=== PATIENT | female | born 1940 | race Caucasian/White ===

== ENCOUNTER 2018-08-30 15:48 | Inpatient (IN) ==
[2018-08-30] MEDS ORDERED: Naloxone 0.4 MG/ML INJ IVP PRN (18:13)
[2018-08-30] MEDS ORDERED: *HR* Dextrose 50 % in Water (Syg) 50 ML SYRINGE IVP PRN (18:15)
[2018-08-30] MEDS ORDERED: D5% in Water 1,000 ML IVC PRN (18:15)
[2018-08-30] MEDS ORDERED: Dextrose Gel 15 GM/37.5 ML TUBE PO PRN ×2 (18:15)
[2018-08-30] MEDS: D5% in 0.9% NACL 1,000 ML IVC SCH (18:56)
[2018-08-30 19:12] LABS: Hematocrit 34.5 % (35.3-44.9); Hemoglobin 11.5 g/dL (11.5-15.4); Mean Corpuscular HGB Conc 33.3 g/dL (31.6-35.5); Mean Corpuscular Hemoglobin 31.6 pg (28.0-33.3); Mean Corpuscular Volume 94.8 fL (83.0-100.0); Mean Platelet Volume 9.2 fL (9.4-12.4); Platelet Count 457 K/mcL (140-400); Red Blood Count 3.64 M/mcL (3.82-4.97); Red Cell Distribution Width 13.2 % (11.5-14.5)
[2018-08-30 19:22] LABS: Prothrombin Time 11.5 Seconds (9.4-12.1)
[2018-08-30 19:25] LABS: Activated Partial Thrombo Time 28.1 Seconds (26.0-36.0)
[2018-08-30 19:33] LABS: BUN/Creatinine Ratio 20 (6-26); Blood Urea Nitrogen 13 mg/dL (8-23); Calcium 8.8 mg/dL (8.6-10.3); Carbon Dioxide 30 mEq/L (23-29); Chloride 86 mEq/L (98-107); Glucose 83 mg/dL (70-105); Osmolality,Calculated 255 (280-300); Potassium 4.1 mEq/L (3.5-5.1); Sodium 123 mEq/L (136-145); eGFR For Non-African Americans > 60 (> 60)
[2018-08-30 19:34] LABS: Magnesium 1.8 mg/dL (1.6-2.6); Phosphorous 2.1 mg/dL (2.7-4.5)
[2018-08-30 19:35] LABS: Troponin I < 0.03 ng/mL (< 0.04)
[2018-08-30] MEDS ORDERED: Albuterol 2.5 MG/3 ML NEBULIZER IH PRN (19:51)
--- NOTE | 2018-08-30 20:00 | Internal Med History&Physical ---
Date of Encounter: 08/30/18 Time of Encounter: 19:35 Internal Medicine - H&P: HPI Chief complaint: cough; fatigue; poor PO intake Admitted From: Hospital to Hospital Transfer Plans for Post Hospital Care: Home History of present illness: Ms. Alegria is a 78 year old female who presents in transfer from [facility] for concerns of residual pneumonia, decreased oral fluid intake, fatigue, and altered mental status. She was recently hospitalized at [place] for pneumonia. Since since her discharge a few days ago, her status has declined at home including lack of fluid intake, increased confusion, weakness, and fatigue. She was therefore brought to the ER [place] and then transferred to [facility] for ongoing care. Of note, patient was noted to be dehydrated and hyponatremic there. Upon arrival to [facility], I saw her shortly after arrival. There are no family members present. Patient is alert, oriented 2, and somewhat confused. She admits to feeling fatigued, weak, having poor by mouth intake, cough, and mild dyspnea. She does not recall when she was hospitalized for pneumonia, and she thought she was in [facility] rather than [facility]. I reviewed her old records from [facility] stay just last week and note that she had sputum culture positive for MRSA. No further history can be obtained from patient at this time. Past Med Surg Social Fam HX - Past Medical History Attestation: Yes The following information was validated with the patient. Source: patient (limited hist as she was poor historian), old records reviewed Medical history: arthritis, COPD, GERD, hypertension, osteoporosis Psychiatric history: no psych history - Past Surgical History Surgical History: hysterectomy - Social History Smoking Status: Never smoker Smokeless Tobacco Status: No Alcohol use: none Drug use: none Current living situation: Home, With Family - Family History Mother Adopted: No Family Member Ethnicity: Non- Living Status: Hx Family Cardiac Disorders: (unknown) Hx Family Respiratory Disorders: (unknown) Hx Family Cancer: (unknown) Hx Family GI Disorders: (unknown) Hx Family Endocrine Disorder: (unknown) Hx Family Neuromuscular Disorders: (unknown) Hx Family Neurologic Disorders: (unknown) Hx Family HEENT Disorders: (unknown) Hx Family Autoimmune Disorders: (unknown) Internal Medicine - H&P: Meds Calcium Carbonate/Vitamin D3 [Calcium 600-Vit D3 800 Tablet] 1 each PO BID 06/19/15 [History] Cevimeline HCl [Evoxac] 30 mg PO TID 06/19/15 [History] Losartan [Cozaar] 50 mg PO DAILY 06/19/15 [History] TraMADol [Ultram] 100 mg PO Q6HR PRN 06/19/15 [History] Iron Ps Complex/B12/Folic Acid [Iferex 150 Forte Capsule] 1 each PO BID 12/26/16 [History] Metoprolol [Lopressor] 100 mg PO DAILY 04/08/18 [History] Buspirone HCl [Buspar] 7.5 mg PO BID 04/09/18 [History] Ranitidine HCl [Zantac] 300 mg PO DAILY 04/09/18 [History] amLODIPine [Norvasc] 10 mg PO DAILY 04/09/18 [History] Albuterol Neb [Proventil Neb] 2.5 mg IH [id number] PRN inhsol 04/14/18 [Rx] Docusate [Colace] 100 mg PO BID capsule 04/14/18 [Rx] Ipratropium/Albuterol Neb [Duoneb] 3 ml IH [id number] inhsol 04/14/18 [Rx] Ascorbic Acid [Vitamin C] 250 mg PO BID tablet 08/26/18 [Rx] Cholecalciferol (D-3) [Vitamin D] 1,000 unit PO DAILY tablet 08/26/18 [Rx] Polyethylene Glycol 3350 [MiraLAX] 17 gm PO DAILY powd.pack 08/26/18 [Rx] Sertraline [Zoloft] 50 mg PO DAILY tablet 08/26/18 [Rx] Allergy/AdvReac Type Severity Reaction Status Date / Time ciprofloxacin [From Cipro] Allergy Hallucinati Verified 08/30/18 13:13 ng - Constitutional Constitutional: anorexia, fatigue, weakness, no fever(s) - EENT Eyes: no blurry vision, no change in vision Ears: no ear pain, no tinnitus Nose, mouth and throat: no nasal congestion, no sore throat - Cardiovascular Cardiovascular ROS IM: no chest pain, no orthopnea, no syncope - Respiratory Respiratory: cough, dyspnea, chest congestion, no hemoptysis, no change in phlegm color - Gastrointestinal Gastrointestinal: nausea, no abdominal pain, no diarrhea, no hematemesis, no hematochezia, no melena, no vomiting - Genitourinary Genitourinary: no dysuria, no flank pain, no hematuria - Musculoskeletal Musculoskeletal ROS IM: arthralgias, no back pain - Integumentary Integumentary IM: no rash, no jaundice - Neurological Neurological ROS: confusion, no frequent falls, no headache(s) - Psychiatric Psychiatric: no anxiety, no depression - Endocrine Endocrine IM: no polydipsia, no polyuria - Allergic/Immunologic Allergic/Immunologic: no GI upset with certain foods - Constitutional Vitals: Temp Pulse Resp BP Pulse Ox 98.8 F 82 18 159/73 99 08/30/18 19:02 08/30/18 19:02 08/30/18 19:02 08/30/18 19:02 08/30/18 19:02 General appearance: Present: cooperative, A&O X 2, pleasant, answers questions appropriately Exam: somewhat pleasantly confused; appears moderately dehydrated on exam - Head Head exam: Present: atraumatic, normal inspection - Eye Eye exam: Present: EOMI, PERRL. Absent: scleral icterus - ENT ENT exam: Present: mucous membranes dry, normal exam, normal oropharynx - Neck Neck exam general surgery: Present: full ROM, supple. Absent: tenderness, nuchal rigidity, thyromegaly - Respiratory Respiratory exam: Present: rales (righ base), rhonchi. Absent: chest wall tenderness, prolonged expiratory phase, respiratory distress, wheezes, tachypnea - Cardiovascular Cardiovascular exam: Present: +S1, +S2, systolic murmur (grade 3). Absent: diastolic murmur, JVD, tachycardia - GI/Abdominal GI/Abdominal exam: Present: normal bowel sounds. Absent: guarding, hepatomegaly, mass, rebound, splenomegaly, tenderness - Extremities Exam Extremities exam: Present: full ROM, normal capillary refill, warm, radial pulses palpable and symmetrical. Absent: calf tenderness, pedal edema, tenderness - Back Exam Back exam: Absent: CVA tenderness (L), CVA tenderness (R) - Neurological Exam Neurological exam: Present: alert, CN II-XII intact, no focal deficits. Absent: oriented X3 (x 2) - Psychiatric Psychiatric exam: Present: flat affect - Skin Skin exam: Present: dry, intact, warm Additional comments: + skin tenting c/w dehydration Internal Med - H&P Results - Labs CBC & Chem 7: 08/30/18 18:54 08/30/18 18:54 Labs: Short CBC 08/30/18 Range/Units 18:54 WBC 18.0 H (4.3-11.1) K/mcL Hgb 11.5 (11.5-15.4) g/dL Hct 34.5 L (35.3-44.9) % Plt Count 457 H (140-400) K/mcL BMP 08/30/18 18:54 Sodium 123 L Potassium 4.1 Chloride 86 L Carbon Dioxide 30 H BUN 13 Creatinine 0.65 Glucose 83 Calcium 8.8 Cardiac Enzymes 08/30/18 Range/Units 18:54 Troponin I < 0.03 (< 0.04) ng/mL - EKG Data -: EKG Interpreted by Myself - EKG Data Prior EKG available for review: no EKG comments: 08/30/18 20:04 NSR; old inferior SC; no acute ST-T changes - Diagnostic Studies Chest x-ray Status: image reviewed by me Additional comments: improved RML infiltrate; still suspect residual pneumonia compared to last week's CXR. - Assessment and plan (1) MRSA pneumonia Current Visit: Yes Status: Acute Assessment and plan: 1. Will place patient in MRSA precautions. 2. Will continue IV Vancomycin and Zosyn. 3. Will re-culture sputum if able to collect. 4. Once improving clinically, may switch to oral antibiotics pending culture results. 5. Follow blood cultures. 6. Oxygen and aerosols as needed for support. Qualifiers: Laterality: right Lung location: middle lobe of lung Qualified Code(s): J15.212 - Pneumonia due to Methicillin resistant Staphylococcus aureus (2) Hyponatremia Current Visit: Yes Status: Acute Assessment and plan: 1. Based upon history and exam, suspect hypovolemic hyponatremic dehydration as etiology, in addition to pneumonia. 2. Will gingerly hydrate with IVF and monitor glucose closely. 3. Will order urine sodium and urine osmoles. 4. Med list does not include any diuretics. There are no reports of excessive vomiting or diarrhea. (3) Dehydration Current Visit: Yes Status: Acute Assessment and plan: 1. Carla IVF hydration as above. 2. Monitor serum chemistries closely. 3. Oral intake as able. (4) Encephalopathy acute Current Visit: Yes Status: Acute Assessment and plan: 1. Suspect due to MRSA pneumonia and dehydration. 2. Monitor clinically and await family presence to confirm baseline. 3. Avoid mind-altering medications. (5) DVT prophylaxis Current Visit: Yes Status: Acute Assessment and plan: 1. Heparin SQ.
[2018-08-30 23:21] LABS: BUN/Creatinine Ratio 19 (6-26); Blood Urea Nitrogen 11 mg/dL (8-23); Calcium 8.2 mg/dL (8.6-10.3); Carbon Dioxide 24 mEq/L (23-29); Chloride 87 mEq/L (98-107); Glucose 88 mg/dL (70-105); Magnesium 1.6 mg/dL (1.6-2.6); Osmolality,Calculated 253 (280-300); Potassium 3.7 mEq/L (3.5-5.1); Sodium 122 mEq/L (136-145); eGFR For Non-African Americans > 60 (> 60)
[2018-08-31] MEDS: Insulin LISPRO 300 UNITS/3 ML VIAL SQ SCH ×3 (00:25→13:19)
[2018-08-31] MEDS: Piperacillin/Tazobactam 3.375 GM in 0.9 % Sodium Chloride Mini Bag 100 ML IVPB SCH ×4 (00:40→23:51)
[2018-08-31] MEDS: *HR* Heparin 5,000 UNIT/ML VIAL SQ SCH ×4 (00:40→23:51)
[2018-08-31 04:43] LABS: BUN/Creatinine Ratio 11 (6-26); Blood Urea Nitrogen 8 mg/dL (8-23); Calcium 8.3 mg/dL (8.6-10.3); Carbon Dioxide 30 mEq/L (23-29); Chloride 85 mEq/L (98-107); Glucose 110 mg/dL (70-105); Magnesium 1.7 mg/dL (1.6-2.6); Osmolality,Calculated 253 (280-300); Potassium 3.7 mEq/L (3.5-5.1); Sodium 122 mEq/L (136-145); eGFR For Non-African Americans > 60 (> 60)
[2018-08-31 11:39] LABS: BUN/Creatinine Ratio 11 (6-26); Blood Urea Nitrogen 7 mg/dL (8-23); Calcium 8.3 mg/dL (8.6-10.3); Carbon Dioxide 29 mEq/L (23-29); Chloride 86 mEq/L (98-107); Glucose 120 mg/dL (70-105); Magnesium 1.6 mg/dL (1.6-2.6); Osmolality,Calculated 255 (280-300); Potassium 3.3 mEq/L (3.5-5.1); Sodium 123 mEq/L (136-145); eGFR For Non-African Americans > 60 (> 60)
[2018-08-31] MEDS: D5% in 0.9% NACL 1,000 ML IVC SCH (13:18)
[2018-08-31] MEDS: traMADol 50 MG TABLET PO PRN ×2 (14:56→20:33)
[2018-08-31 15:40] LABS: BUN/Creatinine Ratio 12 (6-26); Blood Urea Nitrogen 7 mg/dL (8-23); Calcium 8.1 mg/dL (8.6-10.3); Carbon Dioxide 26 mEq/L (23-29); Chloride 89 mEq/L (98-107); Glucose 152 mg/dL (70-105); Magnesium 1.6 mg/dL (1.6-2.6); Osmolality,Calculated 257 (280-300); Potassium 3.4 mEq/L (3.5-5.1); Sodium 123 mEq/L (136-145); eGFR For Non-African Americans > 60 (> 60)
--- NOTE | 2018-08-31 17:32 | Internal Med Progress Note ---
Hospitalist Progress Note - Encounter Date of Encounter: 08/31/18 Time of Encounter: 15:00 - Subjective Interval History: SUBJECTIVE: The patient feels weak. She does have a low bit of cough but not wheezing. No respiratory distress is seen. She has pulse ox of 98% on 2 L/min nasal cannula oxygen. OBJECTIVE: Skin: Free of rash and discoloration. ENMT: Oral/pharyngeal mucosa is normal in appearance. Eyes: Sclera is white. There is no discharge from eyes. Respiratory: Normal breath sounds; no crackles or wheezes. CV: Heart is regular; no gallop or murmur. GI: Abdomen is soft and not tender. There is no palpable mass or visceromegaly. Neuro: There is no focal deficits. ADDITIONAL DATA: Chest x-ray from yesterday showed bibasilar atelectasis and scarring. Without focal consolidation. CBC from yesterday revealed hemoglobin of 11.5 with WBC of 18.0 thousand. Platelet count was 457,000. Todays BMP shows sodium of 122 (the same yesterday) with potassium of 3.7, chloride of 85 and bicarb of 30. Magnesium is 1.7. ASSESSMENT AND PLAN: The patient is admitted with acute encephalopathy, likely infectious in origin. We suspect her to have MRSA pneumonia (sputum was positive for MRSA recently). Her altered mental status could be also caused by severe hyponatremia. She had sodium of 133 on 08/22/18. She does have leukocytosis of 18,000. A chest x-ray is nonconclusive. xxx. I am going to repeat her CBC and chest x-ray tomorrow morning. Together with BMP. I will continue IV vancomycin/IV Zosyn. I will keep her Zoloft on holdcould be because of her hyponatremia. - Exam Vitals: Temp Pulse Resp BP Pulse Ox 98.2 F 119 18 158/76 98 08/31/18 14:00 08/31/18 14:00 08/31/18 14:00 08/31/18 14:00 08/31/18 14:00 Exam: xx - Assessment and Plan (1) MRSA pneumonia Current Visit: Yes Status: Suspected (2) Leukocytosis Current Visit: Yes Status: Acute (3) Hyponatremia Current Visit: Yes Status: Acute (4) Encephalopathy acute Current Visit: Yes Status: Acute - Time Spent with Patient Total time spent is greater than 50% in coordination of care (as documented) at patient's floor/unit and/or counseling patient: 25 - 35 minutes Plan of Care Discussed with: patient Internal Medicine: Result - Labs CBC & Chem 7: 08/30/18 18:54 08/31/18 15:13 Labs: Short CBC 08/30/18 Range/Units 18:54 WBC 18.0 H (4.3-11.1) K/mcL Hgb 11.5 (11.5-15.4) g/dL Hct 34.5 L (35.3-44.9) % Plt Count 457 H (140-400) K/mcL BMP 08/30/18 08/30/18 08/31/18 18:54 22:51 03:40 Sodium 123 L 122 L 122 L Potassium 4.1 3.7 3.7 Chloride 86 L 87 L 85 L Carbon Dioxide 30 H 24 30 H BUN 13 11 8 Creatinine 0.65 0.57 L 0.72 Glucose 83 88 110 H Calcium 8.8 8.2 L 8.3 L 08/31/18 08/31/18 10:59 15:13 Sodium 123 L 123 L Potassium 3.3 L 3.4 L Chloride 86 L 89 L Carbon Dioxide 29 26 BUN 7 L 7 L Creatinine 0.63 0.59 L Glucose 120 H 152 H Calcium 8.3 L 8.1 L Cardiac Enzymes 08/30/18 Range/Units 18:54 Troponin I < 0.03 (< 0.04) ng/mL - ABG Interpretation ABG results: PT/INR, D-dimer PT 11.5 Seconds (9.4-12.1) 08/30/18 18:54 Consult Discharge Plan - Plan Referrals: NONE,PCP [Primary Care Provider] - (1) MRSA pneumonia Qualifiers: Lung location: unspecified part of lung (2) Leukocytosis Qualifiers: Leukocytosis type: unspecified Qualified Code(s): D72.829 - Elevated white blood cell count, unspecified
[2018-08-31 20:19] LABS: BUN/Creatinine Ratio 12 (6-26); Blood Urea Nitrogen 7 mg/dL (8-23); Calcium 8.2 mg/dL (8.6-10.3); Carbon Dioxide 27 mEq/L (23-29); Chloride 87 mEq/L (98-107); Glucose 123 mg/dL (70-105); Magnesium 1.6 mg/dL (1.6-2.6); Osmolality,Calculated 253 (280-300); Sodium 122 mEq/L (136-145); eGFR For Non-African Americans > 60 (> 60)
[2018-08-31 23:31] LABS: BUN/Creatinine Ratio 12 (6-26); Blood Urea Nitrogen 6 mg/dL (8-23); Calcium 7.6 mg/dL (8.6-10.3); Carbon Dioxide 26 mEq/L (23-29); Chloride 90 mEq/L (98-107); Glucose 126 mg/dL (70-105); Magnesium 1.6 mg/dL (1.6-2.6); Osmolality,Calculated 253 (280-300); Sodium 122 mEq/L (136-145); eGFR For Non-African Americans > 60 (> 60)
[2018-09-01] MEDS: traMADol 50 MG TABLET PO PRN ×3 (02:31→21:10)
[2018-09-01 03:16] LABS: Basophils % 0.2 %; Eosinophils % 0.2 %; Hematocrit 33.8 % (35.3-44.9); Hemoglobin 11.3 g/dL (11.5-15.4); Immature Granulocytes % 1.9 % (0-4); Immature Platelets 1.8 % (1.1-6.1); Lymphocytes # 0.5 K/mcL (0.6-4.6); Lymphocytes % 4.2 %; Mean Corpuscular HGB Conc 33.4 g/dL (31.6-35.5); Mean Corpuscular Hemoglobin 31.2 pg (28.0-33.3); Mean Corpuscular Volume 93.4 fL (83.0-100.0); Mean Platelet Volume 8.9 fL (9.4-12.4); Monocytes # 1.4 K/mcL (0.0-1.3); Monocytes % 11.2 %; Neutrophils # 10.1 K/mcL (1.6-8.9); Platelet Count 384 K/mcL (140-400); Red Blood Count 3.62 M/mcL (3.82-4.97); Red Cell Distribution Width 13.2 % (11.5-14.5); Segmented Neutrophils % 82.3 %
[2018-09-01 03:45] LABS: BUN/Creatinine Ratio 11 (6-26); Blood Urea Nitrogen 6 mg/dL (8-23); Calcium 7.7 mg/dL (8.6-10.3); Carbon Dioxide 28 mEq/L (23-29); Chloride 90 mEq/L (98-107); Glucose 120 mg/dL (70-105); Magnesium 1.8 mg/dL (1.6-2.6); Osmolality,Calculated 255 (280-300); Potassium 3.6 mEq/L (3.5-5.1); Sodium 123 mEq/L (136-145); eGFR For Non-African Americans > 60 (> 60)
[2018-09-01] MEDS: D5% in 0.9% NACL 1,000 ML IVC SCH (06:39)
[2018-09-01] MEDS: *HR* Heparin 5,000 UNIT/ML VIAL SQ SCH ×3 (09:02→22:59)
[2018-09-01] MEDS: Famotidine 20 MG TABLET PO SCH (09:03)
[2018-09-01] MEDS: amLODIPine 5 MG TABLET PO SCH (09:04)
[2018-09-01] MEDS: Piperacillin/Tazobactam 3.375 GM in 0.9 % Sodium Chloride Mini Bag 100 ML IVPB SCH ×3 (10:30→22:59)
--- NOTE | 2018-09-01 21:39 | Internal Med Progress Note ---
Hospitalist Progress Note - Encounter Date of Encounter: 09/01/18 Time of Encounter: 15:00 - Subjective Interval History: SUBJECTIVE: She feels weak. She complains of low back pain. Denies chest pain and difficulty breathing. She does have mild cough but not wheezing. She is using supplemental oxygen at 2.5 L/min nasal cannula oxygen. OBJECTIVE: Skin: Free of rash and discoloration. ENMT: Oral/pharyngeal mucosa is normal in appearance. Eyes: Sclera is white. There is no discharge from eyes. Respiratory: Normal breath sounds; no crackles or wheezes. CV: Heart is regular; no gallop or murmur. GI: Abdomen is soft and not tender. There is no palpable mass or visceromegaly. Neuro: There is no focal deficits. ADDITIONAL DATA: Chest x-ray from today shows improved aeration of right middle lobe with some residual atelectasis or fibrosis in the right middle lobe and lung bases. WBCs 12.3 thousand; 18.0 thousand 2 days ago. Her sodium is 123; 122 yesterday. With normal potassium/chloride/bicarb. Creatinine is 0.56. Magnesium is 1.8. ASSESSMENT AND PLAN: Her encephalopathic he is pretty much gone. It was likely infectious in origin. We suspect her to have MRSA pneumonia (sputum was positive for MRSA recently). Her altered mental status could be also caused by severe hyponatremia. She had sodium of 133 on 08/22/18. I will continue IV vancomycin/IV Zosyn. I will keep her Zoloft on hold; could be cause of her hyponatremia. I will check her electrolytes in the morning. - Exam Vitals: Temp Pulse Resp BP Pulse Ox 98.3 F 88 16 135/66 96 09/01/18 21:09 09/01/18 21:09 09/01/18 21:09 09/01/18 21:09 09/01/18 21:09 Exam: xx - Assessment and Plan (1) MRSA pneumonia Current Visit: Yes Status: Suspected (2) Leukocytosis Current Visit: Yes Status: Acute (3) Hyponatremia Current Visit: Yes Status: Acute (4) Encephalopathy acute Current Visit: Yes Status: Acute - Time Spent with Patient Total time spent is greater than 50% in coordination of care (as documented) at patient's floor/unit and/or counseling patient: 25 - 35 minutes Plan of Care Discussed with: patient Internal Medicine: Result - Labs CBC & Chem 7: 09/01/18 03:06 09/01/18 03:06 Labs: Short CBC 09/01/18 Range/Units 03:06 WBC 12.3 H (4.3-11.1) K/mcL Hgb 11.3 L (11.5-15.4) g/dL Hct 33.8 L (35.3-44.9) % Plt Count 384 (140-400) K/mcL Neutrophils # 10.1 H (1.6-8.9) K/mcL BMP 08/31/18 09/01/18 22:58 03:06 Sodium 122 L 123 L Potassium 3.0 L 3.6 Chloride 90 L 90 L Carbon Dioxide 26 28 BUN 6 L 6 L Creatinine 0.50 L 0.56 L Glucose 126 H 120 H Calcium 7.6 L 7.7 L - ABG Interpretation ABG results: PT/INR, D-dimer PT 11.5 Seconds (9.4-12.1) 08/30/18 18:54 - Impressions Impressions Chest X-Ray 09/01/18 07:00 IMPRESSION: Improved aeration right middle lobe with some residual atelectasis or fibrosis in the right middle lobe and lung bases. Chronic kyphoscoliosis lower thoracic spine. D/ / 09/01/2018 16:52:47 Dagoberto Tyson MD / jammie Interpreting Provider: Dagoberto Tyson MD Consult Discharge Plan - Plan Referrals: NONE,PCP [Primary Care Provider] - Rom العراقي, TIMBER INSPECTOR [Non-Partnered Physician] - 09/11/18 10:20 am (Please follow up as schedule....) (1) MRSA pneumonia Qualifiers: Lung location: unspecified part of lung (2) Leukocytosis Qualifiers: Leukocytosis type: unspecified Qualified Code(s): D72.829 - Elevated white blood cell count, unspecified
[2018-09-02] MEDS: D5% in 0.9% NACL 1,000 ML IVC SCH (05:02)
[2018-09-02] MEDS: traMADol 50 MG TABLET PO PRN ×3 (05:02→18:32)
[2018-09-02 06:03] LABS: Potassium 2.7 mEq/L (3.5-5.1)
[2018-09-02] MEDS ORDERED: Albuterol 2.5 MG/3 ML NEBULIZER IH PRN (08:35)
--- NOTE | 2018-09-02 09:04 | Internal Med Progress Note ---
<Lui Gomez - Last Filed: 09/02/18 14:45> Hospitalist Progress Note - Encounter Date of Encounter: 09/02/18 Time of Encounter: 10:25 - Exam Vitals: Temp Pulse Resp BP Pulse Ox 97.8 F 78 18 116/73 97 09/02/18 12:34 09/02/18 12:34 09/02/18 12:34 09/02/18 12:34 09/02/18 12:34 - Assessment and Plan (1) Leukocytosis Current Visit: Yes Status: Acute (2) MRSA pneumonia Current Visit: Yes Status: Suspected (3) Hyponatremia Current Visit: Yes Status: Acute (4) Encephalopathy acute Current Visit: Yes Status: Resolved DVT Prophylaxis: With subcutaneous heparin - Time Spent with Patient Total time spent is greater than 50% in coordination of care (as documented) at patient's floor/unit and/or counseling patient: Internal Medicine: Result - Labs CBC & Chem 7: 09/01/18 03:06 09/02/18 05:23 Labs: BMP 09/02/18 05:23 Sodium 132 L Potassium 2.7 L Chloride 102 Carbon Dioxide 25 - ABG Interpretation ABG results: PT/INR, D-dimer PT 11.5 Seconds (9.4-12.1) 08/30/18 18:54 - Impressions Impressions Chest X-Ray 09/01/18 07:00 IMPRESSION: Improved aeration right middle lobe with some residual atelectasis or fibrosis in the right middle lobe and lung bases. Chronic kyphoscoliosis lower thoracic spine. D/ / 09/01/2018 16:52:47 Dagoberto Tyson MD / jammie Interpreting Provider: Dagoberto Tyson MD Consult Discharge Plan - Plan Referrals: NONE,PCP [Primary Care Provider] - Rom العراقي, MILITARY ADMINISTRATIVE TECHNICIAN [Non-Partnered Physician] - 09/11/18 10:20 am (Please follow up as schedule....) - Attending Attestation I saw evaluated and examined this patient and my medical decision-making was reviewed with the Resident Physician, Fredi Haynes. I agree with the documented findings, disposition and treatment plan as described except to any changes set forth below. We independently had [id number] contact with the patient. Patient evaluated earlier today. Was awake and alert. Eating breakfast. She knew that she was at Hospital in [place]. She denies any chest pain or palpitations. Does feel weak overall. General: Patient is alert, no acute distress, oriented x 2 ENT: Mucous membranes moist Respiratory: Course breath sounds bilaterally Cardiovascular: Regular rate and rhythm. s1 and s2 normal No clicks, rubs, gallops, or murmurs. No pedal edema Abdomen: Abdomen is soft, nontender. Bowel sounds are present Musculoskeletal: Spontaneously moving all extremities Skin: warm, dry, intact. Neuro: Alert oriented x 2 normal cranial nerves, no focal deficits Acute encephalopathy: Most likely septic encephalopathy due to underlying MRSA pneumonia. Continue treating underlying condition. Encephalopathy resolving. Hyponatremia: Improved. Sodium 132 today. Most likely due to dehydration. Will stop IV fluids. MRSA pneumonia: Based on his sputum culture findings from her last hospitalization at [place]. Continue IV vancomycin. If patient continues to improve, plan to discharge her on oral Zyvox Hypokalemia: Potassium 2.7 today. We will replete. COPD: Not in acute exacerbation. Continue bronchodilators as needed. Dehydration: Improved. Moderate risk for complications. <Fredi Haynes - Last Filed: 09/02/18 16:03> Hospitalist Progress Note - Encounter Date of Encounter: 09/02/18 Time of Encounter: 09:01 - Subjective Interval History: Patient was seen and examined up and since morning. Overall she states that she is feeling much better when compared to presentation. She states that she has been struggling with a pneumonia 3 times in the past month. She states she has been having a purulent cough and this time but this improved. She does admit to some dull pleuritic chest pain in association with this cough. Denies any symptoms of fevers, chills, nausea, vomiting. She is tolerating breakfast well. She states her breathing is near her baseline and she is oxygen dependent at home. - Exam Vitals: Temp Pulse Resp BP Pulse Ox 98.8 F 86 16 130/79 96 09/02/18 08:41 09/02/18 08:41 09/02/18 08:41 09/02/18 08:41 09/02/18 08:41 Exam: Gen.: Vitals noted. No acute distress. AAOx3, resting comfortably in bed. HEENT: PERRL/EOMI, oropharynx clear, Normocephalic, atraumatic, MMM Cardiac: RRR, no murmur, +S1/S2, No BLE edema Pulmonary: Coarse breath sounds, rhonchi bilaterally. equal chest expansion, unlabored breathing Abdomen: soft, nontender, BS noted, no guarding, no palpable HSM Skin: warm and dry, no visible lesions. MSK: ROM intact, no joint swelling noted, gait no assessed while in bed. Non tender calf or clubbing Neuro: A&Ox3, moves all extremities, no focal deficits Psych: Appropriate mood and behavior, AOx3 - Assessment and Plan (1) MRSA pneumonia Current Visit: Yes Status: Suspected Assessment and Plan: - Suspected MRSA pneumonia given previous culture results at [facility]. Sputum positive for MRSA - Was previously treated with vancomycin and Zosyn discharged home on 7 day course of Bactrim - Patient does not remember the events or history however does state that she was having a purulent cough - Nonseptic at time of presentation however did have a leukocytosis of 19,000 - Chest x-ray on 08/30 shows bibasilar atelectasis with scarring without evidence of consolidation - Repeat chest x-ray on 09/01 shows improved aeration from previous - Clinically patient reports improvement in leukocytosis has improved to 12.3 - Is currently on vancomycin day #4, Zosyn day #3 Plan - We will de-escalate today to only vancomycin day #4, possible discharge with oral linezolid once ready for discharge. - Continue contact precautions - Continue supplemental oxygen - We will add incentive spirometry as well as home bronchodilators (2) Hyponatremia Current Visit: Yes Status: Acute Assessment and Plan: - Improving - Most recent value of 132 this morning - Sodium on presentation as low as 122, baseline appears to be in the mid 130s - Likely etiology at this time as dehydration/poor oral intake, no home diuretic use - Has improved with administration of normal saline, patient appears to be euvolemic this morning -Urine studies obtained which do not show sodium wasting however they were collected on day 2 of admission Plan - We will continue to encourage oral intake, discontinue fluids at this time - Suspect that with improved diet this will soon normalized to her baseline levels - We will continue monitor daily labs (3) Hypokalemia Current Visit: Yes Status: Acute Assessment and Plan: - Low today at 2.7 - Etiology may be related to poor oral intake - We will give 80 mEq as well as 2 milligrams of magnesium - Magnesium levels pending, we will recheck potassium levels afternoon - Continue daily labs (4) Essential hypertension Current Visit: Yes Status: Chronic Assessment and Plan: - Well Controlled today - We will continue home medications (5) COPD (chronic obstructive pulmonary disease) Current Visit: Yes Status: Chronic Assessment and Plan: - Does not appear to be in acute exacerbation - Mildly rhonchorous on exam today, we will resume home bronchodilators (6) Dehydration Current Visit: Yes Status: Resolved Assessment and Plan: Likely secondary to infection Euvolemic on exam today, resolved We will continue to encourage diet (7) Encephalopathy acute Current Visit: Yes Status: Resolved Assessment and Plan: - Suspect infectious etiology versus dehydration versus hypernatremia - Suspect this is more likely related to dehydration more than alternative etiologies - This appears to be a resolved as patient is alert and oriented on exam today - Continue supportive care as above (8) DVT prophylaxis Current Visit: Yes Status: Acute Assessment and Plan: Subcutaneous heparin - Time Spent with Patient Total time spent is greater than 50% in coordination of care (as documented) at patient's floor/unit and/or counseling patient: Internal Medicine: Result - Labs CBC & Chem 7: 09/01/18 03:06 09/02/18 14:17 Labs: BMP 09/02/18 05:23 Sodium 132 L Potassium 2.7 L Chloride 102 Carbon Dioxide 25 - ABG Interpretation ABG results: PT/INR, D-dimer PT 11.5 Seconds (9.4-12.1) 08/30/18 18:54 - Impressions Impressions Chest X-Ray 09/01/18 07:00 IMPRESSION: Improved aeration right middle lobe with some residual atelectasis or fibrosis in the right middle lobe and lung bases. Chronic kyphoscoliosis lower thoracic spine. D/ / 09/01/2018 16:52:47 Dagoberto Tyson MD / jammie Interpreting Provider: Dagoberto Tyson MD <Lui Gomez - Last Filed: 09/02/18 14:45> (1) Leukocytosis Qualifiers: Leukocytosis type: unspecified Qualified Code(s): D72.829 - Elevated white blood cell count, unspecified (2) MRSA pneumonia Qualifiers: Laterality: bilateral Lung location: unspecified part of lung Qualified Code(s): J15.212 - Pneumonia due to Methicillin resistant Staphylococcus aureus <Fredi Haynes - Last Filed: 09/02/18 16:03> (1) MRSA pneumonia Qualifiers: Laterality: bilateral Lung location: unspecified part of lung Qualified Code(s): J15.212 - Pneumonia due to Methicillin resistant Staphylococcus aureus (5) COPD (chronic obstructive pulmonary disease) Qualifiers: COPD type: unspecified COPD Qualified Code(s): J44.9 - Chronic obstructive pulmonary disease, unspecified
[2018-09-02] MEDS: Ipratropium/Albuterol Neb 3 ML IH SCH ×3 (09:37→22:26)
[2018-09-02] MEDS: Famotidine 20 MG TABLET PO SCH (10:36)
[2018-09-02] MEDS: amLODIPine 5 MG TABLET PO SCH (10:36)
[2018-09-02] MEDS: *HR* Heparin 5,000 UNIT/ML VIAL SQ SCH ×2 (10:37→15:30)
[2018-09-02] MEDS: Piperacillin/Tazobactam 3.375 GM in 0.9 % Sodium Chloride Mini Bag 100 ML IVPB SCH ×2 (10:38→15:31)
[2018-09-02 14:17] LABS: Magnesium 1.6 mg/dL (1.6-2.6)
[2018-09-02] MEDS ORDERED: Potassium Chloride 40 MEQ, Lidocaine 1% 2 ML in D5% in Water 500 ML IVPB ONE (17:09)
[2018-09-03] MEDS: Piperacillin/Tazobactam 3.375 GM in 0.9 % Sodium Chloride Mini Bag 100 ML IVPB SCH ×2 (00:18→08:24)
[2018-09-03] MEDS: *HR* Heparin 5,000 UNIT/ML VIAL SQ SCH ×4 (00:19→22:39)
[2018-09-03] MEDS: traMADol 50 MG TABLET PO PRN ×3 (03:43→22:39)
[2018-09-03] MEDS: Ipratropium/Albuterol Neb 3 ML IH SCH ×4 (04:43→21:35)
[2018-09-03 04:52] LABS: Basophils % 0.4 %; Eosinophils # 0.1 K/mcL (0.0-0.6); Eosinophils % 0.7 %; Immature Granulocytes % 1.3 % (0-4); Lymphocytes # 0.6 K/mcL (0.6-4.6); Lymphocytes % 5.9 %; Mean Corpuscular HGB Conc 32.7 g/dL (31.6-35.5); Mean Corpuscular Hemoglobin 31.1 pg (28.0-33.3); Mean Corpuscular Volume 95.2 fL (83.0-100.0); Monocytes # 1.1 K/mcL (0.0-1.3); Platelet Count 302 K/mcL (140-400); Red Blood Count 3.15 M/mcL (3.82-4.97); Red Cell Distribution Width 14.1 % (11.5-14.5); Segmented Neutrophils % 80.7 %
[2018-09-03 05:05] LABS: BUN/Creatinine Ratio 8 (6-26); Blood Urea Nitrogen 6 mg/dL (8-23); Calcium 7.7 mg/dL (8.6-10.3); Carbon Dioxide 24 mEq/L (23-29); Chloride 105 mEq/L (98-107); Glucose 104 mg/dL (70-105); Osmolality,Calculated 278 (280-300); Potassium 3.5 mEq/L (3.5-5.1); Sodium 135 mEq/L (136-145); eGFR For Non-African Americans > 60 (> 60)
[2018-09-03 05:16] LABS: Hemoglobin 9.8 g/dL (11.5-15.4); Neutrophils # 8.2 K/mcL (1.6-8.9)
[2018-09-03 05:17] LABS: Platelet Estimate Normal (Normal)
[2018-09-03] MEDS: Famotidine 20 MG TABLET PO SCH (08:23)
[2018-09-03] MEDS: amLODIPine 5 MG TABLET PO SCH (08:23)
--- NOTE | 2018-09-03 09:59 | Internal Med Progress Note ---
<Tariq Anand - Last Filed: 09/03/18 12:38> Hospitalist Progress Note - Encounter Date of Encounter: 09/03/18 - Exam Vitals: Temp Pulse Resp BP Pulse Ox 97.6 F 77 20 136/73 98 09/03/18 11:28 09/03/18 11:28 09/03/18 11:28 09/03/18 11:28 09/03/18 11:28 - Assessment and Plan (1) Leukocytosis Current Visit: Yes Status: Acute (2) MRSA pneumonia Current Visit: Yes Status: Suspected (3) Hyponatremia Current Visit: Yes Status: Acute (4) Encephalopathy acute Current Visit: Yes Status: Resolved (5) Hypokalemia Current Visit: Yes Status: Resolved (6) Essential hypertension Current Visit: Yes Status: Chronic (7) COPD (chronic obstructive pulmonary disease) Current Visit: Yes Status: Chronic (8) Dehydration Current Visit: Yes Status: Resolved - Time Spent with Patient Total time spent is greater than 50% in coordination of care (as documented) at patient's floor/unit and/or counseling patient: Internal Medicine: Result - Labs CBC & Chem 7: 09/03/18 04:20 09/03/18 04:20 Labs: Short CBC 09/03/18 Range/Units 04:20 WBC 10.1 (4.3-11.1) K/mcL Hgb 9.8 L D (11.5-15.4) g/dL Hct 30.0 L (35.3-44.9) % Plt Count 302 (140-400) K/mcL Neutrophils # 8.2 (1.6-8.9) K/mcL BMP 09/02/18 09/02/18 09/03/18 05:23 14:17 04:20 Sodium 132 L 135 L Potassium 2.7 L 3.1 L 3.5 Chloride 102 105 Carbon Dioxide 25 24 BUN 6 L Creatinine 0.71 Glucose 104 Calcium 7.7 L - ABG Interpretation ABG results: PT/INR, D-dimer PT 11.5 Seconds (9.4-12.1) 08/30/18 18:54 Consult Discharge Plan - Plan Referrals: NONE,PCP [Primary Care Provider] - Rom العراقي, SUPERVISOR COMMUNICATIONS AND SIGNALS [Non-Partnered Physician] - 09/11/18 10:20 am (Please follow up as schedule....) - Attending Attestation I examined this patient and my medical decision-making was reviewed with the Resident Physician on 09/03/18. I agree with the documented findings, disposition and treatment plan as described except to the extent set forth below. Ms Alegria is currently admitted for pneumonia presumed due to MRSA and hyponatremia. She remains moderate to high risk due to potential for worsening clinical and respiratory status. Ms Alegria was just seen by PT/OT. She is now up in the chair and using incentive spirometry. She feels her breathing and coughing are somewhat better. Still feels a "little off." No fever or chills. No CP at this time. No GI issues. Exam alert Comfortable up in chair. Mucus membranes dry Heart distant and not tachy Coarse rhonchi bilaterally Abd soft and nontender No edema I/P 1. Probable MRSA pneumonia - on IV Vancomycin. Will complete at least 7 days. Follow clinically for further improvement. 2. Hyponatremia - most likely related to volume depletion. Slowly improving. 3. Hypokalemia - improved today 4. HTN 5. COPD Will begin work on discharge planning. Further diagnoses and plan as above. <KobysarathFredi - Last Filed: 09/03/18 17:20> Hospitalist Progress Note - Encounter Date of Encounter: 09/03/18 Time of Encounter: 09:58 - Subjective Interval History: Patient was seen and examined at bedside this morning. She states that overall she continues to feel better but is not quite herself yet. She reports no SOB, fevers, chills and her cough is improved. She feels like her energy levels are still lacking. She is agreeable to trying to move around more with PT and sitting in chair. - Exam Vitals: Temp Pulse Resp BP Pulse Ox 97.6 F 87 20 159/88 96 09/03/18 07:37 09/03/18 07:37 09/03/18 07:37 09/03/18 07:37 09/03/18 08:35 Exam: Gen.: Vitals noted. No acute distress. AAOx3, resting comfortably in bed. HEENT: PERRL/EOMI, oropharynx clear, Normocephalic, atraumatic, MMM Cardiac: RRR, no murmur, +S1/S2, No BLE edema Pulmonary: Coarse breath sounds, rhonchi bilaterally which may be mildly worsened. equal chest expansion, unlabored breathing Abdomen: soft, nontender, BS noted, no guarding, no palpable HSM Skin: warm and dry, no visible lesions. MSK: ROM intact, no joint swelling noted, gait no assessed while in bed. Non tender calf or clubbing Neuro: A&Ox3, moves all extremities, no focal deficits Psych: Appropriate mood and behavior, AOx3 - Assessment and Plan (1) MRSA pneumonia Current Visit: Yes Status: Suspected Assessment and Plan: - Suspected MRSA pneumonia given previous culture results at [facility]. Sputum positive for MRSA - Was previously treated with vancomycin and Zosyn discharged home on 7 day course of Bactrim - Patient does not remember the events or history however does state that she was having a purulent cough - Nonseptic at time of presentation however did have a leukocytosis of 19,000 - Chest x-ray on 08/30 shows bibasilar atelectasis with scarring without evidence of consolidation - Repeat chest x-ray on 09/01 shows improved aeration from previous - Clinically patient reports improvement in leukocytosis has improved to 12.3 - Is currently on vancomycin day #5, Zosyn day #4 Plan - We will de-escalate today to only vancomycin day #5, possible discharge with oral linezolid once ready for discharge. - Continue contact precautions - Continue supplemental oxygen - We will add incentive spirometry as well as home bronchodilators - Will obtain PT/OT consult for possible need for placement on discharge. (2) Hyponatremia Current Visit: Yes Status: Resolved Assessment and Plan: - Resolved - Most recent value of 135 this morning - Sodium on presentation as low as 122, baseline appears to be in the mid 130s - Likely etiology at this time as dehydration/poor oral intake, no home diuretic use - Has improved with administration of normal saline, patient appears to be euvolemic this morning -Urine studies obtained which do not show sodium wasting however they were collected on day 2 of admission Plan - We will continue to encourage oral intake, discontinue fluids at this time - Suspect that with improved diet this will soon normalized to her baseline levels - We will continue monitor daily labs (3) Hypokalemia Current Visit: Yes Status: Resolved Assessment and Plan: -Improved today to 3.5 after repletion - Etiology may be related to poor oral intake - Magnesium of 1.6 and replaced - Continue daily labs (4) Essential hypertension Current Visit: Yes Status: Chronic Assessment and Plan: - Mildly elevated this morning at 159/88 - We will continue to monitor and add hydralazine when necessary for systolic rate 160 - Continue home meds (5) COPD (chronic obstructive pulmonary disease) Current Visit: Yes Status: Chronic Assessment and Plan: - Does not appear to be in acute exacerbation - Mildly rhonchorous on exam again today, we will resume home bronchodilators (6) Dehydration Current Visit: Yes Status: Resolved Assessment and Plan: Likely secondary to infection Euvolemic on exam today, resolved We will continue to encourage diet (7) Encephalopathy acute Current Visit: Yes Status: Resolved Assessment and Plan: - Suspect septic etiology versus dehydration versus hypernatremia - This appears to be a resolved as patient is alert and oriented on exam today - Continue supportive care as above (8) DVT prophylaxis Current Visit: Yes Status: Acute Assessment and Plan: Subcutaneous heparin - Time Spent with Patient Total time spent is greater than 50% in coordination of care (as documented) at patient's floor/unit and/or counseling patient: Plan of Care Discussed with: patient Internal Medicine: Result - Labs CBC & Chem 7: 09/03/18 04:20 09/03/18 04:20 Labs: Short CBC 09/03/18 Range/Units 04:20 WBC 10.1 (4.3-11.1) K/mcL Hgb 9.8 L D (11.5-15.4) g/dL Hct 30.0 L (35.3-44.9) % Plt Count 302 (140-400) K/mcL Neutrophils # 8.2 (1.6-8.9) K/mcL BMP 09/02/18 09/02/18 09/03/18 05:23 14:17 04:20 Sodium 132 L 135 L Potassium 2.7 L 3.1 L 3.5 Chloride 102 105 Carbon Dioxide 25 24 BUN 6 L Creatinine 0.71 Glucose 104 Calcium 7.7 L - ABG Interpretation ABG results: PT/INR, D-dimer PT 11.5 Seconds (9.4-12.1) 08/30/18 18:54 __ <Tariq Anand - Last Filed: 09/03/18 12:38> (1) Leukocytosis Qualifiers: Leukocytosis type: unspecified Qualified Code(s): D72.829 - Elevated white blood cell count, unspecified (2) MRSA pneumonia Qualifiers: Laterality: bilateral Lung location: unspecified part of lung Qualified Code(s): J15.212 - Pneumonia due to Methicillin resistant Staphylococcus aureus (7) COPD (chronic obstructive pulmonary disease) Qualifiers: COPD type: unspecified COPD Qualified Code(s): J44.9 - Chronic obstructive pulmonary disease, unspecified <Fredi Haynes - Last Filed: 09/03/18 17:20> (1) MRSA pneumonia Qualifiers: Laterality: bilateral Lung location: unspecified part of lung Qualified Cod e(s): J15.212 - Pneumonia due to Methicillin resistant Staphylococcus aureus (5) COPD (chronic obstructive pulmonary disease) Qualifiers: COPD type: unspecified COPD Qualified Code(s): J44.9 - Chronic obstructive pulmonary disease, unspecified
[2018-09-04 04:09] LABS: Hematocrit 28.3 % (35.3-44.9); Hemoglobin 9.1 g/dL (11.5-15.4); Mean Corpuscular HGB Conc 32.2 g/dL (31.6-35.5); Mean Corpuscular Hemoglobin 31.1 pg (28.0-33.3); Mean Corpuscular Volume 96.6 fL (83.0-100.0); Mean Platelet Volume 9.4 fL (9.4-12.4); Platelet Count 290 K/mcL (140-400); Red Blood Count 2.93 M/mcL (3.82-4.97); Red Cell Distribution Width 14.4 % (11.5-14.5)
[2018-09-04] MEDS: Ipratropium/Albuterol Neb 3 ML IH SCH ×4 (04:10→22:08)
[2018-09-04 04:22] LABS: Calcium 7.9 mg/dL (8.6-10.3); Magnesium 1.7 mg/dL (1.6-2.6); Potassium 3.5 mEq/L (3.5-5.1)
[2018-09-04] MEDS ORDERED: Aminoglycoside Consult 1 EACH MC ONE (08:23)
[2018-09-04] MEDS: *HR* Heparin 5,000 UNIT/ML VIAL SQ SCH ×2 (09:04→15:59)
[2018-09-04] MEDS: amLODIPine 5 MG TABLET PO SCH (09:04)
[2018-09-04] MEDS: Famotidine 20 MG TABLET PO SCH (09:05)
[2018-09-04] MEDS: traMADol 50 MG TABLET PO PRN ×2 (09:05→21:25)
--- NOTE | 2018-09-04 13:57 | Discharge Summary ---
Orders not resulted at time of discharge: Pending orders 08/30/18 18:54 Culture,Blood [BC] Stat Date of Encounter: 09/04/18 Time of Encounter: 09:15 - Discharge Diagnosis (1) MRSA pneumonia Status: Suspected Qualifiers: Laterality: bilateral Lung location: unspecified part of lung Qualified Code(s): J15.212 - Pneumonia due to Methicillin resistant Staphylococcus aureus (2) Hyponatremia Status: Resolved (3) Hypokalemia Status: Resolved (4) Essential hypertension Status: Chronic (5) COPD (chronic obstructive pulmonary disease) Status: Chronic Qualifiers: COPD type: unspecified COPD Qualified Code(s): J44.9 - Chronic obstructive pulmonary disease, unspecified (6) Dehydration Status: Resolved (7) Encephalopathy acute Status: Resolved (8) DVT prophylaxis Status: Acute Hospital course: Ms. Alegria is a 78 year old female - Time Spent with Patient Total time spent providing and/or coordinating discharge services: - Discharge Medications Home Medications: Calcium Carbonate/Vitamin D3 [Calcium 600-Vit D3 800 Tablet] 1 each PO BID 06/19/15 [History] Cevimeline HCl [Evoxac] 30 mg PO TID 06/19/15 [History] Losartan [Cozaar] 50 mg PO DAILY 06/19/15 [History] TraMADol [Ultram] 100 mg PO Q6HR PRN 06/19/15 [History] Iron Ps Complex/B12/Folic Acid [Iferex 150 Forte Capsule] 1 each PO BID 12/26/16 [History] Metoprolol [Lopressor] 100 mg PO DAILY 04/08/18 [History] Buspirone HCl [Buspar] 7.5 mg PO BID 04/09/18 [History] Ranitidine HCl [Zantac] 300 mg PO DAILY 04/09/18 [History] amLODIPine [Norvasc] 10 mg PO DAILY 04/09/18 [History] Albuterol Neb [Proventil Neb] 2.5 mg IH [id number] PRN inhsol 04/14/18 [Rx] Docusate [Colace] 100 mg PO BID capsule 04/14/18 [Rx] Ipratropium/Albuterol Neb [Duoneb] 3 ml IH [id number] inhsol 04/14/18 [Rx] Ascorbic Acid [Vitamin C] 250 mg PO BID tablet 08/26/18 [Rx] Cholecalciferol (D-3) [Vitamin D] 1,000 unit PO DAILY tablet 08/26/18 [Rx] Polyethylene Glycol 3350 [MiraLAX] 17 gm PO DAILY powd.pack 08/26/18 [Rx] Sertraline [Zoloft] 50 mg PO DAILY tablet 08/26/18 [Rx] Allergies/Adverse Reactions: Allergy/AdvReac Type Severity Reaction Status Date / Time ciprofloxacin [From Cipro] Allergy Hallucinati Verified 08/30/18 13:13 ng Date of admission: 08/30/18 18:13 Primary care physician: PCP NONE Consults: 09/01/18 09:00 Consult to Nurse Navigator [CONS] Routine Comment: pn 09/02/18 16:02 Consult to Occupational Therapy [CONS] Routine Comment: Evaluate, develop and implement POC Reason for Consult: discharge needs Does patient have active BEDREST order?: No Is patient medically & hemodynamically stable?: Yes Patient assessed for mobility or mobilized this visit?: No Consult to Physical Therapy [CONS] Routine Comment: Evaluate, develop and implement POC Reason for Consult: discharge planning Does patient have active BEDREST order?: No Is patient medically & hemodynamically stable?: Yes Patient assessed for mobility or mobilized this visit?: No 09/03/18 10:41 Consult to Regional Marketing Director [CONS] Routine Reason for SW Consult: discharge planning - Constitutional Vitals: Temp Pulse Resp BP Pulse Ox 97.5 F L 90 17 135/77 99 09/04/18 11:21 09/04/18 11:21 09/04/18 11:21 09/04/18 11:21 09/04/18 11:21 General appearance: Present: cooperative, A&O X 2, pleasant, answers questions appropriately - Patient Status Disposition: Transfer Hospital Swing Bed Condition: Fair Overall status at discharge: patient is progressing back to baseline - Discharge Instructions Follow Up With: NONE,PCP [Primary Care Provider] - Rom العراقي MOLDED PARTS INSPECTOR [Non-Partnered Physician] - 09/11/18 10:20 am (Please follow up as schedule....) - Diet and Activity Activity: as per physical therapy, increase activity as tolerated, resume usual activities as tolerated Diet: advance to your usual diet
--- NOTE | 2018-09-04 14:15 | Internal Med Progress Note ---
<Fredi Haynes - Last Filed: 09/04/18 14:52> Hospitalist Progress Note - Encounter Date of Encounter: 09/04/18 Time of Encounter: 09:10 - Subjective Interval History: Patient was seen and examined at bedside this morning. She states that overall she is feeling very well and is near her baseline. She worked with physical therapy yesterday and tolerated this well. She is denying any symptoms of fevers, chills, cough, shortness of breath. She tolerated her breakfast well. No complaints and no overnight events - Exam Vitals: Temp Pulse Resp BP Pulse Ox 97.5 F L 90 17 135/77 99 09/04/18 11:21 09/04/18 11:21 09/04/18 11:21 09/04/18 11:21 09/04/18 11:21 Exam: Gen.: Vitals noted. No acute distress. AAOx3, resting comfortably in bed. HEENT: PERRL/EOMI, oropharynx clear, Normocephalic, atraumatic, MMM Cardiac: RRR, no murmur, +S1/S2, No BLE edema Pulmonary markedly improved breath sounds bilaterally. equal chest expansion, unlabored breathing Abdomen: soft, nontender, BS noted, no guarding, no palpable HSM Skin: warm and dry, no visible lesions. MSK: ROM intact, no joint swelling noted, gait no assessed while in bed. Non t anastacia calf or clubbing Neuro: A&Ox3, moves all extremities, no focal deficits Psych: Appropriate mood and behavior, AOx3 - Assessment and Plan (1) MRSA pneumonia Current Visit: Yes Status: Suspected Assessment and Plan: - Suspected MRSA pneumonia given previous culture results at [facility]. Sputum positive for MRSA - Was previously treated with vancomycin and Zosyn discharged home on 7 day course of Bactrim - Patient does not remember the events or history however does state that she was having a purulent cough - Nonseptic at time of presentation however did have a leukocytosis of 19,000 - Chest x-ray on 08/30 shows bibasilar atelectasis with scarring without evidence of consolidation - Repeat chest x-ray on 09/01 shows improved aeration from previous - Clinically patient reports improvement in leukocytosis is stable at 12.9 - Is currently on vancomycin day #5, prescription for a course of Zosyn Plan - Continue vancomycin day #6, possible discharge with oral linezolid once ready for discharge. Total of 7 days of antibiotics - Continue contact precautions - Continue supplemental oxygen - We will add incentive spirometry as well as home bronchodilators - Will obtain PT/OT consult, recommending rehabilitation Patient is approved for rehabilitation, however given patient's mild rise in creatinine as well as leukocytosis and tachycardia, will continue monitor for an additional day (2) Hyponatremia Current Visit: Yes Status: Resolved Assessment and Plan: - Resolved - Most recent value of 135 this morning - Sodium on presentation as low as 122, baseline appears to be in the mid 130s - Likely etiology at this time as dehydration/poor oral intake, no home diuretic use - Has improved with administration of normal saline, patient appears to be euvolemic this morning -Urine studies obtained which do not show sodium wasting however they were collected on day 2 of admission Plan - We will continue to encourage oral intake, discontinue fluids at this time - Suspect that with improved diet normalized to her baseline levels - We will continue monitor daily labs - We will continue to hold sertraline for now given hyponatremia as well as possible discharge on linezolid (3) Hypokalemia Current Visit: Yes Status: Resolved Assessment and Plan: -Improved today to 3.5 after repletion - Etiology may be related to poor oral intake - Magnesium of 1.7 and replaced - Continue daily labs (4) Essential hypertension Current Visit: Yes Status: Chronic Assessment and Plan: - Has been well-controlled this morning - Continue to monitor and continue current medications (5) COPD (chronic obstructive pulmonary disease) Current Visit: Yes Status: Chronic Assessment and Plan: - Does not appear to be in acute exacerbation - Mildly rhonchorous on exam again today, we will resume home bronchodilators (6) Dehydration Current Visit: Yes Status: Resolved Assessment and Plan: Likely secondary to infection Euvolemic on exam today, resolved We will continue to encourage diet (7) Encephalopathy acute Current Visit: Yes Status: Resolved Assessment and Plan: - Suspect septic etiology versus dehydration versus hypernatremia - This appears to be a resolved as patient is alert and oriented on exam today - Continue supportive care as above (8) DVT prophylaxis Current Visit: Yes Status: Acute Assessment and Plan: Subcutaneous heparin - Time Spent with Patient Total time spent is greater than 50% in coordination of care (as documented) at patient's floor/unit and/or counseling patient: Internal Medicine: Result - Labs CBC & Chem 7: 09/04/18 03:55 09/04/18 03:55 Labs: Short CBC 09/04/18 Range/Units 03:55 WBC 12.9 H (4.3-11.1) K/mcL Hgb 9.1 L (11.5-15.4) g/dL Hct 28.3 L (35.3-44.9) % Plt Count 290 (140-400) K/mcL BMP 09/04/18 03:55 Sodium 135 L Potassium 3.5 Chloride 105 Carbon Dioxide 24 BUN 11 Creatinine 1.18 Glucose 93 Calcium 7.9 L - ABG Interpretation ABG results: PT/INR, D-dimer PT 11.5 Seconds (9.4-12.1) 08/30/18 18:54 Consult Discharge Plan - Plan Referrals: NONE,PCP [Primary Care Provider] - Rom العراقي, [employer]FRICAN STUDIES PROFESSOR [Non-Partnered Physician] - 09/11/18 10:20 am (Please follow up as schedule....) <Tariq Anand - Last Filed: 09/04/18 17:09> Hospitalist Progress Note - Encounter Date of Encounter: 09/04/18 - Exam Vitals: Temp Pulse Resp BP Pulse Ox 97.8 F 95 16 142/73 98 09/04/18 16:17 09/04/18 16:17 09/04/18 16:26 09/04/18 16:17 09/04/18 16:26 - Assessment and Plan (1) Leukocytosis Current Visit: Yes Status: Acute (2) MRSA pneumonia Current Visit: Yes Status: Suspected (3) Hyponatremia Current Visit: Yes Status: Resolved (4) Encephalopathy acute Current Visit: Yes Status: Resolved (5) Hypokalemia Current Visit: Yes Status: Resolved (6) Essential hypertension Current Visit: Yes Status: Chronic (7) COPD (chronic obstructive pulmonary disease) Current Visit: Yes Status: Chronic (8) Dehydration Current Visit: Yes Status: Resolved (9) Acute renal failure Current Visit: Yes Status: Suspected Assessment and Plan: Monitor and recheck tomorrow. - Time Spent with Patient Total time spent is greater than 50% in coordination of care (as documented) at patient's floor/unit and/or counseling patient: Internal Medicine: Result - Labs CBC & Chem 7: 09/04/18 03:55 09/04/18 03:55 Labs: Short CBC 09/04/18 Range/Units 03:55 WBC 12.9 H (4.3-11.1) K/mcL Hgb 9.1 L (11.5-15.4) g/dL Hct 28.3 L (35.3-44.9) % Plt Count 290 (140-400) K/mcL BMP 09/04/18 03:55 Sodium 135 L Potassium 3.5 Chloride 105 Carbon Dioxide 24 BUN 11 Creatinine 1.18 Glucose 93 Calcium 7.9 L - ABG Interpretation ABG results: PT/INR, D-dimer PT 11.5 Seconds (9.4-12.1) 08/30/18 18:54 - Attending Attestation I examined this patient and my medical decision-making was reviewed with the Resident Physician on 09/04/18. I agree with the documented findings, disposition and treatment plan as described except to the extent set forth bel ow. Ms Alegria is currently admitted for presumed MRSA pneumonia and hyponatremia. She remains moderate to high risk due to potential for worsening clinical status. Ms Alegria is eating breakfast. She is feeling OK and has less cough. No fever or chills. No CP. Creatinine is elevated more today. U.O. seems OK. Tolerating abx. Exam Alert Comfortable Mucus membranes dry Heart distant and reg. Not tachy Some rhonchi bilaterally by seems clearer today. Abd soft and nontender No wheeze IP 1. MRSA pneumonia - complete 7 days abx treatment 2. BASSEM - pt has increase in creatinine today. Recheck tomorrow. 3. Hyponatremia - resolved Further diagnoses and plan as above. <Fredi Haynes - Last Filed: 09/04/18 14:52> (1) MRSA pneumonia Qualifiers: Laterality: bilateral Lung location: unspecified part of lung Qualified Code(s): J15.212 - Pneumonia due to Methicillin resistant Staphylococcus aureus (5) COPD (chronic obstructive pulmonary disease) Qualifiers: COPD type: unspecified COPD Qualified Code(s): J44.9 - Chronic obstructive pulmonary disease, unspecified <Tariq Anand - Last Filed: 09/04/18 17:09> (1) Leukocytosis Qualifiers: Leukocytosis type: unspecified Qualified Code(s): D72.829 - Elevated white blood cell count, unspecified (2) MRSA pneumonia Qualifiers: Laterality: bilateral Lung location: unspecified part of lung Qualified Code(s): J15.212 - Pneumonia due to Methicillin resistant Staphylococcus aureus (7) COPD (chronic obstructive pulmonary disease) Qualifiers: COPD type: unspecified COPD Qualified Code(s): J44.9 - Chronic obstructive pulmonary disease, unspecified (9) Acute renal failure Qualifiers: Acute renal failure type: with acute tubular necrosis Qualified Code(s): N17.0 - Acute kidney failure with tubular necrosis
[2018-09-05] MEDS: *HR* Heparin 5,000 UNIT/ML VIAL SQ SCH ×4 (00:37→23:04)
[2018-09-05] MEDS: Ipratropium/Albuterol Neb 3 ML IH SCH ×4 (04:22→22:51)
[2018-09-05 07:43] LABS: Basophils % 0.3 %; Eosinophils # 0.2 K/mcL (0.0-0.6); Eosinophils % 1.2 %; Hematocrit 29.1 % (35.3-44.9); Hemoglobin 9.4 g/dL (11.5-15.4); Immature Granulocytes % 0.6 % (0-4); Lymphocytes # 0.6 K/mcL (0.6-4.6); Lymphocytes % 4.4 %; Mean Corpuscular HGB Conc 32.3 g/dL (31.6-35.5); Mean Corpuscular Hemoglobin 31.6 pg (28.0-33.3); Mean Platelet Volume 9.4 fL (9.4-12.4); Monocytes # 0.9 K/mcL (0.0-1.3); Monocytes % 6.2 %; Neutrophils # 12.1 K/mcL (1.6-8.9); Platelet Count 283 K/mcL (140-400); Red Blood Count 2.97 M/mcL (3.82-4.97); Red Cell Distribution Width 14.9 % (11.5-14.5); Segmented Neutrophils % 87.3 %
[2018-09-05 08:46] LABS: Calcium 8.5 mg/dL (8.6-10.3); Potassium 3.4 mEq/L (3.5-5.1)
--- NOTE | 2018-09-05 08:53 | Internal Med Progress Note ---
<Fredi Haynes - Last Filed: 09/05/18 14:02> Hospitalist Progress Note - Encounter Date of Encounter: 09/05/18 Time of Encounter: 08:53 - Subjective Interval History: Patient was seen and examined at bedside this morning. She states that overall she is feeling very well and at her baseline. She worked with physical therapy yesterday and tolerated this well. She is denying any symptoms of fevers, chills, cough, shortness of breath. She tolerated her breakfast well. No complaints and no overnight events - Exam Vitals: Temp Pulse Resp BP Pulse Ox 98.5 F 106 16 131/74 97 09/05/18 07:13 09/05/18 07:13 09/05/18 07:13 09/05/18 07:13 09/05/18 07:13 Exam: Gen.: Vitals noted. No acute distress. AAOx3, resting comfortably in bed. HEENT: PERRL/EOMI, oropharynx clear, Normocephalic, atraumatic, MMM Cardiac: RRR, no murmur, +S1/S2, No BLE edema Pulmonary: . Rhonchorous breath sounds diffusely, worsened from previous. equal chest expansion, unlabored breathing Abdomen: soft, nontender, BS noted, no guarding, no palpable HSM Skin: warm and dry, no visible lesions. MSK: ROM intact, no joint swelling noted, gait no assessed while in bed. Non tender calf or clubbing Neuro: A&Ox3, moves all extremities, no focal deficits Psych: Appropriate mood and behavior, AOx3 - Assessment and Plan (1) MRSA pneumonia Current Visit: Yes Status: Suspected Assessment and Plan: - Suspected MRSA pneumonia given previous culture results at [facility]. Sputum positive for MRSA - Was previously treated with vancomycin and Zosyn discharged home on 7 day course of Bactrim - Patient does not remember the events or history however does state that she was having a purulent cough - Nonseptic at time of presentation however did have a leukocytosis of 19,000 - Chest x-ray on 08/30 shows bibasilar atelectasis with scarring without evidence of consolidation - Repeat chest x-ray on 09/01 shows improved aeration from previous - Clinically patient reports improvement in leukocytosis is mildly worsened to 13.9 from 12.9 - Is currently on vancomycin day #6, previously on a course of Zosyn, 3 days Plan - We will discontinue vancomycin in the setting of acute kidney injury, we will start linezolid for total of day #7 of antibiotics. - Continue contact precautions - Continue supplemental oxygen - We will add incentive spirometry as well as home bronchodilators - Will obtain PT/OT consult, recommending rehabilitation - We will repeat chest x-ray this morning Patient is approved for rehabilitation, however given patient's mild rise in creatinine as well as leukocytosis and tachycardia, will continue monitor for an additional day (2) Acute renal failure Current Visit: Yes Status: Acute Assessment and Plan: - Acute kidney injury with a BUNs/creatinine of 14/1.92 - Baseline creatinine appears to be around 0.5-0.7 - Likely causative etiology is intrinsic may be related to ATN secondary to vancomycin - May also be a component of mild dehydration as her serum osmolality has been slowly rising during admission Plan - Vancomycin has been discontinued - We will start gentle fluid at 75 mL per hour 1 bag - Continue to encourage diet - Avoiding nephrotoxins, renally dose medications - Monitor with daily labs (3) Hyponatremia Current Visit: Yes Status: Resolved Assessment and Plan: - Resolved - Most recent value of 137 this morning - Sodium on presentation as low as 122, baseline appears to be in the mid 130s - Likely etiology at this time as dehydration/poor oral intake, no home diuretic use - Has improved with administration of normal saline, patient appears to be euvolemic this morning -Urine studies obtained which do not show sodium wasting however they were collected on day 2 of admission Plan - We will continue to encourage oral intake, discontinue fluids at this time - Suspect that with improved diet normalized to her baseline levels - We will continue monitor daily labs - We will continue to hold sertraline for now given hyponatremia as well as on linezolid (4) Hypokalemia Current Visit: Yes Status: Resolved Assessment and Plan: -Mildly low this morning at 3.4 - We will replenish today - Etiology may be related to poor oral intake - Magnesium of 1.7 and replaced - Continue daily labs (5) Essential hypertension Current Visit: Yes Status: Chronic Assessment and Plan: - Has been well-controlled this morning - Continue to monitor and continue current medications (6) COPD (chronic obstructive pulmonary disease) Current Visit: Yes Status: Chronic Assessment and Plan: - Does not appear to be in acute exacerbation - Continues to be rhonchorous on exam again today, we will resume home bronchodilators - We will obtain chest x-ray (7) Dehydration Current Visit: Yes Status: Resolved Assessment and Plan: Likely secondary to infection Euvolemic on exam today, resolved We will continue to encourage diet (8) Encephalopathy acute Current Visit: Yes Status: Resolved Assessment and Plan: - Suspect septic etiology versus dehydration versus hypernatremia - This appears to be a resolved as patient is alert and oriented on exam today - Continue supportive care as above (9) Sepsis Current Visit: Yes Status: Suspected Assessment and Plan: - Currently meets 2/4 sirs criteria with tachycardia 106 and leukocytosis of 13.9 - Questionable whether this is a true infectious etiology versus dehydration - Patient currently being treated for MRSA pneumonia as above - Clinically she does not appear septic and as such we will not give 30 mL/kg bolus per protocol - Blood cultures obtained on admission negative for growth 2 Plan - We will continue to monitor for this time and continue antibiotics as above (10) DVT prophylaxis Current Visit: Yes Status: Acute Assessment and Plan: Subcutaneous heparin - Time Spent with Patient Total time spent is greater than 50% in coordination of care (as documented) at patient's floor/unit and/or counseling patient: Internal Medicine: Result - Labs CBC & Chem 7: 09/05/18 04:00 09/05/18 07:25 Labs: Short CBC 09/05/18 Range/Units 04:00 WBC 13.9 H (4.3-11.1) K/mcL Hgb 9.4 L (11.5-15.4) g/dL Hct 29.1 L (35.3-44.9) % Plt Count 283 (140-400) K/mcL Neutrophils # 12.1 H (1.6-8.9) K/mcL BMP 09/05/18 07:25 Sodium 137 Potassium 3.4 L Chloride 105 Carbon Dioxide 23 BUN 14 Creatinine 1.92 H Glucose 104 Calcium 8.5 L - ABG Interpretation ABG results: PT/INR, D-dimer PT 11.5 Seconds (9.4-12.1) 08/30/18 18:54 Consult Discharge Plan - Plan Referrals: NONE,PCP [Primary Care Provider] - Rom العراقي, MEMBER SERVICES COORDINATOR [Non-Partnered Physician] - 09/11/18 10:20 am (Please follow up as schedule....Appt. is canceled. 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 Patient is going to [facility]) <Tariq Anand - Last Filed: 09/05/18 18:33> Hospitalist Progress Note - Encounter Date of Encounter: 09/05/18 - Exam Vitals: Temp Pulse Resp BP Pulse Ox 98.2 F 105 18 145/80 95 09/05/18 17:45 09/05/18 17:45 09/05/18 17:45 09/05/18 17:45 09/05/18 17:45 - Assessment and Plan (1) Leukocytosis Current Visit: Yes Status: Acute (2) MRSA pneumonia Current Visit: Yes Status: Suspected (3) Hyponatremia Current Visit: Yes Status: Resolved (4) Encephalopathy acute Current Visit: Yes Status: Resolved (5) Hypokalemia Current Visit: Yes Status: Resolved (6) Essential hypertension Current Visit: Yes Status: Chronic (7) COPD (chronic obstructive pulmonary disease) Current Visit: Yes Status: Chronic (8) Dehydration Current Visit: Yes Status: Resolved (9) Acute renal failure Current Visit: Yes Status: Acute - Time Spent with Patient Total time spent is greater than 50% in coordination of care (as documented) at patient's floor/unit and/or counseling patient: Internal Medicine: Result - Labs CBC & Chem 7: 09/05/18 04:00 09/05/18 15:25 Labs: Short CBC 09/05/18 Range/Units 04:00 WBC 13.9 H (4.3-11.1) K/mcL Hgb 9.4 L (11.5-15.4) g/dL Hct 29.1 L (35.3-44.9) % Plt Count 283 (140-400) K/mcL Neutrophils # 12.1 H (1.6-8.9) K/mcL BMP 09/05/18 09/05/18 07:25 15:25 Sodium 137 137 Potassium 3.4 L 3.5 Chloride 105 106 Carbon Dioxide 23 25 BUN 14 19 Creatinine 1.92 H 1.92 H Glucose 104 143 H Calcium 8.5 L 8.5 L - ABG Interpretation ABG results: PT/INR, D-dimer PT 11.5 Seconds (9.4-12.1) 08/30/18 18:54 - Impressions Impressions Chest X-Ray 09/05/18 09:36 IMPRESSION: Cardiomegaly without evidence of overt heart failure. Prominent bibasilar atelectasis with marked under aeration of the lungs. Wedge compression deformities noted in the lower thoracic spine with focal thoracic kyphosis. If there are neurologic symptoms, MRI could be performed for further evaluation. D/ / Solomon Levi MD / Solomon Levi MD Interpreting Provider: Solomon Levi MD - Attending Attestation I examined this patient and my medical decision-making was reviewed with the Resident Physician on 09/05/18. I agree with the documented findings, disposition and treatment plan as described except to the extent set forth below. Ms Alegria is currently admitted for hyponatremia and presumed MRSA pneumonia. She has now developed BASSEM. She remains moderate to high risk due to potential for worsening clinical status. Ms Alegria is up in chair. No fever or chills. Seems more congested today. Renal function worse today. No GI issues. No CP. Exam alert COmfortable at this time Mucus membranes dry Heart not tachy Rhonchi bilaterally Abd soft No edema I/P 1. MRSA pneumonia 2. BASSEM - ? related to Vanc verus other 3. Hyponatremia - resolved Further diagnoses and plan as above. <Fredi Haynes - Last Filed: 09/05/18 14:02> (1) MRSA pneumonia Qualifiers: Laterality: bilateral Lung location: unspecified part of lung Qualified Code(s): J15.212 - Pneumonia due to Methicillin resistant Staphylococcus aureus (2) Acute renal failure Qualifiers: Acute renal failure type: with acute tubular necrosis Qualified Code(s): N17.0 - Acute kidney failure with tubular necrosis (6) COPD (chronic obstructive pulmonary disease) Qualifiers: COPD type: unspecified COPD Qualified Code(s): J44.9 - Chronic obstructive pulmonary disease, unspecified (9) Sepsis Qualifiers: Sepsis type: methicillin resistant Staphylococcus aureus Qualified Code(s): A41.02 - Sepsis due to Methicillin resistant Staphylococcus aureus <Tariq Anand - Last Filed: 09/05/18 18:33> (1) Leukocytosis Qualifiers: Leukocytosis type: unspecified Qualified Code(s): D72.829 - Elevated white blood cell count, unspecified (2) MRSA pneumonia Qualifiers: Laterality: bilateral Lung location: unspecified part of lung Qualified Code(s): J15.212 - Pneumonia due to Methicillin resistant Staphylococcus aureus (7) COPD (chronic obstructive pulmonary disease) Qualifiers: COPD type: unspecified COPD Qualified Code(s): J44.9 - Chronic obstructive pulmonary disease, unspecified (9) Acute renal failure Qualifiers: Acute renal failure type: with acute tubular necrosis Qualified Code(s): N17.0 - Acute kidney failure with tubular necrosis
[2018-09-05] MEDS ORDERED: 0.9 % Sodium Chloride 1,000 ML IVC SCH (09:00)
[2018-09-05] MEDS: Famotidine 20 MG TABLET PO SCH (09:34)
[2018-09-05] MEDS: amLODIPine 5 MG TABLET PO SCH (09:34)
[2018-09-05] MEDS: Linezolid 600 MG TABLET PO SCH ×2 (09:55→21:28)
[2018-09-05 15:55] LABS: Calcium 8.5 mg/dL (8.6-10.3); Potassium 3.5 mEq/L (3.5-5.1)
[2018-09-05] MEDS: traMADol 50 MG TABLET PO PRN (17:36)
[2018-09-06] MEDS: Ipratropium/Albuterol Neb 3 ML IH SCH ×4 (03:57→22:19)
[2018-09-06 04:29] LABS: Basophils % 0.3 %; Eosinophils # 0.1 K/mcL (0.0-0.6); Eosinophils % 0.5 %; Hematocrit 25.8 % (35.3-44.9); Hemoglobin 8.2 g/dL (11.5-15.4); Immature Granulocytes % 0.5 % (0-4); Lymphocytes # 0.5 K/mcL (0.6-4.6); Lymphocytes % 4.2 %; Mean Corpuscular HGB Conc 31.8 g/dL (31.6-35.5); Mean Corpuscular Hemoglobin 31.2 pg (28.0-33.3); Mean Corpuscular Volume 98.1 fL (83.0-100.0); Mean Platelet Volume 9.5 fL (9.4-12.4); Monocytes # 0.8 K/mcL (0.0-1.3); Monocytes % 6.9 %; Neutrophils # 10.3 K/mcL (1.6-8.9); Platelet Count 242 K/mcL (140-400); Red Blood Count 2.63 M/mcL (3.82-4.97); Segmented Neutrophils % 87.6 %
[2018-09-06 04:40] LABS: Calcium 8.5 mg/dL (8.6-10.3); Potassium 3.5 mEq/L (3.5-5.1)
--- NOTE | 2018-09-06 08:24 | Internal Med Progress Note ---
<Fredi Haynes - Last Filed: 09/06/18 10:31> Hospitalist Progress Note - Encounter Date of Encounter: 09/06/18 Time of Encounter: 08:23 - Subjective Interval History: Patient was seen and examined at bedside this morning. She states that overall she is feeling very well and is at her baseline. She is denying any symptoms of fevers, chills, cough, shortness of breath. She tolerated her breakfast well. No complaints and no overnight events - Exam Vitals: Temp Pulse Resp BP Pulse Ox 98.0 F 98 17 129/59 99 09/06/18 07:53 09/06/18 07:53 09/06/18 07:53 09/06/18 07:53 09/06/18 07:53 Exam: Gen.: Vitals noted. No acute distress. AAOx3, resting comfortably in bed. HEENT: PERRL/EOMI, oropharynx clear, Normocephalic, atraumatic, MMM Cardiac: RRR, no murmur, +S1/S2, No BLE edema Pulmonary: . Rhonchorous breath sounds diffusely, improved this morning. equal chest expansion, unlabored breathing Abdomen: soft, nontender, BS noted, no guarding, no palpable HSM Skin: warm and dry, no visible lesions. MSK: ROM not assessed, no joint swelling noted, gait no assessed while in bed. Non tender calf or clubbing Neuro: A&Ox3, moves all extremities, no focal deficits Psych: Appropriate mood and behavior, AOx3 - Assessment and Plan (1) MRSA pneumonia Current Visit: Yes Status: Suspected Assessment and Plan: - Suspected MRSA pneumonia given previous culture results at [facility]. Sputum positive for MRSA - Was previously treated with vancomycin and Zosyn discharged home on 7 day course of Bactrim - Patient does not remember the events or history however does state that she was having a purulent cough - Nonseptic at time of presentation however did have a leukocytosis of 19,000 - Chest x-ray on 08/30 shows bibasilar atelectasis with scarring without evidence of consolidation - Repeat chest x-ray on 09/01 shows improved aeration from previous - Clinically patient reports improvement and leukocytosis is stable from 12 to 11 this morning - Repeat chest x-ray yesterday shows cardiomegaly, prominent bibasilar atelectasis and previous compression of thoracic spine. Plan - Completed 7 day course of antibiotics. 6 days of vancomycin 1 day of linezolid. Hold all antibiotics and monitor - Continue contact precautions - Continue supplemental oxygen - We will add incentive spirometry as well as home bronchodilators - Will obtain PT/OT consult, recommending rehabilitation Patient is approved for rehabilitation, however given patient's acute kidney injury will continue to monitor until improvement (2) Acute renal failure Current Visit: Yes Status: Acute Assessment and Plan: - Acute kidney injury with a BUNs/creatinine of 18/2.09 which is mildly worsened from a creatinine of 1.92 - Baseline creatinine appears to be around 0.5-0.7 - Likely causative etiology is intrinsic may be related to ATN secondary to vancomycin - May also be a component of mild dehydration as her serum osmolality has been slowly rising during admission Plan - Vancomycin has been discontinued - We will obtain urine studies, pending UA, urine sodium, creatinine. - Continue to encourage diet - Avoiding nephrotoxins, renally dose medications - Monitor with daily labs (3) Hyponatremia Current Visit: Yes Status: Resolved Assessment and Plan: - Resolved - Most recent value of 138 this morning - Sodium on presentation as low as 122, baseline appears to be in the mid 130s - Likely etiology at this time as dehydration/poor oral intake, no home diuretic use - Has improved with administration of normal saline, patient appears to be euvolemic this morning -Urine studies obtained which do not show sodium wasting however they were collected on day 2 of admission Plan - We will continue to encourage oral intake, discontinue fluids at this time - Suspect that with improved diet normalized to her baseline levels - We will continue monitor daily labs - We will continue to hold sertraline for now given hyponatremia (4) Hypokalemia Current Visit: Yes Status: Resolved Assessment and Plan: -Mildly low this morning at 3.5, improved from previous - Etiology may be related to poor oral intake - Magnesium of 1.7 yesterday and replaced - Continue daily labs (5) Essential hypertension Current Visit: Yes Status: Chronic Assessment and Plan: - Has been well-controlled this morning - Continue to monitor and continue current medications (6) COPD (chronic obstructive pulmonary disease) Current Visit: Yes Status: Chronic Assessment and Plan: - Does not appear to be in acute exacerbation - Improved rhonchi on exam again today, we will resume home bronchodilators (7) Dehydration Current Visit: Yes Status: Resolved Assessment and Plan: Likely secondary to infection Euvolemic on exam today, resolved We will continue to encourage diet (8) Anemia Current Visit: Yes Status: Chronic Assessment and Plan: - Acute on chronic in nature - H/H was morning of 8.2/25.8 - Baseline appears to be around 10-12 - On presentation, patient was noted to have a hemoglobin 10.9 however she was dehydrated at this time - Patient does have some mild tachycardia which may be related to this - We will closely monitor and repeat H/H this afternoon (9) Encephalopathy acute Current Visit: Yes Status: Resolved Assessment and Plan: - Suspect septic etiology versus dehydration versus hypernatremia - This appears to be a resolved as patient is alert and oriented on exam today - Continue supportive care as above (10) Sepsis Current Visit: Yes Status: Ruled-out Assessment and Plan: Unlikely sepsis at this time No longer meeting SIRS criteria We will continue to monitor for any signs of infection (11) DVT prophylaxis Current Visit: Yes Status: Acute Assessment and Plan: Subcutaneous heparin - Time Spent with Patient Total time spent is greater than 50% in coordination of care (as documented) at patient's floor/unit and/or counseling patient: Internal Medicine: Result - Labs CBC & Chem 7: 09/06/18 03:52 09/06/18 03:52 Labs: Short CBC 09/06/18 Range/Units 03:52 WBC 11.7 H (4.3-11.1) K/mcL Hgb 8.2 L (11.5-15.4) g/dL Hct 25.8 L (35.3-44.9) % Plt Count 242 (140-400) K/mcL Neutrophils # 10.3 H (1.6-8.9) K/mcL BMP 09/05/18 09/05/18 09/06/18 07:25 15:25 03:52 Sodium 137 137 138 Potassium 3.4 L 3.5 3.5 Chloride 105 106 108 H Carbon Dioxide 23 25 23 BUN 14 19 18 Creatinine 1.92 H 1.92 H 2.09 H Glucose 104 143 H 107 H Calcium 8.5 L 8.5 L 8.5 L - ABG Interpretation ABG results: PT/INR, D-dimer PT 11.5 Seconds (9.4-12.1) 08/30/18 18:54 - Impressions Impressions Chest X-Ray 09/05/18 09:36 IMPRESSION: Cardiomegaly without evidence of overt heart failure. Prominent bibasilar atelectasis with marked under aeration of the lungs. Wedge compression deformities noted in the lower thoracic spine with focal thoracic kyphosis. If there are neurologic symptoms, MRI could be performed for further evaluation. D/ / Solomon Levi MD / Solomon Levi MD Interpreting Provider: Solomon Levi MD Consult Discharge Plan - Plan Referrals: NONE,PCP [Primary Care Provider] - Rom العراقي, CAR DUMPER OPERATOR HELPER [Non-Partnered Physician] - 09/11/18 10:20 am (Please follow up as schedule....Appt. is canceled. 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 Patient is going to [facility]) <Tariq Anand - Last Filed: 09/06/18 16:42> Hospitalist Progress Note - Encounter Date of Encounter: 09/06/18 - Exam Vitals: Temp Pulse Resp BP Pulse Ox 98.3 F 101 18 113/69 95 09/06/18 11:56 09/06/18 11:56 09/06/18 11:56 09/06/18 11:56 09/06/18 11:56 - Assessment and Plan (1) Leukocytosis Current Visit: Yes Status: Acute (2) MRSA pneumonia Current Visit: Yes Status: Suspected (3) Hyponatremia Current Visit: Yes Status: Resolved (4) Encephalopathy acute Current Visit: Yes Status: Resolved (5) Hypokalemia Current Visit: Yes Status: Resolved (6) Essential hypertension Current Visit: Yes Status: Chronic (7) COPD (chronic obstructive pulmonary disease) Current Visit: Yes Status: Chronic (8) Dehydration Current Visit: Yes Status: Resolved (9) Acute renal failure Current Visit: Yes Status: Suspected (10) Anemia Current Visit: Yes Status: Suspected - Time Spent with Patient Total time spent is greater than 50% in coordination of care (as documented) at patient's floor/unit and/or counseling patient: Internal Medicine: Result - Labs CBC & Chem 7: 09/06/18 14:05 09/06/18 03:52 Labs: Short CBC 09/06/18 09/06/18 Range/Units 03:52 14:05 WBC 11.7 H (4.3-11.1) K/mcL Hgb 8.2 L 8.2 L (11.5-15.4) g/dL Hct 25.8 L 25.9 L (35.3-44.9) % Plt Count 242 (140-400) K/mcL Neutrophils # 10.3 H (1.6-8.9) K/mcL BMP 09/06/18 03:52 Sodium 138 Potassium 3.5 Chloride 108 H Carbon Dioxide 23 BUN 18 Creatinine 2.09 H Glucose 107 H Calcium 8.5 L - ABG Interpretation ABG results: PT/INR, D-dimer PT 11.5 Seconds (9.4-12.1) 08/30/18 18:54 - Attending Attestation I examined this patient and my medical decision-making was reviewed with the Resident Physician on 09/06/18. I agree with the documented findings, disposition and treatment plan as described except to the extent set forth below. Ms Alegria is currently admitted for presumed MRSA pneumonia now with BASSEM and anemia. She remains moderate to high risk due to potential for worsening clinical status. Ms Alegria is resting in bed. Denies new issues. Still with some cough but fe els she is breathing OK. No fever or chills. No overt bleeding. Exam alert Comfortable Mucus membranes dry Heart distant and not tachy Some rhonchi bilaterally but no wheeze abd soft and nontender I/P 1. MRSA pneumonia - completing abx 2. BASSEM - most likely related to vancomycin. Recheck tomorrow. 3. Anemia - unclear cause. No overt bleeding. Watching at this time. Further diagnoses and plan as above <Ivy,Fredi - Last Filed: 09/06/18 10:31> (1) MRSA pneumonia Qualifiers: Laterality: bilateral Lung location: unspecified part of lung Qualified Code(s): J15.212 - Pneumonia due to Methicillin resistant Staphylococcus aureus (2) Acute renal failure Qualifiers: Acute renal failure type: with acute tubular necrosis Qualified Code(s): N17.0 - Acute kidney failure with tubular necrosis (6) COPD (chronic obstructive pulmonary disease) Qualifiers: COPD type: unspecified COPD Qualified Code(s): J44.9 - Chronic obstructive pulmonary disease, unspecified (8) Anemia Qualifiers: Anemia type: other cause Other causes of anemia: chronic disease, other Qualified Code(s): D63.8 - Anemia in other chronic diseases classified elsewhere (10) Sepsis Qualifiers: Sepsis type: methicillin resistant Staphylococcus aureus Qualified Code(s): A41.02 - Sepsis due to Methicillin resistant Staphylococcus aureus <Tariq Anand - Last Filed: 09/06/18 16:42> (1) Leukocytosis Qualifiers: Leukocytosis type: unspecified Qualified Code(s): D72.829 - Elevated white blood cell count, unspecified (2) MRSA pneumonia Qualifiers: Laterality: bilateral Lung location: unspecified part of lung Qualified Code(s): J15.212 - Pneumonia due to Methicillin resistant Staphylococcus aureus (7) COPD (chronic obstructive pulmonary disease) Qualifiers: COPD type: unspecified COPD Qualified Code(s): J44.9 - Chronic obstructive pulmonary disease, unspecified (9) Acute renal failure Qualifiers: Acute renal failure type: with acute tubular necrosis Qualified Code(s): N17.0 - Acute kidney failure with tubular necrosis (10) Anemia Qualifiers: Anemia type: other cause Other causes of anemia: chronic disease, other Qualified Code(s): D63.8 - Anemia in other chronic diseases classified elsewhere
[2018-09-06] MEDS: amLODIPine 5 MG TABLET PO SCH (10:18)
[2018-09-06] MEDS: *HR* Heparin 5,000 UNIT/ML VIAL SQ SCH ×3 (10:18→23:30)
[2018-09-06] MEDS: Famotidine 20 MG TABLET PO SCH (10:18)
[2018-09-06 14:19] LABS: Hematocrit 25.9 % (35.3-44.9); Hemoglobin 8.2 g/dL (11.5-15.4)
[2018-09-06] MEDS: traMADol 50 MG TABLET PO PRN ×2 (16:03→23:38)
[2018-09-07] MEDS: Ipratropium/Albuterol Neb 3 ML IH SCH ×4 (03:37→21:25)
[2018-09-07 04:06] LABS: Basophils % 0.3 %; Eosinophils # 0.1 K/mcL (0.0-0.6); Eosinophils % 0.6 %; Hematocrit 27.2 % (35.3-44.9); Hemoglobin 8.7 g/dL (11.5-15.4); Immature Granulocytes % 0.6 % (0-4); Lymphocytes # 0.6 K/mcL (0.6-4.6); Lymphocytes % 4.7 %; Mean Corpuscular Hemoglobin 31.6 pg (28.0-33.3); Mean Corpuscular Volume 98.9 fL (83.0-100.0); Mean Platelet Volume 9.8 fL (9.4-12.4); Monocytes # 0.9 K/mcL (0.0-1.3); Monocytes % 7.2 %; Neutrophils # 10.4 K/mcL (1.6-8.9); Platelet Count 259 K/mcL (140-400); Red Blood Count 2.75 M/mcL (3.82-4.97); Red Cell Distribution Width 15.1 % (11.5-14.5); Segmented Neutrophils % 86.6 %
[2018-09-07 04:07] LABS: Bilirubin,Urine Negative (Negative); Blood,Urine Negative (Negative); Clarity,Urine Clear (Clear); Color,Urine Yellow (Yellow); Glucose,Urine (UA) Normal (Normal); Ketones,Urine Negative (Negative); Leukocyte Esterase,Urine Negative (Negative); Nitrite,Urine Negative (Negative); PH,Urine 6.5 pH Units (5.0-8.0); Protein,Urine Negative (Neg-Trace); Specific Gravity,Urine < 1.005 (1.010-1.025); Urobilinogen,Urine Normal (Normal)
[2018-09-07 04:15] LABS: Sodium, Urine 74.4 mEq/L
[2018-09-07 04:18] LABS: Calcium 8.3 mg/dL (8.6-10.3); Potassium 3.3 mEq/L (3.5-5.1)
--- NOTE | 2018-09-07 07:33 | Internal Med Progress Note ---
<Fredi Haynes - Last Filed: 09/07/18 08:19> Hospitalist Progress Note - Encounter Date of Encounter: 09/07/18 Time of Encounter: 07:33 - Subjective Interval History: Patient was seen and examined at bedside this morning. She states that overall she is feeling very well and is at her baseline. She is denying any symptoms of fevers, chills, cough, shortness of breath. She tolerated her breakfast well. No complaints and no overnight events - Exam Vitals: Temp Pulse Resp BP Pulse Ox 97.7 F 103 18 139/79 94 09/07/18 06:51 09/07/18 06:51 09/07/18 06:51 09/07/18 06:51 09/07/18 06:51 Exam: Gen.: Vitals noted. No acute distress. AAOx3, resting comfortably in bed. HEENT: PERRL/EOMI, oropharynx clear, Normocephalic, atraumatic, MMM Cardiac: RRR, no murmur, +S1/S2, No BLE edema Pulmonary: . Rhonchorous breath sounds diffusely, improved this morning. equal chest expansion, unlabored breathing Abdomen: soft, nontender, BS noted, no guarding, no palpable HSM Skin: warm and dry, no visible lesions. MSK: ROM not assessed, no joint swelling noted, gait no assessed while in bed. Non tender calf or clubbing Neuro: A&Ox3, moves all extremities, no focal deficits Psych: Appropriate mood and behavior, AOx3 - Assessment and Plan (1) MRSA pneumonia Current Visit: Yes Status: Resolved Assessment and Plan: - Suspected MRSA pneumonia given previous culture results at [facility]. Sputum positive for MRSA - Was previously treated with vancomycin and Zosyn discharged home on 7 day course of Bactrim - Patient does not remember the events or history however does state that she was having a purulent cough - Nonseptic at time of presentation however did have a leukocytosis of 19,000 - Chest x-ray on 08/30 shows bibasilar atelectasis with scarring without evidence of consolidation - Repeat chest x-ray on 09/01 shows improved aeration from previous - Clinically patient reports improvement and leukocytosis is stable from at 11 this morning - Repeat chest x-ray yesterday shows cardiomegaly, prominent bibasilar atelectasis and previous compression of thoracic spine. Plan - Completed 7 day course of antibiotics. 6 days of vancomycin 1 day of linezolid. Hold all antibiotics and monitor - Continue contact precautions - Continue supplemental oxygen - We will add incentive spirometry as well as home bronchodilators - Will obtain PT/OT consult, recommending rehabilitation Patient is approved for rehabilitation, however given patient's acute kidney injury will continue to monitor until improvement (2) Acute renal failure Current Visit: Yes Status: Suspected Assessment and Plan: - Acute kidney injury with a BUNs/creatinine of 17/2.07 which is mildly improved from 2.09 - Baseline creatinine appears to be around 0.5-0.7 - Likely causative etiology is intrinsic may be related to ATN secondary to vancomycin - May also be a component of mild dehydration as her serum osmolality has been slowly rising during admission - urine studies obtained, point to intrinsic kidney injury which lends support to Vanc ATN Plan - Vancomycin has been discontinued - Continue to encourage diet - Avoiding nephrotoxins, renally dose medications - Monitor with daily labs - If patient's Cr continues to downtrend, can likely Discharge to SNF tomorrow. (3) Hyponatremia Current Visit: Yes Status: Resolved Assessment and Plan: - Resolved - Most recent value of 139 this morning - Sodium on presentation as low as 122, baseline appears to be in the mid 130s - Likely etiology at this time as dehydration/poor oral intake, no home diuretic use - Has improved with administration of normal saline, patient appears to be euvol emic this morning -Urine studies obtained which do not show sodium wasting however they were collected on day 2 of admission Plan - We will continue to encourage oral intake - Suspect that with improved diet normalized to her baseline levels - We will continue monitor daily labs - We restart sertraline and buspar at this time. (4) Hypokalemia Current Visit: Yes Status: Resolved Assessment and Plan: -Mildly low this morning at 3.3 - Etiology may be related to poor oral intake - Magnesium of 1.7 yesterday - Will replace with 40 of K and 2 of Mg today - Continue daily labs (5) Essential hypertension Current Visit: Yes Status: Chronic Assessment and Plan: Well controlled this morning at 139/79 - Will continue current regimen (6) COPD (chronic obstructive pulmonary disease) Current Visit: Yes Status: Chronic Assessment and Plan: - Does not appear to be in acute exacerbation - Improved rhonchi on exam again today, we will resume home bronchodilators (7) Dehydration Current Visit: Yes Status: Resolved Assessment and Plan: Likely secondary to infection Euvolemic on exam today, resolved We will continue to encourage diet (8) Anemia Current Visit: Yes Status: Suspected Assessment and Plan: - Acute on chronic in nature - H/H was morning of 8.7/27.2 which is mildly improved from previous - Baseline appears to be around 10-12 - On presentation, patient was noted to have a hemoglobin 10.9 however she was d ehydrated at this time - Patient does have some mild tachycardia which may be related to this - We will closely monitor (9) Encephalopathy acute Current Visit: Yes Status: Resolved Assessment and Plan: - Suspect septic etiology versus dehydration versus hypernatremia - This appears to be a resolved as patient is alert and oriented on exam today - Continue supportive care as above (10) DVT prophylaxis Current Visit: Yes Status: Acute Assessment and Plan: Subcutaneous heparin - Time Spent with Patient Total time spent is greater than 50% in coordination of care (as documented) at patient's floor/unit and/or counseling patient: Internal Medicine: Result - Labs CBC & Chem 7: 09/07/18 03:20 09/07/18 03:20 Labs: Short CBC 09/06/18 09/07/18 Range/Units 14:05 03:20 WBC 11.9 H (4.3-11.1) K/mcL Hgb 8.2 L 8.7 L (11.5-15.4) g/dL Hct 25.9 L 27.2 L (35.3-44.9) % Plt Count 259 (140-400) K/mcL Neutrophils # 10.4 H (1.6-8.9) K/mcL BMP 09/07/18 03:20 Sodium 139 Potassium 3.3 L Chloride 105 Carbon Dioxide 24 BUN 17 Creatinine 2.07 H Glucose 92 Calcium 8.3 L Urine 09/07/18 Range/Units 03:40 Urine Color Yellow (Yellow) Urine Clarity Clear (Clear) Urine pH 6.5 (5.0-8.0) pH Units Ur Specific Celoron < 1.005 L (1.010-1.025) Urine Protein Negative (Neg-Trace) mg/dL Urine Glucose (UA) Normal (Normal) mg/dL - ABG Interpretation ABG results: PT/INR, D-dimer PT 11.5 Seconds (9.4-12.1) 08/30/18 18:54 Consult Discharge Plan - Plan Referrals: NONE,PCP [Primary Care Provider] - Rom العراقي, WOOD BOATBUILDER APPRENTICE [Non-Partnered Physician] - 09/11/18 10:20 am (Please follow up as schedule....Appt. is canceled. 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 Patient is going to [facility]) <Tariq Anand - Last Filed: 09/07/18 16:23> Hospitalist Progress Note - Encounter Date of Encounter: 09/07/18 - Exam Vitals: Temp Pulse Resp BP Pulse Ox 98.9 F 85 18 119/75 93 09/07/18 15:37 09/07/18 15:37 09/07/18 15:37 09/07/18 15:37 09/07/18 15:37 - Assessment and Plan (1) Leukocytosis Current Visit: Yes Status: Acute (2) MRSA pneumonia Current Visit: Yes Status: Resolved (3) Hyponatremia Current Visit: Yes Status: Resolved (4) Encephalopathy acute Current Visit: Yes Status: Resolved (5) Hypokalemia Current Visit: Yes Status: Resolved (6) Essential hypertension Current Visit: Yes Status: Chronic (7) COPD (chronic obstructive pulmonary disease) Current Visit: Yes Status: Chronic (8) Dehydration Current Visit: Yes Status: Resolved (9) Acute renal failure Current Visit: Yes Status: Suspected (10) Anemia Current Visit: Yes Status: Suspected - Time Spent with Patient Total time spent is greater than 50% in coordination of care (as documented) at patient's floor/unit and/or counseling patient: Internal Medicine: Result - Labs CBC & Chem 7: 09/07/18 03:20 09/07/18 03:20 Labs: Short CBC 09/07/18 Range/Units 03:20 WBC 11.9 H (4.3-11.1) K/mcL Hgb 8.7 L (11.5-15.4) g/dL Hct 27.2 L (35.3-44.9) % Plt Count 259 (140-400) K/mcL Neutrophils # 10.4 H (1.6-8.9) K/mcL BMP 09/07/18 03:20 Sodium 139 Potassium 3.3 L Chloride 105 Carbon Dioxide 24 BUN 17 Creatinine 2.07 H Glucose 92 Calcium 8.3 L Urine 09/07/18 Range/Units 03:40 Urine Color Yellow (Yellow) Urine Clarity Clear (Clear) Urine pH 6.5 (5.0-8.0) pH Units Ur Specific Celor[place] < 1.005 L (1.010-1.025) Urine Protein Negative (Neg-Trace) mg/dL Urine Glucose (UA) Normal (Normal) mg/dL - ABG Interpretation ABG results: PT/INR, D-dimer PT 11.5 Seconds (9.4-12.1) 08/30/18 18:54 - Attending Attestation I examined this patient and my medical decision-making was reviewed with the Resident Physician on 09/07/18. I agree with the documented findings, disposition and treatment plan as described except to the extent set forth below. Ms Alegria is currently admitted for presumed MRSA pneumonia. She has developed BASSEM. She remains moderate to high risk due to potential for worsening clinical status. Ms Alegria is resting at this time. Her renal function appears to have plateaued. No fever or chills. Breathing about the same. No GI issues. Exam alert comfortable Mucus membranes dry Heart not tachy Rhonchi bilaterally but more air movement Abd soft no edema I/P 1. MRSA pneumonia 2. BASSEM Further diagnoses and plan as above. Hopeful d/c tomorrow if renal function stable <Fredi Haynes - Last Filed: 09/07/18 08:19> (1) MRSA pneumonia Qualifiers: Laterality: bilateral Lung location: unspecified part of lung Qualified Code(s): J15.212 - Pneumonia due to Methicillin resistant Staphylococcus aureus (2) Acute renal failure Qualifiers: Acute renal failure type: with acute tubular necrosis Qualified Code(s): N17.0 - Acute kidney failure with tubular necrosis (6) COPD (chronic obstructive pulmonary disease) Qualifiers: COPD type: unspecified COPD Qualified Code(s): J44.9 - Chronic obstructive pulmonary disease, unspecified (8) Anemia Qualifiers: Anemia type: other cause Other causes of anemia: chronic disease, other Qualified Code(s): D63.8 - Anemia in other chronic diseases classified elsewhere <Tariq Anand - Last Filed: 09/07/18 16:23> (1) Leukocytosis Qualifiers: Leukocytosis type: unspecified Qualified Code(s): D72.829 - Elevated white blood cell count, unspecified (2) MRSA pneumonia Qualifiers: Laterality: bilateral Lung location: unspecified part of lung Qualified Code(s): J15.212 - Pneumonia due to Methicillin resistant Staphylococcus aureus (7) COPD (chronic obstructive pulmonary disease) Qualifiers: COPD type: unspecified COPD Qualified Code(s): J44.9 - Chronic obstructive pulmonary disease, unspecified (9) Acute renal failure Qualifiers: Acute renal failure type: with acute tubular necrosis Qualified Code(s): N17.0 - Acute kidney failure with tubular necrosis (10) Anemia Qualifiers: Anemia type: other cause Other causes of anemia: chronic disease, other Qualified Code(s): D63.8 - Anemia in other chronic diseases classified elsewhere
[2018-09-07] MEDS: traMADol 50 MG TABLET PO PRN (10:37)
[2018-09-07] MEDS: amLODIPine 5 MG TABLET PO SCH (10:37)
[2018-09-07] MEDS: Famotidine 20 MG TABLET PO SCH (10:37)
[2018-09-07] MEDS: *HR* Heparin 5,000 UNIT/ML VIAL SQ SCH ×2 (10:38→15:17)
[2018-09-08] MEDS: *HR* Heparin 5,000 UNIT/ML VIAL SQ SCH ×2 (00:53→09:44)
[2018-09-08] MEDS: Ipratropium/Albuterol Neb 3 ML IH SCH ×4 (03:36→22:26)
[2018-09-08 04:10] LABS: Hematocrit 25.2 % (35.3-44.9); Hemoglobin 7.9 g/dL (11.5-15.4); Immature Platelets 1.4 % (1.1-6.1); Mean Corpuscular HGB Conc 31.3 g/dL (31.6-35.5); Mean Corpuscular Hemoglobin 31.3 pg (28.0-33.3); Mean Platelet Volume 9.5 fL (9.4-12.4); Red Blood Count 2.52 M/mcL (3.82-4.97); Red Cell Distribution Width 15.3 % (11.5-14.5)
[2018-09-08 04:28] LABS: Calcium 8.3 mg/dL (8.6-10.3)
--- NOTE | 2018-09-08 08:32 | Internal Med Progress Note ---
<Fredi Haynes - Last Filed: 09/08/18 13:02> Hospitalist Progress Note - Encounter Date of Encounter: 09/08/18 Time of Encounter: 10:10 - Subjective Interval History: Patient was seen and examined at bedside this morning. She states that overall she is feeling very well and is at her baseline. She is denying any symptoms of fevers, chills, cough, shortness of breath. She tolerated her breakfast well. No complaints and no overnight events. She understands that we are waiting for her kidney function to improve before she can discharge. - Exam Vitals: Temp Pulse Resp BP Pulse Ox 98.1 F 102 18 150/76 92 09/08/18 07:00 09/08/18 07:00 09/08/18 07:00 09/08/18 07:00 09/08/18 07:00 Exam: Gen.: Vitals noted. No acute distress. AAOx3, resting comfortably in bed. HEENT: PERRL/EOMI, oropharynx clear, Normocephalic, atraumatic, MMM Cardiac: RRR, no murmur, +S1/S2, No BLE edema Pulmonary: . CTA this morning. equal chest expansion, unlabored breathing Abdomen: soft, nontender, BS noted, no guarding, no palpable HSM Skin: warm and dry, no visible lesions. MSK: ROM not assessed, no joint swelling noted, gait no assessed while in bed. Non tender calf or clubbing Neuro: A&Ox3, moves all extremities, no focal deficits Psych: Appropriate mood and behavior, AOx3 - Assessment and Plan (1) MRSA pneumonia Current Visit: Yes Status: Resolved Assessment and Plan: - Suspected MRSA pneumonia given previous culture results at [facility]. Sputum positive for MRSA - Was previously treated with vancomycin and Zosyn discharged home on 7 day course of Bactrim - Patient does not remember the events or history however does state that she was having a purulent cough - Nonseptic at time of presentation however did have a leukocytosis of 19,000 - Chest x-ray on 08/30 shows bibasilar atelectasis with scarring without evidence of consolidation - Repeat chest x-ray on 09/01 shows improved aeration from previous - Clinically patient reports improvement and leukocytosis is stable from at 11 this morning - Repeat chest x-ray yesterday shows cardiomegaly, prominent bibasilar atelectasis and previous compression of thoracic spine. Plan - Completed 7 day course of antibiotics. 6 days of vancomycin 1 day of line zolid. Hold all antibiotics and monitor - Continue contact precautions - Continue supplemental oxygen - We will add incentive spirometry as well as home bronchodilators - Will obtain PT/OT consult, recommending rehabilitation Patient is approved for rehabilitation, however given patient's acute kidney injury will continue to monitor until improvement (2) Acute renal failure Current Visit: Yes Status: Suspected Assessment and Plan: - Acute kidney injury with a BUNs/creatinine mildly worsen creatinine of 2.29 from 2.07 - Baseline creatinine appears to be around 0.5-0.7 - Likely causative etiology is intrinsic may be related to ATN secondary to vancomycin - May also be a component of mild dehydration as her serum osmolality has been slowly rising during admission - urine studies obtained, point to intrinsic kidney injury which lends support to Vanc ATN Plan - Vancomycin has been discontinued - Continue to encourage diet - Avoiding nephrotoxins, renally dose medications - Monitor with daily labs - Will consult nephrology this AM for further recommendations (3) Anemia Current Visit: Yes Status: Suspected Assessment and Plan: - Acute on chronic in nature - H/H was morning of 7.9/25.2 which continues to downtrend - Baseline appears to be around 10-12 - On presentation, patient was noted to have a hemoglobin 10.9 however she was dehydrated at this time - Patient does have some mild tachycardia which may be related to this - MCV wnl so suspect that there may be an acute component. - Will consult GI, per note, anticipate EGD/colonoscopy tomorrow. - NPO midnight, prep per GI (4) Hyponatremia Current Visit: Yes Status: Resolved Assessment and Plan: - Resolved - Most recent value of 137 this morning - Sodium on presentation as low as 122, baseline appears to be in the mid 130s - Likely etiology at this time as dehydration/poor oral intake, no home diuretic use - Has improved with administration of normal saline, patient appears to be euvolemic this morning -Urine studies obtained which do not show sodium wasting however they were collected on day 2 of admission Plan - We will continue to encourage oral intake - Suspect that with improved diet normalized to her baseline levels - We will continue monitor daily labs - We restart sertraline and buspar at this time. (5) Hypokalemia Current Visit: Yes Status: Resolved Assessment and Plan: - Improved to 4.0 - Etiology may be related to poor oral intake - Continue daily labs (6) Essential hypertension Current Visit: Yes Status: Chronic Assessment and Plan: Well controlled this morning at 123/70 - Will continue current regimen (7) COPD (chronic obstructive pulmonary disease) Current Visit: Yes Status: Chronic Assessment and Plan: - Does not appear to be in acute exacerbation - Improved rhonchi on exam again today, we will resume home bronchodilators (8) Dehydration Current Visit: Yes Status: Resolved Assessment and Plan: Likely secondary to infection Euvolemic on exam today, resolved We will continue to encourage diet (9) Encephalopathy acute Current Visit: Yes Status: Resolved Assessment and Plan: - Suspect septic etiology versus dehydration versus hypernatremia - This appears to be a resolved as patient is alert and oriented on exam today - Continue supportive care as above (10) DVT prophylaxis Current Visit: Yes Status: Acute Assessment and Plan: will change to SCDs today due to anemia - Time Spent with Patient Total time spent is greater than 50% in coordination of care (as documented) at patient's floor/unit and/or counseling patient: Internal Medicine: Result - Labs CBC & Chem 7: 09/08/18 04:03 09/08/18 04:03 Labs: Short CBC 09/08/18 Range/Units 04:03 WBC 9.2 (4.3-11.1) K/mcL Hgb 7.9 L (11.5-15.4) g/dL Hct 25.2 L (35.3-44.9) % Plt Count 254 (140-400) K/mcL BMP 09/08/18 04:03 Sodium 137 Potassium 4.0 Chloride 106 Carbon Dioxide 25 BUN 23 Creatinine 2.29 H Glucose 98 Calcium 8.3 L - ABG Interpretation ABG results: PT/INR, D-dimer PT 11.5 Seconds (9.4-12.1) 08/30/18 18:54 Consult Discharge Plan - Plan Referrals: NONE,PCP [Primary Care Provider] - Rom العراقي, CILNICAL SCIENTIST [Non-Partnered Physician] - 09/11/18 10:20 am (Please follow up as schedule....Appt. is canceled. 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 Patient is going to [facility]) <Tariq Anand - Last Filed: 09/08/18 16:44> Hospitalist Progress Note - Encounter Date of Encounter: 09/08/18 - Exam Vitals: Temp Pulse Resp BP Pulse Ox 98.1 F 92 17 123/70 91 09/08/18 11:07 09/08/18 11:07 09/08/18 11:07 09/08/18 11:07 09/08/18 11:07 - Assessment and Plan (1) Leukocytosis Current Visit: Yes Status: Acute (2) MRSA pneumonia Current Visit: Yes Status: Resolved (3) Hyponatremia Current Visit: Yes Status: Resolved (4) Encephalopathy acute Current Visit: Yes Status: Resolved (5) Hypokalemia Current Visit: Yes Status: Resolved (6) Essential hypertension Current Visit: Yes Status: Chronic (7) COPD (chronic obstructive pulmonary disease) Current Visit: Yes Status: Chronic (8) Dehydration Current Visit: Yes Status: Resolved (9) Acute renal failure Current Visit: Yes Status: Suspected (10) Anemia Current Visit: Yes Status: Suspected - Time Spent with Patient Total time spent is greater than 50% in coordination of care (as documented) at patient's floor/unit and/or counseling patient: Internal Medicine: Result - Labs CBC & Chem 7: 09/08/18 04:03 09/08/18 04:03 Labs: Short CBC 09/08/18 Range/Units 04:03 WBC 9.2 (4.3-11.1) K/mcL Hgb 7.9 L (11.5-15.4) g/dL Hct 25.2 L (35.3-44.9) % Plt Count 254 (140-400) K/mcL BMP 09/08/18 04:03 Sodium 137 Potassium 4.0 Chloride 106 Carbon Dioxide 25 BUN 23 Creatinine 2.29 H Glucose 98 Calcium 8.3 L - ABG Interpretation ABG results: PT/INR, D-dimer PT 11.5 Seconds (9.4-12.1) 08/30/18 18:54 - Attending Attestation I examined this patient and my medical decision-making was reviewed with the Resident Physician on 09/08/18. I agree with the documented findings, disposition and treatment plan as described except to the extent set forth below. Ms Alegria is currently admitted for MRSA pneumonia. She has completed abx but has developed BASSEM and anemia. She remains moderate to high risk due to potential for worsening clinical status. Ms Alegria is feeling OK. No CP or SOB. Still with some cough. Hemoglobin continues to drift down without active bleeding. Creatinine higher today. Exam alert. Comfortable Mucus membranes dry Heart distant and regular Scattered rhonchi ABd soft No edema I/P 1. MRSA pneumonia improved 2. BASSEM - most likely related to ATN/Vanc 3. Anemia - ? chronic blood loss. GI eval Further diagnoses and plan as above. <Fredi Haynes - Last Filed: 09/08/18 13:02> (1) MRSA pneumonia Qualifiers: Laterality: bilateral Lung location: unspecified part of lung Qualified C ode(s): J15.212 - Pneumonia due to Methicillin resistant Staphylococcus aureus (2) Acute renal failure Qualifiers: Acute renal failure type: with acute tubular necrosis Qualified Code(s): N17.0 - Acute kidney failure with tubular necrosis (3) Anemia Qualifiers: Anemia type: other cause Other causes of anemia: chronic disease, other Qualified Code(s): D63.8 - Anemia in other chronic diseases classified elsewhere (7) COPD (chronic obstructive pulmonary disease) Qualifiers: COPD type: unspecified COPD Qualified Code(s): J44.9 - Chronic obstructive pulmonary disease, unspecified <Tariq Anand - Last Filed: 09/08/18 16:44> (1) Leukocytosis Qualifiers: Leukocytosis type: unspecified Qualified Code(s): D72.829 - Elevated white blood cell count, unspecified (2) MRSA pneumonia Qualifiers: Laterality: bilateral Lung location: unspecified part of lung Qualified Code(s): J15.212 - Pneumonia due to Methicillin resistant Staphylococcus aureus (7) COPD (chronic obstructive pulmonary disease) Qualifiers: COPD type: unspecified COPD Qualified Code(s): J44.9 - Chronic obstructive pulmonary disease, unspecified (9) Acute renal failure Qualifiers: Acute renal failure type: with acute tubular necrosis Qualified Code(s): N1 7.0 - Acute kidney failure with tubular necrosis (10) Anemia Qualifiers: Anemia type: other cause Other causes of anemia: chronic disease, other Qualified Code(s): D63.8 - Anemia in other chronic diseases classified elsewhere
[2018-09-08] MEDS: traMADol 50 MG TABLET PO PRN ×2 (09:44→17:43)
[2018-09-08] MEDS: amLODIPine 5 MG TABLET PO SCH (09:44)
[2018-09-08] MEDS: Famotidine 20 MG TABLET PO SCH (09:44)
--- NOTE | 2018-09-08 09:55 | Nephrology Consult Note ---
Date of Encounter: 09/08/18 Time of Encounter: 09:40 Assessment and Plan (1) BASSME (acute kidney injury) Current Visit: Yes Status: Acute Nonoliguric BASSEM with a daily worsening SCr. UA was bland without hematuria, proteinuria or casts. She was quite ill when she presented with MRSA PNA and Hyponatremia, with both improving, however her renal function continues to decline. I suspect the etiology would be secondary to infection/hemodynamics and possibly nephrotoxins from vanco/zosyn, and she had remained on the ARB, which can impair renal autoregulation/slow renal recovery. I recommend checking a retroperitoneal U/S, select renal workup (her UA was very bland which lowers the odds of a GN), and to hold the ARB. Additionally, I recommend restarting IV fluids as she may be slightly prerenal (based upon her exam). In the meantime, I recommend following a renal protective strategy including avoidance of NSAIDs, Bactrim, IV contrast and other nephrotoxins as able; strict I/Os, daily weights and dosing renally clear Rx by GFR. Thank you for consulting the [facility] group. Will follow with you. (2) Essential hypertension Current Visit: Yes Status: Chronic Recommend holding the ARB. (3) MRSA pneumonia Current Visit: Yes Status: Resolved Trending better, and now off vancomycin. Qualifiers: Laterality: bilateral Lung location: unspecified part of lung Qualified Code(s): J15.212 - Pneumonia due to Methicillin resistant Staphylococcus aureus History of Present Illness - Reason for Consult Consult date: 09/08/18 Acute Kidney Injury Requesting physician: Fredi Haynes - Chief Complaint BASSEM - History of Present Illness The patient is a very pleasant 78-year-old female with a past medical history of hypertension, COPD, and etc. who presented several days ago with pneumonia. Nephrology was consult it because of her persistently rising serum creatinine. She reports that she has never seen a previous peoplesoft hcm consultant; and. her baseline renal function appears to be normal. She denied taking [id number] NSAIDs prior to admission, and reports that presently she has been eating and drinking well without nausea, vomiting, or diarrhea. However, she did have some nausea and "upset stomach" at the beginning of her hospitalization. She did not affirm active chest pain, fevers or chills, though she had fevers and sputum production at the beginning of her hospitalization. She told me that she wears oxygen at home. She was originally treated with vancomycin as part of her MRSA pneumonia. She had not received IV contrast and a CT scan or a left heart catheter during this admission, according to her chart review. She did not affirm having reviews history of hepatitis, renal stones, or gout. Family history: She denied having relatives with a history of chronic kidney disease/ESRD. 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) Psychiatric history: no psych history - Past Surgical History Surgical History: hysterectomy - Social History Smoking Status: Never smoker Smokeless Tobacco Status: No Alcohol use: none Drug use: none - Family History Mother Adopted: No Family Member Ethnicity: Non- Living Status: Hx Family Cardiac Disorders: (unknown) Hx Family Respiratory Disorders: (unknown) Hx Family Cancer: (unknown) Hx Family GI Disorders: (unknown) Hx Family Endocrine Disorder: (unknown) Hx Family Neuromuscular Disorders: (unknown) Hx Family Neurologic Disorders: (unknown) Hx Family HEENT Disorders: (unknown) Hx Family Autoimmune Disorders: (unknown) Medications and Allergies Calcium Carbonate/Vitamin D3 [Calcium 600-Vit D3 800 Tablet] 1 each PO BID 06/19/15 [History] Cevimeline HCl [Evoxac] 30 mg PO TID 06/19/15 [History] Losartan [Cozaar] 50 mg PO DAILY 06/19/15 [History] TraMADol [Ultram] 100 mg PO Q6HR PRN 06/19/15 [History] Iron Ps Complex/B12/Folic Acid [Iferex 150 Forte Capsule] 1 each PO BID 12/26/16 [History] Metoprolol [Lopressor] 100 mg PO DAILY 04/08/18 [History] Buspirone HCl [Buspar] 7.5 mg PO BID 04/09/18 [History] Ranitidine HCl [Zantac] 300 mg PO DAILY 04/09/18 [History] amLODIPine [Norvasc] 10 mg PO DAILY 04/09/18 [History] Albuterol Neb [Proventil Neb] 2.5 mg IH [id number] PRN inhsol 04/14/18 [Rx] Docusate [Colace] 100 mg PO BID capsule 04/14/18 [Rx] Ipratropium/Albuterol Neb [Duoneb] 3 ml IH [id number] inhsol 04/14/18 [Rx] Ascorbic Acid [Vitamin C] 250 mg PO BID tablet 08/26/18 [Rx] Cholecalciferol (D-3) [Vitamin D] 1,000 unit PO DAILY tablet 08/26/18 [Rx] Polyethylene Glycol 3350 [MiraLAX] 17 gm PO DAILY powd.pack 08/26/18 [Rx] Sertraline [Zoloft] 50 mg PO DAILY tablet 08/26/18 [Rx] Allergy/AdvReac Type Severity Reaction Status Date / Time ciprofloxacin [From Cipro] Allergy Hallucinati Verified 08/30/18 13:13 ng Review of Systems All Systems: reviewed and no additional remarkable complaints except as stated Exam - Vital Signs Vital signs: Initial Vital Signs Temp Pulse Resp BP Pulse Ox 98.8 F 82 18 159/73 99 08/30/18 19:02 08/30/18 19:02 08/30/18 19:02 08/30/18 19:02 08/30/18 19:02 Vital Signs - Last 8 Hours Temp Pulse Resp BP Pulse Ox 09/08/18 09:38 92 09/08/18 07:00 98.1 F 102 18 150/76 92 09/08/18 05:04 97.9 F 99 18 125/74 91 09/08/18 03:36 16 95 Intake and Output 09/07/18 09/08/18 09/08/18 23:59 07:59 15:59 Output Total 700 / 700 300 / 300 Balance -700 / -700 -300 / -300 Output: Urine 700 / 700 300 / 300 Other: Stool Size Moderate Stool Consistency soft Stool Color Brown # Voids 1 # Urine Diapers 1 # Bowel Movements 1 - General Appearance General appearance: appears started age, cachectic (Short, frail appearing), fatigue, frail EENT: ATNC, PERRL, mucous membranes dry Neck: supple Respiratory: course breath sounds Cardiology: no edema, regular rate, regular rhythm, normal S1, normal S2 Gastrointestinal: normoactive bowel sounds, no tenderness, no guarding Additional Comments: No flank/costovertebral angle tenderness to palpation. Integumentary: warm and dry, ecchymotic Neurologic: no focal deficit, no asterixis, alert and oriented x3 Musculoskeletal: no erythema, no cyanosis, no clubbing Psychiatric: mood/affect appropriate, cooperative Results - Lab Results 09/08/18 04:03 09/08/18 04:03 Most recent lab results Calcium 8.3 mg/dL (8.6-10.3) L 09/08/18 04:03 Phosphorus 2.1 mg/dL (2.7-4.5) L 08/30/18 18:54 Magnesium 1.7 mg/dL (1.6-2.6) 09/06/18 03:52 Urine Creatinine 53 mg/dL 09/07/18 03:40 Urine Sodium 74.4 mEq/L 09/07/18 03:40 I reviewed the labs, vitals, med list and I reviewed prior progress notes and imaging. Consult Discharge Plan - Plan Referrals: NONE,PCP [Primary Care Provider] - Rom العراقي, AS400 PROGRAMMER ANALYST [Non-Partnered Physician] - 09/11/18 10:20 am (Please follow up as schedule....Appt. is canceled. 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
[2018-09-08] MEDS ORDERED: 0.9 % Sodium Chloride 1,000 ML IVC SCH (10:15)
--- NOTE | 2018-09-08 12:11 | Gastroenterology Consult Note ---
<Georgia Clark - Last Filed: 09/08/18 12:09> Date of Encounter: 09/08/18 Time of Encounter: 11:00 - Assessment and plan (1) Anemia Current Visit: Yes Status: Suspected Assessment and plan: Anemia likely multifactoral including acute renal failure and chronic illness. Will schedule for EGD and colonoscopy tomorrow to rule out pud, mw tear, gastritis, duodenitis, or avm. Qualifiers: Anemia type: other cause Other causes of anemia: chronic disease, other Qualified Code(s): D63.8 - Anemia in other chronic diseases classified elsewhere (2) Pneumonia Current Visit: No Status: Acute Assessment and plan: symptomatically improved per pt Qualifiers: Pneumonia type: due to unspecified organism Laterality: right Lung location: middle lobe of lung Qualified Code(s): J18.1 - Lobar pneumonia, unspecified organism (3) Acute renal failure Current Visit: Yes Status: Suspected Assessment and plan: followed by nephrology Qualifiers: Acute renal failure type: with acute tubular necrosis Qualified Code(s): N17.0 - Acute kidney failure with tubular necrosis - Time Spent With Patient Total time spent is greater than 50% in coordination of care (as documented) at patient's floor/unit and/or counseling patient: GI History of Present Illness - Data of Consult Patient: new to practice Consult date: 09/08/18 Requesting Physician: Tariq Anand DO - Consult Narrative Reason for consult: anemia History of present illness: Ms. Alegria is a 78 year old female who presents in transfer from [facility] for concerns of residual pneumonia, decreased oral fluid intake, fatigue, and altered mental status. She was recently hospitalized at [place] for pneumonia. Since since her discharge a few days ago, her status has declined at home including lack of fluid intake, increased confusion, weakness, and fatigue. She was therefore brought to the ER [place] and then transferred to [facility] for ongoing care. Of note, patient was noted to be dehydrated and hyponatremic there. She is currently alert and oriented. She states her breathing is much improved. She does continue to have weakness and fatigue. She denies abdominla pain, nausea, vomiting, diarrhea, constipation, hematochezia or melena. Hgb has dropped from a baseline of 11 in august to 7.9 this morning. She states last colonoscopy was more than 10 years ago. 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) Psychiatric history: no psych history - Past Surgical History Surgical History: hysterectomy - Social History Smoking Status: Never smoker Smokeless Tobacco Status: No Alcohol use: none Drug use: none - Family History Mother Adopted: No Family Member Ethnicity: Non- Living Status: Hx Family Cardiac Disorders: (unknown) Hx Family Respiratory Disorders: (unknown) Hx Family Cancer: (unknown) Hx Family GI Disorders: (unknown) Hx Family Endocrine Disorder: (unknown) Hx Family Neuromuscular Disorders: (unknown) Hx Family Neurologic Disorders: (unknown) Hx Family HEENT Disorders: (unknown) Hx Family Autoimmune Disorders: (unknown) Review of Systems: GI: as per [facility] GENERAL: denies fever or chills EYES: denies yellow discoloration ENT: denies pain with swallowing or difficulty swallowing CARDIO: denies chest pain, palpitations RESP: No Shortness of breath with exertion : denies change in color of urine NEURO: weakness HEME: Denies any bruising MS: chronic back and joint pain DERM: denies rash or itching PSYCH: Denies history of anxiety or depression - Constitutional Vitals: Temp Pulse Resp BP Pulse Ox 98.1 F 92 17 123/70 91 09/08/18 11:07 09/08/18 11:07 09/08/18 11:07 09/08/18 11:07 09/08/18 11:07 Exam: CONSTITUTIONAL:alert, no acute distress.HEAD:normocephalic.EYES:no jaundice.NECK:no obvious swelling.HEART:regular rate and rhythm, no murmurs.LUNGS:bilateral fair air entry.ABDOMEN:non distended, soft, non tender, no masses palpable, no organomegaly.RECTAL EXAM:Deferred.EXTREMITIES:no clubbing, cyanosis or edema.SKIN:no stigmata of chronic liver disease.NEUROLOGIC:no obvious focal defect. Results - Labs CBC & Chem 7: 09/08/18 04:03 09/08/18 04:03 Labs: Last Result Calcium 8.3 mg/dL (8.6-10.3) L 09/08/18 04:03 Troponin I < 0.03 ng/mL (< 0.04) 08/30/18 18:54 Entire Visit Hgb 7.9 g/dL (11.5-15.4) L 09/08/18 04:03 Hct 25.2 % (35.3-44.9) L 09/08/18 04:03 PT 11.5 Seconds (9.4-12.1) 08/30/18 18:54 - ABG ABG results: PT/INR, D-dimer PT 11.5 Seconds (9.4-12.1) 08/30/18 18:54 Consult Discharge Plan - Plan Referrals: NONE,PCP [Primary Care Provider] - Rom العراقي, SLACKMAN [Non-Partnered Physician] - 09/11/18 10:20 am (Please follow up as schedule....Appt. is canceled. 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 Alegria is a 78 year old female - Constitutional Vitals: Temp Pulse Resp BP Pulse Ox 98.1 F 92 17 123/70 91 09/08/18 11:07 09/08/18 11:07 09/08/18 11:07 09/08/18 11:07 09/08/18 11:07 Results - Labs CBC & Chem 7: 09/08/18 04:03 09/08/18 04:03 Labs: Last Result Calcium 8.3 mg/dL (8.6-10.3) L 09/08/18 04:03 Troponin I < 0.03 ng/mL (< 0.04) 08/30/18 18:54 Entire Visit Hgb 7.9 g/dL (11.5-15.4) L 09/08/18 04:03 Hct 25.2 % (35.3-44.9) L 09/08/18 04:03 PT 11.5 Seconds (9.4-12.1) 08/30/18 18:54 - ABG ABG results: PT/INR, D-dimer PT 11.5 Seconds (9.4-12.1) 08/30/18 18:54 - Attending Attestation I have personally performed a face to face evaluation on this patient. I have reviewed and agree with the care plan. History and Exam by me shows: Patient seen denies any melena or abdominal pain on examination abdomen is soft. Assessment: Patient with multiple medical issues now with anemia which is most probably anemia of chronic disease but rule out the GI blood losses as a cause for anemia. No scopes in the last many years
[2018-09-08] MEDS ORDERED: SODIUM CHLORIDE/NAHCO3/KCL/PEG 4,000 ML SOLN.RECON PO ONE (17:00)
[2018-09-09] MEDS: Ipratropium/Albuterol Neb 3 ML IH SCH ×4 (04:14→22:40)
[2018-09-09 07:06] LABS: Basophils % 0.4 %; Eosinophils # 0.1 K/mcL (0.0-0.6); Eosinophils % 1.3 %; Hematocrit 26.9 % (35.3-44.9); Hemoglobin 8.4 g/dL (11.5-15.4); Immature Granulocytes % 0.4 % (0-4); Lymphocytes # 0.5 K/mcL (0.6-4.6); Lymphocytes % 6.3 %; Mean Corpuscular HGB Conc 31.2 g/dL (31.6-35.5); Mean Corpuscular Hemoglobin 31.3 pg (28.0-33.3); Mean Corpuscular Volume 100.4 fL (83.0-100.0); Mean Platelet Volume 9.4 fL (9.4-12.4); Monocytes # 0.8 K/mcL (0.0-1.3); Monocytes % 10.5 %; Neutrophils # 6.5 K/mcL (1.6-8.9); Platelet Count 260 K/mcL (140-400); Red Blood Count 2.68 M/mcL (3.82-4.97); Segmented Neutrophils % 81.1 %
[2018-09-09 07:17] LABS: Calcium 8.2 mg/dL (8.6-10.3); Potassium 3.3 mEq/L (3.5-5.1)
--- NOTE | 2018-09-09 07:17 | Internal Med Progress Note ---
<Fredi Haynes - Last Filed: 09/09/18 14:50> Hospitalist Progress Note - Encounter Date of Encounter: 09/09/18 Time of Encounter: 09:45 - Subjective Interval History: Patient was seen and examined at bedside this morning. She states that she continues to feel well has not with this time. She did complete her colonoscopy prep last evening and has been reporting clear bowel movements. Denies any symptoms of shortness of breath, chest pain, nausea, vomiting, fevers, chills. No acute overnight events. - Exam Vitals: Temp Pulse Resp BP Pulse Ox 98.7 F 98 16 130/72 96 09/09/18 07:12 09/09/18 07:12 09/09/18 07:12 09/09/18 07:12 09/09/18 07:12 Exam: Gen.: Vitals noted. No acute distress. AAOx3, resting comfortably in bed. HEENT: PERRL/EOMI, oropharynx clear, Normocephalic, atraumatic, MMM Cardiac: RRR, no murmur, +S1/S2, No BLE edema Pulmonary: . CTA this morning. equal chest expansion, unlabored breathing Abdomen: soft, nontender, BS noted, no guarding, no palpable HSM Skin: warm and dry, no visible lesions. MSK: ROM not assessed, no joint swelling noted, gait no assessed while in bed. Non tender calf or clubbing Neuro: A&Ox3, moves all extremities, no focal deficits Psych: Appropriate mood and behavior, AOx3 - Assessment and Plan (1) Acute renal failure Current Visit: Yes Status: Acute Assessment and Plan: - Acute kidney injury with a BUNs/creatinine mildly improved from 2.29 to 2.08 - Baseline creatinine appears to be around 0.5-0.7 - Likely causative etiology is intrinsic may be related to ATN secondary to vancomycin - May also be a component of mild dehydration as her serum osmolality has been slowly rising during admission - urine studies obtained, point to intrinsic kidney injury which lends support to Vanc ATN - Nephrology consulted, appreciate recommendations. - Renal ultrasound shows bilateral renal cyst but no acute hydronephrosis process. Plan - Vancomycin has been discontinued - Continue to encourage diet - Avoiding nephrotoxins, renally dose medications - Monitor with daily labs (2) Anemia Current Visit: Yes Status: Suspected Assessment and Plan: - Acute on chronic in nature - Hemoglobin this morning of 8.4 which is mildly increased from yesterday at 7.9 - Baseline appears to be around 10-12 - On presentation, patient was noted to have a hemoglobin 10.9 however she was dehydrated at this time. Hemoglobin has continued to downtrend since admission - Patient does have some mild tachycardia which may be related to this - MCV wnl so suspect that there may be an acute component. - GI has evaluated him perform colonoscopy/EGD this morning. Appreciate recommendations Plan - EGD/colon as above - Continue monitor for any signs of bleeding (3) MRSA pneumonia Current Visit: Yes Status: Resolved Assessment and Plan: - Suspected MRSA pneumonia given previous culture results at [facility]. Sputum positive for MRSA - Was previously treated with vancomycin and Zosyn discharged home on 7 day course of Bactrim - Patient does not remember the events or history however does state that she was having a purulent cough - Nonseptic at time of presentation however did have a leukocytosis of 19,000 - Chest x-ray on 08/30 shows bibasilar atelectasis with scarring without evidence of consolidation - Repeat chest x-ray on 09/01 shows improved aeration from previous - Clinically patient reports improvement and leukocytosis is stable from at 11 this morning - Repeat chest x-ray yesterday shows cardiomegaly, prominent bibasilar atelectasis and previous compression of thoracic spine. Plan - Completed 7 day course of antibiotics. 6 days of vancomycin 1 day of linez olid. Hold all antibiotics and monitor - Continue contact precautions - Continue supplemental oxygen - We will add incentive spirometry as well as home bronchodilators - Will obtain PT/OT consult, recommending rehabilitation Patient is approved for rehabilitation, however given patient's acute kidney injury will continue to monitor until improvement (4) Hyponatremia Current Visit: Yes Status: Resolved Assessment and Plan: - Resolved - Most recent value of 137 this morning - Sodium on presentation as low as 122, baseline appears to be in the mid 130s - Likely etiology at this time as dehydration/poor oral intake, no home diuretic use - Has improved with administration of normal saline, patient appears to be euvolemic this morning -Urine studies obtained which do not show sodium wasting however they were collected on day 2 of admission Plan - We will continue to encourage oral intake - Suspect that with improved diet normalized to her baseline levels - We will continue monitor daily labs - We restart sertraline and buspar at this time. (5) Hypokalemia Current Visit: Yes Status: Resolved Assessment and Plan: - Again low at 3.3 this morning - Etiology may be related to poor oral intake versus colon prep last evening - Magnesium within normal limits at 2.0 - We will replenish with 40 mEq this morning and continue monitor - Continue daily labs (6) Essential hypertension Current Visit: Yes Status: Chronic Assessment and Plan: Well controlled this morning at 130/72 - Will continue current regimen (7) COPD (chronic obstructive pulmonary disease) Current Visit: Yes Status: Chronic Assessment and Plan: - Does not appear to be in acute exacerbation - Improved rhonchi on exam again today, we will resume home bronchodilators (8) Dehydration Current Visit: Yes Status: Resolved Assessment and Plan: Likely secondary to infection Euvolemic on exam today, resolved We will continue to encourage diet (9) Encephalopathy acute Current Visit: Yes Status: Resolved Assessment and Plan: - Suspect septic etiology versus dehydration versus hypernatremia - This appears to be a resolved as patient is alert and oriented on exam today - Continue supportive care as abov (10) DVT prophylaxis Current Visit: Yes Status: Acute Assessment and Plan: SCDs in the setting of anemia - Time Spent with Patient Total time spent is greater than 50% in coordination of care (as documented) at patient's floor/unit and/or counseling patient: Internal Medicine: Result - Labs CBC & Chem 7: 09/09/18 06:45 09/09/18 06:45 Labs: Short CBC 09/09/18 Range/Units 06:45 WBC 8.0 (4.3-11.1) K/mcL Hgb 8.4 L (11.5-15.4) g/dL Hct 26.9 L (35.3-44.9) % Plt Count 260 (140-400) K/mcL Neutrophils # 6.5 (1.6-8.9) K/mcL - ABG Interpretation ABG results: PT/INR, D-dimer PT 11.5 Seconds (9.4-12.1) 08/30/18 18:54 - Impressions Impressions Retroperitoneum Ultrasound 09/08/18 15:00 IMPRESSION: Bilateral renal cysts. Otherwise unremarkable study. Bladder appearance is within normal limits without significant postvoid residual urine. D/ / Dee Sierra MD / Dee Sierra MD Interpreting Provider: Dee Sierra MD Consult Discharge Plan - Plan Referrals: NONE,PCP [Primary Care Provider] - Rom العراقي, LEARNING AND DEVELOPMENT MANAGER [Non-Partnered Physician] - 09/11/18 10:20 am (Please follow up as schedule....Appt. is canceled. RN NEUROSURGICAL Patient is going to [facility]) <Tariq Anand - Last Filed: 09/09/18 17:47> Hospitalist Progress Note - Encounter Date of Encounter: 09/09/18 - Exam Vitals: Temp Pulse Resp BP Pulse Ox 98.9 F 70 18 122/71 91 09/09/18 15:41 09/09/18 15:41 09/09/18 16:22 09/09/18 15:41 09/09/18 16:22 - Assessment and Plan (1) Leukocytosis Current Visit: Yes Status: Acute (2) MRSA pneumonia Current Visit: Yes Status: Resolved (3) Hyponatremia Current Visit: Yes Status: Resolved (4) Encephalopathy acute Current Visit: Yes Status: Resolved (5) Hypokalemia Current Visit: Yes Status: Resolved (6) Essential hypertension Current Visit: Yes Status: Chronic (7) COPD (chronic obstructive pulmonary disease) Current Visit: Yes Status: Chronic (8) Dehydration Current Visit: Yes Status: Resolved (9) Acute renal failure Current Visit: Yes Status: Acute (10) Anemia Current Visit: Yes Status: Suspected - Time Spent with Patient Total time spent is greater than 50% in coordination of care (as documented) at patient's floor/unit and/or counseling patient: Internal Medicine: Result - Labs CBC & Chem 7: 09/09/18 06:45 09/09/18 06:45 Labs: Short CBC 09/09/18 Range/Units 06:45 WBC 8.0 (4.3-11.1) K/mcL Hgb 8.4 L (11.5-15.4) g/dL Hct 26.9 L (35.3-44.9) % Plt Count 260 (140-400) K/mcL Neutrophils # 6.5 (1.6-8.9) K/mcL BMP 09/09/18 06:45 Sodium 137 Potassium 3.3 L Chloride 106 Carbon Dioxide 23 BUN 18 Creatinine 2.08 H Glucose 85 Calcium 8.2 L - ABG Interpretation ABG results: PT/INR, D-dimer PT 11.5 Seconds (9.4-12.1) 08/30/18 18:54 - Impressions Impressions Retroperitoneum Ultrasound 09/08/18 15:00 IMPRESSION: Bilateral renal cysts. Otherwise unremarkable study. Bladder appearance is within normal limits without significant postvoid residual urine. D/ / Dee Sierra MD / Dee Sierra MD Interpreting Provider: Dee Sierra MD - Attending Attestation I examined this patient and my medical decision-making was reviewed with the Resident Physician on 09/09/18. I agree with the documented findings, disposition and treatment plan as described except to the extent set forth below. Ms Alegria is currently admitted for MRSA pneumonia, BASSEM and anemia. She remains moderate to high risk due to potential for worsening clinical status. Ms Alegria is about to go to endoscopy. Creatinine a little better today. No new issues. No fever or chills. No CP or worsening dyspnea. Exam alert Comfortable Mucus membranes dry Heart not tachy Scattered rhonchi. No wheeze abd soft and nontender No edema I/P 1. MRSA pneumonia improved 2. Anemia - endoscopy today 3. BASSEM - little improvement today. If renal function continues to improve anticipate d/c to SNF soon. Further diagnoses and plan as above. <Fredi Haynes - Last Filed: 09/09/18 14:50> (1) Acute renal failure Qualifiers: Acute renal failure type: with acute tubular necrosis Qualified Code(s): N17.0 - Acute kidney failure with tubular necrosis (2) Anemia Qualifiers: Anemia type: other cause Other causes of anemia: chronic disease, other Qu alified Code(s): D63.8 - Anemia in other chronic diseases classified elsewhere (3) MRSA pneumonia Qualifiers: Laterality: bilateral Lung location: unspecified part of lung Qualified Code(s): J15.212 - Pneumonia due to Methicillin resistant Staphylococcus aureus (7) COPD (chronic obstructive pulmonary disease) Qualifiers: COPD type: unspecified COPD Qualified Code(s): J44.9 - Chronic obstructive pulmonary disease, unspecified <Tariq Anand - Last Filed: 09/09/18 17:47> (1) Leukocytosis Qualifiers: Leukocytosis type: unspecified Qualified Code(s): D72.829 - Elevated white blood cell count, unspecified (2) MRSA pneumonia Qualifiers: Laterality: bilateral Lung location: unspecified part of lung Qualified Code(s): J15.212 - Pneumonia due to Methicillin resistant Staphylococcus aureus (7) COPD (chronic obstructive pulmonary disease) Qualifiers: COPD type: unspecified COPD Qualified Code(s): J44.9 - Chronic obstructive pulmonary disease, unspecified (9) Acute renal failure Qualifiers: Acute renal failure type: with acute tubular necrosis Qualified Code(s): N17.0 - Acute kidney failure with tubular necrosis (10) Anemia Qualifiers: Anemia type: other cause Other causes of anemia: chronic disease, other Qualified Code(s): D63.8 - Anemia in other chronic diseases classified elsewhere
[2018-09-09] MEDS: Famotidine 20 MG TABLET PO SCH (07:41)
[2018-09-09] MEDS: amLODIPine 5 MG TABLET PO SCH (07:41)
[2018-09-09] MEDS ORDERED: Potassium Chloride 40 MEQ, Lidocaine 1% 2 ML in D5% in Water 500 ML IVPB ONE (07:49)
--- NOTE | 2018-09-09 10:24 | Nephrology Progress Note ---
Date of Encounter: 09/09/18 Time of Encounter: 10:00 - Assessment and Plan (1) BASSEM (acute kidney injury) Current Visit: Yes Status: Acute Nonoliguric BASSEM with a daily worsening SCr. UA was bland without hematuria, proteinuria or casts. She was quite ill when she presented with MRSA PNA and Hyponatremia, with both improving, however her renal function now is starting to stabilize. I suspect the etiology would be secondary to infection/hemodynamics and possibly nephrotoxins from vanco/zosyn, and she had remained on the ARB, which can impair renal autoregulation/slow renal recovery. No need for MASTIC SPRAYER: continue to follow a renal protective / conservative strategy including avoidance of NSAIDs, Bactrim, IV contrast and other nephrotoxins as able; strict I/Os, daily weights and dosing renally clear Rx by GFR. Thank you (2) Essential hypertension Current Visit: Yes Status: Chronic (3) MRSA pneumonia Current Visit: Yes Status: Resolved Qualifiers: Laterality: bilateral Lung location: unspecified part of lung Qualified Code(s): J15.212 - Pneumonia due to Methicillin resistant Staphylococcus aureus Subjective Principal diagnosis: BASSEM Interval history: pt was s/e and she reported feeling slightly better today. She did not affirm other new major complaints. Objective - Vital Signs Vital signs: Vital Signs Temp Pulse Resp BP Pulse Ox 09/09/18 07:12 98.7 F 98 16 130/72 96 09/09/18 04:14 16 96 09/09/18 03:40 98.6 F 90 16 124/68 93 09/08/18 23:35 98.5 F 93 16 133/72 92 09/08/18 22:26 16 96 09/08/18 20:20 98 F 104 18 128/72 95 09/08/18 16:55 98.0 F 100 18 145/76 95 09/08/18 11:07 98.1 F 92 17 123/70 91 Intake and Output 09/08/18 09/09/18 09/09/18 23:59 07:59 15:59 Intake Total 104 / 104 1000 / 1000 0 / 0 Output Total 300 / 300 Balance -196 / -196 1000 / 1000 0 / 0 Intake: IV Fluids 104 / 104 1000 / 1000 0.9 % Sodium Chloride 1,000 ML 1000 / 1000 @ 75 mls/hr IVC .[id number] [facility] Rx #:[id number] Oral 0 / 0 0 / 0 Output: Urine 300 / 300 Other: Stool Size Copious Smear Stool Consistency loose liquid soft Stool Color Brown Brown Yellow # Bowel Movements 1 # Bowel Movement Diapers 1 - General Appearance Exam: General appearance: appears started age, cachectic (Short, frail appearing), fatigue, frail EENT: ATNC, PERRL, mucous membranes dry Neck: supple Respiratory: course breath sounds Cardiology: no edema, regular rate, regular rhythm, normal S1, normal S2 Gastrointestinal: normoactive bowel sounds, no tenderness, no guarding Additional Comments: No flank/costovertebral angle tenderness to palpation. Integumentary: warm and dry, ecchymotic Neurologic: no focal deficit, no asterixis, alert and oriented x3 Musculoskeletal: no erythema, no cyanosis, no clubbing Psychiatric: mood/affect appropriate, cooperative - Lab 09/10/18 05:27 09/10/18 05:27 Most recent lab results Calcium 8.2 mg/dL (8.6-10.3) L 09/09/18 06:45 Phosphorus 2.1 mg/dL (2.7-4.5) L 08/30/18 18:54 Magnesium 2.0 mg/dL (1.6-2.6) 09/09/18 06:45 Urine Creatinine 53 mg/dL 09/07/18 03:40 Urine Sodium 74.4 mEq/L 09/07/18 03:40 Consult Discharge Plan - Plan Referrals: NONE,PCP [Primary Care Provider] - Rom العراقي, RING MAKER [Non-Partnered Physician] - 09/11/18 10:20 am (Please follow up as schedule....Appt. is canceled. CLOTH SPONGER Patient is going to [facility])
[2018-09-09] MEDS ORDERED: Simethicone 40 MG/0.6 ML MLS IR ONE (13:03)
[2018-09-09] MEDS ORDERED: Tetracaine/Benzocaine/Butamben 1 SPRAY AEROSOL MM ONE (13:03)
[2018-09-09] MEDS ORDERED: Propofol 500 MG/50 ML INFUS..BTL ONE (13:13)
--- NOTE | 2018-09-09 13:14 | Anesthesia Evaluation PreOp ---
Date of Encounter: 09/09/18 Time of Encounter: 13:12 - Past History Planned Operation: EGD, diagnostic colonoscopy Cardiac History: HTN, Hyperlipidemia Pulmonary History: COPD, Other (PNEUMONIA) Other Medical History: Renal (ACUTE ON CHRONIC RF), Bleeding (ANEMIA), GERD, Other (HYPONATREMIA) Anesthesia History: No Prior Anesthetic Complications, Past Anesthesia Alcohol Use: none Drug use: none Medications and Allergies Calcium Carbonate/Vitamin D3 [Calcium 600-Vit D3 800 Tablet] 1 each PO BID 06/19/15 [History] Cevimeline HCl [Evoxac] 30 mg PO TID 06/19/15 [History] Losartan [Cozaar] 50 mg PO DAILY 06/19/15 [History] TraMADol [Ultram] 100 mg PO Q6HR PRN 06/19/15 [History] Iron Ps Complex/B12/Folic Acid [Iferex 150 Forte Capsule] 1 each PO BID 12/26/16 [History] Metoprolol [Lopressor] 100 mg PO DAILY 04/08/18 [History] Buspirone HCl [Buspar] 7.5 mg PO BID 04/09/18 [History] Ranitidine HCl [Zantac] 300 mg PO DAILY 04/09/18 [History] amLODIPine [Norvasc] 10 mg PO DAILY 04/09/18 [History] Albuterol Neb [Proventil Neb] 2.5 mg IH [id number] PRN inhsol 04/14/18 [Rx] Docusate [Colace] 100 mg PO BID capsule 04/14/18 [Rx] Ipratropium/Albuterol Neb [Duoneb] 3 ml IH [id number] inhsol 04/14/18 [Rx] Ascorbic Acid [Vitamin C] 250 mg PO BID tablet 08/26/18 [Rx] Cholecalciferol (D-3) [Vitamin D] 1,000 unit PO DAILY tablet 08/26/18 [Rx] Polyethylene Glycol 3350 [MiraLAX] 17 gm PO DAILY powd.pack 08/26/18 [Rx] Sertraline [Zoloft] 50 mg PO DAILY tablet 08/26/18 [Rx] Allergy/AdvReac Type Severity Reaction Status Date / Time ciprofloxacin [From Cipro] Allergy Hallucinati Verified 08/30/18 13:13 ng - Meds/Allergy Pre-op Review Medications Reviewed: Yes Allergies Reviewed: Yes Beta Blockers on Current Med List: Yes Anesthesia Results - Labs 09/09/18 06:45 09/09/18 06:45 Anesthesia Exam Vital Signs/O2 Sat/Glucose, Most Recent Temp Pulse Resp BP Pulse Ox 98.6 F 87 16 147/77 98 09/09/18 12:40 09/09/18 12:40 09/09/18 12:40 09/09/18 12:40 09/09/18 12:40 Blood Glucose* 153 Weight: 65 KG - BMI 27 NPO (# of Hours): >8 - HEENT Mallampati: II Teeth: Edentulous Oral Opening: Greater than 3 - Cardiac Rhythm: Regular - Pulmonary Breath Sounds: bilateral Clear Respiratory Effort: Symmetrical Anesthesia Assess/Plan ASA Score: 4 Anesthetic Plan: MAC Monitoring Plan: Standard Monitors Recovery Plan: Other
[2018-09-09] MEDS ORDERED: 0.9 % Sodium Chloride 1,000 ML IVC SCH (13:15)
[2018-09-09] MEDS: traMADol 50 MG TABLET PO PRN (20:25)
[2018-09-10] MEDS: Ipratropium/Albuterol Neb 3 ML IH SCH ×2 (03:59→10:16)
[2018-09-10 06:46] LABS: Basophils % 0.4 %; Eosinophils # 0.2 K/mcL (0.0-0.6); Eosinophils % 2.3 %; Hematocrit 27.6 % (35.3-44.9); Hemoglobin 8.5 g/dL (11.5-15.4); Immature Platelets 1.1 % (1.1-6.1); Lymphocytes # 0.4 K/mcL (0.6-4.6); Lymphocytes % 5.2 %; Mean Corpuscular HGB Conc 30.8 g/dL (31.6-35.5); Mean Corpuscular Hemoglobin 31.3 pg (28.0-33.3); Mean Corpuscular Volume 101.5 fL (83.0-100.0); Mean Platelet Volume 9.6 fL (9.4-12.4); Monocytes # 0.8 K/mcL (0.0-1.3); Monocytes % 10.7 %; Neutrophils # 5.9 K/mcL (1.6-8.9); Platelet Count 266 K/mcL (140-400); Red Blood Count 2.72 M/mcL (3.82-4.97); Segmented Neutrophils % 80.4 %
[2018-09-10 06:59] LABS: Calcium 8.5 mg/dL (8.6-10.3); Potassium 3.7 mEq/L (3.5-5.1)
[2018-09-10 07:11] LABS: Platelet Estimate Normal (Normal)
--- NOTE | 2018-09-10 09:25 | Discharge Summary ---
<Harleen Johnson - Last Filed: 09/10/18 12:43> Orders not resulted at time of discharge: Pending orders 09/09/18 06:45 Immunoelectrophoresis AM 0400 Selman Lambda Qnt FLC w Ratio AM 0400 09/09/18 13:30 Surgical Pathology [PTH] Routine Date of Encounter: 09/10/18 - Discharge Diagnosis (1) Essential hypertension Status: Chronic (2) COPD (chronic obstructive pulmonary disease) Status: Chronic Qualifiers: COPD type: unspecified COPD Qualified Code(s): J44.9 - Chronic obstructive pulmonary disease, unspecified (3) Hypokalemia Status: Resolved (4) Leukocytosis Status: Acute Qualifiers: Leukocytosis type: unspecified Qualified Code(s): D72.829 - Elevated white blood cell count, unspecified (5) MRSA pneumonia Status: Resolved Qualifiers: Laterality: bilateral Lung location: unspecified part of lung Qualified Code(s): J15.212 - Pneumonia due to Methicillin resistant Staphylococcus aureus (6) Hyponatremia Status: Resolved (7) Dehydration Status: Resolved (8) Encephalopathy acute Status: Resolved (9) Acute renal failure Status: Acute Qualifiers: Acute renal failure type: with acute tubular necrosis Qualified Code(s): N17.0 - Acute kidney failure with tubular necrosis (10) Anemia Status: Suspected Qualifiers: Anemia type: other cause Other causes of anemia: chronic disease, other Qualified Code(s): D63.8 - Anemia in other chronic diseases classified elsewhere Hospital course: Ms. Alegria is a 78 year old female - Time Spent with Patient Total time spent providing and/or coordinating discharge services: Greater than 30 minutes (40 min) - Discharge Medications Prescriptions: Pantoprazole Sodium 40 mg PO BID #1 tablet. Sucralfate [Carafate] 1 gm PO BID #30 tablet Home Medications: Calcium Carbonate/Vitamin D3 [Calcium 600-Vit D3 800 Tablet] 1 each PO BID 06/19/15 [History] Cevimeline HCl [Evoxac] 30 mg PO TID 06/19/15 [History] Losartan [Cozaar] 50 mg PO DAILY 06/19/15 [History] TraMADol [Ultram] 100 mg PO Q6HR PRN 06/19/15 [History] Iron Ps Complex/B12/Folic Acid [Iferex 150 Forte Capsule] 1 each PO BID 12/26/16 [History] Metoprolol [Lopressor] 100 mg PO DAILY 04/08/18 [History] Buspirone HCl [Buspar] 7.5 mg PO BID 04/09/18 [History] amLODIPine [Norvasc] 10 mg PO DAILY 04/09/18 [History] Albuterol Neb [Proventil Neb] 2.5 mg IH [id number] PRN inhsol 04/14/18 [Rx] Docusate [Colace] 100 mg PO BID capsule 04/14/18 [Rx] Ipratropium/Albuterol Neb [Duoneb] 3 ml IH [id number] inhsol 04/14/18 [Rx] Ascorbic Acid [Vitamin C] 250 mg PO BID tablet 08/26/18 [Rx] Cholecalciferol (D-3) [Vitamin D] 1,000 unit PO DAILY tablet 08/26/18 [Rx] Polyethylene Glycol 3350 [MiraLAX] 17 gm PO DAILY powd.pack 08/26/18 [Rx] Sertraline [Zoloft] 50 mg PO DAILY tablet 08/26/18 [Rx] Pantoprazole Sodium 40 mg PO BID #1 tablet. 09/10/18 [Rx] Sucralfate [Carafate] 1 gm PO BID #30 tablet 09/10/18 [Rx] Allergies/Adverse Reactions: Allergy/AdvReac Type Severity Reaction Status Date / Time ciprofloxacin [From Cipro] Allergy Hallucinati Verified 08/30/18 13:13 ng Date of admission: 08/30/18 18:13 Primary care physician: PCP NONE Consults: 09/01/18 09:00 Consult to Nurse Navigator [CONS] Routine Comment: pn 09/02/18 16:02 Consult to Occupational Therapy [CONS] Routine Comment: Evaluate, develop and implement POC Reason for Consult: discharge needs Does patient have active BEDREST order?: No Is patient medically & hemodynamically stable?: Yes Patient assessed for mobility or mobilized this visit?: No Consult to Physical Therapy [CONS] Routine Comment: Evaluate, develop and implement POC Reason for Consult: discharge planning Does patient have active BEDREST order?: No Is patient medically & hemodynamically stable?: Yes Patient assessed for mobility or mobilized this visit?: No 09/03/18 10:41 Consult to Mechanic Field Service [CONS] Routine Reason for SW Consult: discharge planning 09/08/18 09:08 Consult to Nephrology [CONS] Routine Consulting Provider: Kidney Kassandra/NATHAN/HAWK/FELECIA Reason for Consult: BASSEM, concern for ATN Call Completed: Yes 09/08/18 10:32 Consult to Gastroenterology [CONS] Routine Consulting Provider: Gastroenterology Kassandra Reason for Consult: anemia, concern for GI bleed Call Completed: Yes - Constitutional Vitals: Temp Pulse Resp BP Pulse Ox 97.9 F 100 18 120/73 93 09/10/18 10:43 09/10/18 10:43 09/10/18 10:43 09/10/18 10:43 09/10/18 10:43 - Patient Status Disposition: Transfer Hospital Swing Bed Condition: Fair - Ambulatory Orders Ambulatory Orders: Basic Metabolic Panel [CHEM] Time Frame: 3 Days, Facility: [facility], Location: Lab - Discharge Instructions Follow Up With: Robert Bergeron MD [Partnered Physician] - NONE,PCP [Primary Care Provider] - Rom العراقي CNP [Non-Partnered Physician] - 09/11/18 10:20 am (Please follow up as schedule....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 I agree with the documented findings, disposition and treatment plan as described except to the extent set forth below. Ms Alegria is currently admitted for MRSA pneumonia, BASSEM and anemia. Awake, pleasant. no sob or wheezing. no fevers or chills. no complaints. gen- alert, awake,appears stated age eyes- pupils equal round cv- reg rate and rhythm, normal s1,s2, no murmurs appreciated lungs- ctabl, no wheezing, rhonchi or crackles, normal resp effort on o2 nc neuro- AAOx3 1. MRSA pneumonia - abx course complete 2. Anemia suspected 2/2 GIB from int hemorrhoids, gastritis, esophagitis, and c olonic angioectasia - endoscopy and cscope reports reviewed, dc on carafate BID and PPI BID, gi outpt fu 3. BASSEM - cont to improve, nephro followed, outpt fu as needed and outpt bmp ordered 4. HTN- cont home meds, fu outpt with pcp for further monitoring dc to [facility] today Further diagnoses and plan as noted by resident time spent on discharge: 40 min <Fredi Haynes - Last Filed: 09/10/18 14:44> - NOTES TO OUTPATIENT PROVIDER Notes to Outpatient Provider: Patient admitted with MRSA pneumonia and completed 7 day course of IV antibiotics. Also had acute kidney injury which was likely secondary to vancomycin use. This is downtrending. She was evaluated by nephrology and GI for possible anemia. Started on carafate. Orders not resulted at time of discharge: Pending orders 09/09/18 06:45 Immunoelectrophoresis AM 0400 Selman Lambda Qnt FLC w Ratio AM 0400 09/09/18 13:30 Surgical Pathology [PTH] Routine Date of Encounter: 09/10/18 Time of Encounter: 08:10 - Discharge Diagnosis (1) MRSA pneumonia Priority: Primary Status: Resolved Qualifiers: Laterality: bilateral Lung location: unspecified part of lung Qualified Code(s): J15.212 - Pneumonia due to Methicillin resistant Staphylococcus aureus (2) Acute renal failure Priority: Secondary Status: Acute Qualifiers: Acute renal failure type: with acute tubular necrosis Qualified Code(s): N17.0 - Acute kidney failure with tubular necrosis (3) Anemia Priority: Secondary Status: Suspected Qualifiers: Anemia type: other cause Other causes of anemia: chronic disease, other Qualified Code(s): D63.8 - Anemia in other chronic diseases classified elsewhere (4) Hyponatremia Priority: Secondary Status: Resolved (5) Hypokalemia Priority: Secondary Status: Resolved (6) Essential hypertension Priority: Secondary Status: Chronic (7) COPD (chronic obstructive pulmonary disease) Priority: Secondary Status: Chronic Qualifiers: COPD type: unspecified COPD Qualified Code(s): J44.9 - Chronic obstructive pulmonary disease, unspecified (8) Dehydration Priority: Secondary Status: Resolved (9) Encephalopathy acute Priority: Secondary Status: Resolved (10) DVT prophylaxis Priority: Secondary Status: Acute Hospital course: Ms. Alegria is a 78 year old female who presented to ED with a complaint of alerted mental status. She was recently admitted to [facility] for sputum culture positive MRSA Pneumonia and discharged with a 7 day course of bactrim. On presentation to this facility, she was not septic. Leukocytosis was noted at 18 and sodium of 122 on admission labs. She was hypovolemic on exam during admission. CXR showed evidence of atelectasis with no obvious consolidation. She was treated with suspected residual MRSA PNA with vancomycin which was then changed to linezolid due to concerns for BASSEM. Nephrology was consulted during admission and ATN secondary to vancomycin and creatinine peaked at 2.29. It has now downtrended one two consecutive days. She was also seen by GI for concerns for bleeding. She had EGD/colonoscopy which showed esophagitis, gastritis, polyp in colon. Recommended next colonoscopy is 3 years. She clinically has improved to baseline mental status and hyponatremia has resolved. Kidney function is improving. At this time, she is medically stable for discharge to SNF per PT/OT recommendations. Discharge discussed with: patient, social work - Time Spent with Patient Total time spent providing and/or coordinating discharge services: Date of admission: 08/30/18 18:13 Primary care physician: PCP NONE Consults: 09/01/18 09:00 Consult to Nurse Navigator [CONS] Routine Comment: pn 09/02/18 16:02 Consult to Occupational Therapy [CONS] Routine Comment: Evaluate, develop and implement POC Reason for Consult: discharge needs Does patient have active BEDREST order?: No Is patient medically & hemodynamically stable?: Yes Patient assessed for mobility or mobilized this visit?: No Consult to Physical Therapy [CONS] Routine Comment: Evaluate, develop and implement POC Reason for Consult: discharge planning Does patient have active BEDREST order?: No Is patient medically & hemodynamically stable?: Yes Patient assessed for mobility or mobilized this visit?: No 09/03/18 10:41 Consult to Mechanic Field Service [CONS] Routine Reason for SW Consult: discharge planning 09/08/18 09:08 Consult to Nephrology [CONS] Routine Consulting Provider: Kidney Kassandra/NATHAN/HAWK/FELECIA Reason for Consult: BASSEM, concern for ATN Call Completed: Yes 09/08/18 10:32 Consult to Gastroenterology [CONS] Routine Consulting Provider: Gastroenterology Kassandra Reason for Consult: anemia, concern for GI bleed Call Completed: Yes Discharging clinician: Fredi Haynes Anticipated date of discharge: 09/10/18 - Constitutional Vitals: Temp Pulse Resp BP Pulse Ox 97.7 F 113 18 168/77 95 09/10/18 07:01 09/10/18 07:01 09/10/18 07:01 09/10/18 07:01 09/10/18 07:01 General appearance: Present: cooperative, pleasant, answers questions appropriately Exam: Gen.: Vitals noted. No acute distress. AAOx3, resting comfortably in bed. HEENT: PERRL/EOMI, oropharynx clear, Normocephalic, atraumatic, MMM Cardiac: RRR, no murmur, +S1/S2, No BLE edema Pulmonary: . CTA this morning. equal chest expansion, unlabored breathing Abdomen: soft, nontender, BS noted, no guarding, no palpable HSM Skin: warm and dry, no visible lesions. MSK: ROM not assessed, no joint swelling noted, gait no assessed while in bed. Non tender calf or clubbing Neuro: A&Ox3, moves all extremities, no focal deficits Psych: Appropriate mood and behavior, AOx3 - Patient Status Functional capacity at discharge: uses cane/walker Overall status at discharge: patient is progressing back to baseline - Diet and Activity Activity: increase activity as tolerated, return to work once cleared by your PCP/specialist, resume usual activities as tolerated Diet: advance to your usual diet - VTE Documentation of Mechanical Device: Intermittent pneumatic compression device
--- NOTE | 2018-09-10 09:26 | Physician Discharge Referral ---
<Fredi Haynes - Last Filed: 09/10/18 14:31> ExtendedCare Referral Info Transfer To: [facility] Provider in Charge after Transfer: PCP - Diagnosis (1) Acute renal failure Priority: Secondary Status: Acute (2) Anemia Priority: Secondary Status: Suspected (3) MRSA pneumonia Priority: Primary Status: Resolved (4) Hyponatremia Priority: Secondary Status: Resolved (5) Hypokalemia Priority: Secondary Status: Resolved (6) Essential hypertension Priority: Secondary Status: Chronic (7) COPD (chronic obstructive pulmonary disease) Priority: Secondary Status: Chronic (8) Dehydration Priority: Secondary Status: Resolved (9) Encephalopathy acute Priority: Secondary Status: Resolved (10) DVT prophylaxis Priority: Secondary Status: Acute - Transfer Medications Prescriptions: Pantoprazole Sodium 40 mg PO BID #1 tablet. Sucralfate [Carafate] 1 gm PO BID #30 tablet Home Medications: Calcium Carbonate/Vitamin D3 [Calcium 600-Vit D3 800 Tablet] 1 each PO BID 06/19/15 [History] Cevimeline HCl [Evoxac] 30 mg PO TID 06/19/15 [History] Losartan [Cozaar] 50 mg PO DAILY 06/19/15 [History] TraMADol [Ultram] 100 mg PO Q6HR PRN 06/19/15 [History] Iron Ps Complex/B12/Folic Acid [Iferex 150 Forte Capsule] 1 each PO BID 12/26/16 [History] Metoprolol [Lopressor] 100 mg PO DAILY 04/08/18 [History] Buspirone HCl [Buspar] 7.5 mg PO BID 04/09/18 [History] amLODIPine [Norvasc] 10 mg PO DAILY 04/09/18 [History] Albuterol Neb [Proventil Neb] 2.5 mg IH [id number] PRN inhsol 04/14/18 [Rx] Docusate [Colace] 100 mg PO BID capsule 04/14/18 [Rx] Ipratropium/Albuterol Neb [Duoneb] 3 ml IH [id number] inhsol 04/14/18 [Rx] Ascorbic Acid [Vitamin C] 250 mg PO BID tablet 08/26/18 [Rx] Cholecalciferol (D-3) [Vitamin D] 1,000 unit PO DAILY tablet 08/26/18 [Rx] Polyethylene Glycol 3350 [MiraLAX] 17 gm PO DAILY powd.pack 08/26/18 [Rx] Sertraline [Zoloft] 50 mg PO DAILY tablet 08/26/18 [Rx] Pantoprazole Sodium 40 mg PO BID #1 tablet.dr 09/10/18 [Rx] Sucralfate [Carafate] 1 gm PO BID #30 tablet 09/10/18 [Rx] Allergies/Adverse Reactions: Allergy/AdvReac Type Severity Reaction Status Date / Time ciprofloxacin [From Cipro] Allergy Hallucinati Verified 08/30/18 13:13 ng - Respiratory Orders Oxygen / L per min Smoking Cessation: Smoking cessation has been advised. For more information, call the DreamNotes Line at 7-170-GAVQ-NOW. - Lab Orders Lab Orders: Other (include drug levels w/frequency) - Advance Directives Code Status: Full Code - Mobility Orders Other - Rehabiliation Orders Rehab Potential: Good Rehab Orders: Evaluation for Physical Therapy, Evaluation for Occupational Therapy - Diet Orders Cardiac CERTIFICATION: I certify that the transfer of the above named patient to an Extended Care Facility is necessary for the continuing treatment of the diagnosis listed. The above information is true and accurate reflection of patient's current condition. Confidential - Redisclosure prohibited without a patient's written consent. <Harleen Johnson - Last Filed: 09/10/18 16:30> ExtendedCare Referral Info Provider in Charge after Transfer: PCP - Diagnosis (1) Essential hypertension Priority: Secondary Status: Chronic (2) COPD (chronic obstructive pulmonary disease) Priority: Secondary Status: Chronic (3) Hypokalemia Priority: Secondary Status: Resolved (4) Leukocytosis Priority: Secondary Status: Acute (5) MRSA pneumonia Priority: Primary Status: Resolved (6) Hyponatremia Priority: Secondary Status: Resolved (7) Dehydration Priority: Secondary Status: Resolved (8) Encephalopathy acute Priority: Secondary Status: Resolved (9) Acute renal failure Priority: Secondary Status: Acute (10) Anemia Priority: Secondary Status: Suspected - Respiratory Orders Oxygen / L per min (2L) Smoking Cessation: Smoking cessation has been advised. For more information, call the DreamNotes Line at 3-228-MRKS-NOW. - Lab Orders Lab Orders: Other (include drug levels w/frequency) (bmp in 3 days) - Advance Directives Code Status: Full Code - Mobility Orders Other (as per pt/ot) - Rehabiliation Orders Rehab Potential: Good Rehab Orders: Evaluation for Physical Therapy, Evaluation for Occupational Therapy - Diet Orders Cardiac CERTIFICATION: I certify that the transfer of the above named patient to an Extended Care Facility is necessary for the continuing treatment of the diagnosis listed. The above information is true and accurate reflection of patient's current condition. Confidential - Redisclosure prohibited without a patient's written consent.
--- NOTE | 2018-09-10 09:37 | Nephrology Progress Note ---
Date of Encounter: 09/10/18 Time of Encounter: 08:30 - Assessment and Plan (1) BASSEM (acute kidney injury) Status: Acute Renal function trending better. No need for EDUCATION AND TRAINING COORDINATOR. I recommend continuing to follow a renal protective / conservative strategy including avoidance of NSAIDs, Bactrim, IV contrast and other nephrotoxins as able; strict I/Os, daily weights and dosing renally clear Rx by GFR. Okay to d/c from a Nephro perspective. Thank you (2) Essential hypertension Status: Chronic (3) MRSA pneumonia Status: Resolved Qualifiers: Laterality: bilateral Lung location: unspecified part of lung Qualified Code(s): J15.212 - Pneumonia due to Methicillin resistant Staphylococcus aureus Subjective Principal diagnosis: BASSEM Interval history: pt was s/e earlier today. She did not affirm active nausea, vomiting, or diarrhea. She voiced feeling slightly better Objective - Vital Signs Vital signs: Vital Signs Temp Pulse Resp BP Pulse Ox 09/10/18 07:01 97.7 F 113 18 168/77 95 09/10/18 05:40 97.8 F 101 17 134/78 94 09/10/18 03:59 16 94 09/10/18 00:21 98.3 F 95 16 131/71 95 09/09/18 22:40 15 93 09/09/18 20:42 98.6 F 115 16 131/66 92 09/09/18 16:22 18 91 09/09/18 15:41 98.9 F 70 15 122/71 90 09/09/18 12:40 98.6 F 87 16 147/77 98 09/09/18 10:35 98.8 F 80 16 119/72 95 09/09/18 10:31 18 96 Intake and Output 09/09/18 09/10/18 09/10/18 23:59 07:59 15:59 Intake Total 240 / 240 Output Total 300 / 300 500 / 500 Balance -300 / -300 -500 / -500 240 / 240 Intake: Oral 240 / 240 Output: Urine 300 / 300 500 / 500 Other: Meal Breakfast Percent of Meal Consumed 10% # Voids 1 - General Appearance Exam: General appearance: appears started age, cachectic (Short, frail appearing), fatigue, frail EENT: ATNC, PERRL, mucous membranes dry Neck: supple Respiratory: course breath sounds Cardiology: no edema, regular rate, regular rhythm, normal S1, normal S2 Gastrointestinal: normoactive bowel sounds, no tenderness, no guarding Additional Comments: No flank/costovertebral angle tenderness to palpation. Integumentary: warm and dry, ecchymotic Neurologic: no focal deficit, no asterixis, alert and oriented x3 Musculoskeletal: no erythema, no cyanosis, no clubbing Psychiatric: mood/affect appropriate, cooperative - Lab 09/10/18 05:27 09/10/18 05:27 Most recent lab results Calcium 8.5 mg/dL (8.6-10.3) L 09/10/18 05:27 Phosphorus 2.1 mg/dL (2.7-4.5) L 08/30/18 18:54 Magnesium 2.0 mg/dL (1.6-2.6) 09/09/18 06:45 Urine Creatinine 53 mg/dL 09/07/18 03:40 Urine Sodium 74.4 mEq/L 09/07/18 03:40 - VTE Documentation of Mechanical Device: Intermittent pneumatic compression device Consult Discharge Plan - Plan Referrals: Robert Bergeron MD [Partnered Physician] - Matt Booth DO [Partnered Physician] - NONE,PCP [Primary Care Provider] - Rom العراقي CNP [Non-Partnered Physician] - 09/11/18 10:20 am (Please follow up as schedule....Appt. is canceled. 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 [place]) Prescriptions: Pantoprazole Sodium 40 mg PO BID #1 tablet. Sucralfate [Carafate] 1 gm PO BID #30 tablet
[2018-09-10] MEDS: amLODIPine 5 MG TABLET PO SCH (10:01)
[2018-09-10] MEDS: Famotidine 20 MG TABLET PO SCH (10:02)
[2018-09-10] MEDS: traMADol 50 MG TABLET PO PRN (10:10)
[2018-09-10 15:30] VITALS: BP 103/67
[2018-09-11 10:01] LABS: IFE Reflexed NOT DONE
[2018-09-11 14:00] LABS: Kappa Qnt Free Light Chains 7.52 mg/dL (0.33-1.94); Lambda Qnt Free Light Chains 4.36 mg/dL (0.57-2.63)
== END 2018-09-10 16:43 | disposition other institution (70) | DRG 177 ==
LOC: 2ANU → SUATTDRO 18:13
PROVIDERS: ADMIT Internal Medicine; ATTEND Internal Medicine
PROC: ENDOEBX (2018-09-09 13:00)

== ENCOUNTER 2018-09-28 00:36 | Inpatient (IN) ==
[2018-09-28 04:25] LABS: Basophils # 0.1 K/mcL (0.0-0.2); Basophils % 0.2 %; Hematocrit 24.6 % (35.3-44.9); Hemoglobin 7.4 g/dL (11.5-15.4); Immature Granulocytes % 2.1 % (0-4); Lymphocytes # 0.7 K/mcL (0.6-4.6); Lymphocytes % 2.9 %; Mean Corpuscular HGB Conc 30.1 g/dL (31.6-35.5); Mean Corpuscular Hemoglobin 30.5 pg (28.0-33.3); Mean Corpuscular Volume 101.2 fL (83.0-100.0); Mean Platelet Volume 10.2 fL (9.4-12.4); Monocytes % 4.4 %; Neutrophils # 20.4 K/mcL (1.6-8.9); Platelet Count 410 K/mcL (140-400); Red Blood Count 2.43 M/mcL (3.82-4.97); Red Cell Distribution Width 14.6 % (11.5-14.5); Segmented Neutrophils % 90.4 %
[2018-09-28] MEDS ORDERED: Hydrocortisone Sodium Succ 100 MG/2 ML VIAL IVP ONE (04:31)
[2018-09-28 04:45] LABS: Potassium 5.6 mEq/L (3.5-5.1)
[2018-09-28 04:47] LABS: Troponin I 0.04 ng/mL (< 0.04)
[2018-09-28 04:58] LABS: ABG Base Excess -7 mEq/L (-2 to 3); ABG HCO3 21 mEq/L (21-27); ABG Oxygen Saturation 80 % (95-98); ABG PCO2 60 mmHg (35-45); ABG PH 7.16 pH Units (7.32-7.45); ABG PO2 57 mmHg (85-104); ABG TCO2 23 mEq/L (20-26); Blood Gas Modality AF; Blood Gas PEEP 5 cm H2O; Blood Gas Respiration Rate 14; Blood Gas VT 450 cc
--- NOTE | 2018-09-28 05:14 | Internal Med History&Physical ---
<Haider Johnson - Last Filed: 09/28/18 07:37> Date of Encounter: 09/28/18 Time of Encounter: 05:11 Internal Medicine - H&P: HPI Chief complaint: SOB Admitted From: Emergency Dept History of present illness: Ms. Alegria is a 78 year old female presents to the intensive care unit after transfer from emergency department. Patient was found to be hypoxic, intubated in the emergency department due to respiratory distress after failing BiPAP. Patient subsequently was intubated, post intubation x-ray revealed bilateral pneumothoraces as well as pneumomediastinum and right mainstem intubation. Afterwards, right-sided chest tube was inserted. Patient was given Rocephin and 1 L of fluids at the other facility. Patient was noted to have a white count of 22.5. Hemoglobin is 7.4. Upon arrival to the ICU, patient had oxygen saturation of fluctuated in the low 70s to low 80s and hypotensive with a map in the low 50s.. Right chest tube was in place. Chest x-ray revealed that the ET tube was in place and 1.7 cm above the nitish. It was decided at that time to place a left-sided pigtail catheter. A right internal jugular venous catheter was also placed on Levophed started. 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) Psychiatric history: no psych history - Past Surgical History Surgical History: hysterectomy - Social History Smoking Status: Never smoker Smokeless Tobacco Status: No Alcohol use: none Drug use: none - Family History Mother History Unknown: Yes Adopted: No Family Member Ethnicity: Non- Living Status: Hx Family Cardiac Disorders: (unknown) Hx Family Respiratory Disorders: (unknown) Hx Family Cancer: (unknown) Hx Family GI Disorders: (unknown) Hx Family Endocrine Disorder: (unknown) Hx Family Neuromuscular Disorders: (unknown) Hx Family Neurologic Disorders: (unknown) Hx Family HEENT Disorders: (unknown) Hx Family Autoimmune Disorders: (unknown) Internal Medicine - H&P: Meds Calcium Carbonate/Vitamin D3 [Calcium 600-Vit D3 800 Tablet] 1 each PO BID 06/19/15 [History] Cevimeline HCl [Evoxac] 30 mg PO TID 06/19/15 [History] Losartan [Cozaar] 50 mg PO DAILY 06/19/15 [History] TraMADol [Ultram] 100 mg PO Q6HR PRN 06/19/15 [History] Iron Ps Complex/B12/Folic Acid [Iferex 150 Forte Capsule] 1 each PO BID 12/26/16 [History] Metoprolol [Lopressor] 100 mg PO DAILY 04/08/18 [History] Buspirone HCl [Buspar] 7.5 mg PO BID 04/09/18 [History] amLODIPine [Norvasc] 10 mg PO DAILY 04/09/18 [History] Albuterol Neb [Proventil Neb] 2.5 mg IH [id number] PRN inhsol 04/14/18 [Rx] Docusate [Colace] 100 mg PO BID capsule 04/14/18 [Rx] Ipratropium/Albuterol Neb [Duoneb] 3 ml IH [id number] inhsol 04/14/18 [Rx] Ascorbic Acid [Vitamin C] 250 mg PO BID tablet 08/26/18 [Rx] Cholecalciferol (D-3) [Vitamin D] 1,000 unit PO DAILY tablet 08/26/18 [Rx] Polyethylene Glycol 3350 [MiraLAX] 17 gm PO DAILY powd.pack 08/26/18 [Rx] Sertraline [Zoloft] 50 mg PO DAILY tablet 08/26/18 [Rx] Pantoprazole Sodium 40 mg PO BID #1 tablet. 09/10/18 [Rx] Sucralfate [Carafate] 1 gm PO BID #30 tablet 09/10/18 [Rx] Allergy/AdvReac Type Severity Reaction Status Date / Time ciprofloxacin [From Cipro] Allergy Hallucinati Verified 08/30/18 13:13 ng ROS unobtainable: due to endotracheal tube, due to mental status All Systems PM: A 10-system review of systems was performed and is negative for pertinent findings except as documented above in the HPI. - Constitutional Vitals: Temp Pulse Resp BP Pulse Ox 97.2 F L 104 19 97/42 89 09/28/18 05:00 09/28/18 05:00 09/28/18 05:00 09/28/18 05:00 09/28/18 05:00 Exam: General: Cachectic appearing female intubated Head: autraumatic, EOMI, no conjuncitval pallor, no scleral icterus, Neck: neck soft, trachea midline Chest:: Equal chest wall rise Lungs: Decreased breath sounds on the left, some mild wheezes throughout Heart: normal heart sounds, normal rhythm, Abdomen: soft, non-tender, no rigidity, no guarding, no rebdound tenderness Integumentary: Skin warm, dry, and intact Neuro: Intubated and sedated Psych: normal affect, normal mood Internal Med - H&P Results - Labs CBC & Chem 7: 09/28/18 04:00 09/28/18 04:00 Labs: Short CBC 09/28/18 Range/Units 04:00 WBC 22.5 H (4.3-11.1) K/mcL Hgb 7.4 L D (11.5-15.4) g/dL Hct 24.6 L (35.3-44.9) % Plt Count 410 H (140-400) K/mcL Neutrophils # 20.4 H (1.6-8.9) K/mcL BMP 09/28/18 04:00 Sodium 134 L Potassium 5.6 H Chloride 108 H Carbon Dioxide 20 L BUN 29 H Creatinine 1.68 H Glucose 203 H Calcium 8.0 L Cardiac Enzymes 09/28/18 Range/Units 04:00 Troponin I 0.04 H* (< 0.04) ng/mL - ABG Interpretation ABG results: 09/28/18 04:53 ABG pH 7.16 L* ABG pCO2 60 H ABG pO2 57 L ABG HCO3 21 ABG Total CO2 23 ABG O2 Saturation 80 L ABG Base Excess -7 L Interpretation: respiratory acidosis - Impressions ITS Impressions Chest X-Ray 09/28/18 03:25 IMPRESSION: The right-sided chest tube has been slightly pulled back. There has been no appreciable change in the size of the right-sided pneumothorax. Pneumomediastinum and left-sided pneumothorax are again seen. D/ / Howard Ortiz MD / Howard Ortiz MD Interpreting Provider: Howard Ortiz MD Chest X-Ray 09/28/18 04:08 IMPRESSION: 1. The right internal jugular central venous catheter tip is at the cavoatrial junction. 2. The tip of the endotracheal tube is at the nitish. The tube should be withdrawn 2 cm. 3. Otherwise no change. D/ / Howard Ortiz MD / Howard Ortiz MD Interpreting Provider: Howard Ortiz MD - Assessment and plan (1) Pneumonia Current Visit: Yes Status: Acute Assessment and plan: Patient with pneumonia on chest x-ray. Recent diagnosis of MRSA. Hypoxia, coupled with elevated white blood cell count of 22.5. Patient currently intubated for hypoxic, hypercapnic respiratory failure. -Vancomycin, Zosyn, azithromycin for healthcare associated pneumonia -CT of chest without contrast - Qualifiers: Lung location: unspecified part of lung Qualified Code(s): J18.9 - Pneumonia, unspecified organism (2) Respiratory failure Current Visit: Yes Status: Acute Assessment and plan: See above Qualifiers: Chronicity: acute on chronic Respiratory failure complication: hypoxia and hypercapnia Qualified Code(s): J96.21 - Acute and chronic respiratory failure with hypoxia; J96.22 - Acute and chronic respiratory failure with hypercapnia (3) BASSEM (acute kidney injury) Current Visit: Yes Status: Acute Assessment and plan: Creatinine is 1.68. GFR is 29. This is about the same from her last visit. Recommend gentle hydration for the patient and she assured reveal any evidence o f heart failure. (4) Pneumothorax on left Current Visit: Yes Status: Acute Assessment and plan: Patient had chest tube placed at this facility. Chest x-ray reveals chest tube is only partially in the thoracic cavity. Cardiothoracic surgery has been consulted. We will keep chest tube where is located at the time being. (5) Pneumothorax on right Current Visit: Yes Status: Acute Assessment and plan: Patient had chest tube placed at outside facility. (6) Hyperkalemia Current Visit: Yes Status: Acute Assessment and plan: Potassium of 5.6. No peak T waves. I gave 1 g of calcium gluconate. (7) Hyponatremia Current Visit: Yes Status: Resolved Assessment and plan: Sodium of 134. Could be multifactorial as patient has renal failure, and has also been critically ill with history of COPD and recent steroids. -urine sodium and urine creatinine -Obtain stat cortisol -Starting stress dose steroids for concern for adrenal insufficiency 100 mg IVP of hydrocortisone, followed by 50 mg hydrocortisone every 6 hours (8) Hypotension Current Visit: Yes Status: Acute Assessment and plan: Multifactorial, could be secondary to septic shock, possibly cardiogenic as patient could be an right heart failure, as well as possible adrenal insufficiency -Stress dose steroids as above -Right internal jugular venous catheter placed and Levophed started. -Obtain echocardiogram, consider pulmonary embolism Qualifiers: Hypotension type: unspecified hypotension type Qualified Code(s): I95.9 - Hypotension, unspecified (9) COPD exacerbation Current Visit: Yes Status: Acute Assessment and plan: Patient with history of COPD. Currently being managed for COPD exacerbation. - Receiving steroids, every 4 DuoNeb's. (10) DVT prophylaxis Current Visit: Yes Status: Acute Assessment and plan: SCDs at this time - Time Spent With Patient Total time spent is greater than 50% in coordination of care (as documented) at patient's floor/unit and/or counseling patient: Procedures - Central Line Placement Right IJ Central Line Inserted*: Yes Central Line Catheter Replacement*: Yes Central Line Insertion: emergent Procedural Pause: leonidas and assess the site, assemble equipment and verify supplies, perform hand hygiene Patient Placed on Monitor/Pulse Ox: Yes During the Procedure: clinician is wearing sterile gloves, cap, mask,& gown during insertion, sterile field and sterile technique are maintained, patient's face is covered with drape or mask and wearing a cap, everyone in room is wearing a mask Central Line Prep: Chlorhexidine scrub, sterile drapes applied Prep the Procedure Site: apply chloraprep to the skin using a back and forth scrubbing motion - Chest Tube Chest Tube 1 Chest Tube Location: left Chest Tube Prep: betadine prep Local Anesthetic: lidocaine 1% Incision Made With: #11 blade Tube Drainage: none Post Procedure CXR?: Yes Patient Tolerated Procedure: Yes <Matt Mckeon - Last Filed: 09/28/18 20:33> Date of Encounter: 09/28/18 Internal Medicine - H&P: HPI History of present illness: Ms. Alegria is a 78 year old female All Systems PM: A 10-system review of systems was performed and is negative for pertinent findings except as documented above in the HPI. - Constitutional Vitals: Temp Pulse Resp BP Pulse Ox 98.2 F 89 19 102/64 97 09/28/18 19:00 09/28/18 19:00 09/28/18 19:00 09/28/18 19:00 09/28/18 19:00 Internal Med - H&P Results - Labs CBC & Chem 7: 09/28/18 04:00 09/28/18 10:50 Labs: Short CBC 09/28/18 Range/Units 04:00 WBC 22.5 H (4.3-11.1) K/mcL Hgb 7.4 L D (11.5-15.4) g/dL Hct 24.6 L (35.3-44.9) % Plt Count 410 H (140-400) K/mcL Neutrophils # 20.4 H (1.6-8.9) K/mcL BMP 09/28/18 09/28/18 04:00 10:50 Sodium 134 L 135 L Potassium 5.6 H 5.1 Chloride 108 H 100 Carbon Dioxide 20 L 21 L BUN 29 H 27 H Creatinine 1.68 H 1.46 H Glucose 203 H 224 H Calcium 8.0 L 8.7 Cardiac Enzymes 09/28/18 09/28/18 09/28/18 Range/Units 04:00 14:16 19:37 Troponin I 0.04 H* 0.11 H* 0.14 H* (< 0.04) ng/mL - ABG Interpretation ABG results: 09/28/18 09/28/18 09/28/18 04:53 07:31 14:01 ABG pH 7.16 L* 7.29 L D 7.35 ABG pCO2 60 H 41 38 ABG pO2 57 L 83 L 81 L ABG HCO3 21 20 L 21 ABG Total CO2 23 21 22 ABG O2 Saturation 80 L 95 95 ABG Base Excess -7 L -7 L -4 L 09/28/18 20:16 ABG pH 7.36 ABG pCO2 35 ABG pO2 101 ABG HCO3 20 L ABG Total CO2 21 ABG O2 Saturation 98 ABG Base Excess -5 L - Impressions ITS Impressions Chest X-Ray 09/28/18 03:25 IMPRESSION: The right-sided chest tube has been slightly pulled back. There has been no appreciable change in the size of the right-sided pneumothorax. Pneumomediastinum and left-sided pneumothorax are again seen. D/ / Howard Ortiz MD / Howard Ortiz MD Interpreting Provider: Howard Ortiz MD Chest X-Ray 09/28/18 04:08 IMPRESSION: 1. The right internal jugular central venous catheter tip is at the cavoatrial junction. 2. The tip of the endotracheal tube is at the nitish. The tube should be withdrawn 2 cm. 3. Otherwise no change. D/ / Howard Ortiz MD / Howard Ortiz MD Interpreting Provider: Howard Ortiz MD Chest X-Ray 09/28/18 05:57 IMPRESSION: Small right pneumothorax. Bilateral chest tubes, only partially inserted into the thoracic cavity. D/ / 09/28/2018 07:42:05 Stanislaw Kline MD / ebenyer Interpreting Provider: Stanislaw Kline MD Echocardiogram 09/28/18 06:46 Impressions: LVEF 60-65%. Mild left ventricular diastolic dysfunction. Normal right ventricular structure and function. Mild-moderate tricuspid regurgitation. Unable to estimate RVSP due to lack of IVC visualization. Left Ventricular Wall Motion: Rest Echo Findings All wall segments showed normal motion. Findings: Study Quality * Technically sub-optimal due to poor echocardiographic windows, no parasternal windows. ECG Findings * Normal sinus rhythm. Left Ventricle * LVEF 60-65%. * Mild left ventricular diastolic dysfunction. * There is no LV thrombus. * Definity echo contrast was used. Right Ventricle * Normal right ventricular structure and function. Left Atrium * Normal left atrial size. Right Atrium * Normal right atrial size. Interatrial Septum * Interatrial septum not well evaluated. Aortic Valve * Aortic valve not well visualized. * No aortic stenosis. * No aortic regurgitation. Mitral Valve * Normal mitral valve structure. * No mitral stenosis. * No mitral regurgitation. Tricuspid Valve * Tricuspid valve not well visualized. * No tricuspid stenosis. * Mild-moderate tricuspid regurgitation. * Unable to estimate RVSP due to lack of IVC visualization. Pulmonic Valve * Pulmonic valve not well visualized. Aorta * not well visualized. Pericardium * There is no pericardial effusion present. IVC * The IVC is not well evaluated. Chest X-Ray 09/28/18 09:47 IMPRESSION: 1. Interval repositioning of right chest tube. The side hole is now within the pleural space. Persistent right apical pneumothorax, 7 mm from the visceral to parietal pleural distance, compared to 10 mm previously. D/ / Alan Cloud MD / Alan Cloud MD Interpreting Provider: Alan Cloud MD Chest X-Ray 09/28/18 10:31 IMPRESSION: 1. Interval exchange of small lumen left pleural catheter for chest tube. There is subcutaneous emphysema along the left lateral chest wall. No visible pneumothorax on the left. 2. Persistent 7 mm right apical pneumothorax. Right chest tube has partially been withdrawn about 2 cm. 3. Enteric catheter tip has a kink at the level of the side-hole. 4. Persistent airspace opacity in the left base. D/ / Alan Cloud MD / Alan Cloud MD Interpreting Provider: Alan Cloud MD - Time Spent With Patient Total time spent is greater than 50% in coordination of care (as documented) at patient's floor/unit and/or counseling patient: - Attending Attestation I saw and evaluated the patient. I reviewed the residents note, performed my own physical examination and agree with findings and plan as documented in the residents note. Patient seen and examined on the morning of 09/28/18. Presented with respiratory failure, p neumonia, pneumothorax on left, right and pnemomediastinum. Patient has had fluctuating oxygen saturations, CT scan attempted but patient destabilzed shortly after leaving the room. Second chest tube placed here in ICU, Central line also placed. Will consult pulmonology and CT surgery for continued management.
[2018-09-28] MEDS: Nystatin Cream 15 GM TUBE TP SCH ×4 (06:26→19:42)
[2018-09-28] MEDS: FentaNYL (PF) 1,000 MCG in 0.9 % Sodium Chloride 80 ML IVC SCH ×2 (06:27→16:11)
[2018-09-28 06:51] LABS: Sodium, Urine 63.8 mEq/L
[2018-09-28] MEDS ORDERED: Piperacillin/Tazobactam 3.375 GM in 0.9 % Sodium Chloride Mini Bag 100 ML IVPB ONE (07:04)
[2018-09-28] MEDS ORDERED: Azithromycin 500 MG in D5% in Water 250 ML IVPB ONE (07:04)
[2018-09-28] MEDS: Norepinephrine 4 MG in D5% in Water 250 ML IVC SCH ×2 (07:22→12:50)
[2018-09-28] MEDS: Dexmedetomidine HCl 400 MCG/100 ML MLS IVC SCH ×3 (07:22→18:15)
--- NOTE | 2018-09-28 07:23 | Pulmonology Consult Note ---
Date of Encounter: 09/28/18 Time of Encounter: 07:15 Assessment and Plan (1) Acute and chronic respiratory failure Current Visit: Yes Status: Acute Patient presented with acute on chronic respiratory failure secondary to COPD/recovering from MRSA pneumonia probably the current Presentation might be due to acute COPD exacerbation due to unresolved MRSA pneumonia complicated by bilateral pneumothorax after mechanical ventilation supported by chest tube appreciate cardiothoracic help. To continue Low tidal volume strategy. Adjust respiratory rate and tidal volume 4 acceptable oxygenation and ventilation Qualifiers: Respiratory failure complication: hypoxia Qualified Code(s): J96.21 - Acute and chronic respiratory failure with hypoxia (2) Pneumothorax on left Current Visit: Yes Status: Acute Most likely secondary to underlying emphysematous disease complicated by mechanical ventilation supported by left-sided chest tube (3) Pneumothorax on right Current Visit: Yes Status: Acute Patient had right-sided pneumothorax most likely secondary to emphysematous disease (4) COPD with exacerbation Current Visit: Yes Status: Acute To continue nebulizer, steroids broad-spectrum antibiotics (5) Pneumonia Current Visit: Yes Status: Acute Patient has prior history of MRSA pneumonia recently discharged from [facility] to continue broad-spectrum antibiotics. Qualifiers: Pneumonia type: due to unspecified organism Lung location: unspecified part of lung Qualified Code(s): J18.9 - Pneumonia, unspecified organism (6) DVT prophylaxis Current Visit: Yes Status: Acute To continue heparin. History of Present Illness Consult date: 09/28/18 Requesting physician: Haider Johnson Reason for consult: COPD, pneumonia, abnormal CXR/CT Chief complaint: Shortness of breath History of present illness: 78-year-old female with past medical history significant for emphysema/COPD was recently discharged from the hospital after getting treated for MRSA pneumonia patient was sent to the skilled nursing never recovered fully patient with persistent shortness of breath with some cough and sputum production went to [facility] failed noninvasive ventilation and patient was intubated after the patient intubated developed bilateral pneumothorax patient had a chest tube in [facility] ER and was sent to [facility] patient started to desaturate and sinning for worsening pneumothorax on the left side where the chest tube was put in on the left side here the chest x-ray showed are partially in the chest consulted cardiothoracic surgery who replaced the bilateral chest tubes on both sides. Patient was hypoxic while changing the chest tube. No review of systems cannot be obtained because patient is intubated and ventilated. 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) Psychiatric history: no psych history - Past Surgical History Surgical History: hysterectomy - Social History Smoking Status: Never smoker Smokeless Tobacco Status: No Alcohol use: none Drug use: none - Family History Mother History Unknown: Yes Adopted: No Family Member Ethnicity: Non- Living Status: Hx Family Cardiac Disorders: (unknown) Hx Family Respiratory Disorders: (unknown) Hx Family Cancer: (unknown) Hx Family GI Disorders: (unknown) Hx Family Endocrine Disorder: (unknown) Hx Family Neuromuscular Disorders: (unknown) Hx Family Neurologic Disorders: (unknown) Hx Family HEENT Disorders: (unknown) Hx Family Autoimmune Disorders: (unknown) Medications and Allergies Calcium Carbonate/Vitamin D3 [Calcium 600-Vit D3 800 Tablet] 1 each PO BID 06/19/15 [History] Cevimeline HCl [Evoxac] 30 mg PO TID 06/19/15 [History] Losartan [Cozaar] 50 mg PO DAILY 06/19/15 [History] TraMADol [Ultram] 100 mg PO Q6HR PRN 06/19/15 [History] Iron Ps Complex/B12/Folic Acid [Iferex 150 Forte Capsule] 1 each PO BID 12/26/16 [History] Metoprolol [Lopressor] 100 mg PO DAILY 04/08/18 [History] Buspirone HCl [Buspar] 7.5 mg PO BID 04/09/18 [History] amLODIPine [Norvasc] 10 mg PO DAILY 04/09/18 [History] Albuterol Neb [Proventil Neb] 2.5 mg IH [id number] PRN inhsol 04/14/18 [Rx] Docusate [Colace] 100 mg PO BID capsule 04/14/18 [Rx] Ipratropium/Albuterol Neb [Duoneb] 3 ml IH [id number] inhsol 04/14/18 [Rx] Ascorbic Acid [Vitamin C] 250 mg PO BID tablet 08/26/18 [Rx] Cholecalciferol (D-3) [Vitamin D] 1,000 unit PO DAILY tablet 08/26/18 [Rx] Polyethylene Glycol 3350 [MiraLAX] 17 gm PO DAILY powd.pack 08/26/18 [Rx] Sertraline [Zoloft] 50 mg PO DAILY tablet 08/26/18 [Rx] Pantoprazole Sodium 40 mg PO BID #1 tablet. 09/10/18 [Rx] Sucralfate [Carafate] 1 gm PO BID #30 tablet 09/10/18 [Rx] Allergy/AdvReac Type Severity Reaction Status Date / Time ciprofloxacin [From Cipro] Allergy Hallucinati Verified 08/30/18 13:13 ng All Systems: The remainder of the systems were reviewed and are negative Physical Examination Vital Signs: Vital Signs, Last 4 Hours Temp Pulse Resp BP Pulse Ox 09/28/18 07:00 80 18 136/95 93 09/28/18 06:10 17 85 09/28/18 06:00 78 14 97/54 89 09/28/18 05:00 97.2 F L 97 18 64/49 100 09/28/18 04:00 97.2 F L 105 15 95/46 87 Auscultation: bilateral: diminished breath sounds (In the bases) Gait: other (unable to assess) unable to assess due to mental status other Ventilator Settings Ventilator Settings: Ventilator Settings, Last 8 Hours Ventilator Tidal Volume 450 Setting Ventilator Tidal Volume 450 Setting Ventilator Tidal Volume 450 Setting Ventilator Tidal Volume 450 Setting Ventilator Tidal Volume 450 Setting Ventilator Tidal Volume 450 Setting Ventilator Respiratory Rate 14 Setting Ventilator Respiratory Rate 14 Setting Ventilator Respiratory Rate 14 Setting Ventilator Respiratory Rate 14 Setting Ventilator Respiratory Rate 14 Setting Ventilator Respiratory Rate 16 Setting Actual Respiratory Rate 17 Actual Respiratory Rate 18 Actual Respiratory Rate 18 Actual Respiratory Rate 14 Actual Respiratory Rate 17 Positive End Expiratory 5 Pressure Positive End Expiratory 5 Pressure Positive End Expiratory 5 Pressure Positive End Expiratory 5 Pressure Positive End Expiratory 5 Pressure Positive End Expiratory 5 Pressure Peak Inspiratory Airway 34 Pressure Peak Inspiratory Airway 42 Pressure Peak Inspiratory Airway 41 Pressure Peak Inspiratory Airway 42 Pressure Peak Inspiratory Airway 42 Pressure Results - Laboratory Findings CBC and BMP: 09/28/18 04:00 09/28/18 04:00 ABG ABG pH 7.16 pH Units (7.32-7.45) L* 09/28/18 04:53 ABG pCO2 60 mmHg (35-45) H 09/28/18 04:53 ABG pO2 57 mmHg (85-104) L 09/28/18 04:53 ABG O2 Saturation 80 % (95-98) L 09/28/18 04:53 Abnormal lab findings: Abnormal lab results WBC 22.5 K/mcL (4.3-11.1) H 09/28/18 04:00 RBC 2.43 M/mcL (3.82-4.97) L 09/28/18 04:00 Hgb 7.4 g/dL (11.5-15.4) L D 09/28/18 04:00 Hct 24.6 % (35.3-44.9) L 09/28/18 04:00 MCV 101.2 fL (83.0-100.0) H 09/28/18 04:00 MCHC 30.1 g/dL (31.6-35.5) L 09/28/18 04:00 RDW 14.6 % (11.5-14.5) H 09/28/18 04:00 Plt Count 410 K/mcL (140-400) H 09/28/18 04:00 Neutrophils # 20.4 K/mcL (1.6-8.9) H 09/28/18 04:00 ABG pH 7.16 pH Units (7.32-7.45) L* 09/28/18 04:53 ABG pCO2 60 mmHg (35-45) H 09/28/18 04:53 ABG pO2 57 mmHg (85-104) L 09/28/18 04:53 ABG O2 Saturation 80 % (95-98) L 09/28/18 04:53 ABG Base Excess -7 mEq/L (-2 to 3) L 09/28/18 04:53 Sodium 134 mEq/L (136-145) L 09/28/18 04:00 Potassium 5.6 mEq/L (3.5-5.1) H 09/28/18 04:00 Chloride 108 mEq/L (98-107) H 09/28/18 04:00 Carbon Dioxide 20 mEq/L (23-29) L 09/28/18 04:00 BUN 29 mg/dL (8-23) H 09/28/18 04:00 Creatinine 1.68 mg/dL (0.60-1.20) H 09/28/18 04:00 Est GFR ( Amer) 36 (> 60) L 09/28/18 04:00 Est GFR (Non-Af Amer) 29 (> 60) L 09/28/18 04:00 Glucose 203 mg/dL (70-105) H 09/28/18 04:00 Calcium 8.0 mg/dL (8.6-10.3) L 09/28/18 04:00 Phosphorus 6.0 mg/dL (2.7-4.5) H 09/28/18 04:00 Troponin I 0.04 ng/mL (< 0.04) H* 09/28/18 04:00 B-Natriuretic Peptide 518 pg/mL (Less than 100) H 09/28/18 04:00 - Clinical Findings Intake & Output: Intake & Output 09/27/18 09/27/18 09/28/18 15:59 23:59 07:59 Output Total 300 / 300 Balance -300 / -300 Weight 53 kg Consult Discharge Plan - Plan Referrals: NONE,PCP [Primary Care Provider] - Critical Care Time Critical Care Time: Yes Total Critical Care Time: 50 Attestation: I spent 50 minutes of Critical Care time with this patient. It involved decision making of high complexity to assess, manipulate, and support vital organ system failure and/or to prevent further life threatening deterioration of the patient's condition. The time involved in the performance of separately reportable procedures was not counted toward critical care time.
[2018-09-28 07:34] LABS: ABG Base Excess -7 mEq/L (-2 to 3); ABG HCO3 20 mEq/L (21-27); ABG Oxygen Saturation 95 % (95-98); ABG PCO2 41 mmHg (35-45); ABG PH 7.29 pH Units (7.32-7.45); ABG PO2 83 mmHg (85-104); ABG TCO2 21 mEq/L (20-26); Blood Gas Modality VC; Blood Gas PEEP 5 cm H2O; Blood Gas Respiration Rate 14; Blood Gas VT 450 cc
[2018-09-28 08:26] LABS: Thyroid Stimulating Hormone 5.713 mcIU/mL (0.340-5.600)
[2018-09-28] MEDS: Ipratropium/Albuterol Neb 3 ML IH SCH ×5 (08:35→23:47)
[2018-09-28] MEDS ORDERED: Vancomycin 1 EACH in EMPTY BAG 1 EACH IVPB SCH (09:00)
--- NOTE | 2018-09-28 10:03 | Cardiothoracic Consult Note ---
Date of Encounter: 09/28/18 Time of Encounter: 10:02 Assessment and Plan (1) COPD exacerbation Current Visit: Yes Status: Acute Patient is a 78-year-old hypertensive lady with COPD and pulmonary hypertension who was transferred to [facility] for [facility] with acute respiratory distress. She had recently been discharged from [facility] after treatment for MRSA pneumonia. Yesterday, she sustained a fall in the extended care facility and was taken to [facility] for evaluation. She was then acute respiratory distress and required intubation. A post intubation chest x-ray showed bilateral pneumothoraces and a right chest tube was placed at [facility]. The patient was transferred to the [facility] for further care. The patient had a persistent air leak from the right chest tube and this morning's chest x-ray showed that the proximal port was outside of the right pneumothorax. I was asked to assess the chest tube placement and replace the tube if necessary. The patient will require reinsertion of a new chest tube in the right chest. I discussed this procedure with the patient's son, who is the patient's medical power of corporate associate attorney. Gives consent for the necessary procedure(s). The assessment and plan as outlined above was discussed with the patient and/or family members who expressed understanding and agreement. All q uestions were answered. - History of Present Illness Consult date: 09/28/18 Requesting physician: Karla Hamilton Consult reason: Chest tube insertion Chief complaint: Bilateral pneumothoraces History of present illness: Ms. Alegria is a 78 year old hypertensive lady with severe COPD, pulmonary hypertension, and recent MRSA pneumonia. She was admitted to [facility] on 08/21/2018 the diagnosis of shortness of breath and dyspnea on exertion. Chest x-ray showed bilateral pulmonary infiltrates and her sputum culture was positive for MRSA. She was treated appropriately with antibiotics and discharged to an extended care facility on 08/26/2018. While at the [facility] she had persistent respiratory symptoms and was readmitted to [facility] on 08/30/2018. She was treated with a further course of antibiotics and discharged to an extended care facility on 09/10/2018. Yesterday, the patient sustained a fall while at the [facility]. She had walked to the bathroom and upon standing, became lightheaded. Her son states that she fell against the wall striking her left side on the wall. The patient was taken to [facility] in severe respiratory distresacquired intubation intubated and the post-procedure chest x-ray showed bilateral pneumothoraces, right side larger than left side. The patient underwentright chest tube insertion at [facility] and was then transferred to [facility] for further care. A left- sided chest tube was placed in the emergency department at [facility]. The patient had a persistent air leak from the right chest tube. This morning's chest x-ray showed poor position of both chest tubes. I was consulted to evaluate the chest tube placement and insert the chest tubes as needed. Past Med Surg Social Fam HX - Past Medical History Medical history: arthritis, COPD, GERD, hypertension, osteoporosis, other (Pulmonary hypertension) Additional medical history: Schogrens syndrome (arthritis family) Psychiatric history: no psych history - Past Surgical History Surgical History: hysterectomy - Social History Smoking Status: Never smoker Smokeless Tobacco Status: No Alcohol use: none Drug use: none - Family History Mother History Unknown: Yes Adopted: No Family Member Ethnicity: Non- Living Status: Hx Family Cardiac Disorders: (unknown) Hx Family Respiratory Disorders: (unknown) Hx Family Cancer: (unknown) Hx Family GI Disorders: (unknown) Hx Family Endocrine Disorder: (unknown) Hx Family Neuromuscular Disorders: (unknown) Hx Family Neurologic Disorders: (unknown) Hx Family HEENT Disorders: (unknown) Hx Family Autoimmune Disorders: (unknown) Medications and Allergies Calcium Carbonate/Vitamin D3 [Calcium 600-Vit D3 800 Tablet] 1 each PO BID 06/19/15 [History] Cevimeline HCl [Evoxac] 30 mg PO TID 06/19/15 [History] Losartan [Cozaar] 50 mg PO DAILY 06/19/15 [History] TraMADol [Ultram] 100 mg PO Q6HR PRN 06/19/15 [History] Iron Ps Complex/B12/Folic Acid [Iferex 150 Forte Capsule] 1 each PO BID 12/26/16 [History] Metoprolol [Lopressor] 100 mg PO DAILY 04/08/18 [History] Buspirone HCl [Buspar] 7.5 mg PO BID 04/09/18 [History] amLODIPine [Norvasc] 10 mg PO DAILY 04/09/18 [History] Albuterol Neb [Proventil Neb] 2.5 mg IH [id number] PRN inhsol 04/14/18 [Rx] Docusate [Colace] 100 mg PO BID capsule 04/14/18 [Rx] Ipratropium/Albuterol Neb [Duoneb] 3 ml IH [id number] inhsol 04/14/18 [Rx] Ascorbic Acid [Vitamin C] 250 mg PO BID tablet 08/26/18 [Rx] Cholecalciferol (D-3) [Vitamin D] 1,000 unit PO DAILY tablet 08/26/18 [Rx] Polyethylene Glycol 3350 [MiraLAX] 17 gm PO DAILY powd.pack 08/26/18 [Rx] Sertraline [Zoloft] 50 mg PO DAILY tablet 08/26/18 [Rx] Pantoprazole Sodium 40 mg PO BID #1 tablet. 09/10/18 [Rx] Sucralfate [Carafate] 1 gm PO BID #30 tablet 09/10/18 [Rx] Allergy/AdvReac Type Severity Reaction Status Date / Time ciprofloxacin [From Cipro] Allergy Hallucinati Verified 08/30/18 13:13 ng All Systems Review: The remainder of the systems were reviewed and are negative Physical Examination Vital Signs, Last 4 Hours Pulse Resp BP Pulse Ox 09/28/18 09:51 22 105/68 100 09/28/18 09:00 84 17 84/58 93 09/28/18 08:35 16 100 09/28/18 08:00 75 21 113/78 95 09/28/18 07:33 14 145/81 98 09/28/18 07:00 81 15 145/81 100 09/28/18 06:10 17 85 General: No Apparent Distress, Other (Intubated and sedated) HEENT: Atraumatic, Normocephaly, Trachea midline Neck: No JVD, Normal carotid pulses Cardiac: Reg Rate and Rhythm, Normal S1 and S2, No Murmur Lungs: Normal Breath Sounds, No Wheeze, Rales, Rhonchi Neuro: Other (Unable to assess due to sedated status) Vascular: Normal capillary refill Abdomen: Soft, Non-tender Skin: No rashes noted on visualized skin Extremities: No Clubbing, No Cyanosis, No Edema Results 09/28/18 04:00 09/28/18 04:00 Lab Results, Last 24 hours 09/28/18 09/28/18 09/28/18 04:00 04:00 04:00 WBC 22.5 H Hgb 7.4 L D Hct 24.6 L Plt Count 410 H Sodium 134 L Potassium 5.6 H Chloride 108 H Carbon Dioxide 20 L BUN 29 H Creatinine 1.68 H Glucose 203 H Calcium 8.0 L Magnesium 2.0 Troponin I 0.04 H* B-Natriuretic Peptide 518 H TSH 5.713 H - Imaging Chest Xray: image reviewed (Normal cardiac size. Small left apical pneumothorax with small bore chest tube in the left pleural space approximately 4 cm. A small to moderate right apical pneumothorax with proximal chest tube hole outside of right chest.) Consult Discharge Plan - Plan Referrals: NONE,PCP [Primary Care Provider] -
[2018-09-28 10:06] LABS: Adenovirus Not Detected (Not Detect); Bordetella Pertussis Not Detected (Not Detect); Chlamydophila pneumoniae Not Detected (Not Detect); Coronavirus 229E Not Detected (Not Detect); Coronavirus HKU1 Not Detected (Not Detect); Coronavirus NL63 Not Detected (Not Detect); Coronavirus OC43 Not Detected (Not Detect); Human Metapneumovirus Not Detected (Not Detect); Human Rhinovirus/Enterovirus Not Detected (Not Detect); Influenza A Subtype 2009 H1 Not Detected (Not Detect); Influenza A Untypeable Not Detected (Not Detect); Influenza B Not Detected (Not Detect); Mycoplasma pneumoniae Not Detected (Not Detect); Parainfluenza Virus 1 Not Detected (Not Detect); Parainfluenza Virus 2 Not Detected (Not Detect); Parainfluenza Virus 3 Not Detected (Not Detect); Parainfluenza Virus 4 Not Detected (Not Detect); Respiratory Syncytial Virus Not Detected (Not Detect)
--- NOTE | 2018-09-28 10:46 | Operative Note ---
Date of procedure: 09/28/18 Pre-op diagnosis: Persistent right pneumothorax Post-op diagnosis: same Procedure: 1. Right chest tube insertion. Implants: 1. #28-Polish chest tube. Complications: None. Anesthesia: IV sedation (Propofol running for her intubation sedation) Surgeon: Carissa Silva Was there an pet care assistant present: No Estimated blood loss (cc): 2 Specimen: None. Condition: stable Disposition: ICU Procedure in Detail: INDICATIONS FOR PROCEDURE: The patient is a 78 year old hypertensive lady with severe COPD, pulmonary hypertension, and recent MRSA pneumonia. She was admitted to [facility] on 08/21/2018 the diagnosis of shortness of breath and dyspnea on exertion. Chest x-ray showed bilateral pulmonary infiltrates and her sputum culture was positive for MRSA. She was treated appropriately with antibiotics and discharged to an extended care facility on 08/26/2018. While at the [facility] she had persistent respiratory symptoms and was readmitted to [facility] on 08/30/2018. She was treated with a further course of antibiotics and discharged to an extended care facility on 09/10/2018. Yesterday, the patient sustained a fall while at the [facility]. She had walked to the bathroom and upon standing, became lightheaded. Her son states that she fell against the wall striking her left side on the wall. The patient was taken to [facility] in severe respiratory distresacquired intubation intubated and the post-procedure chest x-ray showed bilateral pneumothoraces, right side larger than left side. The patient underwentright chest tube insertion at [facility] and was then transferred to [facility] for further care. A left- sided chest tube was placed in the emergency department at [facility]. The patient had a persistent air leak from the right chest tube. This morning's chest x-ray showed poor position of both chest tubes. I was consulted to evaluate the chest tube placement and insert the chest tubes as needed. FINDINGS AT PROCEDURE: The patient had no adhesions between the right lung and the chest wall. DESCRIPTION OF PROCEDURE: After obtaining informed operative consent from the patient's son, her medical power of county attorney, she was turned in the left lateral decubitus position in her ICU bed. The chest tube which had been placed at [facility] was removed. The patient's right lateral chest was prepped and draped in a sterile fashion. The previous right lateral thoracotomy incision was used for insertion of the new 28-Polish chest tube. Chest tube was directed posteriorly and was inserted approximately 8 cm before encountering resistance. The chest tube was sutured to the right chest using 2-0 silk suture. Sterile dressings were applied. Chest x-ray showed good position of the right chest tube.
--- NOTE | 2018-09-28 10:49 | Operative Note ---
Date of procedure: 09/28/18 Pre-op diagnosis: Persistent left pneumothorax Post-op diagnosis: same Procedure: 1. Left chest tube insertion. Implants: 1. #28-Indonesian chest tube. Complications: None. Anesthesia: local Local Anesthetics: Other (2% lidocaine (5 mL)) Surgeon: Carissa Silva Was there an editorial assistant present: No Estimated blood loss (cc): 2 Specimen: None. Condition: stable Disposition: ICU Procedure in Detail: INDICATIONS FOR PROCEDURE: The patient is a 78 year old hypertensive lady with severe COPD, pulmonary hypertension, and recent MRSA pneumonia. She was admitted to [facility] on 08/21/2018 the diagnosis of shortness of breath and dyspnea on exertion. Chest x-ray showed bilateral pulmonary infiltrates and her sputum culture was positive for MRSA. She was treated appropriately with antibiotics and discharged to an extended care facility on 08/26/2018. While at the [facility] she had persistent respiratory symptoms and was readmitte d to [facility] on 08/30/2018. She was treated with a further course of antibiotics and discharged to an extended care facility on 09/10/2018. Yesterday, the patient sustained a fall while at the [facility]. She had walked to the bathroom and upon standing, became lightheaded. Her son states that she fell against the wall striking her left side on the wall. The patient was taken to [facility] in severe respiratory distresacquired intubation intubated and the post-procedure chest x-ray showed bilateral pneumothoraces, right side larger than left side. The patient underwentright chest tube insertion at [facility] and was then transferred to [facility] for further care. A left- sided chest tube was placed in the emergency department at [facility]. The patient had a persistent air leak from the right chest tube. This morning's chest x-ray showed poor position of both chest tubes. I was consulted to evaluate the chest tube placement and insert the chest tubes as needed. After reinsertion of the right chest tube the left smallbore chest tube did not appear to be within the left hemithorax. It was determined that a different left chest tube should be inserted. FINDINGS AT PROCEDURE: The patient had no adhesions between the left lung and the chest wall. DESCRIPTION OF PROCEDURE: After obtaining informed operative consent from the patient's son, her medical power of senior trial attorney, she was turned in the right lateral decubitus position in her ICU bed. The chest tube which had been placed at [facility] emergency department was removed. The patient's left lateral chest was prepped and draped in a sterile fashion. A lower intercostal space in the patient's left lateral chest was anesthetized with lidocaine 2% without epinephrine. An incision was then made to the skin and subcutaneous tissue. The latissimus dorsi muscle group was dissected and a lower intercostal space was entered. Digital palpation showed no adhesions between the left lung and the chest wall. A 28-Indonesian chest tube was directed posteriorly and was inserted approximately 8 cm before encountering resistance. The chest tube was sutured to the left chest using 2-0 silk suture. Sterile dressings were applied. Chest x-ray showed good position of the left chest tube.
[2018-09-28] MEDS ORDERED: Artificial Tears SOLN 15 ML BOTTLE BOTH EYES PRN (11:13)
[2018-09-28] MEDS ORDERED: Perflutren Lipid Microsphere 1.3 ML in 0.9 % Sodium Chloride 8.7 ML IVP ONE (11:26)
[2018-09-28] MEDS: *HR* Heparin 5,000 UNIT/ML VIAL SQ SCH ×2 (12:40→17:10)
[2018-09-28] MEDS: Pantoprazole 40 MG VIAL IVP SCH (12:40)
[2018-09-28] MEDS: Hydrocortisone Sodium Succ 100 MG/2 ML VIAL IVP SCH ×2 (12:40→17:11)
[2018-09-28] MEDS: Artificial Tears SOLN 15 ML BOTTLE BOTH EYES SCH ×3 (12:41→19:42)
[2018-09-28] MEDS ORDERED: D5% in Water 1,000 ML IVC PRN (13:00)
[2018-09-28] MEDS ORDERED: Dextrose 4 GM Chewable Tablets PO PRN ×2 (13:00)
[2018-09-28] MEDS ORDERED: *HR* Dextrose 50 % in Water (Syg) 50 ML SYRINGE IVP PRN (13:00)
[2018-09-28] MEDS ORDERED: Dextrose Gel 15 GM/37.5 ML TUBE PO PRN ×2 (13:00)
[2018-09-28 13:34] LABS: Calcium 8.7 mg/dL (8.6-10.3); Potassium 5.1 mEq/L (3.5-5.1)
[2018-09-28 13:55] LABS: Triiodothyronine (T3) Free 2.26 pg/mL (2.50-3.90)
[2018-09-28 14:04] LABS: ABG Base Excess -4 mEq/L (-2 to 3); ABG HCO3 21 mEq/L (21-27); ABG Oxygen Saturation 95 % (95-98); ABG PCO2 38 mmHg (35-45); ABG PH 7.35 pH Units (7.32-7.45); ABG PO2 81 mmHg (85-104); ABG TCO2 22 mEq/L (20-26); Blood Gas Modality VC; Blood Gas PEEP 5 cm H2O; Blood Gas Respiration Rate 14; Blood Gas VT 450 cc
[2018-09-28 15:07] LABS: Troponin I 0.11 ng/mL (< 0.04)
[2018-09-28 15:44] LABS: Magnesium 1.8 mg/dL (1.6-2.6)
[2018-09-28] MEDS: Insulin LISPRO 300 UNITS/3 ML VIAL SQ SCH (17:11)
[2018-09-28] MEDS: Chlorhexidine Rinse 15 ML MOUTHWASH MM SCH (19:42)
[2018-09-28 20:19] LABS: ABG Base Excess -5 mEq/L (-2 to 3); ABG HCO3 20 mEq/L (21-27); ABG Oxygen Saturation 98 % (95-98); ABG PCO2 35 mmHg (35-45); ABG PH 7.36 pH Units (7.32-7.45); ABG PO2 101 mmHg (85-104); ABG TCO2 21 mEq/L (20-26); Blood Gas Modality ASSIST CONTROL; Blood Gas PEEP 5 cm H2O; Blood Gas Respiration Rate 14; Blood Gas VT 380 cc
[2018-09-28] MEDS ORDERED: Piperacillin/Tazobactam 3.375 GM VIAL ONE (20:39)
[2018-09-28] MEDS: Piperacillin/Tazobactam 3.375 GM in 0.9 % Sodium Chloride Mini Bag 100 ML IVPB SCH (21:02)
[2018-09-29] MEDS: Hydrocortisone Sodium Succ 100 MG/2 ML VIAL IVP SCH ×3 (00:18→17:40)
[2018-09-29] MEDS: Insulin LISPRO 300 UNITS/3 ML VIAL SQ SCH ×5 (00:18→23:32)
[2018-09-29] MEDS: Artificial Tears SOLN 15 ML BOTTLE BOTH EYES SCH ×6 (00:18→23:33)
[2018-09-29] MEDS: FentaNYL (PF) 1,000 MCG in 0.9 % Sodium Chloride 80 ML IVC SCH ×3 (02:32→19:39)
[2018-09-29] MEDS: Dexmedetomidine HCl 400 MCG/100 ML MLS IVC SCH ×3 (02:33→19:24)
[2018-09-29] MEDS: Ipratropium/Albuterol Neb 3 ML IH SCH ×4 (03:32→15:28)
[2018-09-29 03:43] LABS: Basophils % 0.1 %; Mean Corpuscular HGB Conc 31.3 g/dL (31.6-35.5); Mean Platelet Volume 10.3 fL (9.4-12.4); Red Cell Distribution Width 14.7 % (11.5-14.5)
[2018-09-29 03:44] LABS: Hematocrit 25.9 % (35.3-44.9); Hemoglobin 8.1 g/dL (11.5-15.4); Immature Granulocytes % 1.1 % (0-4); Lymphocytes # 0.4 K/mcL (0.6-4.6); Lymphocytes % 1.5 %; Mean Corpuscular Hemoglobin 30.6 pg (28.0-33.3); Mean Corpuscular Volume 97.7 fL (83.0-100.0); Monocytes % 3.7 %; Platelet Count 351 K/mcL (140-400); Red Blood Count 2.65 M/mcL (3.82-4.97); Segmented Neutrophils % 93.6 %
[2018-09-29 04:22] LABS: Calcium 8.3 mg/dL (8.6-10.3); Potassium 4.2 mEq/L (3.5-5.1)
[2018-09-29 04:33] LABS: Platelet Estimate Normal (Normal)
[2018-09-29 05:05] LABS: ABG Base Excess -3 mEq/L (-2 to 3); ABG HCO3 21 mEq/L (21-27); ABG Oxygen Saturation 94 % (95-98); ABG PCO2 34 mmHg (35-45); ABG PH 7.41 pH Units (7.32-7.45); ABG PO2 68 mmHg (85-104); ABG TCO2 22 mEq/L (20-26); Blood Gas Modality ASSIST CONTROL; Blood Gas PEEP 5 cm H2O; Blood Gas Respiration Rate 14; Blood Gas VT 380 cc
[2018-09-29] MEDS: *HR* Heparin 5,000 UNIT/ML VIAL SQ SCH ×2 (05:52→17:39)
[2018-09-29] MEDS: Piperacillin/Tazobactam 3.375 GM in 0.9 % Sodium Chloride Mini Bag 100 ML IVPB SCH ×2 (05:55→17:40)
[2018-09-29] MEDS ORDERED: Levothyroxine Sodium 100 MCG VIAL IVP SCH (06:30)
--- NOTE | 2018-09-29 07:20 | Pulmonology Progress Note ---
<Jim Bauer S - Last Filed: 09/29/18 10:59> Date of Encounter: 09/29/18 Time of Encounter: 08:29 Assessment and Plan (1) COPD (chronic obstructive pulmonary disease) Current Visit: Yes Status: Chronic Pt who came to ER found to be increasingly hypoxic and was intubated in the ER after failing BiPAP - was recently admitted for MRSA pneumonia and is presumed to have unresolved MRSA peumonia - she returned to [place] for increasing SOB and was transferred to [facility] for further workup CXR post intubation showed bilateral pneumothoraces, pneumomediastinum and right mainstem intubation - chest tube inserted by ER physician - left sided pigtail catheter inserted by ICU resident - right IJ inserted, pt started on pressors - Dr Silva replaced chest tubes 09/28 Meets sepsis criteria for HR 110, WBC 26.7 - source of infxn likely from g(+) cocci in sputum ABG this morning showed pH 7.41, pCO2 34, pO2 68, HCO3 21, O2 sat 98% - vent settings changed PEEP decreased to 0, FiO2 to 100% (not because of hypoxia but to tx pneumothorax) CXR on 09/28 showed no pneumothorax on the left, and a right 7mm apical pneumothorax Plan: - cardiothoracic surgery consulted, appreciate recommendations left chest tube continues to have small intermittent air leak right tube has no air leak repeat CXR 09/30 AM - CT scan chest planned for today - continue vancomycin, zosyn - continue propofol, fentanyl and precedex for sedation and pain control - levophed currently on hold, titrate up if needed - repeat blood cx pending Qualifiers: Qualified Code(s): J44.9 - Chronic obstructive pulmonary disease, unspecified (2) Pneumothorax Current Visit: Yes Status: Acute See plan as above. Last CXR 09/28 - Interval exchange of small lumen left pleural catheter for chest tube. There is subcutaneous emphysema along the left lateral chest wall. No visible pneumothorax on the left. - Persistent 7 mm right apical pneumothorax. Right chest tube has partially been withdrawn about 2 cm. Repeat CXR tomorrow AM. See plan as above. CT sx following. Qualifiers: Pneumothorax type: unspecified pneumothorax Qualified Code(s): J93.9 - Pneumothorax, unspecified (3) Essential hypertension Current Visit: No Status: Chronic BP 113/69 - chronic - home meds not reconcilied at this time (4) DVT prophylaxis Current Visit: Yes Status: Acute scd (5) Elevated troponin I level Current Visit: Yes Status: Acute Troponin trended up from 0.04 --> 0.11 ---> 0.14 EKG showed sinus rhythm with no acute ischemia noted Likely demand ischemia from COPD exacerbation. ECHO 09/28/18 showed LVEF 60-65%, TR, mild LV diastolic dysfxn (6) Acute and chronic respiratory failure Current Visit: Yes Status: Acute See plan as above for pneumonia. Qualifiers: Respiratory failure complication: hypoxia Qualified Code(s): J96.21 - Acute and chronic respiratory failure with hypoxia (7) Anxiety Current Visit: Yes Status: Acute on Buspar, zoloft - home meds not reconciled at this time (8) Hyponatremia Current Visit: Yes Status: Acute Poor PO intake vs adrenal fatigue - admission sodium 134, pt does have a hx of chronically low Na in mid to high 120's and low 130's (9) Hyperkalemia Current Visit: Yes Status: Acute On admission potassium 5.6 - has since resolved - potassium this morning 4.2 (10) Adrenal failure Current Visit: Yes Status: Acute Suspected, pt had hyponatrmiea/hyperkalemia on presentation with decreased BP. Also was recently on steroid taper for COPD. - was given stress dose of steroids, 100mg IVP hydrocortisone upon arrival to ICU Random cortisol 7.9 T3 2.26, T4 1.09 TSH 5.713 Plan: - synthroid d/c - continue hydrocortisone q12hr (11) BASSEM (acute kidney injury) Current Visit: Yes Status: Acute Resolving. Admission creatinine 1.46, improved to 1.27 Plan: - avoid nephrotoxins - I&O's - continue to monitor renal fxn (12) Pneumonia Current Visit: Yes Status: Acute See plan as above for COPD exacerbation. Qualifiers: Pneumonia type: due to unspecified organism Laterality: unspecified laterality Lung location: unspecified part of lung Qualified Code(s): J18.9 - Pneumonia, unspecified organism Subjective Principal diagnosis: Pneumonia, pneumothorax bilateral Interval history: Pt is seen at bedside. She remains intubated and on sedation. She appears to be comfortably resting.No acute overnight events. Objective PUL Vital signs: Last Vital Signs Temp 98.5 F 09/29/18 03:55 Pulse 110 09/29/18 06:00 Resp 18 09/29/18 06:00 BP 100/57 09/29/18 06:00 Pulse Ox 98 09/29/18 06:00 General appearance: no acute distress, comatose Eyes: nonicteric ENT: oropharynx dry Auscultation: bilateral: other (coarse breath sounds one expiration bilaterally, not in respiratory distress, no accessory inspiratory muscle use noted) Cardiovascular: other (tacycarida) Gastrointestinal: soft, non-tender, non-distended Integumentary: normal Extremities: edema Musculoskeletal: no deformities unable to assess due to mental status other (unable to assess due to mental status) Ventilator Settings Ventilator Settings: Ventilator Settings, Last 8 Hours Ventilator Tidal Volume 380 Setting Ventilator Tidal Volume 380 Setting Ventilator Tidal Volume 380 Setting Ventilator Tidal Volume 380 Setting Ventilator Tidal Volume 380 Setting Ventilator Tidal Volume 380 Setting Ventilator Tidal Volume 380 Setting Ventilator Tidal Volume 380 Setting Ventilator Tidal Volume 380 Setting Ventilator Tidal Volume 380 Setting Ventilator Tidal Volume 380 Setting Ventilator Tidal Volume 380 Setting Ventilator Respiratory Rate 14 Setting Ventilator Respiratory Rate 14 Setting Ventilator Respiratory Rate 14 Setting Ventilator Respiratory Rate 14 Setting Ventilator Respiratory Rate 14 Setting Ventilator Respiratory Rate 14 Setting Ventilator Respiratory Rate 14 Setting Ventilator Respiratory Rate 14 Setting Ventilator Respiratory Rate 14 Setting Ventilator Respiratory Rate 14 Setting Ventilator Respiratory Rate 14 Setting Ventilator Respiratory Rate 14 Setting Actual Respiratory Rate 17 Actual Respiratory Rate 19 Actual Respiratory Rate 19 Actual Respiratory Rate 18 Actual Respiratory Rate 19 Actual Respiratory Rate 20 Actual Respiratory Rate 20 Actual Respiratory Rate 21 Actual Respiratory Rate 22 Actual Respiratory Rate 21 Actual Respiratory Rate 20 Positive End Expiratory 5 Pressure Positive End Expiratory 5 Pressure Positive End Expiratory 5 Pressure Positive End Expiratory 5 Pressure Positive End Expiratory 5 Pressure Positive End Expiratory 5 Pressure Positive End Expiratory 5 Pressure Positive End Expiratory 5 Pressure Positive End Expiratory 5 Pressure Positive End Expiratory 5 Pressure Positive End Expiratory 5 Pressure Positive End Expiratory 5 Pressure Peak Inspiratory Airway 5.1 Pressure Peak Inspiratory Airway 9 Pressure Peak Inspiratory Airway 6.1 Pressure Peak Inspiratory Airway 5.2 Pressure Peak Inspiratory Airway 16 Pressure Peak Inspiratory Airway 19 Pressure Peak Inspiratory Airway 15 Pressure Peak Inspiratory Airway 17 Pressure Peak Inspiratory Airway 11 Pressure Peak Inspiratory Airway 18 Pressure Peak Inspiratory Airway 19 Pressure Results - Laboratory Findings CBC and BMP: 09/29/18 03:15 09/29/18 03:15 ABG ABG pH 7.41 pH Units (7.32-7.45) 09/29/18 05:01 ABG pCO2 34 mmHg (35-45) L 09/29/18 05:01 ABG pO2 68 mmHg (85-104) L 09/29/18 05:01 ABG O2 Saturation 94 % (95-98) L 09/29/18 05:01 Abnormal lab findings: Abnormal lab results WBC 26.7 K/mcL (4.3-11.1) H 09/29/18 03:15 RBC 2.65 M/mcL (3.82-4.97) L 09/29/18 03:15 Hgb 8.1 g/dL (11.5-15.4) L 09/29/18 03:15 Hct 25.9 % (35.3-44.9) L 09/29/18 03:15 MCHC 31.3 g/dL (31.6-35.5) L 09/29/18 03:15 RDW 14.7 % (11.5-14.5) H 09/29/18 03:15 Neutrophils # 25.0 K/mcL (1.6-8.9) H 09/29/18 03:15 Lymphocytes # 0.4 K/mcL (0.6-4.6) L 09/29/18 03:15 ABG pCO2 34 mmHg (35-45) L 09/29/18 05:01 ABG pO2 68 mmHg (85-104) L 09/29/18 05:01 ABG O2 Saturation 94 % (95-98) L 09/29/18 05:01 ABG Base Excess -3 mEq/L (-2 to 3) L 09/29/18 05:01 Sodium 134 mEq/L (136-145) L 09/29/18 03:15 Carbon Dioxide 19 mEq/L (23-29) L 09/29/18 03:15 BUN 25 mg/dL (8-23) H 09/29/18 03:15 Creatinine 1.27 mg/dL (0.60-1.20) H 09/29/18 03:15 Est GFR ( Amer) 49 (> 60) L 09/29/18 03:15 Est GFR (Non-Af Amer) 41 (> 60) L 09/29/18 03:15 Glucose 158 mg/dL (70-105) H 09/29/18 03:15 POC Glucose 169 mg/dL (70-99) H 09/28/18 23:26 Calcium 8.3 mg/dL (8.6-10.3) L 09/29/18 03:15 Phosphorus 6.0 mg/dL (2.7-4.5) H 09/28/18 04:00 Troponin I 0.14 ng/mL (< 0.04) H* 09/28/18 19:37 B-Natriuretic Peptide 518 pg/mL (Less than 100) H 09/28/18 04:00 TSH 5.713 mcIU/mL (0.340-5.600) H 09/28/18 04:00 Free T3 2.26 pg/mL (2.50-3.90) L 09/28/18 10:50 Nasal Screen MRSA (PCR) Positive (Negative) A 09/28/18 08:00 - Microbiology Findings Microbiology Findings: Microbiology, Last 48 Hours 09/28/18 14:16 Blood Culture - Preliminary Peripheral Venipuncture Culture is incubating and being continuously monitored for growth. Final report to follow. 09/28/18 13:04 Blood Culture - Preliminary Central Venous Catheter Culture is incubating and being continuously monitored for growth. Final report to follow. 09/28/18 10:49 Sputum Culture - Preliminary Aspirate - Clinical Findings Intake & Output: Intake & Output 09/28/18 09/28/18 09/29/18 15:59 23:59 07:59 Intake Total 839 / 839 574 / 574 489 / 489 Output Total 620 / 620 134 / 134 161 / 161 Balance 219 / 219 440 / 440 328 / 328 Weight 55.4 kg Consult Discharge Plan - Plan Referrals: NONE,PCP [Primary Care Provider] - <Shayy Duong - Last Filed: 09/30/18 16:52> Date of Encounter: 09/30/18 Objective PUL Vital signs: Last Vital Signs Temp 97.4 F L 09/29/18 09:08 Pulse 128 09/29/18 09:00 Resp 22 09/29/18 10:03 BP 104/80 09/29/18 09:00 Pulse Ox 100 09/29/18 10:03 Ventilator Settings Ventilator Settings: Ventilator Settings, Last 8 Hours Ventilator Tidal Volume 380 Setting Ventilator Tidal Volume 380 Setting Ventilator Tidal Volume 380 Setting Ventilator Tidal Volume 380 Setting Ventilator Tidal Volume 380 Setting Ventilator Tidal Volume 380 Setting Ventilator Tidal Volume 380 Setting Ventilator Tidal Volume 380 Setting Ventilator Tidal Volume 380 Setting Ventilator Tidal Volume 380 Setting Ventilator Tidal Volume 380 Setting Ventilator Tidal Volume 380 Setting Ventilator Respiratory Rate 14 Setting Ventilator Respiratory Rate 14 Setting Ventilator Respiratory Rate 14 Setting Ventilator Respiratory Rate 14 Setting Ventilator Respiratory Rate 14 Setting Ventilator Respiratory Rate 14 Setting Ventilator Respiratory Rate 14 Setting Ventilator Respiratory Rate 14 Setting Ventilator Respiratory Rate 14 Setting Ventilator Respiratory Rate 14 Setting Ventilator Respiratory Rate 14 Setting Ventilator Respiratory Rate 14 Setting Actual Respiratory Rate 23 Actual Respiratory Rate 21 Actual Respiratory Rate 21 Actual Respiratory Rate 17 Actual Respiratory Rate 17 Actual Respiratory Rate 17 Actual Respiratory Rate 19 Actual Respiratory Rate 19 Actual Respiratory Rate 18 Actual Respiratory Rate 19 Actual Respiratory Rate 20 Positive End Expiratory 0 Pressure Positive End Expiratory 0 Pressure Positive End Expiratory 0 Pressure Positive End Expiratory 0 Pressure Positive End Expiratory 5 Pressure Positive End Expiratory 5 Pressure Positive End Expiratory 5 Pressure Positive End Expiratory 5 Pressure Positive End Expiratory 5 Pressure Positive End Expiratory 5 Pressure Positive End Expiratory 5 Pressure Positive End Expiratory 5 Pressure Peak Inspiratory Airway 3.1 Pressure Peak Inspiratory Airway 0.1 Pressure Peak Inspiratory Airway 5.1 Pressure Peak Inspiratory Airway 9 Pressure Peak Inspiratory Airway 6.1 Pressure Peak Inspiratory Airway 5.2 Pressure Peak Inspiratory Airway 16 Pressure Peak Inspiratory Airway 19 Pressure Results - Laboratory Findings CBC and BMP: 09/30/18 03:41 09/30/18 03:41 ABG ABG pH 7.41 pH Units (7.32-7.45) 09/29/18 05:01 ABG pCO2 34 mmHg (35-45) L 09/29/18 05:01 ABG pO2 68 mmHg (85-104) L 09/29/18 05:01 ABG O2 Saturation 94 % (95-98) L 09/29/18 05:01 Abnormal lab findings: Abnormal lab results WBC 26.7 K/mcL (4.3-11.1) H 09/29/18 03:15 RBC 2.65 M/mcL (3.82-4.97) L 09/29/18 03:15 Hgb 8.1 g/dL (11.5-15.4) L 09/29/18 03:15 Hct 25.9 % (35.3-44.9) L 09/29/18 03:15 MCHC 31.3 g/dL (31.6-35.5) L 09/29/18 03:15 RDW 14.7 % (11.5-14.5) H 09/29/18 03:15 Neutrophils # 25.0 K/mcL (1.6-8.9) H 09/29/18 03:15 Lymphocytes # 0.4 K/mcL (0.6-4.6) L 09/29/18 03:15 ABG pCO2 34 mmHg (35-45) L 09/29/18 05:01 ABG pO2 68 mmHg (85-104) L 09/29/18 05:01 ABG O2 Saturation 94 % (95-98) L 09/29/18 05:01 ABG Base Excess -3 mEq/L (-2 to 3) L 09/29/18 05:01 Sodium 134 mEq/L (136-145) L 09/29/18 03:15 Carbon Dioxide 19 mEq/L (23-29) L 09/29/18 03:15 BUN 25 mg/dL (8-23) H 09/29/18 03:15 Creatinine 1.27 mg/dL (0.60-1.20) H 09/29/18 03:15 Est GFR ( Amer) 49 (> 60) L 09/29/18 03:15 Est GFR (Non-Af Amer) 41 (> 60) L 09/29/18 03:15 Glucose 158 mg/dL (70-105) H 09/29/18 03:15 POC Glucose 169 mg/dL (70-99) H 09/28/18 23:26 Calcium 8.3 mg/dL (8.6-10.3) L 09/29/18 03:15 Phosphorus 6.0 mg/dL (2.7-4.5) H 09/28/18 04:00 Troponin I 0.14 ng/mL (< 0.04) H* 09/28/18 19:37 B-Natriuretic Peptide 518 pg/mL (Less than 100) H 09/28/18 04:00 TSH 5.713 mcIU/mL (0.340-5.600) H 09/28/18 04:00 Free T3 2.26 pg/mL (2.50-3.90) L 09/28/18 10:50 Nasal Screen MRSA (PCR) Positive (Negative) A 09/28/18 08:00 - Microbiology Findings Microbiology Findings: Microbiology, Last 48 Hours 09/28/18 14:16 Blood Culture - Preliminary Peripheral Venipuncture Culture is incubating and being continuously monitored for growth. Final report to follow. 09/28/18 13:04 Blood Culture - Preliminary Central Venous Catheter Culture is incubating and being continuously monitored for growth. Final report to follow. 09/28/18 10:49 Sputum Culture - Preliminary Aspirate - Clinical Findings Intake & Output: Intake & Output 09/28/18 09/29/18 09/29/18 23:59 07:59 15:59 Intake Total 574 / 574 489 / 489 Output Total 134 / 134 161 / 161 75 / 75 Balance 440 / 440 328 / 328 -75 / -75 Weight 55.4 kg - Attending Attestation I examined this patient and my medical decision-making was reviewed with the Resident Physician. I agree with the documented findings, disposition and treatment plan as described except to the extent set forth below. Patient seen and examined. Labs, radiology, chart personally reviewed. 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 Changed to PEEP to 0 and increase FIO2 to 100% to help her pnemothorax. Still have leaks. Will need CT chest. After patient had CT chest there is still evidence of what looks like loculated pneumothorax and I suspect patient will need another chest tube. Cardiovascular: Patient has hypertension and with her underlying lung disease and progressive fluid resuscitation will have more impact on her lungs with pulmonary edema and patient is on low dose vasopressor which is supporting her blood pressure. Patient also has sinus tachycardia which is expected from multiple complications with pneumothoraces that she has and underlying Anxiety. Trial of low-dose Cardizem. GI: Nutrition per dietary and GI prophylaxis per routine Heme: DVT prophylaxis per routine ID: Continue antibiotics and plan to de-escalation Renal; urine out put and renal funtion reviewed Endorcine: blood glucose is monitored Lines: all lines checked and no evidence of infections Skin: skin care to prevent pressure ulcers per nursing routine care I spent 35 min of Critical Care time with this patient. It involved decision making of high complexity to assess, manipulate, and support vital organ system failure and/or to prevent further life threatening deterioration of the patient's condition. The time involved in the performance of separately reportable procedures was not counted toward critical care time.
--- NOTE | 2018-09-29 08:25 | Cardiothoracic Progress Note ---
Date of Encounter: 09/29/18 Time of Encounter: 08:23 - Assessment and plan (1) COPD exacerbation Current Visit: Yes Status: Acute The patient remained in midline stable overnight. She remains intubated and sedated. The left chest tube small intermittent air leak and the right chest tube has no air leak. The chest tubes remain in place until the pneumothoraces resolve and the air leaks stop. The chest x-ray will be repeated in the morning. The assessment and plan as outlined above was discussed with the patient and/or family members who expressed understanding and agreement. All questions were answered. - Subjective Interval history: The patient remained hemodynamically stable overnight. She is currently intubated and sedated. Vital Signs, Last 4 Hours Pulse Resp BP Pulse Ox 09/29/18 08:00 105 09/29/18 07:37 18 100 09/29/18 07:00 105 17 113/69 100 09/29/18 06:00 110 18 100/57 98 09/29/18 05:25 19 87/53 96 09/29/18 05:00 114 9 87/53 99 09/29/18 04:32 114 17 119/68 99 Clinical Data, last 8 Hours Output, Chest Tube Drainage 0 Amount [Left Lateral Chest] Output, Chest Tube Drainage 0 Amount [Right Lateral Chest] Weight 09/27/18 09/28/18 09/29/18 23:59 23:59 23:59 Weight 53 kg 55.4 kg - Physical Examination General: Other (Intubated and sedated) Neck: No JVD, Normal carotid pulses Cardiac: Reg Rate and Rhythm, Normal S1 and S2, No Murmur Incision: No signs of infection, Dry/intact dressing Chest tubes: Minimal drainage, Air leak (Left chest tube) Lungs: Normal Breath Sounds, No Wheeze, Rales, Rhonchi Vascular: Normal capillary refill Extremities: No Clubbing, No Cyanosis, No Edema - Labs 09/29/18 03:15 09/29/18 03:15 Lab Results, Last 24 hours 09/28/18 09/28/18 09/28/18 04:00 10:50 14:16 WBC Hgb Hct Plt Count Sodium 135 L Potassium 5.1 Chloride 100 Carbon Dioxide 21 L BUN 27 H Creatinine 1.46 H Glucose 224 H Calcium 8.7 Magnesium 1.8 Troponin I 0.11 H* TSH 5.713 H 09/28/18 09/29/18 09/29/18 19:37 03:15 03:15 WBC 26.7 H Hgb 8.1 L Hct 25.9 L Plt Count 351 Sodium 134 L Potassium 4.2 Chloride 105 Carbon Dioxide 19 L BUN 25 H Creatinine 1.27 H Glucose 158 H Calcium 8.3 L Magnesium Troponin I 0.14 H* TSH Consult Discharge Plan - Plan Referrals: NONE,PCP [Primary Care Provider] -
--- NOTE | 2018-09-29 08:51 | Electrocardiograph Report ---
[address] [place], [place] [address] Test Date: 2018-09-28 Pat Name: Dee Alegria Department: 101 Room: [facility] Gender: F Supervisor Chemical: [facility] [place] : 1940 Requested By: Sotero Roberts Order Number: [id number] Reading MD: Jonathan Fierro Measurements Intervals [place] Rate: 87 P: 42 [place]: 142 QRS: 5 QRSD: 93 T: 14 QT: 362 QTc: 406 Interpretive Statements SINUS RHYTHM Electronically Signed On 09-29-2018 8:50:40 EST by Jonathan Fierro
[2018-09-29] MEDS: Chlorhexidine Rinse 15 ML MOUTHWASH MM SCH ×2 (09:09→19:37)
[2018-09-29] MEDS: Nystatin Cream 15 GM TUBE TP SCH ×3 (09:09→19:37)
[2018-09-29] MEDS: Azithromycin 500 MG in D5% in Water 250 ML IVPB SCH (09:09)
[2018-09-29] MEDS: Pantoprazole 40 MG VIAL IVP SCH (09:09)
[2018-09-29] MEDS ORDERED: Ipratropium/Albuterol Neb 3 ML IH ONE (09:54)
--- NOTE | 2018-09-29 11:12 | Event Note ---
<Jim Bauer S - Last Filed: 09/29/18 11:03> Date of Encounter: 09/29/18 Time of Encounter: 11:03 At around 0930am nurse asked me to come see pt. She was having increased work of breathing, increasingly tacycardic, and hypotensive. STAT XR ordered. Breath sounds sounded decreased from this morning. Duonebs x2 ordered. XR showed No significant change in bilateral perihilar and bibasilar airspace opacities, left more than right, which may relate to atelectasis, infiltrates and/or pulmonary edema. - Endotracheal tube appears to be low lying with tip approximately 7 mm from the nitish, although this may relate at least in part to kyphotic positioning of the patient. - However, consider retraction by 1-2 cm Re-evaluated the pt with attending present after rounds. She appears to be more comfortable but is still tacycardic in the 130's. Nurse to let Dr Silva know. Repeat XR again at 10:47 showed no significant change. 11:11 - Dr Silva notified of chest tube tidaling. <Shayy Duong M - Last Filed: 09/29/18 13:36> Date of Encounter: 09/29/18 I examined this patient and my medical decision-making was reviewed with the Resident Physician. I agree with the documented findings, disposition and treatment plan as described except to the extent set forth below. I have assessed the patient and she is physically having distress and I have changed vent setting again hoping that will help and ask for repeat chest x-ray. Dr. Silva is aware.
[2018-09-29] MEDS: Norepinephrine 4 MG in D5% in Water 250 ML IVC SCH (17:52)
[2018-09-29] MEDS: Levalbuterol Neb 1.25 MG/3 ML IH SCH ×2 (18:17→21:36)
[2018-09-30] MEDS: FentaNYL (PF) 1,000 MCG in 0.9 % Sodium Chloride 80 ML IVC SCH ×5 (00:15→22:12)
[2018-09-30] MEDS: Dexmedetomidine HCl 400 MCG/100 ML MLS IVC SCH ×2 (02:43→12:21)
[2018-09-30 03:53] LABS: Basophils % 0.1 %; Hematocrit 23.9 % (35.3-44.9); Hemoglobin 7.4 g/dL (11.5-15.4); Immature Granulocytes % 1.1 % (0-4); Lymphocytes # 0.4 K/mcL (0.6-4.6); Lymphocytes % 1.5 %; Mean Corpuscular Hemoglobin 30.6 pg (28.0-33.3); Mean Corpuscular Volume 98.8 fL (83.0-100.0); Mean Platelet Volume 10.3 fL (9.4-12.4); Monocytes # 1.3 K/mcL (0.0-1.3); Monocytes % 5.5 %; Platelet Count 323 K/mcL (140-400); Red Blood Count 2.42 M/mcL (3.82-4.97); Red Cell Distribution Width 14.9 % (11.5-14.5); Segmented Neutrophils % 91.8 %
[2018-09-30] MEDS: Levalbuterol Neb 1.25 MG/3 ML IH SCH ×4 (04:07→21:28)
[2018-09-30 04:11] LABS: Potassium 3.6 mEq/L (3.5-5.1)
[2018-09-30 04:16] LABS: Neutrophils # 21.8 K/mcL (1.6-8.9)
[2018-09-30 04:49] LABS: Large Platelets Present (Not Present); Platelet Estimate Normal (Normal)
[2018-09-30 04:54] LABS: ABG Base Excess -2 mEq/L (-2 to 3); ABG HCO3 23 mEq/L (21-27); ABG Oxygen Saturation 100 % (95-98); ABG PCO2 37 mmHg (35-45); ABG PH 7.39 pH Units (7.32-7.45); ABG PO2 318 mmHg (85-104); ABG TCO2 24 mEq/L (20-26); Blood Gas Modality ASSIST CONTROL; Blood Gas PEEP 0 cm H2O; Blood Gas Respiration Rate 14; Blood Gas VT 380 cc
[2018-09-30] MEDS: *HR* Heparin 5,000 UNIT/ML VIAL SQ SCH ×2 (05:33→19:06)
[2018-09-30] MEDS: Hydrocortisone Sodium Succ 100 MG/2 ML VIAL IVP SCH ×2 (05:33→19:06)
[2018-09-30] MEDS: Piperacillin/Tazobactam 3.375 GM in 0.9 % Sodium Chloride Mini Bag 100 ML IVPB SCH ×3 (05:34→22:19)
[2018-09-30] MEDS: Artificial Tears SOLN 15 ML BOTTLE BOTH EYES SCH ×6 (05:34→23:34)
[2018-09-30] MEDS: Insulin LISPRO 300 UNITS/3 ML VIAL SQ SCH ×4 (06:09→23:38)
--- NOTE | 2018-09-30 06:20 | Pulmonology Progress Note ---
<Jim Bauer S - Last Filed: 09/30/18 10:30> Date of Encounter: 09/30/18 Time of Encounter: 07:52 Assessment and Plan (1) COPD (chronic obstructive pulmonary disease) Current Visit: Yes Status: Chronic Pt who came to ER found to be increasingly hypoxic and was intubated in the ER after failing BiPAP - was recently admitted for MRSA pneumonia and is presumed to have unresolved MRSA peumonia - she returned to [place] for increasing SOB and was transferred to [facility] for further workup CXR post intubation showed bilateral pneumothoraces, pneumomediastinum and right mainstem intubation - chest tube inserted by ER physician - left sided pigtail catheter inserted by ICU resident - right IJ inserted, pt started on pressors - Dr Silva replaced chest tubes 09/28 Meets sepsis criteria for HR 112, WBC 23.7 - source of infxn likely from g(+) cocci in sputum ABG this morning showed pH 7.39, pCO2 37, pO2 318, HCO3 23, O2 sat 100% - vent settings changed on 09/29 PEEP decreased to 0, FiO2 to 100% (not because of hypoxia but to tx pneumothorax) CXR on 09/28 showed no pneumothorax on the left, and a right 7mm apical pneumothorax CXR 09/30 Right apical pneumothorax has redeveloped. Otherwise stable chest. Plan: - cardiothoracic surgery consulted, appreciate recommendations current recommendations are to leave ches tube until air leak stops and/or extubation - continue vancomycin, zosyn, azithromycin day 3 - continue propofol, fentanyl and precedex for sedation and pain control - levophed currently 3mcg/hr - repeat blood cx pending Qualifiers: Qualified Code(s): J44.9 - Chronic obstructive pulmonary disease, unspecified (2) Pneumothorax Current Visit: Yes Status: Acute See plan as above. Last CXR 09/28 - Interval exchange of small lumen left pleural catheter for chest tube. There is subcutaneous emphysema along the left lateral chest wall. No visible pneumothorax on the left. - Persistent 7 mm right apical pneumothorax. Right chest tube has partially been withdrawn about 2 cm. CXR 09/30 - Right apical pneumothorax has redeveloped. Otherwise stable chest. Qualifiers: Pneumothorax type: unspecified pneumothorax Qualified Code(s): J93.9 - Pneumothorax, unspecified (3) Essential hypertension Current Visit: No Status: Chronic BP stable - chronic (4) DVT prophylaxis Current Visit: Yes Status: Acute scd (5) Elevated troponin I level Current Visit: Yes Status: Acute Troponin trended up from 0.04 --> 0.11 ---> 0.14 EKG showed sinus rhythm with no acute ischemia noted Likely demand ischemia from COPD exacerbation. ECHO 09/28/18 showed LVEF 60-65%, TR, mild LV diastolic dysfxn (6) Acute and chronic respiratory failure Current Visit: Yes Status: Acute See plan as above for pneumonia. Qualifiers: Respiratory failure complication: hypoxia Qualified Code(s): J96.21 - Acute and chronic respiratory failure with hypoxia (7) Anxiety Current Visit: Yes Status: Acute on Buspar, zoloft (8) Hyponatremia Current Visit: Yes Status: Acute Poor PO intake vs adrenal fatigue - admission sodium 134, pt does have a hx of chronically low Na in mid to high 120's and low 130's (9) Hyperkalemia Current Visit: Yes Status: Acute On admission potassium 5.6 - has since resolved - potassium this morning 3.6 (10) Adrenal failure Current Visit: Yes Status: Acute Suspected, pt had hyponatrmiea/hyperkalemia on presentation with decreased BP. Also was recently on steroid taper for COPD. - was given stress dose of steroids, 100mg IVP hydrocortisone upon arrival to ICU Random cortisol 7.9 T3 2.26, T4 1.09 TSH 5.713 Plan: - synthroid d/c - continue hydrocortisone q12hr (11) BASSEM (acute kidney injury) Current Visit: Yes Status: Acute Resolving. Admission creatinine 1.46, improved to 1.27 ---> 1.10 Plan: - avoid nephrotoxins - I&O's - continue to monitor renal fxn (12) Pneumonia Current Visit: Yes Status: Acute See plan as above for COPD exacerbation. Qualifiers: Pneumonia type: due to unspecified organism Laterality: unspecified laterality Lung location: unspecified part of lung Qualified Code(s): J18.9 - Pneumonia, unspecified organism Subjective Principal diagnosis: Pneumonia, pneumothorax bilateral Interval history: Pt is seen at bedside. She remains intubated and on sedation. She appears to be comfortably resting. No acute overnight events. Objective PUL Vital signs: Last Vital Signs Temp 100.7 F H 09/30/18 04:29 Pulse 112 09/30/18 06:00 Resp 16 09/30/18 06:00 BP 127/77 09/30/18 06:00 Pulse Ox 100 09/30/18 06:00 General appearance: no acute distress, comatose Eyes: nonicteric ENT: oropharynx moist Cardiovascular: other (tacycardic) Gastrointestinal: soft, non-tender Integumentary: normal Extremities: edema Musculoskeletal: no deformities unable to assess due to mental status other (unable to assess) Ventilator Settings Ventilator Settings: Ventilator Settings, Last 8 Hours Ventilator Tidal Volume 380 Setting Ventilator Tidal Volume 380 Setting Ventilator Tidal Volume 380 Setting Ventilator Tidal Volume 380 Setting Ventilator Tidal Volume 380 Setting Ventilator Tidal Volume 380 Setting Ventilator Tidal Volume 380 Setting Ventilator Tidal Volume 380 Setting Ventilator Tidal Volume 380 Setting Ventilator Tidal Volume 380 Setting Ventilator Tidal Volume 380 Setting Ventilator Tidal Volume 380 Setting Ventilator Respiratory Rate 14 Setting Ventilator Respiratory Rate 14 Setting Ventilator Respiratory Rate 14 Setting Ventilator Respiratory Rate 14 Setting Ventilator Respiratory Rate 14 Setting Ventilator Respiratory Rate 14 Setting Ventilator Respiratory Rate 14 Setting Ventilator Respiratory Rate 14 Setting Ventilator Respiratory Rate 14 Setting Ventilator Respiratory Rate 14 Setting Ventilator Respiratory Rate 14 Setting Ventilator Respiratory Rate 14 Setting Actual Respiratory Rate 14 Actual Respiratory Rate 14 Actual Respiratory Rate 14 Actual Respiratory Rate 14 Actual Respiratory Rate 15 Actual Respiratory Rate 18 Actual Respiratory Rate 16 Actual Respiratory Rate 17 Actual Respiratory Rate 14 Actual Respiratory Rate 14 Actual Respiratory Rate 14 Positive End Expiratory 0 Pressure Positive End Expiratory 0 Pressure Positive End Expiratory 0 Pressure Positive End Expiratory 0 Pressure Positive End Expiratory 0 Pressure Positive End Expiratory 0 Pressure Positive End Expiratory 0 Pressure Positive End Expiratory 0 Pressure Positive End Expiratory 0 Pressure Positive End Expiratory 0 Pressure Positive End Expiratory 0 Pressure Positive End Expiratory 0 Pressure Peak Inspiratory Airway 33 Pressure Peak Inspiratory Airway 25 Pressure Peak Inspiratory Airway 22 Pressure Peak Inspiratory Airway 26 Pressure Peak Inspiratory Airway 20 Pressure Peak Inspiratory Airway 21 Pressure Peak Inspiratory Airway 29 Pressure Peak Inspiratory Airway 24 Pressure Peak Inspiratory Airway 28 Pressure Peak Inspiratory Airway 28 Pressure Peak Inspiratory Airway 29 Pressure Results - Laboratory Findings CBC and BMP: 09/30/18 03:41 09/30/18 03:41 ABG ABG pH 7.39 pH Units (7.32-7.45) 09/30/18 04:51 ABG pCO2 37 mmHg (35-45) 09/30/18 04:51 ABG pO2 318 mmHg (85-104) H 09/30/18 04:51 ABG O2 Saturation 100 % (95-98) H 09/30/18 04:51 Abnormal lab findings: Abnormal lab results WBC 23.7 K/mcL (4.3-11.1) H 09/30/18 03:41 RBC 2.42 M/mcL (3.82-4.97) L 09/30/18 03:41 Hgb 7.4 g/dL (11.5-15.4) L 09/30/18 03:41 Hct 23.9 % (35.3-44.9) L 09/30/18 03:41 MCHC 31.0 g/dL (31.6-35.5) L 09/30/18 03:41 RDW 14.9 % (11.5-14.5) H 09/30/18 03:41 Neutrophils # 21.8 K/mcL (1.6-8.9) H 09/30/18 03:41 Lymphocytes # 0.4 K/mcL (0.6-4.6) L 09/30/18 03:41 Large Platelets Present (Not Present) A 09/30/18 03:41 ABG pO2 318 mmHg (85-104) H 09/30/18 04:51 ABG O2 Saturation 100 % (95-98) H 09/30/18 04:51 Carbon Dioxide 22 mEq/L (23-29) L 09/30/18 03:41 Est GFR ( Amer) 58 (> 60) L 09/30/18 03:41 Est GFR (Non-Af Amer) 48 (> 60) L 09/30/18 03:41 Glucose 130 mg/dL (70-105) H 09/30/18 03:41 POC Glucose 175 mg/dL (70-99) H 09/29/18 23:31 Calcium 8.0 mg/dL (8.6-10.3) L 09/30/18 03:41 Phosphorus 6.0 mg/dL (2.7-4.5) H 09/28/18 04:00 Troponin I 0.14 ng/mL (< 0.04) H* 09/28/18 19:37 B-Natriuretic Peptide 518 pg/mL (Less than 100) H 09/28/18 04:00 TSH 5.713 mcIU/mL (0.340-5.600) H 09/28/18 04:00 Free T3 2.26 pg/mL (2.50-3.90) L 09/28/18 10:50 Nasal Screen MRSA (PCR) Positive (Negative) A 09/28/18 08:00 - Microbiology Findings Microbiology Findings: Microbiology, Last 48 Hours 09/28/18 10:49 Sputum Culture - Preliminary Aspirate Staphylococcus aureus 09/28/18 14:16 Blood Culture - Preliminary Peripheral Venipuncture Culture is incubating and being continuously monitored for growth. Final report to follow. 09/28/18 13:04 Blood Culture - Preliminary Central Venous Catheter Culture is incubating and being continuously monitored for growth. Final report to follow. - Clinical Findings Intake & Output: Intake & Output 09/29/18 09/29/18 09/30/18 15:59 23:59 07:59 Intake Total 661 / 661 708 / 708 543 / 543 Output Total 186 / 186 305 / 305 125 / 125 Balance 475 / 475 403 / 403 418 / 418 Consult Discharge Plan - Plan Referrals: NONE,PCP [Primary Care Provider] - <Shayy Duong - Last Filed: 09/30/18 17:03> Date of Encounter: 09/30/18 Objective PUL Vital signs: Last Vital Signs Temp 97.3 F L 09/30/18 16:23 Pulse 116 09/30/18 16:00 Resp 16 09/30/18 16:00 BP 99/66 09/30/18 16:00 Pulse Ox 100 09/30/18 15:34 Ventilator Settings Ventilator Settings: Ventilator Settings, Last 8 Hours Ventilator Tidal Volume 380 Setting Ventilator Tidal Volume 380 Setting Ventilator Tidal Volume 380 Setting Ventilator Tidal Volume 380 Setting Ventilator Tidal Volume 380 Setting Ventilator Tidal Volume 380 Setting Ventilator Tidal Volume 380 Setting Ventilator Tidal Volume 380 Setting Ventilator Tidal Volume 380 Setting Ventilator Tidal Volume 380 Setting Ventilator Tidal Volume 380 Setting Ventilator Tidal Volume 380 Setting Ventilator Respiratory Rate 14 Setting Ventilator Respiratory Rate 14 Setting Ventilator Respiratory Rate 14 Setting Ventilator Respiratory Rate 14 Setting Ventilator Respiratory Rate 14 Setting Ventilator Respiratory Rate 14 Setting Ventilator Respiratory Rate 14 Setting Ventilator Respiratory Rate 14 Setting Ventilator Respiratory Rate 14 Setting Ventilator Respiratory Rate 14 Setting Ventilator Respiratory Rate 14 Setting Ventilator Respiratory Rate 14 Setting Actual Respiratory Rate 14 Actual Respiratory Rate 15 Actual Respiratory Rate 14 Actual Respiratory Rate 14 Actual Respiratory Rate 14 Actual Respiratory Rate 14 Actual Respiratory Rate 14 Actual Respiratory Rate 14 Actual Respiratory Rate 15 Actual Respiratory Rate 14 Actual Respiratory Rate 16 Actual Respiratory Rate 16 Positive End Expiratory 0 Pressure Positive End Expiratory 0 Pressure Positive End Expiratory 0 Pressure Positive End Expiratory 0 Pressure Positive End Expiratory 0 Pressure Positive End Expiratory 0 Pressure Positive End Expiratory 0 Pressure Positive End Expiratory 0 Pressure Positive End Expiratory 0 Pressure Positive End Expiratory 0 Pressure Positive End Expiratory 0 Pressure Positive End Expiratory 0 Pressure Peak Inspiratory Airway 38 Pressure Peak Inspiratory Airway 37 Pressure Peak Inspiratory Airway 45 Pressure Peak Inspiratory Airway 37 Pressure Results - Laboratory Findings CBC and BMP: 09/30/18 03:41 09/30/18 03:41 ABG ABG pH 7.39 pH Units (7.32-7.45) 09/30/18 04:51 ABG pCO2 37 mmHg (35-45) 09/30/18 04:51 ABG pO2 318 mmHg (85-104) H 09/30/18 04:51 ABG O2 Saturation 100 % (95-98) H 09/30/18 04:51 Abnormal lab findings: Abnormal lab results WBC 23.7 K/mcL (4.3-11.1) H 09/30/18 03:41 RBC 2.42 M/mcL (3.82-4.97) L 09/30/18 03:41 Hgb 7.4 g/dL (11.5-15.4) L 09/30/18 03:41 Hct 23.9 % (35.3-44.9) L 09/30/18 03:41 MCHC 31.0 g/dL (31.6-35.5) L 09/30/18 03:41 RDW 14.9 % (11.5-14.5) H 09/30/18 03:41 Neutrophils # 21.8 K/mcL (1.6-8.9) H 09/30/18 03:41 Lymphocytes # 0.4 K/mcL (0.6-4.6) L 09/30/18 03:41 Large Platelets Present (Not Present) A 09/30/18 03:41 ABG pO2 318 mmHg (85-104) H 09/30/18 04:51 ABG O2 Saturation 100 % (95-98) H 09/30/18 04:51 Carbon Dioxide 22 mEq/L (23-29) L 09/30/18 03:41 Est GFR ( Amer) 58 (> 60) L 09/30/18 03:41 Est GFR (Non-Af Amer) 48 (> 60) L 09/30/18 03:41 Glucose 130 mg/dL (70-105) H 09/30/18 03:41 POC Glucose 175 mg/dL (70-99) H 09/29/18 23:31 Calcium 8.0 mg/dL (8.6-10.3) L 09/30/18 03:41 Phosphorus 6.0 mg/dL (2.7-4.5) H 09/28/18 04:00 Troponin I 0.14 ng/mL (< 0.04) H* 09/28/18 19:37 B-Natriuretic Peptide 518 pg/mL (Less than 100) H 09/28/18 04:00 TSH 5.713 mcIU/mL (0.340-5.600) H 09/28/18 04:00 Free T3 2.26 pg/mL (2.50-3.90) L 09/28/18 10:50 Nasal Screen MRSA (PCR) Positive (Negative) A 09/28/18 08:00 - Microbiology Findings Microbiology Findings: Microbiology, Last 48 Hours 09/28/18 10:49 Sputum Culture - Final Aspirate Methicillin Resistant S.aureus 09/28/18 14:16 Blood Culture - Preliminary Peripheral Venipuncture Culture is incubating and being continuously monitored for growth. Final report to follow. 09/28/18 13:04 Blood Culture - Preliminary Central Venous Catheter Culture is incubating and being continuously monitored for growth. Final report to follow. - Clinical Findings Intake & Output: Intake & Output 09/30/18 09/30/18 09/30/18 07:59 15:59 23:59 Intake Total 793 / 793 974 / 974 125 / 125 Output Total 125 / 125 250 / 250 200 / 200 Balance 668 / 668 724 / 724 -75 / -75 - Attending Attestation I examined this patient and my medical decision-making was reviewed with the Resident Physician. I agree with the documented findings, disposition and treatment plan as described except to the extent set forth below. Patient seen and examined. Labs, radiology, chart personally reviewed. Agree with resident's history and physical, assessment, plan with following comments: KARATE BLACK BELT: Patient does not follows commands, she is requiring heavy sedation from Pulmonary: Acceptable oxygenation and ventilation and keep FiO2 at 100% which would help pneumothorax. I have reviewed chest x-ray which seems to me still have evidence of loculated pneumothorax and I have discussed with interventional radiologist and also thoracic surgeon and finally decided to have an extra chest tube for that. Cardiovascular: Patient is still requiring low dose Levophed for hypotension and I am hoping with relieving pneumothorax that will help. GI: Nutrition per dietary and GI prophylaxis per routine Heme: DVT prophylaxis per routine ID: Continue antibiotics and plan to de-escalation Renal; urine out put and renal funtion reviewed Endorcine: blood glucose is monitored Lines: all lines checked and no evidence of infections Skin: skin care to prevent pressure ulcers per nursing routine care I spent 32 min of Critical Care time with this patient. It involved decision making of high complexity to assess, manipulate, and support vital organ system failure and/or to prevent further life threatening deterioration of the patient's condition. The time involved in the performance of separately reportable procedures was not counted toward critical care time.
[2018-09-30] MEDS: Azithromycin 500 MG in D5% in Water 250 ML IVPB SCH (08:11)
[2018-09-30] MEDS: Chlorhexidine Rinse 15 ML MOUTHWASH MM SCH ×2 (08:11→22:19)
[2018-09-30] MEDS: Nystatin Cream 15 GM TUBE TP SCH ×3 (08:11→22:13)
[2018-09-30] MEDS: Pantoprazole 40 MG VIAL IVP SCH (08:11)
--- NOTE | 2018-09-30 08:49 | Cardiothoracic Progress Note ---
Date of Encounter: 09/30/18 Time of Encounter: 08:46 - Assessment and plan (1) MRSA pneumonia Current Visit: No Status: Resolved The assessment and plan as outlined above was discussed with the patient and/or family members who expressed understanding and agreement. All questions were answered. We will leave the chest tubes until the air leak on the left chest tube stops and she is extubated. Qualifiers: Laterality: bilateral Lung location: unspecified part of lung Qualified Code(s): J15.212 - Pneumonia due to Methicillin resistant Staphylococcus aureus - Subjective Interval history: The patient is intubated and sedated. Vital Signs, Last 4 Hours Pulse Resp BP Pulse Ox 09/30/18 07:33 14 131/76 100 09/30/18 06:00 112 16 127/77 100 09/30/18 05:38 14 137/73 100 09/30/18 05:00 117 15 95/65 100 Weight 09/28/18 09/29/18 09/30/18 23:59 23:59 23:59 Weight 53 kg 55.4 kg Lungs are clear to percussion and auscultation. The right chest tube has minimal drainage and no air leak. The left chest tube has minimal drainage, but has a small air leak. I reviewed the chest x-ray with the interventional radiologist and we do not think there is a pneumothorax on the right side. She does have subcutaneous emphysema on the left side. - Labs 09/30/18 03:41 09/30/18 03:41 Lab Results, Last 24 hours 09/30/18 09/30/18 03:41 03:41 WBC 23.7 H Hgb 7.4 L Hct 23.9 L Plt Count 323 Sodium 136 Potassium 3.6 Chloride 106 Carbon Dioxide 22 L BUN 21 Creatinine 1.10 Glucose 130 H Calcium 8.0 L Consult Discharge Plan - Plan Referrals: NONE,PCP [Primary Care Provider] -
--- NOTE | 2018-09-30 16:01 | Operative Note ---
Date of procedure: 09/30/18 Pre-op diagnosis: barotrauma, pnthx Post-op diagnosis: same Procedure: 14fr. chest tube Anesthesia: regional, local Surgeon: Matt Vega Was there an inside sales assistant present: No Estimated blood loss (cc): 0 Specimen: none Procedure in Detail: The patient was prepped with ChloraPrep headaches and draped in the usual sterile fashion. Lidocaine was administered the dermis soft tissues. A large bore needle and Seldinger technique place a right chest tube, 14-[place]itan, above the third rib. The chest tube was secured in place with a silk suture. The chest tube was set to 20 cm of suction with the moderate air leak. Sterile dressings were applied. A stat follow-up chest x-ray was ordered.
[2018-10-01] MEDS: Dexmedetomidine HCl 400 MCG/100 ML MLS IVC SCH ×3 (00:40→20:00)
[2018-10-01] MEDS: Levalbuterol Neb 1.25 MG/3 ML IH SCH ×4 (03:32→21:47)
[2018-10-01] MEDS: FentaNYL (PF) 2,500 MCG in EMPTY BAG 1 EACH IVC SCH ×3 (03:53→23:46)
[2018-10-01] MEDS: Artificial Tears SOLN 15 ML BOTTLE BOTH EYES SCH ×6 (03:53→23:47)
[2018-10-01 04:46] LABS: Basophils % 0.1 %; Eosinophils % 0.1 %; Hematocrit 23.3 % (35.3-44.9); Hemoglobin 7.2 g/dL (11.5-15.4); Immature Granulocytes % 1.4 % (0-4); Lymphocytes # 0.3 K/mcL (0.6-4.6); Lymphocytes % 1.3 %; Mean Corpuscular HGB Conc 30.9 g/dL (31.6-35.5); Mean Corpuscular Hemoglobin 30.6 pg (28.0-33.3); Mean Corpuscular Volume 99.1 fL (83.0-100.0); Mean Platelet Volume 10.7 fL (9.4-12.4); Monocytes # 1.2 K/mcL (0.0-1.3); Monocytes % 5.5 %; Neutrophils # 20.4 K/mcL (1.6-8.9); Platelet Count 297 K/mcL (140-400); Red Blood Count 2.35 M/mcL (3.82-4.97); Red Cell Distribution Width 15.1 % (11.5-14.5); Segmented Neutrophils % 91.6 %
[2018-10-01 05:04] LABS: BUN/Creatinine Ratio 25 (6-26); Blood Urea Nitrogen 21 mg/dL (8-23); Calcium 7.6 mg/dL (8.6-10.3); Carbon Dioxide 23 mEq/L (23-29); Chloride 110 mEq/L (98-107); Glucose 62 mg/dL (70-105); Osmolality,Calculated 293 (280-300); Potassium 3.2 mEq/L (3.5-5.1); Sodium 141 mEq/L (136-145); eGFR For Non-African Americans > 60 (> 60)
[2018-10-01] MEDS: Piperacillin/Tazobactam 3.375 GM in 0.9 % Sodium Chloride Mini Bag 100 ML IVPB SCH (05:09)
[2018-10-01] MEDS: Hydrocortisone Sodium Succ 100 MG/2 ML VIAL IVP SCH (05:10)
[2018-10-01] MEDS: *HR* Heparin 5,000 UNIT/ML VIAL SQ SCH ×2 (05:13→18:02)
[2018-10-01] MEDS: Insulin LISPRO 300 UNITS/3 ML VIAL SQ SCH ×4 (05:21→23:46)
[2018-10-01 05:55] LABS: ABG Base Excess -1 mEq/L (-2 to 3); ABG HCO3 24 mEq/L (21-27); ABG Oxygen Saturation 100 % (95-98); ABG PCO2 44 mmHg (35-45); ABG PH 7.35 pH Units (7.32-7.45); ABG PO2 310 mmHg (85-104); ABG TCO2 26 mEq/L (20-26); Blood Gas Modality ASSIST CONTROL; Blood Gas PEEP 0 cm H2O; Blood Gas Respiration Rate 14; Blood Gas VT 380 cc
[2018-10-01] MEDS: Norepinephrine 4 MG in D5% in Water 250 ML IVC SCH ×2 (06:12→10:00)
[2018-10-01] MEDS ORDERED: Potassium Chloride 40 MEQ, Lidocaine 1% 2 ML in D5% in Water 500 ML IVPB ONE (06:15)
--- NOTE | 2018-10-01 06:33 | Pulmonology Progress Note ---
Addendum entered and electronically signed by Jim Bauer 10/01/18 11:32: Add to diagnosis: sepsis - currently meets criteria for WBC 22.3 and HR 123 Original Note: <JuancarlosJim Gomez - Last Filed: 10/01/18 11:15> Date of Encounter: 10/01/18 Time of Encounter: 08:17 Assessment and Plan (1) COPD (chronic obstructive pulmonary disease) Current Visit: Yes Status: Chronic Pt who came to ER found to be increasingly hypoxic and was intubated in the ER after failing BiPAP - was recently admitted for MRSA pneumonia and is presumed to have unresolved MRSA peumonia - she returned to [place] for increasing SOB and was transferred to [facility] for further workup CXR post intubation showed bilateral pneumothoraces, pneumomediastinum and right mainstem intubation - chest tube inserted by ER physician - left sided pigtail catheter inserted by ICU resident - right IJ inserted, pt started on pressors - Dr Silva replaced chest tubes 09/28 Meets sepsis criteria for HR 93, WBC 22.3 - source of infxn likely from g(+) cocci in sputum ABG this morning showed pH 7.35, pCO2 44, pO2 310, HCO3 24, O2 sat 100% - vent settings changed on 09/29 PEEP decreased to 0, FiO2 to 100% (not because of hypoxia but to tx pneumothorax) - vent setting changed on 10/01 FiO2 to 40%, autoflow turned back on CXR on 09/28 showed no pneumothorax on the left, and a right 7mm apical pneumothorax CXR 09/30 Right apical pneumothorax has redeveloped. Otherwise stable chest. CXR 10/01 Interval reinflation of the right lung status post new chest tube insertion. Plan: - cardiothoracic surgery consulted, appreciate recommendations on 09/30: Dr Oliva placed a large bore needle above the third rib for apical pneumothoax on 10/01: Dr Homar Bauer removed the right lower chest tube - continue vancomycin day 4 (total of 10-14 days) - zosyn, azithromycin discontinued 10/01 (after 4 days total) - continue propofol, fentanyl and precedex for sedation and pain control - levophed has been turned off at this time - repeat blood cx pending - XR chest pending for 10/02 AM Qualifiers: Qualified Code(s): J44.9 - Chronic obstructive pulmonary disease, unspecified (2) Pneumothorax Current Visit: Yes Status: Acute See plan as above. Qualifiers: Pneumothorax type: unspecified pneumothorax Qualified Code(s): J93.9 - Pneumothorax, unspecified (3) Essential hypertension Current Visit: No Status: Chronic BP stable - chronic (4) DVT prophylaxis Current Visit: Yes Status: Acute sq heparin (5) Elevated troponin I level Current Visit: Yes Status: Acute Troponin trended up from 0.04 --> 0.11 ---> 0.14 EKG showed sinus rhythm with no acute ischemia noted Likely demand ischemia from COPD exacerbation. ECHO 09/28/18 showed LVEF 60-65%, TR, mild LV diastolic dysfxn (6) Acute and chronic respiratory failure Current Visit: Yes Status: Acute See plan as above for pneumonia. Qualifiers: Respiratory failure complication: hypoxia Qualified Code(s): J96.21 - Acute and chronic respiratory failure with hypoxia (7) Anxiety Current Visit: Yes Status: Acute on Buspar, zoloft (8) Adrenal failure Current Visit: Yes Status: Acute Suspected, pt had hyponatrmiea/hyperkalemia on presentation with decreased BP. Also was recently on steroid taper for COPD. - was given stress dose of steroids, 100mg IVP hydrocortisone upon arrival to ICU Random cortisol 7.9 T3 2.26, T4 1.09 TSH 5.713 Plan: - synthroid d/c - continue hydrocortisone daily (9) BASSEM (acute kidney injury) Current Visit: Yes Status: Acute Resolving. Admission creatinine 1.46, improved to 1.27 ---> 1.10 --> 0.85 Plan: - avoid nephrotoxins - I&O's - continue to monitor renal fxn (10) Pneumonia Current Visit: Yes Status: Acute See plan as above for COPD exacerbation. Qualifiers: Pneumonia type: due to unspecified organism Laterality: unspecified laterality Lung location: unspecified part of lung Qualified Code(s): J18.9 - Pneumonia, unspecified organism (11) Hypokalemia Current Visit: Yes Status: Acute Potassium 3.2 this morning. Replaced. Subjective Principal diagnosis: Pneumonia, pneumothorax bilateral Interval history: Pt is seen at bedside. She remains intubated and on sedation. She appears to be comfortably resting at this time. Last night, she became very agitated and had to be bolused with sedation. Dr Terrell Bauer at bedside and he is going to pull the right lower chest tube that is terminating in the parenchyma. Objective PUL Vital signs: Last Vital Signs Temp 98.4 F 10/01/18 04:00 Pulse 96 10/01/18 06:00 Resp 14 10/01/18 06:00 BP 99/57 10/01/18 06:00 Pulse Ox 100 10/01/18 06:00 General appearance: no acute distress, asleep Eyes: nonicteric Auscultation: bilateral: diminished breath sounds Cardiovascular: other (tacycardia) Gastrointestinal: soft, non-tender, non-distended Integumentary: normal Extremities: no cyanosis, no edema Musculoskeletal: no deformities unable to assess due to mental status other (unable to assess) Ventilator Settings Ventilator Settings: Ventilator Settings, Last 8 Hours Ventilator Tidal Volume 380 Setting Ventilator Tidal Volume 380 Setting Ventilator Tidal Volume 380 Setting Ventilator Tidal Volume 380 Setting Ventilator Tidal Volume 380 Setting Ventilator Tidal Volume 380 Setting Ventilator Tidal Volume 380 Setting Ventilator Tidal Volume 380 Setting Ventilator Tidal Volume 380 Setting Ventilator Tidal Volume 380 Setting Ventilator Tidal Volume 380 Setting Ventilator Tidal Volume 380 Setting Ventilator Respiratory Rate 14 Setting Ventilator Respiratory Rate 14 Setting Ventilator Respiratory Rate 14 Setting Ventilator Respiratory Rate 14 Setting Ventilator Respiratory Rate 14 Setting Ventilator Respiratory Rate 14 Setting Ventilator Respiratory Rate 14 Setting Ventilator Respiratory Rate 14 Setting Ventilator Respiratory Rate 14 Setting Ventilator Respiratory Rate 14 Setting Ventilator Respiratory Rate 14 Setting Ventilator Respiratory Rate 14 Setting Actual Respiratory Rate 14 Actual Respiratory Rate 14 Actual Respiratory Rate 14 Actual Respiratory Rate 14 Actual Respiratory Rate 14 Actual Respiratory Rate 18 Actual Respiratory Rate 16 Actual Respiratory Rate 18 Actual Respiratory Rate 40 Actual Respiratory Rate 14 Actual Respiratory Rate 14 Positive End Expiratory 0 Pressure Positive End Expiratory 0 Pressure Positive End Expiratory 0 Pressure Positive End Expiratory 0 Pressure Positive End Expiratory 0 Pressure Positive End Expiratory 0 Pressure Positive End Expiratory 0 Pressure Positive End Expiratory 0 Pressure Positive End Expiratory 0 Pressure Positive End Expiratory 0 Pressure Positive End Expiratory 0 Pressure Positive End Expiratory 0 Pressure Peak Inspiratory Airway 32 Pressure Peak Inspiratory Airway 32 Pressure Peak Inspiratory Airway 33 Pressure Peak Inspiratory Airway 35 Pressure Peak Inspiratory Airway 24 Pressure Peak Inspiratory Airway 32 Pressure Peak Inspiratory Airway 34 Pressure Peak Inspiratory Airway 40 Pressure Peak Inspiratory Airway 36 Pressure Peak Inspiratory Airway 36 Pressure Results - Laboratory Findings CBC and BMP: 10/01/18 03:30 10/01/18 03:30 ABG ABG pH 7.35 pH Units (7.32-7.45) 10/01/18 05:52 ABG pCO2 44 mmHg (35-45) 10/01/18 05:52 ABG pO2 310 mmHg (85-104) H 10/01/18 05:52 ABG O2 Saturation 100 % (95-98) H 10/01/18 05:52 Abnormal lab findings: Abnormal lab results WBC 22.3 K/mcL (4.3-11.1) H 10/01/18 03:30 RBC 2.35 M/mcL (3.82-4.97) L 10/01/18 03:30 Hgb 7.2 g/dL (11.5-15.4) L 10/01/18 03:30 Hct 23.3 % (35.3-44.9) L 10/01/18 03:30 MCHC 30.9 g/dL (31.6-35.5) L 10/01/18 03:30 RDW 15.1 % (11.5-14.5) H 10/01/18 03:30 Neutrophils # 20.4 K/mcL (1.6-8.9) H 10/01/18 03:30 Lymphocytes # 0.3 K/mcL (0.6-4.6) L 10/01/18 03:30 Large Platelets Present (Not Present) A 09/30/18 03:41 ABG pO2 310 mmHg (85-104) H 10/01/18 05:52 ABG O2 Saturation 100 % (95-98) H 10/01/18 05:52 Potassium 3.2 mEq/L (3.5-5.1) L 10/01/18 03:30 Chloride 110 mEq/L (98-107) H 10/01/18 03:30 Glucose 62 mg/dL (70-105) L 10/01/18 03:30 POC Glucose 184 mg/dL (70-99) H 09/30/18 23:37 Calcium 7.6 mg/dL (8.6-10.3) L 10/01/18 03:30 Phosphorus 6.0 mg/dL (2.7-4.5) H 09/28/18 04:00 Troponin I 0.14 ng/mL (< 0.04) H* 09/28/18 19:37 B-Natriuretic Peptide 518 pg/mL (Less than 100) H 09/28/18 04:00 TSH 5.713 mcIU/mL (0.340-5.600) H 09/28/18 04:00 Free T3 2.26 pg/mL (2.50-3.90) L 09/28/18 10:50 Nasal Screen MRSA (PCR) Positive (Negative) A 09/28/18 08:00 - Microbiology Findings Microbiology Findings: Microbiology, Last 48 Hours 09/28/18 10:49 Sputum Culture - Final Aspirate Methicillin Resistant S.aureus - Clinical Findings Intake & Output: Intake & Output 09/30/18 09/30/18 10/01/18 15:59 23:59 07:59 Intake Total 974 / 974 827 / 827 420 / 420 Output Total 250 / 250 350 / 350 141 / 141 Balance 724 / 724 477 / 477 279 / 279 Weight 57.7 kg Consult Discharge Plan - Plan Referrals: NONE,PCP [Primary Care Provider] - <Shayy Duong - Last Filed: 10/03/18 08:03> Date of Encounter: 10/03/18 Objective PUL Vital signs: Last Vital Signs Temp 98.1 F 10/01/18 07:30 Pulse 110 10/01/18 09:00 Resp 16 10/01/18 09:23 BP 88/54 10/01/18 09:23 Pulse Ox 96 10/01/18 09:23 Ventilator Settings Ventilator Settings: Ventilator Settings, Last 8 Hours Ventilator Tidal Volume 380 Setting Ventilator Tidal Volume 380 Setting Ventilator Tidal Volume 380 Setting Ventilator Tidal Volume 380 Setting Ventilator Tidal Volume 380 Setting Ventilator Tidal Volume 380 Setting Ventilator Tidal Volume 380 Setting Ventilator Tidal Volume 380 Setting Ventilator Tidal Volume 380 Setting Ventilator Tidal Volume 380 Setting Ventilator Tidal Volume 380 Setting Ventilator Tidal Volume 380 Setting Ventilator Respiratory Rate 14 Setting Ventilator Respiratory Rate 14 Setting Ventilator Respiratory Rate 14 Setting Ventilator Respiratory Rate 14 Setting Ventilator Respiratory Rate 14 Setting Ventilator Respiratory Rate 14 Setting Ventilator Respiratory Rate 14 Setting Ventilator Respiratory Rate 14 Setting Ventilator Respiratory Rate 14 Setting Ventilator Respiratory Rate 14 Setting Ventilator Respiratory Rate 14 Setting Ventilator Respiratory Rate 14 Setting Actual Respiratory Rate 17 Actual Respiratory Rate 14 Actual Respiratory Rate 14 Actual Respiratory Rate 14 Actual Respiratory Rate 14 Actual Respiratory Rate 14 Actual Respiratory Rate 14 Actual Respiratory Rate 14 Actual Respiratory Rate 14 Actual Respiratory Rate 14 Actual Respiratory Rate 18 Positive End Expiratory 0 Pressure Positive End Expiratory 0 Pressure Positive End Expiratory 0 Pressure Positive End Expiratory 0 Pressure Positive End Expiratory 0 Pressure Positive End Expiratory 0 Pressure Positive End Expiratory 0 Pressure Positive End Expiratory 0 Pressure Positive End Expiratory 0 Pressure Positive End Expiratory 0 Pressure Positive End Expiratory 0 Pressure Positive End Expiratory 0 Pressure Peak Inspiratory Airway 13 Pressure Peak Inspiratory Airway 24 Pressure Peak Inspiratory Airway 32 Pressure Peak Inspiratory Airway 32 Pressure Peak Inspiratory Airway 33 Pressure Peak Inspiratory Airway 35 Pressure Peak Inspiratory Airway 24 Pressure Results - Laboratory Findings CBC and BMP: 10/03/18 04:15 10/03/18 04:15 ABG ABG pH 7.35 pH Units (7.32-7.45) 10/01/18 05:52 ABG pCO2 44 mmHg (35-45) 10/01/18 05:52 ABG pO2 310 mmHg (85-104) H 10/01/18 05:52 ABG O2 Saturation 100 % (95-98) H 10/01/18 05:52 Abnormal lab findings: Abnormal lab results WBC 22.3 K/mcL (4.3-11.1) H 10/01/18 03:30 RBC 2.35 M/mcL (3.82-4.97) L 10/01/18 03:30 Hgb 7.2 g/dL (11.5-15.4) L 10/01/18 03:30 Hct 23.3 % (35.3-44.9) L 10/01/18 03:30 MCHC 30.9 g/dL (31.6-35.5) L 10/01/18 03:30 RDW 15.1 % (11.5-14.5) H 10/01/18 03:30 Neutrophils # 20.4 K/mcL (1.6-8.9) H 10/01/18 03:30 Lymphocytes # 0.3 K/mcL (0.6-4.6) L 10/01/18 03:30 Large Platelets Present (Not Present) A 09/30/18 03:41 ABG pO2 310 mmHg (85-104) H 10/01/18 05:52 ABG O2 Saturation 100 % (95-98) H 10/01/18 05:52 Potassium 3.2 mEq/L (3.5-5.1) L 10/01/18 03:30 Chloride 110 mEq/L (98-107) H 10/01/18 03:30 Glucose 62 mg/dL (70-105) L 10/01/18 03:30 POC Glucose 184 mg/dL (70-99) H 09/30/18 23:37 Calcium 7.6 mg/dL (8.6-10.3) L 10/01/18 03:30 Phosphorus 6.0 mg/dL (2.7-4.5) H 09/28/18 04:00 Troponin I 0.14 ng/mL (< 0.04) H* 09/28/18 19:37 B-Natriuretic Peptide 518 pg/mL (Less than 100) H 09/28/18 04:00 TSH 5.713 mcIU/mL (0.340-5.600) H 09/28/18 04:00 Free T3 2.26 pg/mL (2.50-3.90) L 09/28/18 10:50 Nasal Screen MRSA (PCR) Positive (Negative) A 09/28/18 08:00 - Microbiology Findings Microbiology Findings: Microbiology, Last 48 Hours 09/28/18 10:49 Sputum Culture - Final Aspirate Methicillin Resistant S.aureus - Clinical Findings Intake & Output: Intake & Output 09/30/18 10/01/18 10/01/18 23:59 07:59 15:59 Intake Total 827 / 827 420 / 420 Output Total 350 / 350 391 / 391 Balance 477 / 477 29 / 29 Weight 57.7 kg - Attending Attestation I examined this patient and my medical decision-making was reviewed with the Resident Physician. I agree with the documented findings, disposition and treatment plan as described except to the extent set forth below. Patient seen and examined. Labs, radiology, chart personally reviewed. 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 Change vent setting and 1 chest tube removed after discussion from thoracic surgeon. I am really concerned about this patient that she is not making any significant progress and she seems to be having auto PEEP. Working with changing vent setting is helping some, however she continued to have problems and not stable for spontaneous breathing trial. Am expecting she might need" with trach and PEG. Patient also has significant amount of secretion which could be from her underlying lung disease and also having pneumonia. FiO2 adjusted and primarily was increased because of pneumothorax and subcutaneous emphysema. Cardiovascular: stable after placing chest tube, but now with increase sedation then restarted low dose of levophed. Her shock seems to be multifactorial and they suspect with auto PEEP having some to do with her hypertension. Again bronchodilators and uma change hopefully will help some. GI: Nutrition per dietary and GI prophylaxis per routine Heme: DVT prophylaxis per routine ID: Continue antibiotics and plan to de-escalation Renal; urine out put and renal funtion reviewed Endorcine: blood glucose is monitored Lines: all lines checked and no evidence of infections Skin: skin care to prevent pressure ulcers per nursing routine care I spent 35 min of Critical Care time with this patient. It involved decision making of high complexity to assess, manipulate, and support vital organ system failure and/or to prevent further life threatening deterioration of the patient's condition. The time involved in the performance of separately reportable procedures was not counted toward critical care time.
--- NOTE | 2018-10-01 07:48 | Cardiothoracic Progress Note ---
Date of Encounter: 10/01/18 Time of Encounter: 07:46 - Assessment and plan (1) MRSA pneumonia Current Visit: No Status: Resolved The right lower chest tube was removed. Qualifiers: Laterality: bilateral Lung location: unspecified part of lung Qualified Code(s): J15.212 - Pneumonia due to Methicillin resistant Staphylococcus aureus - Subjective Interval history: The patient is intubated and heavily sedated. Vital Signs, Last 4 Hours Temp Pulse Resp BP Pulse Ox 10/01/18 07:20 93 10/01/18 07:00 93 14 114/61 100 10/01/18 06:00 96 14 99/57 100 10/01/18 05:26 14 101/54 100 10/01/18 05:00 117 14 101/54 100 10/01/18 04:31 114 10/01/18 04:00 98.4 F 120 14 97/58 100 Clinical Data, last 8 Hours Output, Chest Tube Drainage 10 Amount [Right Mid-Clavicular Chest] Output, Chest Tube Drainage 20 Amount [Left Lateral Chest] Output, Chest Tube Drainage 11 Amount [Right Lateral Chest] Weight 09/29/18 09/30/18 10/01/18 23:59 23:59 23:59 Weight 55.4 kg 57.7 kg Lungs are clear to percussion and auscultation. The to right chest tubes had minimal drainage and no air leaks. The left chest tube has minimal drainage, but has a intermittent minimal air leak. She does have some crepitus over her left chest wall. Chest x-ray reveals no pneumothorax. - Labs 10/01/18 03:30 10/01/18 03:30 Lab Results, Last 24 hours 10/01/18 10/01/18 03:30 03:30 WBC 22.3 H Hgb 7.2 L Hct 23.3 L Plt Count 297 Sodium 141 Potassium 3.2 L Chloride 110 H Carbon Dioxide 23 BUN 21 Creatinine 0.85 Glucose 62 L Calcium 7.6 L Consult Discharge Plan - Plan Referrals: NONE,PCP [Primary Care Provider] -
--- NOTE | 2018-10-01 08:05 | Cardiothoracic Progress Note ---
Date of Encounter: 10/01/18 Time of Encounter: 08:03 - Assessment and plan (1) Barotrauma mechanism Current Visit: Yes Status: Acute The assessment and plan as outlined above was discussed with the patient and/or family members who expressed understanding and agreement. All questions were answered. peak airway pressures down. informed by nurse that sedation is being reduced and plans for weaning trials. sq emphysema a little less. (2) Pneumothorax Current Visit: Yes Status: Acute The assessment and plan as outlined above was discussed with the patient and/or family members who expressed understanding and agreement. All questions were answered. chest tubes placed by my poartner removed. continue my chest tube from yesterdays insertion to suction. Qualifiers: Pneumothorax type: unspecified pneumothorax Qualified Code(s): J93.9 - Pneumothorax, unspecified - Subjective Interval history: none Vital Signs, Last 4 Hours Pulse Resp BP Pulse Ox 10/01/18 07:47 14 104/55 99 10/01/18 07:20 93 10/01/18 07:00 93 14 114/61 100 10/01/18 06:00 96 14 99/57 100 10/01/18 05:26 14 101/54 100 10/01/18 05:00 117 14 101/54 100 10/01/18 04:31 114 Clinical Data, last 8 Hours Output, Chest Tube Drainage 10 Amount [Right Mid-Clavicular Chest] Output, Chest Tube Drainage 20 Amount [Left Lateral Chest] Output, Chest Tube Drainage 11 Amount [Right Lateral Chest] Weight 09/29/18 09/30/18 10/01/18 23:59 23:59 23:59 Weight 55.4 kg 57.7 kg - Physical Examination General: Other (intubated and sedated. ) Cardiac: Reg Rate and Rhythm, Normal S1 and S2, No Murmur Incision: Dry/intact dressing Chest tubes: Minimal drainage, Crepitus Lungs: Decreased breath sounds Abdomen: Soft, Non-tender - Labs 10/01/18 03:30 10/01/18 03:30 Lab Results, Last 24 hours 10/01/18 10/01/18 03:30 03:30 WBC 22.3 H Hgb 7.2 L Hct 23.3 L Plt Count 297 Sodium 141 Potassium 3.2 L Chloride 110 H Carbon Dioxide 23 BUN 21 Creatinine 0.85 Glucose 62 L Calcium 7.6 L - Imaging Chest Xray: image reviewed Consult Discharge Plan - Plan Referrals: NONE,PCP [Primary Care Provider] -
[2018-10-01] MEDS: Pantoprazole 40 MG VIAL IVP SCH (08:50)
[2018-10-01] MEDS: Azithromycin 500 MG in D5% in Water 250 ML IVPB SCH (08:50)
[2018-10-01] MEDS: Chlorhexidine Rinse 15 ML MOUTHWASH MM SCH ×2 (08:50→19:59)
[2018-10-01] MEDS: Nystatin Cream 15 GM TUBE TP SCH ×3 (08:51→20:00)
[2018-10-02] MEDS: Artificial Tears SOLN 15 ML BOTTLE BOTH EYES SCH ×6 (03:25→23:39)
[2018-10-02] MEDS: Levalbuterol Neb 1.25 MG/3 ML IH SCH ×4 (04:04→21:16)
[2018-10-02 04:45] LABS: Basophils % 0.2 %; Eosinophils # 0.4 K/mcL (0.0-0.6); Eosinophils % 2.3 %; Hematocrit 21.7 % (35.3-44.9); Hemoglobin 6.6 g/dL (11.5-15.4); Immature Granulocytes % 3.7 % (0-4); Lymphocytes # 0.8 K/mcL (0.6-4.6); Lymphocytes % 4.7 %; Mean Corpuscular HGB Conc 30.4 g/dL (31.6-35.5); Mean Corpuscular Hemoglobin 30.7 pg (28.0-33.3); Mean Corpuscular Volume 100.9 fL (83.0-100.0); Mean Platelet Volume 10.3 fL (9.4-12.4); Monocytes # 1.1 K/mcL (0.0-1.3); Monocytes % 6.6 %; Neutrophils # 13.5 K/mcL (1.6-8.9); Platelet Count 261 K/mcL (140-400); Red Blood Count 2.15 M/mcL (3.82-4.97); Segmented Neutrophils % 82.5 %
[2018-10-02 04:59] LABS: ABG Base Excess -1 mEq/L (-2 to 3); ABG HCO3 24 mEq/L (21-27); ABG Oxygen Saturation 91 % (95-98); ABG PCO2 43 mmHg (35-45); ABG PH 7.36 pH Units (7.32-7.45); ABG PO2 64 mmHg (85-104); ABG TCO2 25 mEq/L (20-26); Blood Gas Modality ASSIST CONTROL; Blood Gas PEEP 0 cm H2O; Blood Gas Respiration Rate 14; Blood Gas VT 380 cc
[2018-10-02] MEDS: Dexmedetomidine HCl 400 MCG/100 ML MLS IVC SCH ×3 (05:00→17:57)
[2018-10-02 05:01] LABS: BUN/Creatinine Ratio 30 (6-26); Blood Urea Nitrogen 23 mg/dL (8-23); Calcium 7.1 mg/dL (8.6-10.3); Carbon Dioxide 23 mEq/L (23-29); Chloride 113 mEq/L (98-107); Glucose 120 mg/dL (70-105); Osmolality,Calculated 289 (280-300); Potassium 3.7 mEq/L (3.5-5.1); Sodium 137 mEq/L (136-145); eGFR For Non-African Americans > 60 (> 60)
[2018-10-02] MEDS: Insulin LISPRO 300 UNITS/3 ML VIAL SQ SCH ×4 (05:24→23:38)
[2018-10-02] MEDS: *HR* Heparin 5,000 UNIT/ML VIAL SQ SCH ×2 (05:28→17:56)
--- NOTE | 2018-10-02 07:09 | Cardiothoracic Progress Note ---
Date of Encounter: 10/02/18 Time of Encounter: 07:07 - Assessment and plan (1) Pneumonia Current Visit: Yes Status: Acute The assessment and plan as outlined above was discussed with the patient and/or family members who expressed understanding and agreement. All questions were answered. We will leave the chest tubes in until the patient is extubated. Qualifiers: Pneumonia type: due to unspecified organism Laterality: unspecified laterality Lung location: unspecified part of lung Qualified Code(s): J18.9 - Pneumonia, unspecified organism - Subjective Interval history: The patient is intubated and sedated. Vital Signs, Last 4 Hours Temp Pulse Resp BP Pulse Ox 10/02/18 06:00 102 17 97/54 95 10/02/18 05:09 14 90/47 95 10/02/18 05:00 106 17 90/47 96 10/02/18 04:04 17 106/54 97 10/02/18 04:00 98.2 F 91 19 106/54 96 Clinical Data, last 8 Hours Output, Chest Tube Drainage 6 Amount [Right Mid-Clavicular Chest] Output, Chest Tube Drainage 7 Amount [Left Lateral Chest] Weight 09/30/18 10/01/18 10/02/18 23:59 23:59 23:59 Weight 57.7 kg 58.1 kg Lungs are clear to percussion and auscultation. Both chest tubes are to suction and have minimal drainage and no air leaks. - Labs 10/02/18 04:21 10/02/18 04:21 Lab Results, Last 24 hours 10/02/18 10/02/18 04:21 04:21 WBC 16.4 H Hgb 6.6 L Hct 21.7 L Plt Count 261 Sodium 137 Potassium 3.7 Chloride 113 H Carbon Dioxide 23 BUN 23 Creatinine 0.77 Glucose 120 H Calcium 7.1 L Consult Discharge Plan - Plan Referrals: NONE,PCP [Primary Care Provider] -
[2018-10-02] MEDS ORDERED: *HR* Vecuronium 10 MG VIAL IVP ONE (07:44)
[2018-10-02] MEDS: Chlorhexidine Rinse 15 ML MOUTHWASH MM SCH ×2 (08:00→20:14)
[2018-10-02] MEDS: Nystatin Cream 15 GM TUBE TP SCH ×3 (08:00→20:14)
[2018-10-02] MEDS: Pantoprazole 40 MG VIAL IVP SCH (08:00)
[2018-10-02] MEDS: Hydrocortisone Sodium Succ 100 MG/2 ML VIAL IVP SCH (08:00)
--- NOTE | 2018-10-02 08:06 | Pulmonology Progress Note ---
<Berkley Hernandez - Last Filed: 10/02/18 10:51> Date of Encounter: 10/02/18 Time of Encounter: 08:05 Assessment and Plan (1) Acute and chronic respiratory failure Current Visit: Yes Status: Acute This is a 78-year-old female with past medical history significant for COPD and pulmonary hypertension who initially presented to the ICU after transfer from the ED due to respiratory distress. Found to be hypoxic in the ED, and intubated. Subsequently noted to have bilateral pneumothoraces. Bilateral chest tube were put in place. Cardiothoracic surgery on board - Acute respiratory failure likely secondary to acute COPD exacerbation rel ating to unresolved MRSA pneumonia - ABG this AM: 7.36///24 --> patient noted to have increased work of breathing, and vent settings adjusted: Decreased respiratory rate to 10, increased PEEP to 5, increase tidal volume to 500; given 5 mg vecuronium - CXR (10/02): Redemonstration of bilateral chest tubes. No pneumothorax identified. Chest wall subcutaneous emphysema bilaterally, left greater than right. - Patient meets sepsis criteria: Hypotensive on pressors, WBC = 16.4, but improving PLAN: - Continue to monitor vitals, signs for worsening hypertension, fevers, worsening leukocytosis - Continue vent management - Continue propanolol, fentanyl, Precedex for sedation and pain control - Follow up repeat ABG - Continue vancomycin; currently day 5 (continue for total of 10-14 days) - Continue Levophed as needed - Follow up blood cultures - Given respiratory status and chronic lung disease with chronic respiratory failure, will likely be difficult to wean off vent; may need to consider trach - Cardiothoracic surgery recommendations appreciated - Palliative care recommendations appreciated Qualifiers: Respiratory failure complication: hypoxia Qualified Code(s): J96.21 - Acute and chronic respiratory failure with hypoxia (2) Pneumothorax Current Visit: Yes Status: Acute Plan as above Qualifiers: Pneumothorax type: unspecified pneumothorax Qualified Code(s): J93.9 - Pneumothorax, unspecified (3) COPD (chronic obstructive pulmonary disease) Current Visit: Yes Status: Chronic Currently on mechanical ventilation PLAN: - Continue bronchodilators - Continue vancomycin - Otherwise plan as above Qualifiers: Qualified Code(s): J44.9 - Chronic obstructive pulmonary disease, unspecified (4) Adrenal failure Current Visit: Yes Status: Acute PLAN: - Continue hydrocortisone daily (5) Anxiety Current Visit: Yes Status: Acute PLAN: - Continue BuSpar and Zoloft - We will add Seroquel daily at bedtime (6) DVT prophylaxis Current Visit: Yes Status: Acute Heparin subcutaneous twice a day Subjective Principal diagnosis: Pneumonia, pneumothorax bilateral Interval history: Patient seen and examined at bedside. Remains intubated and sedated. Noted to have increased work of breathing this morning. Intense settings adjusted. Respiratory rate decreased, tidal volume increase, PEEP increased. Additionally patient given 5 mg of vecuronium. With adjustments, currently resting comfortably. Currently managed with vancomycin for treatment of MRSA pneumonia. Additionally managed with levophed to 2 mcg/m, but otherwise hemodynamically stable. Objective PUL Vital signs: Last Vital Signs Temp 99.2 F 10/02/18 07:35 Pulse 96 10/02/18 07:35 Resp 15 10/02/18 07:35 BP 98/49 10/02/18 07:35 Pulse Ox 96 10/02/18 07:35 General appearance: comatose Eyes: nonicteric ENT: oropharynx moist Neck: supple Effort: mildly labored Auscultation: bilateral: diminished breath sounds (Coarse lung sounds bilaterally, no wheezes, rhonchi) Cardiovascular: regular rate and rhythm, other (Subcutaneous emphysema present over anterior chest bilaterally) Gastrointestinal: normoactive bowel sounds, soft, non-distended Extremities: no cyanosis, no edema unable to assess due to mental status Ventilator Settings Ventilator Settings: Ventilator Settings, Last 8 Hours Ventilator Tidal Volume 380 Setting Ventilator Tidal Volume 380 Setting Ventilator Tidal Volume 380 Setting Ventilator Tidal Volume 380 Setting Ventilator Tidal Volume 480 Setting Ventilator Tidal Volume 380 Setting Ventilator Tidal Volume 380 Setting Ventilator Tidal Volume 380 Setting Ventilator Tidal Volume 380 Setting Ventilator Tidal Volume 380 Setting Ventilator Tidal Volume 380 Setting Ventilator Respiratory Rate 10 Setting Ventilator Respiratory Rate 14 Setting Ventilator Respiratory Rate 14 Setting Ventilator Respiratory Rate 14 Setting Ventilator Respiratory Rate 14 Setting Ventilator Respiratory Rate 14 Setting Ventilator Respiratory Rate 14 Setting Ventilator Respiratory Rate 14 Setting Ventilator Respiratory Rate 14 Setting Ventilator Respiratory Rate 14 Setting Ventilator Respiratory Rate 14 Setting Actual Respiratory Rate 15 Actual Respiratory Rate 17 Actual Respiratory Rate 14 Actual Respiratory Rate 17 Actual Respiratory Rate 17 Actual Respiratory Rate 19 Actual Respiratory Rate 18 Actual Respiratory Rate 17 Actual Respiratory Rate 17 Actual Respiratory Rate 19 Positive End Expiratory 0 Pressure Positive End Expiratory 0 Pressure Positive End Expiratory 0 Pressure Positive End Expiratory 0 Pressure Positive End Expiratory 0 Pressure Positive End Expiratory 0 Pressure Positive End Expiratory 0 Pressure Positive End Expiratory 0 Pressure Positive End Expiratory 0 Pressure Positive End Expiratory 0 Pressure Positive End Expiratory 0 Pressure Peak Inspiratory Airway 12 Pressure Peak Inspiratory Airway 10 Pressure Peak Inspiratory Airway 15 Pressure Peak Inspiratory Airway 21 Pressure Peak Inspiratory Airway 14 Pressure Peak Inspiratory Airway 24 Pressure Peak Inspiratory Airway 2.5 Pressure Peak Inspiratory Airway 23 Pressure Peak Inspiratory Airway 6 Pressure Peak Inspiratory Airway 3.6 Pressure Results - Laboratory Findings CBC and BMP: 10/02/18 04:21 10/02/18 04:21 ABG ABG pH 7.36 pH Units (7.32-7.45) 10/02/18 04:55 ABG pCO2 43 mmHg (35-45) 10/02/18 04:55 ABG pO2 64 mmHg (85-104) L 10/02/18 04:55 ABG O2 Saturation 91 % (95-98) L 10/02/18 04:55 Abnormal lab findings: Abnormal lab results WBC 16.4 K/mcL (4.3-11.1) H 10/02/18 04:21 RBC 2.15 M/mcL (3.82-4.97) L 10/02/18 04:21 Hgb 6.6 g/dL (11.5-15.4) L 10/02/18 04:21 Hct 21.7 % (35.3-44.9) L 10/02/18 04:21 MCV 100.9 fL (83.0-100.0) H 10/02/18 04:21 MCHC 30.4 g/dL (31.6-35.5) L 10/02/18 04:21 RDW 16.0 % (11.5-14.5) H 10/02/18 04:21 Neutrophils # 13.5 K/mcL (1.6-8.9) H 10/02/18 04:21 Large Platelets Present (Not Present) A 09/30/18 03:41 ABG pO2 64 mmHg (85-104) L 10/02/18 04:55 ABG O2 Saturation 91 % (95-98) L 10/02/18 04:55 Chloride 113 mEq/L (98-107) H 10/02/18 04:21 BUN/Creatinine Ratio 30 (6-26) H 10/02/18 04:21 Glucose 120 mg/dL (70-105) H 10/02/18 04:21 POC Glucose 120 mg/dL (70-99) H 10/01/18 23:37 Calcium 7.1 mg/dL (8.6-10.3) L 10/02/18 04:21 Phosphorus 6.0 mg/dL (2.7-4.5) H 09/28/18 04:00 Troponin I 0.14 ng/mL (< 0.04) H* 09/28/18 19:37 B-Natriuretic Peptide 518 pg/mL (Less than 100) H 09/28/18 04:00 TSH 5.713 mcIU/mL (0.340-5.600) H 09/28/18 04:00 Free T3 2.26 pg/mL (2.50-3.90) L 09/28/18 10:50 Nasal Screen MRSA (PCR) Positive (Negative) A 09/28/18 08:00 Vancomycin Trough 15 mcg/mL (5-10) H 10/02/18 04:21 - Microbiology Findings Microbiology Findings: Microbiology, Last 48 Hours 09/28/18 10:49 Sputum Culture - Final Aspirate Methicillin Resistant S.aureus - Clinical Findings Intake & Output: Intake & Output 10/01/18 10/02/18 10/02/18 23:59 07:59 15:59 Intake Total 643 / 643 927 / 927 Output Total 100 / 100 238 / 238 Balance 543 / 543 689 / 689 Weight 58.1 kg Consult Discharge Plan - Plan Referrals: NONE,PCP [Primary Care Provider] - <Shayy Duong - Last Filed: 10/02/18 16:01> Date of Encounter: 10/02/18 Objective PUL Vital signs: Last Vital Signs Temp 97.7 F 10/02/18 15:39 Pulse 87 10/02/18 15:00 Resp 13 10/02/18 15:00 BP 118/65 10/02/18 15:00 Pulse Ox 99 10/02/18 15:00 Ventilator Settings Ventilator Settings: Ventilator Settings, Last 8 Hours Ventilator Tidal Volume 500 Setting Ventilator Tidal Volume 500 Setting Ventilator Tidal Volume 500 Setting Ventilator Tidal Volume 500 Setting Ventilator Tidal Volume 500 Setting Ventilator Tidal Volume 500 Setting Ventilator Tidal Volume 500 Setting Ventilator Tidal Volume 500 Setting Ventilator Tidal Volume 500 Setting Ventilator Tidal Volume 500 Setting Ventilator Tidal Volume 500 Setting Ventilator Respiratory Rate 10 Setting Ventilator Respiratory Rate 10 Setting Ventilator Respiratory Rate 10 Setting Ventilator Respiratory Rate 10 Setting Ventilator Respiratory Rate 10 Setting Ventilator Respiratory Rate 10 Setting Ventilator Respiratory Rate 10 Setting Ventilator Respiratory Rate 10 Setting Ventilator Respiratory Rate 10 Setting Ventilator Respiratory Rate 10 Setting Ventilator Respiratory Rate 10 Setting Actual Respiratory Rate 13 Actual Respiratory Rate 12 Actual Respiratory Rate 11 Actual Respiratory Rate 10 Actual Respiratory Rate 12 Actual Respiratory Rate 12 Actual Respiratory Rate 13 Actual Respiratory Rate 12 Actual Respiratory Rate 13 Actual Respiratory Rate 13 Actual Respiratory Rate 15 Positive End Expiratory 5 Pressure Positive End Expiratory 5 Pressure Positive End Expiratory 5 Pressure Positive End Expiratory 5 Pressure Positive End Expiratory 5 Pressure Positive End Expiratory 5 Pressure Positive End Expiratory 5 Pressure Positive End Expiratory 5 Pressure Positive End Expiratory 5 Pressure Positive End Expiratory 5 Pressure Positive End Expiratory 5 Pressure Peak Inspiratory Airway 36 Pressure Peak Inspiratory Airway 34 Pressure Peak Inspiratory Airway 12 Pressure Peak Inspiratory Airway 12 Pressure Peak Inspiratory Airway 7.5 Pressure Peak Inspiratory Airway 16 Pressure Peak Inspiratory Airway 15 Pressure Peak Inspiratory Airway 15 Pressure Peak Inspiratory Airway 17 Pressure Peak Inspiratory Airway 22 Pressure Peak Inspiratory Airway 33 Pressure Results - Laboratory Findings CBC and BMP: 10/02/18 15:00 10/02/18 15:00 ABG ABG pH 7.36 pH Units (7.32-7.45) 10/02/18 09:07 ABG pCO2 41 mmHg (35-45) 10/02/18 09:07 ABG pO2 82 mmHg (85-104) L 10/02/18 09:07 ABG O2 Saturation 96 % (95-98) 10/02/18 09:07 Abnormal lab findings: Abnormal lab results WBC 23.8 K/mcL (4.3-11.1) H 10/02/18 15:00 RBC 2.80 M/mcL (3.82-4.97) L 10/02/18 15:00 Hgb 8.6 g/dL (11.5-15.4) L D 10/02/18 15:00 Hct 27.3 % (35.3-44.9) L 10/02/18 15:00 MCHC 31.5 g/dL (31.6-35.5) L 10/02/18 15:00 RDW 16.1 % (11.5-14.5) H 10/02/18 15:00 Immature Gran % 4.7 % (0-4) H 10/02/18 15:00 Neutrophils # 20.8 K/mcL (1.6-8.9) H 10/02/18 15:00 Lymphocytes # 0.4 K/mcL (0.6-4.6) L 10/02/18 15:00 Large Platelets Present (Not Present) A 09/30/18 03:41 ABG pO2 82 mmHg (85-104) L 10/02/18 09:07 Chloride 113 mEq/L (98-107) H 10/02/18 15:00 BUN/Creatinine Ratio 29 (6-26) H 10/02/18 15:00 Glucose 137 mg/dL (70-105) H 10/02/18 15:00 POC Glucose 120 mg/dL (70-99) H 10/01/18 23:37 Calcium 7.5 mg/dL (8.6-10.3) L 10/02/18 15:00 Venous Ioniz Calcium 1.10 mmol/L (1.15-1.35) L 10/02/18 15:15 Phosphorus 1.7 mg/dL (2.7-4.5) L 10/02/18 04:21 Troponin I 0.14 ng/mL (< 0.04) H* 09/28/18 19:37 B-Natriuretic Peptide 518 pg/mL (Less than 100) H 09/28/18 04:00 Albumin 2.2 g/dL (3.5-5.7) L 10/02/18 04:21 TSH 5.713 mcIU/mL (0.340-5.600) H 09/28/18 04:00 Free T3 2.26 pg/mL (2.50-3.90) L 09/28/18 10:50 Nasal Screen MRSA (PCR) Positive (Negative) A 09/28/18 08:00 Vancomycin Trough 15 mcg/mL (5-10) H 10/02/18 04:21 - Clinical Findings Intake & Output: Intake & Output 10/01/18 10/02/18 10/02/18 23:59 07:59 15:59 Intake Total 643 / 643 927 / 927 1311 / 1311 Output Total 100 / 100 238 / 238 165 / 165 Balance 543 / 543 689 / 689 1146 / 1146 Weight 58.1 kg - Attending Attestation I examined this patient and my medical decision-making was reviewed with the Resident Physician. I agree with the documented findings, disposition and treatment plan as described except to the extent set forth below. Patient seen and examined. Labs, radiology, chart personally reviewed. Agree with resident's history and physical, assessment, plan with following comments: PORT ENGINEER: Patient does not follows commands, patient heavily sedated on the vent synchrony and every time attempt to do sedation vacation she becomes very tachycardic and she does not tolerate it. Pulmonary: Patient looks very uncomfortable on the vent and taking care of intrinsic PEEP it was extremely high about 16 and I had made vent changes with increasing PEEP as well as lowering respiratory rate for more exhalation and even I had to disconnect the ventilator for a few seconds and after that she needed to have paralytics for improvement of her intrinsic PEEP. I suspect this is affecting Her hemodynamics as well. We have called the family regarding Condition and had palliative care also to see the patient since she is not ma leonel significant progress Cardiovascular: Patient is requiring Levophed and a suspect this is from s ignificant intrinsic PEEP and I hope with intervention mentioned above that will help. GI: Nutrition per dietary and GI prophylaxis per routine Heme: DVT prophylaxis per routine ID: Continue antibiotics and plan to de-escalation Renal; urine out put and renal funtion reviewed Endorcine: blood glucose is monitored Lines: all lines checked and no evidence of infections Skin: skin care to prevent pressure ulcers per nursing routine care Overall patient has poor prognosis and I suspect she might need trach and PEG due to her underlying pulmonary disease and she is overall weak I spent 35 min of Critical Care time with this patient. It involved decision making of high complexity to assess, manipulate, and support vital organ system failure and/or to prevent further life threatening deterioration of the patient's condition. The time involved in the performance of separately reportable procedures was not counted toward critical care time.
[2018-10-02 09:16] LABS: ABG Base Excess -2 mEq/L (-2 to 3); ABG HCO3 23 mEq/L (21-27); ABG Oxygen Saturation 96 % (95-98); ABG PCO2 41 mmHg (35-45); ABG PH 7.36 pH Units (7.32-7.45); ABG PO2 82 mmHg (85-104); ABG TCO2 24 mEq/L (20-26); Blood Gas PEEP 0 cm H2O; Blood Gas Respiration Rate 10; Blood Gas VT 380 cc
[2018-10-02] MEDS: FentaNYL (PF) 2,500 MCG in EMPTY BAG 1 EACH IVC SCH ×2 (10:34→23:39)
[2018-10-02 11:45] LABS: Albumin 2.2 g/dL (3.5-5.7); Magnesium 1.7 mg/dL (1.6-2.6); Phosphorous 1.7 mg/dL (2.7-4.5)
[2018-10-02] MEDS: Norepinephrine 4 MG in D5% in Water 250 ML IVC SCH (13:19)
[2018-10-02] MEDS: Potassium Chloride 40 MEQ/200 ML BAG IVPB PRN (14:38)
[2018-10-02 15:42] LABS: Basophils # 0.1 K/mcL (0.0-0.2); Basophils % 0.6 %; Eosinophils # 0.2 K/mcL (0.0-0.6); Eosinophils % 0.8 %; Hematocrit 27.3 % (35.3-44.9); Immature Granulocytes % 4.7 % (0-4); Lymphocytes # 0.4 K/mcL (0.6-4.6); Lymphocytes % 1.7 %; Mean Corpuscular HGB Conc 31.5 g/dL (31.6-35.5); Mean Corpuscular Hemoglobin 30.7 pg (28.0-33.3); Mean Corpuscular Volume 97.5 fL (83.0-100.0); Mean Platelet Volume 10.7 fL (9.4-12.4); Monocytes # 1.1 K/mcL (0.0-1.3); Monocytes % 4.8 %; Neutrophils # 20.8 K/mcL (1.6-8.9); Platelet Count 281 K/mcL (140-400); Red Cell Distribution Width 16.1 % (11.5-14.5); Segmented Neutrophils % 87.4 %
--- NOTE | 2018-10-02 15:42 | Palliative - Consult Note ---
Date of Encounter: 10/02/18 Time of Encounter: 15:40 - Assessment and Plan (1) Generalized pain Current Visit: Yes Status: Acute Assessment and plan: Fentanyl per ICU protocol, currently at 200mcg/hr. Monitor (2) Anxiety Current Visit: Yes Status: Acute Assessment and plan: She has required a great deal of sedation for anxiety, including precedex and propofol, and did have small dose vecuronium earlier today. She has been start ed on Seroquel at , and her home medications of Sertraline and Buspar have also been restarted. Monitor. (3) Goals of care, counseling/discussion Current Visit: Yes Status: Acute Assessment and plan: There has been no family in today. I spoke with son CISCO Tan, over telephone. He states that patient sister Valeri would be coming this evening to visit. Dominick states that prior to MRSA pneumonia, patient was home and functioned independently. He resides with her. States that she went to [facility] for rehab, and he was not happy with her care. States only worked with her "30 min a day". She had a fall going to bathroom, they did notify him, but he states it was late than night before they decided she should be sent to hospital for evaluation. Patient has no other children. Living will/DPOA on record and Dominick is primary decision maker. Dominick plans on being here at 1300 tomorrow and our team will meet with him to begin goals of care discussions. I told him that we need to talk about decisions that might need made if she her medical condition does not improve. Dominick verbalized understanding. Updated patient's primary nurse Marvel. (4) Respiratory failure Current Visit: Yes Status: Acute Assessment and plan: Remains on vent with 50% FIO2 and PEEP 5. [employer]ane Pilot managing Qualifiers: Chronicity: acute on chronic Respiratory failure complication: hypoxia and hypercapnia Qualified Code(s): J96.21 - Acute and chronic respiratory failure with hypoxia; J96.22 - Acute and chronic respiratory failure with hypercapnia (5) COPD (chronic obstructive pulmonary disease) Current Visit: Yes Status: Chronic Qualifiers: Qualified Code(s): J44.9 - Chronic obstructive pulmonary disease, unspecified (6) MRSA pneumonia Current Visit: No Status: Resolved Qualifiers: Laterality: bilateral Lung location: unspecified part of lung Qualified Code(s): J15.212 - Pneumonia due to Methicillin resistant Staphylococcus aureus (7) Pneumothorax Current Visit: Yes Status: Acute Assessment and plan: Bilateral chest tubes remain - Cardiothoracic managing. Qualifiers: Pneumothorax type: unspecified pneumothorax Qualified Code(s): J93.9 - Pneumothorax, unspecified Palliative-CN HPI - Data of Consult Consult date: 10/02/18 Requesting Physician: Jose Alberto Gonzaels MD Primary Care Provider: PCP NONE - Consult Narrative History of present illness: Ms. Alegria is a 78 year old female who was hospitalized with a recent MRSA pneumonia, was transferred to [place] from [place] where she presented after a fall at [facility], and had increasing shortness of breath. Patient is sedated and intubated, so son provided information via telephone. States she fell in afternoon, and he was called by staff. Appeared physically ok, but later than evening had decreasing oxygen levels, and Dominick stated they called him at 1030pm and stated bringing her to hospital. Chest x-ray showed bilateral pneumothoraces, right side larger than left side Right Chest tube was placed at [place]. Her respiratory status declined despite bipap, and she was intubated. The right chest tube had leak, so another was placed by Dr. Carlos Silva, as well as left chest tube. She remains on ventilator and has struggled with anxiety, requiring sedation with different medications. Patient has history of COPD, arthritis,GERD, hypertension, osteoporosis. Upon my visit, she appears in no distress, and is sedated on ventilator. Appears to be tolerating tube feedings. Remains on one vasopressor. Has Fentanyl/Propofol infusing. 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) Psychiatric history: no psych history - Past Surgical History Surgical History: hysterectomy - Social History Smoking Status: Never smoker Smokeless Tobacco Status: No Alcohol use: none Drug use: none - Family History Mother History Unknown: Yes Adopted: No Family Member Ethnicity: Non- Living Status: Hx Family Cardiac Disorders: (unknown) Hx Family Respiratory Disorders: (unknown) Hx Family Cancer: (unknown) Hx Family GI Disorders: (unknown) Hx Family Endocrine Disorder: (unknown) Hx Family Neuromuscular Disorders: (unknown) Hx Family Neurologic Disorders: (unknown) Hx Family HEENT Disorders: (unknown) Hx Family Autoimmune Disorders: (unknown) Medications and Allergies Calcium Carbonate/Vitamin D3 [Calcium 600-Vit D3 800 Tablet] 1 tab PO BID 06/19/15 [History] Cevimeline HCl [Evoxac] 30 mg PO TID 06/19/15 [History] Losartan [Cozaar] 50 mg PO DAILY 06/19/15 [History] TraMADol [Ultram] 100 mg PO Q6HR PRN 06/19/15 [History] Iron Ps Complex/B12/Folic Acid [Iferex 150 Forte Capsule] 1 each PO BID 12/26/16 [History] Metoprolol [Lopressor] 100 mg PO DAILY 04/08/18 [History] Buspirone HCl [Buspar] 7.5 mg PO BID 04/09/18 [History] amLODIPine [Norvasc] 10 mg PO DAILY 04/09/18 [History] Docusate [Colace] 100 mg PO BID capsule 04/14/18 [Rx] Ipratropium/Albuterol Neb [Duoneb] 3 ml IH [id number] inhsol 04/14/18 [Rx] Cholecalciferol (D-3) [Vitamin D] 1,000 unit PO DAILY tablet 08/26/18 [Rx] Polyethylene Glycol 3350 [MiraLAX] 17 gm PO DAILY powd.pack 08/26/18 [Rx] Sertraline [Zoloft] 50 mg PO DAILY tablet 08/26/18 [Rx] Pantoprazole Sodium 40 mg PO BID #1 tablet. 09/10/18 [Rx] Sucralfate [Carafate] 1 gm PO BID #30 tablet 09/10/18 [Rx] Albuterol Neb [Proventil Neb] 2.5 mg IH [id number] PRN 09/29/18 [History] Ascorbic Acid [Vitamin C] 500 mg PO BID 09/29/18 [History] Lactose-Reduced Food [Ensure Liquid] 120 ml PO DAILY 09/29/18 [History] Allergy/AdvReac Type Severity Reaction Status Date / Time ciprofloxacin [From Cipro] Allergy Hallucinati Verified 08/30/18 13:13 ng ROS unobtainable: due to endotracheal tube Palliative Care-Exam - Constitutional Vitals: Temp Pulse Resp BP Pulse Ox 98.3 F 87 13 118/65 99 10/02/18 12:00 10/02/18 15:00 10/02/18 15:00 10/02/18 15:00 10/02/18 15:00 General appearance: Present: no acute distress - Head Head Exam: Present: normal inspection, normocephalic - Respiratory Additional comments: Breath sound diminished throughout. Occasional rhonchi noted right lung blackburn. Faint Expiratory wheezes throughout. Bilateral chest tubes intact - Cardiovascular Cardiovascular exam: Present: +S1, +S2 - GI/Abdominal Exam GI/Abdominal exam: Present: diminished bowel sounds, distended, soft - Catheter Type: Urethral (Gatica) - Neurological Exam Additional comments: Sedated on ventilator - Skin Skin exam: Present: dry, warm Internal Medicine - CN: Reslt - Labs CBC & Chem 7: 10/02/18 15:00 10/02/18 15:00 Labs: Short CBC 10/02/18 Range/Units 04:21 WBC 16.4 H (4.3-11.1) K/mcL Hgb 6.6 L (11.5-15.4) g/dL Hct 21.7 L (35.3-44.9) % Plt Count 261 (140-400) K/mcL Neutrophils # 13.5 H (1.6-8.9) K/mcL BMP 10/02/18 04:21 Sodium 137 Potassium 3.7 Chloride 113 H Carbon Dioxide 23 BUN 23 Creatinine 0.77 Glucose 120 H Calcium 7.1 L Liver Function 10/02/18 Range/Units 04:21 Albumin 2.2 L (3.5-5.7) g/dL - ABG Interpretation ABG results: ABG ABG pH 7.36 pH Units (7.32-7.45) 10/02/18 09:07 ABG pCO2 41 mmHg (35-45) 10/02/18 09:07 ABG pO2 82 mmHg (85-104) L 10/02/18 09:07 ABG O2 Saturation 96 % (95-98) 10/02/18 09:07 - Impressions Impressions Chest X-Ray 10/02/18 00:01 IMPRESSION: 1. Redemonstration of bilateral chest tubes. 2. No pneumothorax identified. 3. Chest wall subcutaneous emphysema bilaterally, left greater than right. D/ / 10/02/2018 08:13:16 Fabrice Kellogg MD / Nancie Gastelum Interpreting Provider: Fabrice Kellogg MD Consult Discharge Plan - Plan Referrals: NONE,PCP [Primary Care Provider] - Palliative Quality Palliative Quality: Screen for Code Status: NA (awaiting family arrival), Screen for Goals of Care: NA, Screen for Pain: Yes, If Pain Regimen Started, Initiate Bowel Regimen: NA, Screen for Nausea/Vomitting: Yes Code Status: 09/28/18 19:56 CODE [Resuscitation Status: Active] [RES] Routine Comment: Resuscitation Status: Full Code
[2018-10-02 15:46] LABS: BUN/Creatinine Ratio 29 (6-26); Blood Urea Nitrogen 23 mg/dL (8-23); Calcium 7.5 mg/dL (8.6-10.3); Carbon Dioxide 23 mEq/L (23-29); Chloride 113 mEq/L (98-107); Glucose 137 mg/dL (70-105); Osmolality,Calculated 290 (280-300); Potassium 4.7 mEq/L (3.5-5.1); Sodium 137 mEq/L (136-145); eGFR For Non-African Americans > 60 (> 60)
[2018-10-02 15:48] LABS: Hemoglobin 8.6 g/dL (11.5-15.4)
--- NOTE | 2018-10-02 17:56 | Cardiothoracic Progress Note ---
Date of Encounter: 10/02/18 Time of Encounter: 10:45 - Assessment and plan (1) Barotrauma mechanism Current Visit: Yes Status: Acute The assessment and plan as outlined above was discussed with the patient and/or family members who expressed understanding and agreement. All questions were answered. peak airway pressures down. . sq emphysema a little less. (2) Pneumothorax Current Visit: Yes Status: Acute The assessment and plan as outlined above was discussed with the patient and/or family members who expressed understanding and agreement. All questions were answered. chest tubes placed by my poartner removed. continue my chest tube from yesterdays insertion to suction. Qualifiers: Pneumothorax type: unspecified pneumothorax Qualified Code(s): J93.9 - Pneumothorax, unspecified - Subjective Interval history: none Vital Signs, Last 4 Hours Temp Pulse Resp BP Pulse Ox 10/02/18 17:04 12 117/61 98 10/02/18 17:00 85 10 117/61 98 10/02/18 16:00 97.7 F 86 13 108/62 98 10/02/18 15:39 97.7 F 10/02/18 15:00 87 13 118/65 99 10/02/18 14:59 18 109/62 99 10/02/18 14:00 102 10 91/51 97 Clinical Data, last 8 Hours Output, Chest Tube Drainage 4 Amount [Right Mid-Clavicular Chest] Output, Chest Tube Drainage 2 Amount [Right Mid-Clavicular Chest] Output, Chest Tube Drainage 9 Amount [Left Lateral Chest] Output, Chest Tube Drainage 0 Amount [Left Lateral Chest] Output, Chest Tube Drainage 0 Amount [Left Lateral Chest] Weight 09/30/18 10/01/18 10/02/18 23:59 23:59 23:59 Weight 57.7 kg 58.1 kg - Physical Examination General: Other (intubated. sedated. responds to noxious stimuli ) Cardiac: Reg Rate and Rhythm, Normal S1 and S2 Incision: No signs of infection, Dry/intact dressing Chest tubes: Minimal drainage, Other (no leak. ) - Labs 10/02/18 15:00 10/02/18 15:00 Lab Results, Last 24 hours 10/02/18 10/02/18 10/02/18 04:21 04:21 04:21 WBC 16.4 H Hgb 6.6 L Hct 21.7 L Plt Count 261 Sodium 137 Potassium 3.7 Chloride 113 H Carbon Dioxide 23 BUN 23 Creatinine 0.77 Glucose 120 H Calcium 7.1 L Magnesium 1.7 10/02/18 10/02/18 15:00 15:00 WBC 23.8 H Hgb 8.6 L D Hct 27.3 L Plt Count 281 Sodium 137 Potassium 4.7 D Chloride 113 H Carbon Dioxide 23 BUN 23 Creatinine 0.79 Glucose 137 H Calcium 7.5 L Magnesium Consult Discharge Plan - Plan Referrals: NONE,PCP [Primary Care Provider] -
[2018-10-02 20:44] LABS: Hematocrit 25.8 % (35.3-44.9); Hemoglobin 8.1 g/dL (11.5-15.4)
[2018-10-02] MEDS ORDERED: Sennosides/Docusate Sodium TABLET PO SCH (21:00)
[2018-10-03] MEDS: Dexmedetomidine HCl 400 MCG/100 ML MLS IVC SCH ×3 (02:26→19:38)
[2018-10-03] MEDS: Levalbuterol Neb 1.25 MG/3 ML IH SCH ×4 (03:34→21:45)
[2018-10-03] MEDS: Artificial Tears SOLN 15 ML BOTTLE BOTH EYES SCH ×6 (04:02→23:46)
[2018-10-03 04:38] LABS: Basophils # 0.1 K/mcL (0.0-0.2); Basophils % 0.5 %; Eosinophils # 0.4 K/mcL (0.0-0.6); Eosinophils % 3.1 %; Hematocrit 25.2 % (35.3-44.9); Hemoglobin 7.9 g/dL (11.5-15.4); Lymphocytes # 0.7 K/mcL (0.6-4.6); Mean Corpuscular HGB Conc 31.3 g/dL (31.6-35.5); Mean Corpuscular Hemoglobin 31.1 pg (28.0-33.3); Mean Corpuscular Volume 99.2 fL (83.0-100.0); Mean Platelet Volume 10.3 fL (9.4-12.4); Monocytes % 6.7 %; Neutrophils # 11.4 K/mcL (1.6-8.9); Nucleated Red Blood Cells 0.1 /100 WBC (0); Platelet Count 221 K/mcL (140-400); Red Blood Count 2.54 M/mcL (3.82-4.97); Red Cell Distribution Width 16.3 % (11.5-14.5); Segmented Neutrophils % 79.7 %
[2018-10-03 04:59] LABS: Alanine Aminotransferase 7 Units/L (7-52); Albumin 2.2 g/dL (3.5-5.7); Albumin/Globulin Ratio 0.7 (1.1-2.2); Alkaline Phosphatase 76 Units/L (34-104); Aspartate Amino Transferase 8 Units/L (13-39); BUN/Creatinine Ratio 32 (6-26); Bilirubin,Total 0.2 mg/dL (0.3-1.0); Blood Urea Nitrogen 20 mg/dL (8-23); Calcium 7.2 mg/dL (8.6-10.3); Carbon Dioxide 24 mEq/L (23-29); Chloride 112 mEq/L (98-107); Globulin 3.2 g/dL (2.4-3.5); Glucose 137 mg/dL (70-105); Magnesium 2.2 mg/dL (1.6-2.6); Osmolality,Calculated 287 (280-300); Phosphorous 3.6 mg/dL (2.7-4.5); Potassium 4.3 mEq/L (3.5-5.1); Sodium 136 mEq/L (136-145); Total Protein 5.4 g/dL (6.4-8.9); eGFR For Non-African Americans > 60 (> 60)
[2018-10-03] MEDS: Insulin LISPRO 300 UNITS/3 ML VIAL SQ SCH ×4 (05:20→23:46)
[2018-10-03] MEDS: *HR* Heparin 5,000 UNIT/ML VIAL SQ SCH ×2 (05:23→17:16)
[2018-10-03 05:30] LABS: ABG Base Excess -1 mEq/L (-2 to 3); ABG HCO3 25 mEq/L (21-27); ABG Oxygen Saturation 99 % (95-98); ABG PCO2 41 mmHg (35-45); ABG PH 7.39 pH Units (7.32-7.45); ABG PO2 123 mmHg (85-104); ABG TCO2 26 mEq/L (20-26); Blood Gas Modality ASSIST CONTROL; Blood Gas PEEP 5 cm H2O; Blood Gas Respiration Rate 10; Blood Gas VT 500 cc
--- NOTE | 2018-10-03 06:48 | Cardiothoracic Progress Note ---
Date of Encounter: 10/03/18 Time of Encounter: 06:47 - Assessment and plan (1) Pneumonia Current Visit: Yes Status: Acute Chest x-ray reveals no pneumothorax. We will leave the chest tubes in for now. Qualifiers: Pneumonia type: due to unspecified organism Laterality: unspecified laterality Lung location: unspecified part of lung Qualified Code(s): J18.9 - Pneumonia, unspecified organism - Subjective Interval history: The patient is intubated and sedated. Vital Signs, Last 4 Hours Pulse Resp BP Pulse Ox 10/03/18 06:00 80 12 103/61 99 10/03/18 05:46 11 96/54 99 10/03/18 05:00 82 12 98/52 98 10/03/18 04:00 83 10 93/60 99 10/03/18 03:34 10 103/56 99 10/03/18 03:00 77 12 99/53 99 Clinical Data, last 8 Hours Output, Chest Tube Drainage 5 Amount [Right Mid-Clavicular Chest] Output, Chest Tube Drainage 4 Amount [Left Lateral Chest] Weight 10/01/18 10/02/18 10/03/18 23:59 23:59 23:59 Weight 57.7 kg 58.1 kg 60.6 kg Lungs are clear to percussion and auscultation. Both chest tubes have minimal drainage and no air leak. - Labs 10/03/18 04:15 10/03/18 04:15 Lab Results, Last 24 hours 10/02/18 10/02/18 10/02/18 04:21 15:00 15:00 WBC 23.8 H Hgb 8.6 L D Hct 27.3 L Plt Count 281 Sodium 137 Potassium 4.7 D Chloride 113 H Carbon Dioxide 23 BUN 23 Creatinine 0.79 Glucose 137 H Calcium 7.5 L Magnesium 1.7 Total Bilirubin AST ALT Alkaline Phosphatase 10/02/18 10/03/18 10/03/18 20:21 04:15 04:15 WBC 14.4 H Hgb 8.1 L 7.9 L Hct 25.8 L 25.2 L Plt Count 221 Sodium 136 Potassium 4.3 Chloride 112 H Carbon Dioxide 24 BUN 20 Creatinine 0.63 Glucose 137 H Calcium 7.2 L Magnesium 2.2 Total Bilirubin 0.2 L AST 8 L ALT 7 Alkaline Phosphatase 76 Consult Discharge Plan - Plan Referrals: NONE,PCP [Primary Care Provider] -
--- NOTE | 2018-10-03 07:54 | Pulmonology Progress Note ---
<Berkley Hernandez - Last Filed: 10/03/18 10:51> Date of Encounter: 10/03/18 Time of Encounter: 07:54 Assessment and Plan (1) Acute and chronic respiratory failure Current Visit: Yes Status: Acute This is a 78-year-old female with past medical history significant for COPD and pulmonary hypertension who initially presented to the ICU after transfer from the ED due to respiratory distress. Found to be hypoxic in the ED, and intubated. Subsequently noted to have bilateral pneumothoraces. Bilateral chest tube were put in place. Cardiothoracic surgery on board - Acute respiratory failure likely secondary to acute COPD exacerbation rel ating to unresolved MRSA pneumonia - ABG this AM: 7.39/41/123/25 --> attempted CPAP trial, but patient was agitated with increased pulse after 30 minutes and return to mechanical ventilation - CXR (10/03): Multifocal airspace opacities with no significant interval change. - Improving leukocytosis, WBC = 14.4; remains afebrile; vitals hemodynamically stable; sedated with fentanyl, Precedex, propofol PLAN: - Continue to monitor vitals, signs for worsening hypertension, fevers, worsening leukocytosis - Continue vent management - Continue propanolol, fentanyl, Precedex for sedation and pain control - Continue Seroquel, sertraline, BuSpar for anxiety - Daily ABGs - Continue vancomycin; currently day 6 (continue for total of 10-14 days) - Continue Levophed as needed; wean as tolerated - Follow up blood cultures - Given respiratory status and chronic lung disease with chronic respiratory failure, will likely be difficult to wean off vent; may need to consider trach and/or PEG - Cardiothoracic surgery recommendations appreciated - Palliative care recommendations appreciated - plan for family meeting this afternoon Qualifiers: Respiratory failure complication: hypoxia Qualified Code(s): J96.21 - Acute and chronic respiratory failure with hypoxia (2) Pneumothorax Current Visit: Yes Status: Acute Plan as above Qualifiers: Pneumothorax type: unspecified pneumothorax Qualified Code(s): J93.9 - Pneumothorax, unspecified (3) COPD (chronic obstructive pulmonary disease) Current Visit: Yes Status: Chronic Currently on mechanical ventilation PLAN: - Continue bronchodilators - Continue vancomycin - Otherwise plan as above Qualifiers: Qualified Code(s): J44.9 - Chronic obstructive pulmonary disease, unspecified (4) Adrenal failure Current Visit: Yes Status: Acute PLAN: - Continue hydrocortisone daily (5) Anxiety Current Visit: Yes Status: Acute PLAN: - Continue BuSpar and Zoloft - Seroquel daily at bedtime (6) DVT prophylaxis Current Visit: Yes Status: Acute Heparin subcutaneous twice a day (7) Sepsis Current Visit: No Status: Ruled-out Patient initially met sepsis criteria - Currently not septic; vitals as of this a.m.: T = 97.4, HR = 80, RR = 12, BP = 103/61, O2 sat = 99% on 50% O2 via mechanical ventilation; WBC = 14.4 and trending down Qualifiers: Sepsis type: methicillin resistant Staphylococcus aureus Qualified Code(s): A41.02 - Sepsis due to Methicillin resistant Staphylococcus aureus Subjective Principal diagnosis: Pneumonia, pneumothorax bilateral Interval history: Patient seen and examined at bedside this morning. Remains intubated and sedated. Attempted CPAP trial this morning. However after 30 minutes noted to be agitated with increasing heart rate. Restarted on mechanical ventilation. Continues to be managed with vancomycin for treatment of MRSA pneumonia. Additionally managed with Levophed 1 mcg/m. Remains hemodynamically stable, a febrile, with improving leukocytosis. Plan for discussion between palliative care and family this afternoon regarding goals of care. Objective PUL Vital signs: Last Vital Signs Temp 96.6 F L 10/03/18 00:00 Pulse 93 10/03/18 07:02 Resp 14 10/03/18 07:19 BP 94/54 10/03/18 07:02 Pulse Ox 97 10/03/18 07:19 General appearance: no acute distress Eyes: nonicteric ENT: oropharynx moist Neck: supple Effort: normal Auscultation: left: clear (Patient remains intubated on mechanical ventilation; coarse lung sounds bilaterally, no wheezes, rales, rhonchi, crackles), bilateral: other (Improving subcutaneous emphysema over anterior chest bilaterally) Cardiovascular: regular rate and rhythm Gastrointestinal: normoactive bowel sounds, soft, non-distended Extremities: no cyanosis, no edema unable to assess due to mental status Ventilator Settings Ventilator Settings: Ventilator Settings, Last 8 Hours Ventilator Tidal Volume 500 Setting Ventilator Tidal Volume 500 Setting Ventilator Tidal Volume 500 Setting Ventilator Tidal Volume 500 Setting Ventilator Tidal Volume 500 Setting Ventilator Tidal Volume 500 Setting Ventilator Tidal Volume 500 Setting Ventilator Tidal Volume 500 Setting Ventilator Tidal Volume 500 Setting Ventilator Tidal Volume 500 Setting Ventilator Tidal Volume 500 Setting Ventilator Tidal Volume 500 Setting Ventilator Respiratory Rate 10 Setting Ventilator Respiratory Rate 10 Setting Ventilator Respiratory Rate 10 Setting Ventilator Respiratory Rate 10 Setting Ventilator Respiratory Rate 10 Setting Ventilator Respiratory Rate 10 Setting Ventilator Respiratory Rate 10 Setting Ventilator Respiratory Rate 10 Setting Ventilator Respiratory Rate 10 Setting Ventilator Respiratory Rate 10 Setting Ventilator Respiratory Rate 10 Setting Ventilator Respiratory Rate 10 Setting Actual Respiratory Rate 13 Actual Respiratory Rate 18 Actual Respiratory Rate 12 Actual Respiratory Rate 11 Actual Respiratory Rate 12 Actual Respiratory Rate 10 Actual Respiratory Rate 10 Actual Respiratory Rate 12 Actual Respiratory Rate 11 Actual Respiratory Rate 10 Actual Respiratory Rate 12 Actual Respiratory Rate 12 Positive End Expiratory 5 Pressure Positive End Expiratory 5 Pressure Positive End Expiratory 5 Pressure Positive End Expiratory 5 Pressure Positive End Expiratory 5 Pressure Positive End Expiratory 5 Pressure Positive End Expiratory 5 Pressure Positive End Expiratory 5 Pressure Positive End Expiratory 5 Pressure Positive End Expiratory 5 Pressure Positive End Expiratory 5 Pressure Positive End Expiratory 5 Pressure Peak Inspiratory Airway 25 Pressure Peak Inspiratory Airway 13 Pressure Peak Inspiratory Airway 29 Pressure Peak Inspiratory Airway 28 Pressure Peak Inspiratory Airway 37 Pressure Peak Inspiratory Airway 36 Pressure Peak Inspiratory Airway 35 Pressure Peak Inspiratory Airway 36 Pressure Peak Inspiratory Airway 33 Pressure Peak Inspiratory Airway 35 Pressure Peak Inspiratory Airway 28 Pressure Results - Laboratory Findings CBC and BMP: 10/03/18 04:15 10/03/18 04:15 ABG ABG pH 7.39 pH Units (7.32-7.45) 10/03/18 05:23 ABG pCO2 41 mmHg (35-45) 10/03/18 05:23 ABG pO2 123 mmHg (85-104) H 10/03/18 05:23 ABG O2 Saturation 99 % (95-98) H 10/03/18 05:23 Abnormal lab findings: Abnormal lab results WBC 14.4 K/mcL (4.3-11.1) H 10/03/18 04:15 RBC 2.54 M/mcL (3.82-4.97) L 10/03/18 04:15 Hgb 7.9 g/dL (11.5-15.4) L 10/03/18 04:15 Hct 25.2 % (35.3-44.9) L 10/03/18 04:15 MCHC 31.3 g/dL (31.6-35.5) L 10/03/18 04:15 RDW 16.3 % (11.5-14.5) H 10/03/18 04:15 Immature Gran % 5.0 % (0-4) H 10/03/18 04:15 Neutrophils # 11.4 K/mcL (1.6-8.9) H 10/03/18 04:15 Nucleated RBCs/100 WBC 0.1 /100 WBC (0) H 10/03/18 04:15 Large Platelets Present (Not Present) A 09/30/18 03:41 ABG pO2 123 mmHg (85-104) H 10/03/18 05:23 ABG O2 Saturation 99 % (95-98) H 10/03/18 05:23 Chloride 112 mEq/L (98-107) H 10/03/18 04:15 BUN/Creatinine Ratio 32 (6-26) H 10/03/18 04:15 Glucose 137 mg/dL (70-105) H 10/03/18 04:15 POC Glucose 129 mg/dL (70-99) H 10/02/18 23:35 Calcium 7.2 mg/dL (8.6-10.3) L 10/03/18 04:15 Venous Ioniz Calcium 1.10 mmol/L (1.15-1.35) L 10/02/18 15:15 Total Bilirubin 0.2 mg/dL (0.3-1.0) L 10/03/18 04:15 AST 8 Units/L (13-39) L 10/03/18 04:15 Troponin I 0.14 ng/mL (< 0.04) H* 09/28/18 19:37 B-Natriuretic Peptide 518 pg/mL (Less than 100) H 09/28/18 04:00 Serum Total Protein 5.4 g/dL (6.4-8.9) L 10/03/18 04:15 Albumin 2.2 g/dL (3.5-5.7) L 10/03/18 04:15 Albumin/Globulin Ratio 0.7 (1.1-2.2) L 10/03/18 04:15 TSH 5.713 mcIU/mL (0.340-5.600) H 09/28/18 04:00 Free T3 2.26 pg/mL (2.50-3.90) L 09/28/18 10:50 Nasal Screen MRSA (PCR) Positive (Negative) A 09/28/18 08:00 Vancomycin Trough 15 mcg/mL (5-10) H 10/02/18 04:21 - Clinical Findings Intake & Output: Intake & Output 10/02/18 10/02/18 10/03/18 15:59 23:59 07:59 Intake Total 1311 / 1311 1089 / 1089 1130.3 / 1130.3 Output Total 165 / 165 125 / 125 259 / 259 Balance 1146 / 1146 964 / 964 871.3 / 871.3 Weight 60.6 kg Consult Discharge Plan - Plan Referrals: NONE,PCP [Primary Care Provider] - <Shayy Duong - Last Filed: 10/03/18 14:47> Date of Encounter: 10/03/18 Objective PUL Vital signs: Last Vital Signs Temp 97.4 F L 10/03/18 08:00 Pulse 84 10/03/18 09:00 Resp 13 10/03/18 09:00 BP 90/50 10/03/18 09:00 Pulse Ox 96 10/03/18 09:00 Ventilator Settings Ventilator Settings: Ventilator Settings, Last 8 Hours Ventilator Tidal Volume 500 Setting Ventilator Tidal Volume 500 Setting Ventilator Tidal Volume 500 Setting Ventilator Tidal Volume 500 Setting Ventilator Tidal Volume 500 Setting Ventilator Tidal Volume 500 Setting Ventilator Tidal Volume 500 Setting Ventilator Tidal Volume 500 Setting Ventilator Tidal Volume 500 Setting Ventilator Respiratory Rate 10 Setting Ventilator Respiratory Rate 10 Setting Ventilator Respiratory Rate 10 Setting Ventilator Respiratory Rate 10 Setting Ventilator Respiratory Rate 10 Setting Ventilator Respiratory Rate 10 Setting Ventilator Respiratory Rate 10 Setting Ventilator Respiratory Rate 10 Setting Ventilator Respiratory Rate 10 Setting Actual Respiratory Rate 13 Actual Respiratory Rate 13 Actual Respiratory Rate 18 Actual Respiratory Rate 12 Actual Respiratory Rate 11 Actual Respiratory Rate 12 Actual Respiratory Rate 10 Actual Respiratory Rate 10 Actual Respiratory Rate 12 Positive End Expiratory 5 Pressure Positive End Expiratory 5 Pressure Positive End Expiratory 5 Pressure Positive End Expiratory 5 Pressure Positive End Expiratory 5 Pressure Positive End Expiratory 5 Pressure Positive End Expiratory 5 Pressure Positive End Expiratory 5 Pressure Positive End Expiratory 5 Pressure Peak Inspiratory Airway 21 Pressure Peak Inspiratory Airway 25 Pressure Peak Inspiratory Airway 13 Pressure Peak Inspiratory Airway 29 Pressure Peak Inspiratory Airway 28 Pressure Peak Inspiratory Airway 37 Pressure Peak Inspiratory Airway 36 Pressure Peak Inspiratory Airway 35 Pressure Results - Laboratory Findings CBC and BMP: 10/03/18 04:15 10/03/18 04:15 ABG ABG pH 7.39 pH Units (7.32-7.45) 10/03/18 05:23 ABG pCO2 41 mmHg (35-45) 10/03/18 05:23 ABG pO2 123 mmHg (85-104) H 10/03/18 05:23 ABG O2 Saturation 99 % (95-98) H 10/03/18 05:23 Abnormal lab findings: Abnormal lab results WBC 14.4 K/mcL (4.3-11.1) H 10/03/18 04:15 RBC 2.54 M/mcL (3.82-4.97) L 10/03/18 04:15 Hgb 7.9 g/dL (11.5-15.4) L 10/03/18 04:15 Hct 25.2 % (35.3-44.9) L 10/03/18 04:15 MCHC 31.3 g/dL (31.6-35.5) L 10/03/18 04:15 RDW 16.3 % (11.5-14.5) H 10/03/18 04:15 Immature Gran % 5.0 % (0-4) H 10/03/18 04:15 Neutrophils # 11.4 K/mcL (1.6-8.9) H 10/03/18 04:15 Nucleated RBCs/100 WBC 0.1 /100 WBC (0) H 10/03/18 04:15 Large Platelets Present (Not Present) A 09/30/18 03:41 ABG pO2 123 mmHg (85-104) H 10/03/18 05:23 ABG O2 Saturation 99 % (95-98) H 10/03/18 05:23 Chloride 112 mEq/L (98-107) H 10/03/18 04:15 BUN/Creatinine Ratio 32 (6-26) H 10/03/18 04:15 Glucose 137 mg/dL (70-105) H 10/03/18 04:15 POC Glucose 129 mg/dL (70-99) H 10/02/18 23:35 Calcium 7.2 mg/dL (8.6-10.3) L 10/03/18 04:15 Venous Ioniz Calcium 1.10 mmol/L (1.15-1.35) L 10/02/18 15:15 Total Bilirubin 0.2 mg/dL (0.3-1.0) L 10/03/18 04:15 AST 8 Units/L (13-39) L 10/03/18 04:15 Troponin I 0.14 ng/mL (< 0.04) H* 09/28/18 19:37 B-Natriuretic Peptide 518 pg/mL (Less than 100) H 09/28/18 04:00 Serum Total Protein 5.4 g/dL (6.4-8.9) L 10/03/18 04:15 Albumin 2.2 g/dL (3.5-5.7) L 10/03/18 04:15 Albumin/Globulin Ratio 0.7 (1.1-2.2) L 10/03/18 04:15 TSH 5.713 mcIU/mL (0.340-5.600) H 09/28/18 04:00 Free T3 2.26 pg/mL (2.50-3.90) L 09/28/18 10:50 Nasal Screen MRSA (PCR) Positive (Negative) A 09/28/18 08:00 Vancomycin Trough 15 mcg/mL (5-10) H 10/02/18 04:21 - Clinical Findings Intake & Output: Intake & Output 10/02/18 10/03/18 10/03/18 23:59 07:59 15:59 Intake Total 1089 / 1089 1130.3 / 1130.3 173 / 173 Output Total 125 / 125 359 / 359 Balance 964 / 964 771.3 / 771.3 173 / 173 Weight 60.6 kg - Attending Attestation I examined this patient and my medical decision-making was reviewed with the Resident Physician. I agree with the documented findings, disposition and treatment plan as described except to the extent set forth below. Patient seen and examined. Labs, radiology, chart personally reviewed. Agree with resident's history and physical, assessment, plan with following comments: RANGE MOUNTER: Patient doesn't follows commands, Pych meds resumed Pulmonary: Acceptable oxygenation and ventilation. Pt failed SBT and she continued to have some intrinsic PEEP, however this has improved significantly after vent changes previously. Continued to have secretion and she is on broad- spectrum antibiotics for her pneumonia. Cardiovascular: She still need only low dose of levophed. Unfortunately she is significantly volume overloaded and giving her more fluid will interfere more with her pulmonary status. GI: Nutrition per dietary and GI prophylaxis per routine Heme: DVT prophylaxis per routine ID: Continue antibiotics and plan to de-escalation Renal; urine out put and renal funtion reviewed Endorcine: blood glucose is monitored Lines: all lines checked and no evidence of infections Skin: skin care to prevent pressure ulcers per nursing routine care Palliative care to meet with family. Subsequently palliative care team made with the family and she is remaining full code and will be reevaluated next week and possibly may need trach and PEG.
[2018-10-03] MEDS: Pantoprazole 40 MG VIAL IVP SCH (08:39)
[2018-10-03] MEDS: Hydrocortisone Sodium Succ 100 MG/2 ML VIAL IVP SCH (08:39)
[2018-10-03] MEDS: Nystatin Cream 15 GM TUBE TP SCH ×3 (08:40→20:32)
[2018-10-03] MEDS: Chlorhexidine Rinse 15 ML MOUTHWASH MM SCH ×2 (08:40→20:31)
[2018-10-03] MEDS: Docusate Oral Soln 100 MG/10 ML UDC PO SCH ×2 (08:45→20:31)
--- NOTE | 2018-10-03 09:01 | Cardiothoracic Progress Note ---
Date of Encounter: 10/03/18 Time of Encounter: 08:59 - Assessment and plan (1) Barotrauma mechanism Current Visit: Yes Status: Acute The assessment and plan as outlined above was discussed with the patient and/or family members who expressed understanding and agreement. All questions were answered. peak airway pressures down. . sq emphysema a little less. chest tubes without air leaks for 2 days and xrays improving. will place bilateral chest tubes to water seal. (2) Pneumothorax Current Visit: Yes Status: Acute The assessment and plan as outlined above was discussed with the patient and/or family members who expressed understanding and agreement. All questions were answered. chest tubes placed by my poartner removed. continue my chest tube from yesterdays insertion to suction. Qualifiers: Pneumothorax type: unspecified pneumothorax Qualified Code(s): J93.9 - Pneumothorax, unspecified - Subjective Interval history: none Vital Signs, Last 4 Hours Temp Pulse Resp BP Pulse Ox 10/03/18 08:00 97.4 F L 84 10/03/18 07:30 97.4 F L 10/03/18 07:19 14 97 10/03/18 07:02 93 18 94/54 95 10/03/18 06:57 14 97 10/03/18 06:00 80 12 103/61 99 10/03/18 05:46 11 96/54 99 10/03/18 05:00 82 12 98/52 98 Weight 10/01/18 10/02/18 10/03/18 23:59 23:59 23:59 Weight 57.7 kg 58.1 kg 60.6 kg - Physical Examination General: Other (intubatd and sedated ) HEENT: Atraumatic, Trachea midline Cardiac: Reg Rate and Rhythm, Normal S1 and S2, No Murmur Incision: No signs of infection, Dry/intact dressing Chest tubes: Minimal drainage, Crepitus (decreasing sq emphysema ), Other (no leak ) Lungs: Normal Breath Sounds Neuro: Other (grimaces to noxious stimuli ) - Labs 10/03/18 04:15 10/03/18 04:15 Lab Results, Last 24 hours 10/02/18 10/02/18 10/02/18 04:21 15:00 15:00 WBC 23.8 H Hgb 8.6 L D Hct 27.3 L Plt Count 281 Sodium 137 Potassium 4.7 D Chloride 113 H Carbon Dioxide 23 BUN 23 Creatinine 0.79 Glucose 137 H Calcium 7.5 L Magnesium 1.7 Total Bilirubin AST ALT Alkaline Phosphatase 10/02/18 10/03/18 10/03/18 20:21 04:15 04:15 WBC 14.4 H Hgb 8.1 L 7.9 L Hct 25.8 L 25.2 L Plt Count 221 Sodium 136 Potassium 4.3 Chloride 112 H Carbon Dioxide 24 BUN 20 Creatinine 0.63 Glucose 137 H Calcium 7.2 L Magnesium 2.2 Total Bilirubin 0.2 L AST 8 L ALT 7 Alkaline Phosphatase 76 - Imaging Chest Xray: image reviewed Consult Discharge Plan - Plan Referrals: NONE,PCP [Primary Care Provider] -
[2018-10-03] MEDS: FentaNYL (PF) 2,500 MCG in EMPTY BAG 1 EACH IVC SCH (12:58)
--- NOTE | 2018-10-03 14:21 | Palliative Progress Note ---
Date of Encounter: 10/03/18 Time of Encounter: 13:00 - Assessment and plan (1) Goals of care, counseling/discussion Current Visit: Yes Status: Acute Assessment and plan: [id number]: Conducted goals of care assessment with patient's son (GUMARO Tan), daughter in law (Madison), Sister (Valeri), niece (Sharyn), Brother, and sister in law. Dr. Mullen and Chaplain Trevizo present for meeting. Updated patient's family on current clinical status, MRSA pneumonia, Failed CPAP trials, Sedation, and improving WBC count. Discussed cause for concern with failed CPAP trials and inability to keep ET senior care. Discussed need for Trach/Peg if desire to continue aggressive treatment. Explained closest [facility] is [facility]; patient's family had previous good experience at [facility]. Briefed over alternative option of identifying when too much care has been given and transition to comfort based approach; family reports previous bad experience with hospice care and [facility] to hospice. Explained necessity of meeting has to do with the need for transition from ET to trach around day 10-14 for reduction of risk related to vocal cords and air way; verbalized understanding. Family very appreciative of extent of conversation. Family has decided to continue aggressive treatment at this time. Would like to continue trying to get patient off ventilator. If unsuccessful, family agreeable to trach/peg. Reviewed CODE STATUS with family, family reports patient has always wanted to be a FULL CODE and want to follow her wishes. Ensured understanding of risks related to CPR; verbalized understanding. (2) Respiratory failure Current Visit: Yes Status: Acute Assessment and plan: Pulmonary recommendations appreciated. Patient remains on Ventilator during assessment. Qualifiers: Chronicity: acute on chronic Respiratory failure complication: hypoxia and hypercapnia Qualified Code(s): J96.21 - Acute and chronic respiratory failure with hypoxia; J96.22 - Acute and chronic respiratory failure with hypercapnia (3) COPD (chronic obstructive pulmonary disease) Current Visit: Yes Status: Chronic Qualifiers: Qualified Code(s): J44.9 - Chronic obstructive pulmonary disease, unspecified (4) MRSA pneumonia Current Visit: No Status: Resolved Assessment and plan: Treatment per ICU team. Vancomycin IV. Qualifiers: Laterality: bilateral Lung location: unspecified part of lung Qualified Code(s): J15.212 - Pneumonia due to Methicillin resistant Staphylococcus aureus (5) Pneumothorax Current Visit: Yes Status: Acute Assessment and plan: Cardiothoracic consult appreciated. Bilateral chest tubes to water seal noted. Qualifiers: Pneumothorax type: unspecified pneumothorax Qualified Code(s): J93.9 - Pneumothorax, unspecified (6) Anxiety Current Visit: Yes Status: Acute Assessment and plan: Patient's home meds have been resumed, as well as Seroquel and Precedex. (7) Generalized pain Current Visit: Yes Status: Acute Assessment and plan: Fentanyl IV per ICU Protocol. No nonverbal signs of pain/discomfort present. - Time Spent With Patient Total time spent is greater than 50% in coordination of care (as documented) at patient's floor/unit and/or counseling patient: - Subjective Interval history: Patient lying in bed, intubated and sedated upon arrival for assessment. 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 No non-verbal signs of pain/disco mfort/dyspnea noted on assessment. Vital signs stable with medication support during assessment. Patient failed CPAP trials again today. Chest tubes to water seal, bilaterally. - Constitutional Vitals: Abnormal lab results WBC 14.4 K/mcL (4.3-11.1) H 10/03/18 04:15 RBC 2.54 M/mcL (3.82-4.97) L 10/03/18 04:15 Hgb 7.9 g/dL (11.5-15.4) L 10/03/18 04:15 Hct 25.2 % (35.3-44.9) L 10/03/18 04:15 MCHC 31.3 g/dL (31.6-35.5) L 10/03/18 04:15 RDW 16.3 % (11.5-14.5) H 10/03/18 04:15 Immature Gran % 5.0 % (0-4) H 10/03/18 04:15 Neutrophils # 11.4 K/mcL (1.6-8.9) H 10/03/18 04:15 Nucleated RBCs/100 WBC 0.1 /100 WBC (0) H 10/03/18 04:15 Large Platelets Present (Not Present) A 09/30/18 03:41 ABG pO2 123 mmHg (85-104) H 10/03/18 05:23 ABG O2 Saturation 99 % (95-98) H 10/03/18 05:23 Chloride 112 mEq/L (98-107) H 10/03/18 04:15 BUN/Creatinine Ratio 32 (6-26) H 10/03/18 04:15 Glucose 137 mg/dL (70-105) H 10/03/18 04:15 POC Glucose 129 mg/dL (70-99) H 10/02/18 23:35 Calcium 7.2 mg/dL (8.6-10.3) L 10/03/18 04:15 Venous Ioniz Calcium 1.10 mmol/L (1.15-1.35) L 10/02/18 15:15 Total Bilirubin 0.2 mg/dL (0.3-1.0) L 10/03/18 04:15 AST 8 Units/L (13-39) L 10/03/18 04:15 Troponin I 0.14 ng/mL (< 0.04) H* 09/28/18 19:37 B-Natriuretic Peptide 518 pg/mL (Less than 100) H 09/28/18 04:00 Serum Total Protein 5.4 g/dL (6.4-8.9) L 10/03/18 04:15 Albumin 2.2 g/dL (3.5-5.7) L 10/03/18 04:15 Albumin/Globulin Ratio 0.7 (1.1-2.2) L 10/03/18 04:15 TSH 5.713 mcIU/mL (0.340-5.600) H 09/28/18 04:00 Free T3 2.26 pg/mL (2.50-3.90) L 09/28/18 10:50 Nasal Screen MRSA (PCR) Positive (Negative) A 09/28/18 08:00 Vancomycin Trough 15 mcg/mL (5-10) H 10/02/18 04:21 General appearance: Present: no acute distress - Head Head exam: Present: normal inspection, normocephalic - ENT ENT exam: Present: mucous membranes dry, normal external ear exam - Neck Neck exam: Present: normal inspection - Respiratory Respiratory exam: Present: decreased breath sounds, rhonchi. Absent: respiratory distress, wheezes, tachypnea - Cardiovascular Cardiovascular exam: Present: +S1, +S2 - GI/Abdominal GI/Abdominal exam: Present: diminished bowel sounds, distended, soft. Absent: tenderness - Rectal Rectal exam: Present: deferred - Expanded Exam Female exam: Present: deferred - Back Exam Back exam: Present: normal inspection. Absent: tenderness - Neurological Exam Neurological exam: Absent: alert, altered, facial droop - Psychiatric Psychiatric exam: Present: flat affect - Skin Skin exam: Present: dry, pallor, warm. Absent: diaphoretic Palliative Quality Palliative Quality: Screen for Code Status: Yes, Screen for Goals of Care: Yes, Screen for Pain: Yes, If Pain Regimen Started, Initiate Bowel Regimen: NA, Screen for Nausea/Vomitting: Yes Code Status: 09/28/18 19:56 CODE [Resuscitation Status: Active] [RES] Routine Comment: Resuscitation Status: Full Code - Labs CBC & Chem 7: 10/03/18 04:15 10/03/18 04:15 Labs: Laboratory Results - last 24 hr 10/02/18 10/02/18 10/02/18 11:39 15:00 15:00 WBC 23.8 H RBC 2.80 L Hgb 8.6 L D Hct 27.3 L MCV 97.5 MCH 30.7 MCHC 31.5 L RDW 16.1 H Plt Count 281 MPV 10.7 Immature Gran % 4.7 H Seg Neutrophils % 87.4 Lymphocytes % 1.7 Monocytes % 4.8 Eosinophils % 0.8 Basophils % 0.6 Neutrophils # 20.8 H Lymphocytes # 0.4 L Monocytes # 1.1 Eosinophils # 0.2 Basophils # 0.1 Nucleated RBCs/100 WBC Sample Site ABG pH ABG pCO2 ABG pO2 ABG HCO3 ABG Total CO2 ABG O2 Saturation ABG Base Excess Robert Test Respiration Rate O2 Delivery Device Blood Gas Modality Inspired O2 Tidal Volume PEEP Sodium 137 Potassium 4.7 D Chloride 113 H Carbon Dioxide 23 BUN 23 Creatinine 0.79 Est GFR ( Amer) > 60 Est GFR (Non-Af Amer) > 60 BUN/Creatinine Ratio 29 H Glucose 137 H POC Glucose 184 H Calculated Osmolality 290 Calcium 7.5 L Venous Ioniz Calcium Phosphorus Magnesium Total Bilirubin AST ALT Alkaline Phosphatase Serum Total Protein Albumin Globulin Albumin/Globulin Ratio 10/02/18 10/02/18 10/02/18 15:15 17:52 20:21 WBC RBC Hgb 8.1 L Hct 25.8 L MCV MCH MCHC RDW Plt Count MPV Immature Gran % Seg Neutrophils % Lymphocytes % Monocytes % Eosinophils % Basophils % Neutrophils # Lymphocytes # Monocytes # Eosinophils # Basophils # Nucleated RBCs/100 WBC Sample Site ABG pH ABG pCO2 ABG pO2 ABG HCO3 ABG Total CO2 ABG O2 Saturation ABG Base Excess Robert Test Respiration Rate O2 Delivery Device Blood Gas Modality Inspired O2 Tidal Volume PEEP Sodium Potassium Chloride Carbon Dioxide BUN Creatinine Est GFR ( Amer) Est GFR (Non-Af Amer) BUN/Creatinine Ratio Glucose POC Glucose 157 H Calculated Osmolality Calcium Venous Ioniz Calcium 1.10 L Phosphorus Magnesium Total Bilirubin AST ALT Alkaline Phosphatase Serum Total Protein Albumin Globulin Albumin/Globulin Ratio 10/02/18 10/03/18 10/03/18 23:35 04:15 04:15 WBC 14.4 H RBC 2.54 L Hgb 7.9 L Hct 25.2 L MCV 99.2 MCH 31.1 MCHC 31.3 L RDW 16.3 H Plt Count 221 MPV 10.3 Immature Gran % 5.0 H Seg Neutrophils % 79.7 Lymphocytes % 5.0 Monocytes % 6.7 Eosinophils % 3.1 Basophils % 0.5 Neutrophils # 11.4 H Lymphocytes # 0.7 Monocytes # 1.0 Eosinophils # 0.4 Basophils # 0.1 Nucleated RBCs/100 WBC 0.1 H Sample Site ABG pH ABG pCO2 ABG pO2 ABG HCO3 ABG Total CO2 ABG O2 Saturation ABG Base Excess Robert Test Respiration Rate O2 Delivery Device Blood Gas Modality Inspired O2 Tidal Volume PEEP Sodium 136 Potassium 4.3 Chloride 112 H Carbon Dioxide 24 BUN 20 Creatinine 0.63 Est GFR ( Amer) > 60 Est GFR (Non-Af Amer) > 60 BUN/Creatinine Ratio 32 H Glucose 137 H POC Glucose 129 H Calculated Osmolality 287 Calcium 7.2 L Venous Ioniz Calcium Phosphorus 3.6 Magnesium 2.2 Total Bilirubin 0.2 L AST 8 L ALT 7 Alkaline Phosphatase 76 Serum Total Protein 5.4 L Albumin 2.2 L Globulin 3.2 Albumin/Globulin Ratio 0.7 L 10/03/18 05:23 WBC RBC Hgb Hct MCV MCH MCHC RDW Plt Count MPV Immature Gran % Seg Neutrophils % Lymphocytes % Monocytes % Eosinophils % Basophils % Neutrophils # Lymphocytes # Monocytes # Eosinophils # Basophils # Nucleated RBCs/100 WBC Sample Site L Radial ABG pH 7.39 ABG pCO2 41 ABG pO2 123 H ABG HCO3 25 ABG Total CO2 26 ABG O2 Saturation 99 H ABG Base Excess -1 Robert Test Positive Respiration Rate 10 O2 Delivery Device Adult Vent Blood Gas Modality ASSIST CONTROL Inspired O2 50.0 Tidal Volume 500 PEEP 5 Sodium Potassium Chloride Carbon Dioxide BUN Creatinine Est GFR ( Amer) Est GFR (Non-Af Amer) BUN/Creatinine Ratio Glucose POC Glucose Calculated Osmolality Calcium Venous Ioniz Calcium Phosphorus Magnesium Total Bilirubin AST ALT Alkaline Phosphatase Serum Total Protein Albumin Globulin Albumin/Globulin Ratio - Impressions Impressions Chest X-Ray 10/03/18 07:17 IMPRESSION: Multifocal airspace opacities with no significant interval change. D/ / Cheng Galeano MD / Cheng Galeano MD Interpreting Provider: Cheng Galeano MD - ABG Interpretation ABG results: ABG ABG pH 7.39 pH Units (7.32-7.45) 10/03/18 05:23 ABG pCO2 41 mmHg (35-45) 10/03/18 05:23 ABG pO2 123 mmHg (85-104) H 10/03/18 05:23 ABG O2 Saturation 99 % (95-98) H 10/03/18 05:23 Palliative Scale - Palliative Performance Scale How ambulatory is this patient?: Totally bed bound What is patient's level of activity and evidence of disease?: Unable to do any activity, Extensive disease How much self-care assistance does patient require?: Total care How much oral intake does the patient have?: Mouth care only What is this patient's level of consciousness?: Drowsy or coma with or without confusion Palliative Performance Score: 10 % Consult Discharge Plan - Plan Referrals: NONE,PCP [Primary Care Provider] -
[2018-10-03 17:56] LABS: BUN/Creatinine Ratio 33 (6-26); Blood Urea Nitrogen 21 mg/dL (8-23); Calcium 7.4 mg/dL (8.6-10.3); Carbon Dioxide 25 mEq/L (23-29); Chloride 110 mEq/L (98-107); Glucose 175 mg/dL (70-105); Osmolality,Calculated 281 (280-300); Potassium 4.9 mEq/L (3.5-5.1); Sodium 132 mEq/L (136-145); eGFR For Non-African Americans > 60 (> 60)
[2018-10-04] MEDS: FentaNYL (PF) 2,500 MCG in EMPTY BAG 1 EACH IVC SCH ×2 (01:33→15:31)
[2018-10-04] MEDS: Levalbuterol Neb 1.25 MG/3 ML IH SCH ×4 (03:05→22:01)
[2018-10-04] MEDS: Artificial Tears SOLN 15 ML BOTTLE BOTH EYES SCH ×6 (04:06→23:27)
[2018-10-04] MEDS: Dexmedetomidine HCl 400 MCG/100 ML MLS IVC SCH ×3 (04:07→20:30)
[2018-10-04 04:39] LABS: Basophils # 0.1 K/mcL (0.0-0.2); Basophils % 0.5 %; Eosinophils # 0.4 K/mcL (0.0-0.6); Eosinophils % 2.6 %; Hematocrit 24.1 % (35.3-44.9); Hemoglobin 7.4 g/dL (11.5-15.4); Immature Granulocytes % 8.1 % (0-4); Lymphocytes # 0.8 K/mcL (0.6-4.6); Lymphocytes % 5.4 %; Mean Corpuscular HGB Conc 30.7 g/dL (31.6-35.5); Mean Corpuscular Hemoglobin 30.8 pg (28.0-33.3); Mean Corpuscular Volume 100.4 fL (83.0-100.0); Mean Platelet Volume 10.2 fL (9.4-12.4); Monocytes % 7.1 %; Neutrophils # 10.5 K/mcL (1.6-8.9); Platelet Count 238 K/mcL (140-400); Red Cell Distribution Width 16.8 % (11.5-14.5); Segmented Neutrophils % 76.3 %
[2018-10-04 04:55] LABS: Albumin 2.2 g/dL (3.5-5.7); Magnesium 2.1 mg/dL (1.6-2.6); Phosphorous 2.8 mg/dL (2.7-4.5)
[2018-10-04 05:23] LABS: Platelet Estimate Normal (Normal)
[2018-10-04 05:48] LABS: ABG Base Excess 0 mEq/L (-2 to 3); ABG HCO3 25 mEq/L (21-27); ABG Oxygen Saturation 97 % (95-98); ABG PCO2 45 mmHg (35-45); ABG PH 7.36 pH Units (7.32-7.45); ABG PO2 100 mmHg (85-104); ABG TCO2 27 mEq/L (20-26); Blood Gas Modality PRVC; Blood Gas PEEP 5 cm H2O; Blood Gas Respiration Rate 10; Blood Gas VT 500 cc
[2018-10-04] MEDS: *HR* Heparin 5,000 UNIT/ML VIAL SQ SCH ×2 (06:06→18:29)
[2018-10-04] MEDS: Norepinephrine 4 MG in D5% in Water 250 ML IVC SCH (06:07)
[2018-10-04] MEDS: Insulin LISPRO 300 UNITS/3 ML VIAL SQ SCH ×4 (06:07→23:33)
--- NOTE | 2018-10-04 06:54 | Pulmonology Progress Note ---
<Jim Bauer S - Last Filed: 10/04/18 12:55> Date of Encounter: 10/04/18 Time of Encounter: 08:48 Assessment and Plan (1) COPD (chronic obstructive pulmonary disease) Current Visit: Yes Status: Chronic Pt who came to ER found to be increasingly hypoxic and was intubated in the ER after failing BiPAP - was recently admitted for MRSA pneumonia and is presumed to have unresolved MRSA peumonia - she returned to [place] for increasing SOB and was transferred to [facility] for further workup CXR post intubation showed bilateral pneumothoraces, pneumomediastinum and right mainstem intubation - chest tube inserted by ER physician - left sided pigtail catheter inserted by ICU resident - right IJ inserted, pt started on pressors - Dr Silva replaced chest tubes 09/28 Meets sepsis criteria for HR 95, WBC 13.8 - source of infxn likely from g(+) cocci in sputum ABG this morning showed pH 7.36, pCO2 45, pO2 100, HCO3 25 - tidal volume decreased from 500 --> 420 CXR on 09/28 showed no pneumothorax on the left, and a right 7mm apical p neumothorax CXR 09/30 Right apical pneumothorax has redeveloped. Otherwise stable chest. CXR 10/01 Interval reinflation of the right lung status post new chest tube insertion. CXR 10/03 Multifocal airspace opacities with no significant interval change. Plan: - cardiothoracic surgery consulted, appreciate recommendations on 09/30: Dr Oliva placed a large bore needle above the third rib for apical pneumothoax on 10/01: Dr Homar Bauer removed the right lower chest tube chest tubes to water seal on 10/03 10/04 - Dr Silva pulled right upper chest tube, lower left tenatively to be pulled tomorrow - continue vancomycin day 7 (total of 10-14 days) - zosyn, azithromycin discontinued 10/01 (after 4 days total) - continue propofol, fentanyl and precedex for sedation and pain control - levophed for hypotension - palliative care consulted, pt will likely need a trach and PEG tube for prolonged intubation, family wishes to do aggressive management pt remains a full code at this time Qualifiers: Qualified Code(s): J44.9 - Chronic obstructive pulmonary disease, unspecified (2) Pneumothorax Current Visit: Yes Status: Acute See plan as above. Qualifiers: Pneumothorax type: unspecified pneumothorax Qualified Code(s): J93.9 - Pneumothorax, unspecified (3) Essential hypertension Current Visit: No Status: Chronic Chronic, currently on levophed for hypotension 2/2 sepsis (4) DVT prophylaxis Current Visit: Yes Status: Acute sq heparin (5) Elevated troponin I level Current Visit: Yes Status: Acute Troponin trended up from 0.04 --> 0.11 ---> 0.14 EKG showed sinus rhythm with no acute ischemia noted Likely demand ischemia from COPD exacerbation. ECHO 09/28/18 showed LVEF 60-65%, TR, mild LV diastolic dysfxn (6) Acute and chronic respiratory failure Current Visit: Yes Status: Acute See plan as above for pneumonia. Qualifiers: Respiratory failure complication: hypoxia Qualified Code(s): J96.21 - Acute and chronic respiratory failure with hypoxia (7) Anxiety Current Visit: Yes Status: Acute on Buspar, zoloft (8) BASSEM (acute kidney injury) Current Visit: Yes Status: Acute Resolving. Admission creatinine 1.46, improved to 1.27 ---> 1.10 --> 0.85 Plan: - avoid nephrotoxins - I&O's - continue to monitor renal fxn (9) Pneumonia Current Visit: Yes Status: Acute See plan as above for COPD exacerbation. Qualifiers: Pneumonia type: due to unspecified organism Laterality: unspecified laterality Lung location: unspecified part of lung Qualified Code(s): J18.9 - Pneumonia, unspecified organism (10) Hypokalemia Current Visit: Yes Status: Resolved Resolved. Potassium 4.9 (11) Sepsis Current Visit: Yes Status: Acute Continues to meet sepsis criteria for HR and WBC count - abx as above - plan as above Qualifiers: Sepsis type: sepsis due to unspecified organism Qualified Code(s): A41.9 - Sepsis, unspecified organism Subjective Principal diagnosis: Pneumonia, pneumothorax bilateral Interval history: Pt is seen at bedside. She remains intubated and on sedation. She failed CPAP trial again today. She does appear comfortable and is in no acute distress. Objective PUL Vital signs: Last Vital Signs Temp 97.7 F 10/04/18 04:32 Pulse 95 10/04/18 06:00 Resp 11 10/04/18 06:00 BP 95/49 10/04/18 06:00 Pulse Ox 99 10/04/18 06:00 General appearance: no acute distress, asleep Eyes: nonicteric Auscultation: left: other (subcutaneous emphysema palpated left side), bilateral: diminished breath sounds Cardiovascular: regular rate and rhythm Gastrointestinal: soft, non-tender, non-distended Integumentary: normal Extremities: edema Musculoskeletal: no deformities unable to assess due to mental status other (unable to assess due to mental status) Ventilator Settings Ventilator Settings: Ventilator Settings, Last 8 Hours Ventilator Tidal Volume 500 Setting Ventilator Tidal Volume 500 Setting Ventilator Tidal Volume 500 Setting Ventilator Tidal Volume 500 Setting Ventilator Tidal Volume 500 Setting Ventilator Tidal Volume 500 Setting Ventilator Tidal Volume 500 Setting Ventilator Tidal Volume 500 Setting Ventilator Tidal Volume 500 Setting Ventilator Tidal Volume 500 Setting Ventilator Tidal Volume 500 Setting Ventilator Tidal Volume 500 Setting Ventilator Tidal Volume 500 Setting Ventilator Respiratory Rate 10 Setting Ventilator Respiratory Rate 10 Setting Ventilator Respiratory Rate 10 Setting Ventilator Respiratory Rate 10 Setting Ventilator Respiratory Rate 10 Setting Ventilator Respiratory Rate 10 Setting Ventilator Respiratory Rate 10 Setting Ventilator Respiratory Rate 10 Setting Ventilator Respiratory Rate 10 Setting Ventilator Respiratory Rate 10 Setting Ventilator Respiratory Rate 10 Setting Ventilator Respiratory Rate 10 Setting Ventilator Respiratory Rate 10 Setting Actual Respiratory Rate 11 Actual Respiratory Rate 13 Actual Respiratory Rate 14 Actual Respiratory Rate 14 Actual Respiratory Rate 12 Actual Respiratory Rate 12 Actual Respiratory Rate 12 Actual Respiratory Rate 10 Actual Respiratory Rate 13 Actual Respiratory Rate 13 Actual Respiratory Rate 10 Actual Respiratory Rate 13 Positive End Expiratory 5 Pressure Positive End Expiratory 5 Pressure Positive End Expiratory 5 Pressure Positive End Expiratory 5 Pressure Positive End Expiratory 5 Pressure Positive End Expiratory 5 Pressure Positive End Expiratory 5 Pressure Positive End Expiratory 5 Pressure Positive End Expiratory 5 Pressure Positive End Expiratory 5 Pressure Positive End Expiratory 5 Pressure Positive End Expiratory 5 Pressure Positive End Expiratory 5 Pressure Peak Inspiratory Airway 34 Pressure Peak Inspiratory Airway 39 Pressure Peak Inspiratory Airway 40 Pressure Peak Inspiratory Airway 40 Pressure Peak Inspiratory Airway 40 Pressure Peak Inspiratory Airway 40 Pressure Peak Inspiratory Airway 40 Pressure Peak Inspiratory Airway 32 Pressure Peak Inspiratory Airway 30 Pressure Peak Inspiratory Airway 30 Pressure Peak Inspiratory Airway 27 Pressure Peak Inspiratory Airway 30 Pressure Results - Laboratory Findings CBC and BMP: 10/04/18 Unknown 10/03/18 17:15 ABG ABG pH 7.36 pH Units (7.32-7.45) 10/04/18 05:44 ABG pCO2 45 mmHg (35-45) 10/04/18 05:44 ABG pO2 100 mmHg (85-104) 10/04/18 05:44 ABG O2 Saturation 97 % (95-98) 10/04/18 05:44 Abnormal lab findings: Abnormal lab results WBC 13.8 K/mcL (4.3-11.1) H 10/04/18 Unknown RBC 2.40 M/mcL (3.82-4.97) L 10/04/18 Unknown Hgb 7.4 g/dL (11.5-15.4) L 10/04/18 Unknown Hct 24.1 % (35.3-44.9) L 10/04/18 Unknown MCV 100.4 fL (83.0-100.0) H 10/04/18 Unknown MCHC 30.7 g/dL (31.6-35.5) L 10/04/18 Unknown RDW 16.8 % (11.5-14.5) H 10/04/18 Unknown Immature Gran % 8.1 % (0-4) H 10/04/18 Unknown Neutrophils # 10.5 K/mcL (1.6-8.9) H 10/04/18 Unknown Nucleated RBCs/100 WBC 0.1 /100 WBC (0) H 10/03/18 04:15 Large Platelets Present (Not Present) A 09/30/18 03:41 ABG Total CO2 27 mEq/L (20-26) H 10/04/18 05:44 Sodium 132 mEq/L (136-145) L 10/03/18 17:15 Chloride 110 mEq/L (98-107) H 10/03/18 17:15 BUN/Creatinine Ratio 33 (6-26) H 10/03/18 17:15 Glucose 175 mg/dL (70-105) H 10/03/18 17:15 POC Glucose 118 mg/dL (70-99) H 10/03/18 23:25 Calcium 7.4 mg/dL (8.6-10.3) L 10/03/18 17:15 Venous Ioniz Calcium 1.10 mmol/L (1.15-1.35) L 10/02/18 15:15 Total Bilirubin 0.2 mg/dL (0.3-1.0) L 10/03/18 04:15 AST 8 Units/L (13-39) L 10/03/18 04:15 Troponin I 0.14 ng/mL (< 0.04) H* 09/28/18 19:37 B-Natriuretic Peptide 518 pg/mL (Less than 100) H 09/28/18 04:00 Serum Total Protein 5.4 g/dL (6.4-8.9) L 10/03/18 04:15 Albumin 2.2 g/dL (3.5-5.7) L 10/04/18 Unknown Albumin/Globulin Ratio 0.7 (1.1-2.2) L 10/03/18 04:15 TSH 5.713 mcIU/mL (0.340-5.600) H 09/28/18 04:00 Free T3 2.26 pg/mL (2.50-3.90) L 09/28/18 10:50 Nasal Screen MRSA (PCR) Positive (Negative) A 09/28/18 08:00 Vancomycin Trough 15 mcg/mL (5-10) H 10/04/18 Unknown - Microbiology Findings Microbiology Findings: Microbiology, Last 48 Hours 09/28/18 14:16 Blood Culture - Final Peripheral Venipuncture No growth. Final report. 09/28/18 13:04 Blood Culture - Final Central Venous Catheter No growth. Final report. - Clinical Findings Intake & Output: Intake & Output 10/03/18 10/03/18 10/04/18 15:59 23:59 07:59 Intake Total 725.7 / 725.7 1012 / 1012 586 / 586 Output Total 225 / 225 100 / 100 206 / 206 Balance 500.7 / 500.7 912 / 912 380 / 380 Weight 61.7 kg Consult Discharge Plan - Plan Referrals: NONE,PCP [Primary Care Provider] - <Bienvenido Conroy W - Last Filed: 10/04/18 19:05> Date of Encounter: 10/04/18 Objective PUL Vital signs: Last Vital Signs Temp 98 F 10/04/18 16:00 Pulse 82 10/04/18 18:00 Resp 11 10/04/18 18:00 BP 101/57 10/04/18 18:00 Pulse Ox 96 10/04/18 18:00 Ventilator Settings Ventilator Settings: Ventilator Settings, Last 8 Hours Ventilator Tidal Volume 420 Setting Ventilator Tidal Volume 420 Setting Ventilator Tidal Volume 420 Setting Ventilator Tidal Volume 420 Setting Ventilator Tidal Volume 420 Setting Ventilator Tidal Volume 420 Setting Ventilator Tidal Volume 420 Setting Ventilator Tidal Volume 420 Setting Ventilator Tidal Volume 420 Setting Ventilator Tidal Volume 420 Setting Ventilator Tidal Volume 420 Setting Ventilator Respiratory Rate 10 Setting Ventilator Respiratory Rate 10 Setting Ventilator Respiratory Rate 10 Setting Ventilator Respiratory Rate 10 Setting Ventilator Respiratory Rate 10 Setting Ventilator Respiratory Rate 10 Setting Ventilator Respiratory Rate 10 Setting Ventilator Respiratory Rate 10 Setting Ventilator Respiratory Rate 10 Setting Ventilator Respiratory Rate 10 Setting Ventilator Respiratory Rate 10 Setting Actual Respiratory Rate 11 Actual Respiratory Rate 12 Actual Respiratory Rate 12 Actual Respiratory Rate 13 Actual Respiratory Rate 16 Actual Respiratory Rate 14 Actual Respiratory Rate 12 Actual Respiratory Rate 15 Actual Respiratory Rate 13 Actual Respiratory Rate 15 Actual Respiratory Rate 19 Positive End Expiratory 5 Pressure Positive End Expiratory 5 Pressure Positive End Expiratory 5 Pressure Positive End Expiratory 5 Pressure Positive End Expiratory 5 Pressure Positive End Expiratory 5 Pressure Positive End Expiratory 5 Pressure Positive End Expiratory 5 Pressure Positive End Expiratory 5 Pressure Positive End Expiratory 5 Pressure Positive End Expiratory 5 Pressure Peak Inspiratory Airway 35 Pressure Peak Inspiratory Airway 20 Pressure Peak Inspiratory Airway 38 Pressure Peak Inspiratory Airway 32 Pressure Peak Inspiratory Airway 20 Pressure Peak Inspiratory Airway 33 Pressure Peak Inspiratory Airway 30 Pressure Peak Inspiratory Airway 31 Pressure Peak Inspiratory Airway 38 Pressure Peak Inspiratory Airway 32 Pressure Peak Inspiratory Airway 46 Pressure Results - Laboratory Findings CBC and BMP: 10/04/18 Unknown 10/04/18 18:05 ABG ABG pH 7.36 pH Units (7.32-7.45) 10/04/18 05:44 ABG pCO2 45 mmHg (35-45) 10/04/18 05:44 ABG pO2 100 mmHg (85-104) 10/04/18 05:44 ABG O2 Saturation 97 % (95-98) 10/04/18 05:44 Abnormal lab findings: Abnormal lab results WBC 13.8 K/mcL (4.3-11.1) H 10/04/18 Unknown RBC 2.40 M/mcL (3.82-4.97) L 10/04/18 Unknown Hgb 7.4 g/dL (11.5-15.4) L 10/04/18 Unknown Hct 24.1 % (35.3-44.9) L 10/04/18 Unknown MCV 100.4 fL (83.0-100.0) H 10/04/18 Unknown MCHC 30.7 g/dL (31.6-35.5) L 10/04/18 Unknown RDW 16.8 % (11.5-14.5) H 10/04/18 Unknown Immature Gran % 8.1 % (0-4) H 10/04/18 Unknown Neutrophils # 10.5 K/mcL (1.6-8.9) H 10/04/18 Unknown Nucleated RBCs/100 WBC 0.1 /100 WBC (0) H 10/03/18 04:15 Large Platelets Present (Not Present) A 09/30/18 03:41 ABG Total CO2 27 mEq/L (20-26) H 10/04/18 05:44 Potassium 5.4 mEq/L (3.5-5.1) H 10/04/18 18:05 Chloride 111 mEq/L (98-107) H 10/04/18 18:05 Creatinine 0.58 mg/dL (0.60-1.20) L 10/04/18 18:05 BUN/Creatinine Ratio 36 (6-26) H 10/04/18 18:05 Glucose 137 mg/dL (70-105) H 10/04/18 18:05 POC Glucose 118 mg/dL (70-99) H 10/03/18 23:25 Calcium 7.6 mg/dL (8.6-10.3) L 10/04/18 18:05 Venous Ioniz Calcium 1.10 mmol/L (1.15-1.35) L 10/02/18 15:15 Total Bilirubin 0.2 mg/dL (0.3-1.0) L 10/03/18 04:15 AST 8 Units/L (13-39) L 10/03/18 04:15 Troponin I 0.14 ng/mL (< 0.04) H* 09/28/18 19:37 B-Natriuretic Peptide 518 pg/mL (Less than 100) H 09/28/18 04:00 Serum Total Protein 5.4 g/dL (6.4-8.9) L 10/03/18 04:15 Albumin 2.2 g/dL (3.5-5.7) L 10/04/18 Unknown Albumin/Globulin Ratio 0.7 (1.1-2.2) L 10/03/18 04:15 TSH 5.713 mcIU/mL (0.340-5.600) H 09/28/18 04:00 Free T3 2.26 pg/mL (2.50-3.90) L 09/28/18 10:50 Nasal Screen MRSA (PCR) Positive (Negative) A 09/28/18 08:00 Vancomycin Trough 15 mcg/mL (5-10) H 10/04/18 Unknown - Microbiology Findings Microbiology Findings: Microbiology, Last 48 Hours 09/28/18 14:16 Blood Culture - Final Peripheral Venipuncture No growth. Final report. 09/28/18 13:04 Blood Culture - Final Central Venous Catheter No growth. Final report. - Clinical Findings Intake & Output: Intake & Output 10/04/18 10/04/18 10/04/18 07:59 15:59 23:59 Intake Total 836 / 836 565 / 565 75 / 75 Output Total 281 / 281 125 / 125 Balance 555 / 555 440 / 440 75 / 75 Weight 61.7 kg - Attending Attestation I examined this patient and my medical decision-making was reviewed with the Resident Physician. I agree with the documented findings, disposition and treatment plan as described except to the extent set forth below. We independently had [id number] contact with the patient I spent 32min of Critical Care time with this patient. It involved decision making of high complexity to assess, manipulate, and support vital organ system failure and/or to prevent further life threatening deterioration of the patient's condition. The time involved in the performance of separately reportable procedures was not counted toward critical care time. Patient seen and examined at bedside Labs, radiology, chart personally reviewed. Management was reviewed during multidisciplinary critical care rounds. PRIVACY OFFICER: Patient remains severely agitated when sedation is lifted failed spontaneous awake trial today because of agitation Pulm: Acute on chronic hypoxic hypercapnic respiratory failure secondary to MRSA pneumonia and COPD exacerbation she has course complicated by bilateral pneumothoraces status post chest tube placement the right chest tube was removed today and suspect a left can really be removed tomorrow appreciate CTS following with along with this patient she has acceptable gas exchange today but high tidal volume with high peak pressures I further decreased her tidal volume accordingly to prevent further barotrauma. She is not a candidate for spontaneous breathing trial because she feels her spontaneous awake trial Cards: She has had borderline hypotension and was on vasopressor-related suspect this is sedation effect but cannot rule out to worsening sepsis we will continue to monitor this closely GI: GI prophylaxis given continue bowel regimen Nutrition: Patti and Renal: UOP Monitored, Cont to Trend sCr and monitor Electrolytes. ID: She is being treated for MRSA pneumonia Heme/Onc: DVT prophylaxis per routine Endo: Glucose Monitored Integ/MSK: Skin Care per routine ICU Nursing Protocol to prevent ulcers. Lines: All lines examined without evidence of infection : Dispo: Remain in ICU for critical illness CODE: Code prognosis is poor palliative care has been consulted to discuss goals of care with family at this point they have lobbied for aggressive measures whi ch we will continue to implement at this time. I suspect she will need tracheostomy placement for long-term acute care management in the upcoming week
[2018-10-04] MEDS: Chlorhexidine Rinse 15 ML MOUTHWASH MM SCH ×2 (08:56→19:34)
[2018-10-04] MEDS: Docusate Oral Soln 100 MG/10 ML UDC PO SCH ×2 (08:56→19:34)
[2018-10-04] MEDS: Pantoprazole 40 MG VIAL IVP SCH (08:56)
[2018-10-04] MEDS: Hydrocortisone Sodium Succ 100 MG/2 ML VIAL IVP SCH (08:57)
--- NOTE | 2018-10-04 09:07 | Cardiothoracic Progress Note ---
Date of Encounter: 10/04/18 Time of Encounter: 09:07 - Assessment and plan (1) Barotrauma mechanism Current Visit: Yes Status: Acute The assessment and plan as outlined above was discussed with the patient and/or family members who expressed understanding and agreement. All questions were answered. will remove the right chest tube today. continue left to water seal. chest xray ordered for tomorrow. (2) Pneumothorax Current Visit: Yes Status: Acute The assessment and plan as outlined above was discussed with the patient and/or family members who expressed understanding and agreement. All questions were answered. chest tubes placed by my poartner removed. continue my chest tube from yesterdays insertion to suction. Qualifiers: Pneumothorax type: unspecified pneumothorax Qualified Code(s): J93.9 - Pneumothorax, unspecified - Subjective Interval history: none Vital Signs, Last 4 Hours Temp Pulse Resp BP Pulse Ox 10/04/18 08:00 84 17 138/81 98 10/04/18 07:44 92 12 78/47 98 10/04/18 07:10 97.8 F 10/04/18 06:00 95 11 95/49 99 10/04/18 05:29 13 90/48 99 Clinical Data, last 8 Hours Output, Chest Tube Drainage 0 Amount [Right Mid-Clavicular Chest] Output, Chest Tube Drainage 3 Amount [Right Mid-Clavicular Chest] Output, Chest Tube Drainage 0 Amount [Left Lateral Chest] Output, Chest Tube Drainage 3 Amount [Left Lateral Chest] Weight 10/02/18 10/03/18 10/04/18 23:59 23:59 23:59 Weight 58.1 kg 60.6 kg 61.7 kg - Physical Examination General: Other (intubated and sedated) HEENT: Atraumatic, Normocephaly Cardiac: Reg Rate and Rhythm, Normal S1 and S2 Incision: No signs of infection, Dry/intact dressing Chest tubes: Minimal drainage, Other (air leak from left , none from the right. ) Lungs: Decreased breath sounds Neuro: Other (tries to open eyes to voice and stimuli ) - Labs 10/04/18 Unknown 10/03/18 17:15 Lab Results, Last 24 hours 10/03/18 10/04/18 10/04/18 17:15 Unknown Unknown WBC 13.8 H Hgb 7.4 L Hct 24.1 L Plt Count 238 Sodium 132 L Potassium 4.9 Chloride 110 H Carbon Dioxide 25 BUN 21 Creatinine 0.63 Glucose 175 H Calcium 7.4 L Magnesium 2.1 Consult Discharge Plan - Plan Referrals: NONE,PCP [Primary Care Provider] -
[2018-10-04] MEDS: Nystatin Cream 15 GM TUBE TP SCH ×3 (11:50→19:34)
[2018-10-04 18:47] LABS: BUN/Creatinine Ratio 36 (6-26); Blood Urea Nitrogen 21 mg/dL (8-23); Calcium 7.6 mg/dL (8.6-10.3); Carbon Dioxide 24 mEq/L (23-29); Chloride 111 mEq/L (98-107); Glucose 137 mg/dL (70-105); Osmolality,Calculated 293 (280-300); Potassium 5.4 mEq/L (3.5-5.1); Sodium 139 mEq/L (136-145); eGFR For Non-African Americans > 60 (> 60)
[2018-10-05] MEDS: Levalbuterol Neb 1.25 MG/3 ML IH SCH ×4 (03:47→22:19)
[2018-10-05] MEDS: Artificial Tears SOLN 15 ML BOTTLE BOTH EYES SCH ×6 (04:09→23:42)
[2018-10-05] MEDS: Dexmedetomidine HCl 400 MCG/100 ML MLS IVC SCH ×3 (04:10→23:07)
[2018-10-05 04:26] LABS: Hematocrit 25.2 % (35.3-44.9); Hemoglobin 7.6 g/dL (11.5-15.4); Mean Corpuscular HGB Conc 30.2 g/dL (31.6-35.5); Mean Corpuscular Hemoglobin 30.9 pg (28.0-33.3); Mean Corpuscular Volume 102.4 fL (83.0-100.0); Platelet Count 254 K/mcL (140-400); Red Blood Count 2.46 M/mcL (3.82-4.97); Red Cell Distribution Width 16.7 % (11.5-14.5)
[2018-10-05 04:45] LABS: BUN/Creatinine Ratio 33 (6-26); Blood Urea Nitrogen 18 mg/dL (8-23); Carbon Dioxide 26 mEq/L (23-29); Chloride 114 mEq/L (98-107); Glucose 141 mg/dL (70-105); Osmolality,Calculated 290 (280-300); Potassium 4.3 mEq/L (3.5-5.1); Sodium 138 mEq/L (136-145); eGFR For Non-African Americans > 60 (> 60)
[2018-10-05 04:50] LABS: ABG Base Excess 1 mEq/L (-2 to 3); ABG HCO3 27 mEq/L (21-27); ABG Oxygen Saturation 97 % (95-98); ABG PCO2 47 mmHg (35-45); ABG PH 7.36 pH Units (7.32-7.45); ABG PO2 91 mmHg (85-104); ABG TCO2 28 mEq/L (20-26); Blood Gas Modality ASSIST CONTROL; Blood Gas PEEP 5 cm H2O; Blood Gas Respiration Rate 10; Blood Gas VT 420 cc
[2018-10-05 04:57] LABS: Lymphocytes # 1.2 K/mcL (0.6-4.6); Monocytes # 1.5 K/mcL (0.0-1.3); Neutrophils # 11.9 K/mcL (1.6-8.9); Platelet Estimate Normal (Normal)
[2018-10-05] MEDS: Insulin LISPRO 300 UNITS/3 ML VIAL SQ SCH ×4 (05:56→23:41)
[2018-10-05] MEDS: FentaNYL (PF) 2,500 MCG in EMPTY BAG 1 EACH IVC SCH ×2 (06:00→15:20)
[2018-10-05] MEDS: Norepinephrine 4 MG in D5% in Water 250 ML IVC SCH (06:00)
[2018-10-05] MEDS: *HR* Heparin 5,000 UNIT/ML VIAL SQ SCH ×2 (06:00→19:36)
--- NOTE | 2018-10-05 08:49 | Pulmonology Progress Note ---
<Jim Bauer S - Last Filed: 10/05/18 10:49> Date of Encounter: 10/05/18 Time of Encounter: 08:45 Assessment and Plan (1) COPD (chronic obstructive pulmonary disease) Current Visit: Yes Status: Chronic Pt who came to ER found to be increasingly hypoxic and was intubated in the ER after failing BiPAP - was recently admitted for MRSA pneumonia and is presumed to have unresolved MRSA peumonia - she returned to [place] for increasing SOB and was transferred to [facility] for further workup CXR post intubation showed bilateral pneumothoraces, pneumomediastinum and right mainstem intubation - chest tube inserted by ER physician - left sided pigtail catheter inserted by ICU resident - right IJ inserted, pt started on pressors - Dr Silva replaced chest tubes 09/28 Currently only meets 1/4 SIRS criteria for WBC 15.2 - source of infxn likely from g(+) cocci in sputum ABG this morning showed pH 7.36, pCO2 47, pO2 91, HCO3 27 - tidal volume decreased from 500 --> 420 on 10/04/18 CXR on 09/28 showed no pneumothorax on the left, and a right 7mm apical pneumothorax CXR 09/30 Right apical pneumothorax has redeveloped. Otherwise stable chest. CXR 10/01 Interval reinflation of the right lung status post new chest tube insertion. CXR 10/03 Multifocal airspace opacities with no significant interval change. CXR 10/05 showed no significant change Plan: - cardiothoracic surgery consulted, appreciate recommendations on 09/30: Dr Oliva placed a large bore needle above the third rib for apical pneumothoax on 10/01: Dr Homar Bauer removed the right lower chest tube chest tubes to water seal on 10/03 10/04 - Dr Silva pulled right upper chest tube 10/05 - Dr Silva to tenatively pull left chest tube today, awaiting his recommendations Dr Oliva possible left chest tube pulled tomorrow, XR in AM - continue vancomycin day 8 (total of 10-14 days) - zosyn, azithromycin discontinued 10/01 (after 4 days total) - continue propofol, fentanyl and precedex for sedation and pain control - levophed for hypotension - palliative care consulted, pt will likely need a trach and PEG tube for prolonged intubation, family wishes to do aggressive management pt remains a full code at this time Qualifiers: Qualified Code(s): J44.9 - Chronic obstructive pulmonary disease, unspecified (2) Pneumothorax Current Visit: Yes Status: Acute See plan as above. Qualifiers: Pneumothorax type: unspecified pneumothorax Qualified Code(s): J93.9 - Pneumothorax, unspecified (3) Essential hypertension Current Visit: No Status: Chronic Chronic, currently on levophed for hypotension 2/2 sepsis (4) DVT prophylaxis Current Visit: Yes Status: Acute sq heparin (5) Elevated troponin I level Current Visit: Yes Status: Acute Troponin trended up from 0.04 --> 0.11 ---> 0.14 EKG showed sinus rhythm with no acute ischemia noted Likely demand ischemia from COPD exacerbation. ECHO 09/28/18 showed LVEF 60-65%, TR, mild LV diastolic dysfxn (6) Acute and chronic respiratory failure Current Visit: Yes Status: Acute See plan as above for pneumonia. Qualifiers: Respiratory failure complication: hypoxia Qualified Code(s): J96.21 - Acute and chronic respiratory failure with hypoxia (7) Anxiety Current Visit: Yes Status: Acute on Buspar, zoloft (8) BASSEM (acute kidney injury) Current Visit: Yes Status: Acute Resolving. Admission creatinine 1.46, improved to 1.27 ---> 1.10 --> 0.85 --> 0.54 Plan: - avoid nephrotoxins - I&O's - continue to monitor renal fxn (9) Pneumonia Current Visit: Yes Status: Acute See plan as above for COPD exacerbation. Qualifiers: Pneumonia type: due to unspecified organism Laterality: unspecified laterality Lung location: unspecified part of lung Qualified Code(s): J18.9 - Pneumonia, unspecified organism (10) Hypokalemia Current Visit: Yes Status: Resolved Resolved. Potassium 4.3 (11) Sepsis Current Visit: Yes Status: Resolved Currently meets SIRS criteria for 1/, WBC count elevated at 15.2 Qualifiers: Sepsis type: sepsis due to unspecified organism Qualified Code(s): A41.9 - Sepsis, unspecified organism Subjective Principal diagnosis: Pneumonia, pneumothorax bilateral Interval history: Pt is seen at bedside. She remains intubated and on sedation. She failed CPAP trial again today due to tacycardia, agitation and biting ET tube. She does appear comfortable. Objective PUL Vital signs: Last Vital Signs Temp 97.9 F 10/05/18 07:33 Pulse 80 10/05/18 08:00 Resp 15 10/05/18 08:00 BP 110/58 10/05/18 08:00 Pulse Ox 97 10/05/18 08:00 General appearance: asleep Eyes: nonicteric Auscultation: bilateral: rhonchi (rhonchi noted bilaterally), other (unable to palpate any SQ emphyema) Cardiovascular: regular rate and rhythm Gastrointestinal: soft, non-tender, non-distended Integumentary: normal Extremities: edema Musculoskeletal: no deformities unable to assess due to mental status other (unable to assess due to mental status) Ventilator Settings Ventilator Settings: Ventilator Settings, Last 8 Hours Ventilator Tidal Volume 420 Setting Ventilator Tidal Volume 420 Setting Ventilator Tidal Volume 420 Setting Ventilator Tidal Volume 420 Setting Ventilator Tidal Volume 420 Setting Ventilator Tidal Volume 420 Setting Ventilator Tidal Volume 420 Setting Ventilator Tidal Volume 420 Setting Ventilator Tidal Volume 420 Setting Ventilator Tidal Volume 420 Setting Ventilator Respiratory Rate 10 Setting Ventilator Respiratory Rate 10 Setting Ventilator Respiratory Rate 10 Setting Ventilator Respiratory Rate 10 Setting Ventilator Respiratory Rate 10 Setting Ventilator Respiratory Rate 10 Setting Ventilator Respiratory Rate 10 Setting Ventilator Respiratory Rate 10 Setting Ventilator Respiratory Rate 10 Setting Ventilator Respiratory Rate 10 Setting Actual Respiratory Rate 15 Actual Respiratory Rate 12 Actual Respiratory Rate 11 Actual Respiratory Rate 14 Actual Respiratory Rate 13 Actual Respiratory Rate 13 Actual Respiratory Rate 21 Actual Respiratory Rate 11 Actual Respiratory Rate 11 Positive End Expiratory 5 Pressure Positive End Expiratory 5 Pressure Positive End Expiratory 5 Pressure Positive End Expiratory 5 Pressure Positive End Expiratory 5 Pressure Positive End Expiratory 5 Pressure Positive End Expiratory 5 Pressure Positive End Expiratory 5 Pressure Positive End Expiratory 5 Pressure Positive End Expiratory 5 Pressure Peak Inspiratory Airway 31 Pressure Peak Inspiratory Airway 24 Pressure Peak Inspiratory Airway 31 Pressure Peak Inspiratory Airway 31 Pressure Peak Inspiratory Airway 31 Pressure Peak Inspiratory Airway 34 Pressure Peak Inspiratory Airway 31 Pressure Peak Inspiratory Airway 31 Pressure Peak Inspiratory Airway 31 Pressure Results - Laboratory Findings CBC and BMP: 10/05/18 04:00 10/05/18 04:00 ABG ABG pH 7.36 pH Units (7.32-7.45) 10/05/18 04:47 ABG pCO2 47 mmHg (35-45) H 10/05/18 04:47 ABG pO2 91 mmHg (85-104) 10/05/18 04:47 ABG O2 Saturation 97 % (95-98) 10/05/18 04:47 Abnormal lab findings: Abnormal lab results WBC 15.2 K/mcL (4.3-11.1) H 10/05/18 04:00 RBC 2.46 M/mcL (3.82-4.97) L 10/05/18 04:00 Hgb 7.6 g/dL (11.5-15.4) L 10/05/18 04:00 Hct 25.2 % (35.3-44.9) L 10/05/18 04:00 MCV 102.4 fL (83.0-100.0) H 10/05/18 04:00 MCHC 30.2 g/dL (31.6-35.5) L 10/05/18 04:00 RDW 16.7 % (11.5-14.5) H 10/05/18 04:00 Metamyelocytes % 2.0 % (0) H 10/05/18 04:00 Myelocytes % 2.0 % (0) H 10/05/18 04:00 Neutrophils # 11.9 K/mcL (1.6-8.9) H 10/05/18 04:00 Monocytes # 1.5 K/mcL (0.0-1.3) H 10/05/18 04:00 Nucleated RBCs/100 WBC 0.1 /100 WBC (0) H 10/03/18 04:15 Large Platelets Present (Not Present) A 09/30/18 03:41 ABG pCO2 47 mmHg (35-45) H 10/05/18 04:47 ABG Total CO2 28 mEq/L (20-26) H 10/05/18 04:47 Chloride 114 mEq/L (98-107) H 10/05/18 04:00 Creatinine 0.54 mg/dL (0.60-1.20) L 10/05/18 04:00 BUN/Creatinine Ratio 33 (6-26) H 10/05/18 04:00 Glucose 141 mg/dL (70-105) H 10/05/18 04:00 POC Glucose 109 mg/dL (70-99) H 10/04/18 23:27 Calcium 8.0 mg/dL (8.6-10.3) L 10/05/18 04:00 Venous Ioniz Calcium 1.10 mmol/L (1.15-1.35) L 10/02/18 15:15 Total Bilirubin 0.2 mg/dL (0.3-1.0) L 10/03/18 04:15 AST 8 Units/L (13-39) L 10/03/18 04:15 Troponin I 0.14 ng/mL (< 0.04) H* 09/28/18 19:37 B-Natriuretic Peptide 518 pg/mL (Less than 100) H 09/28/18 04:00 Serum Total Protein 5.4 g/dL (6.4-8.9) L 10/03/18 04:15 Albumin 2.2 g/dL (3.5-5.7) L 10/04/18 Unknown Albumin/Globulin Ratio 0.7 (1.1-2.2) L 10/03/18 04:15 TSH 5.713 mcIU/mL (0.340-5.600) H 09/28/18 04:00 Free T3 2.26 pg/mL (2.50-3.90) L 09/28/18 10:50 Nasal Screen MRSA (PCR) Positive (Negative) A 09/28/18 08:00 Vancomycin Trough 15 mcg/mL (5-10) H 10/04/18 Unknown - Microbiology Findings Microbiology Findings: Microbiology, Last 48 Hours 09/28/18 14:16 Blood Culture - Final Peripheral Venipuncture No growth. Final report. 09/28/18 13:04 Blood Culture - Final Central Venous Catheter No growth. Final report. - Clinical Findings Intake & Output: Intake & Output 10/04/18 10/05/18 10/05/18 23:59 07:59 15:59 Intake Total 675 / 675 803 / 803 Output Total 100 / 100 478 / 478 Balance 575 / 575 325 / 325 Weight 62.7 kg Consult Discharge Plan - Plan Referrals: NONE,PCP [Primary Care Provider] - <Bienvenido Conroy W - Last Filed: 10/05/18 11:10> Date of Encounter: 10/05/18 Objective PUL Vital signs: Last Vital Signs Temp 97.9 F 10/05/18 07:33 Pulse 78 10/05/18 09:00 Resp 12 10/05/18 11:00 BP 112/58 10/05/18 09:00 Pulse Ox 99 10/05/18 11:00 Ventilator Settings Ventilator Settings: Ventilator Settings, Last 8 Hours Ventilator Tidal Volume 420 Setting Ventilator Tidal Volume 420 Setting Ventilator Tidal Volume 420 Setting Ventilator Tidal Volume 420 Setting Ventilator Tidal Volume 420 Setting Ventilator Tidal Volume 420 Setting Ventilator Tidal Volume 420 Setting Ventilator Tidal Volume 420 Setting Ventilator Tidal Volume 420 Setting Ventilator Respiratory Rate 10 Setting Ventilator Respiratory Rate 10 Setting Ventilator Respiratory Rate 10 Setting Ventilator Respiratory Rate 10 Setting Ventilator Respiratory Rate 10 Setting Ventilator Respiratory Rate 10 Setting Ventilator Respiratory Rate 10 Setting Ventilator Respiratory Rate 10 Setting Ventilator Respiratory Rate 10 Setting Actual Respiratory Rate 12 Actual Respiratory Rate 12 Actual Respiratory Rate 15 Actual Respiratory Rate 12 Actual Respiratory Rate 11 Actual Respiratory Rate 14 Actual Respiratory Rate 13 Actual Respiratory Rate 13 Positive End Expiratory 5 Pressure Positive End Expiratory 5 Pressure Positive End Expiratory 5 Pressure Positive End Expiratory 5 Pressure Positive End Expiratory 5 Pressure Positive End Expiratory 5 Pressure Positive End Expiratory 5 Pressure Positive End Expiratory 5 Pressure Positive End Expiratory 5 Pressure Peak Inspiratory Airway 32 Pressure Peak Inspiratory Airway 34 Pressure Peak Inspiratory Airway 31 Pressure Peak Inspiratory Airway 24 Pressure Peak Inspiratory Airway 31 Pressure Peak Inspiratory Airway 31 Pressure Peak Inspiratory Airway 31 Pressure Peak Inspiratory Airway 34 Pressure Results - Laboratory Findings CBC and BMP: 10/05/18 04:00 10/05/18 04:00 ABG ABG pH 7.36 pH Units (7.32-7.45) 10/05/18 04:47 ABG pCO2 47 mmHg (35-45) H 10/05/18 04:47 ABG pO2 91 mmHg (85-104) 10/05/18 04:47 ABG O2 Saturation 97 % (95-98) 10/05/18 04:47 Abnormal lab findings: Abnormal lab results WBC 15.2 K/mcL (4.3-11.1) H 10/05/18 04:00 RBC 2.46 M/mcL (3.82-4.97) L 10/05/18 04:00 Hgb 7.6 g/dL (11.5-15.4) L 10/05/18 04:00 Hct 25.2 % (35.3-44.9) L 10/05/18 04:00 MCV 102.4 fL (83.0-100.0) H 10/05/18 04:00 MCHC 30.2 g/dL (31.6-35.5) L 10/05/18 04:00 RDW 16.7 % (11.5-14.5) H 10/05/18 04:00 Metamyelocytes % 2.0 % (0) H 10/05/18 04:00 Myelocytes % 2.0 % (0) H 10/05/18 04:00 Neutrophils # 11.9 K/mcL (1.6-8.9) H 10/05/18 04:00 Monocytes # 1.5 K/mcL (0.0-1.3) H 10/05/18 04:00 Nucleated RBCs/100 WBC 0.1 /100 WBC (0) H 10/03/18 04:15 Large Platelets Present (Not Present) A 09/30/18 03:41 ABG pCO2 47 mmHg (35-45) H 10/05/18 04:47 ABG Total CO2 28 mEq/L (20-26) H 10/05/18 04:47 Chloride 114 mEq/L (98-107) H 10/05/18 04:00 Creatinine 0.54 mg/dL (0.60-1.20) L 10/05/18 04:00 BUN/Creatinine Ratio 33 (6-26) H 10/05/18 04:00 Glucose 141 mg/dL (70-105) H 10/05/18 04:00 POC Glucose 109 mg/dL (70-99) H 10/04/18 23:27 Calcium 8.0 mg/dL (8.6-10.3) L 10/05/18 04:00 Venous Ioniz Calcium 1.10 mmol/L (1.15-1.35) L 10/02/18 15:15 Total Bilirubin 0.2 mg/dL (0.3-1.0) L 10/03/18 04:15 AST 8 Units/L (13-39) L 10/03/18 04:15 Troponin I 0.14 ng/mL (< 0.04) H* 09/28/18 19:37 B-Natriuretic Peptide 518 pg/mL (Less than 100) H 09/28/18 04:00 Serum Total Protein 5.4 g/dL (6.4-8.9) L 10/03/18 04:15 Albumin 2.2 g/dL (3.5-5.7) L 10/04/18 Unknown Albumin/Globulin Ratio 0.7 (1.1-2.2) L 10/03/18 04:15 TSH 5.713 mcIU/mL (0.340-5.600) H 09/28/18 04:00 Free T3 2.26 pg/mL (2.50-3.90) L 09/28/18 10:50 Nasal Screen MRSA (PCR) Positive (Negative) A 09/28/18 08:00 Vancomycin Trough 15 mcg/mL (5-10) H 10/04/18 Unknown - Microbiology Findings Microbiology Findings: Microbiology, Last 48 Hours 09/28/18 14:16 Blood Culture - Final Peripheral Venipuncture No growth. Final report. 09/28/18 13:04 Blood Culture - Final Central Venous Catheter No growth. Final report. - Clinical Findings Intake & Output: Intake & Output 10/04/18 10/05/18 10/05/18 23:59 07:59 15:59 Intake Total 675 / 675 803 / 803 Output Total 100 / 100 478 / 478 Balance 575 / 575 325 / 325 Weight 62.7 kg - Attending Attestation I examined this patient and my medical decision-making was reviewed with the Resident Physician. I agree with the documented findings, disposition and treatment plan as described except to the extent set forth below. We independently had [id number] contact with the patient Patient seen and examined at bedside Labs, radiology, chart personally reviewed. Management was reviewed during multidisciplinary critical care rounds. [employer] PERSON: Severely agitated and feels spontaneous awake trial continue sedation Pulm: Acute on chronic hypoxic hypercapnic respiratory failure acceptable gas exchange today she is not a candidate for spontaneous breathing trial because of failure of spontaneous awake trial she will likely need tracheostomy placement. Chest tube removed today by CTS Cards: No longer on vasopressor blood pressure is monitored acceptable GI: Prophylaxis given Nutrition: Continue enteral nutrition. Dietary recommendations Renal: UOP Monitored, Cont to Trend sCr and monitor Electrolytes. ID: Continue treatment for MRSA pneumonia Heme/Onc: DVT prophylaxis given Endo: Glucose Monitored Integ/MSK: Skin Care per routine ICU Nursing Protocol to prevent ulcers. Lines: All lines examined without evidence of infection : Dispo: Monitored ICU for vent management CODE: Full
[2018-10-05] MEDS: Chlorhexidine Rinse 15 ML MOUTHWASH MM SCH ×2 (08:54→20:59)
[2018-10-05] MEDS: Nystatin Cream 15 GM TUBE TP SCH ×3 (08:54→21:00)
[2018-10-05] MEDS: Docusate Oral Soln 100 MG/10 ML UDC PO SCH ×2 (08:54→20:59)
[2018-10-05] MEDS: Hydrocortisone Sodium Succ 100 MG/2 ML VIAL IVP SCH (08:55)
[2018-10-05] MEDS: Pantoprazole 40 MG VIAL IVP SCH (08:55)
--- NOTE | 2018-10-05 10:04 | Cardiothoracic Progress Note ---
Date of Encounter: 10/05/18 Time of Encounter: 10:01 - Assessment and plan (1) Barotrauma mechanism Current Visit: Yes Status: Acute The assessment and plan as outlined above was discussed with the patient and/or family members who expressed understanding and agreement. All questions were answered. will clamp left chest tube tonight as change of care due to air leak stopping. follow up with chest x;ray in am for possible chest tube removal. (2) Pneumothorax Current Visit: Yes Status: Acute The assessment and plan as outlined above was discussed with the patient and/or family members who expressed understanding and agreement. All questions were answered. chest tubes placed by my poartner removed. continue my chest tube from yesterdays insertion to suction. Qualifiers: Pneumothorax type: unspecified pneumothorax Qualified Code(s): J93.9 - Pneumothorax, unspecified - Subjective Interval history: none Vital Signs, Last 4 Hours Temp Pulse Resp BP Pulse Ox 10/05/18 08:00 80 15 110/58 97 10/05/18 07:33 97.9 F 10/05/18 06:32 12 123/63 99 Clinical Data, last 8 Hours Output, Chest Tube Drainage 3 Amount [Left Lateral Chest] Output, Chest Tube Drainage 0 Amount [Left Lateral Chest] Weight 10/03/18 10/04/18 10/05/18 23:59 23:59 23:59 Weight 60.6 kg 61.7 kg 62.7 kg - Physical Examination General: Other (intuabed and sedated. no responding to noxious stimuli ) HEENT: Atraumatic, Normocephaly Cardiac: Reg Rate and Rhythm, Normal S1 and S2 Chest tubes: Minimal drainage, Crepitus, Other (no leak ) Lungs: Other (rhonchi. ) Neuro: Other (sedated ) Abdomen: Soft, Non-tender, Other (bs present. ) - Labs 10/05/18 04:00 10/05/18 04:00 Lab Results, Last 24 hours 10/04/18 10/05/18 10/05/18 18:05 04:00 04:00 WBC 15.2 H Hgb 7.6 L Hct 25.2 L Plt Count 254 Sodium 139 138 Potassium 5.4 H 4.3 Chloride 111 H 114 H Carbon Dioxide 24 26 BUN 21 18 Creatinine 0.58 L 0.54 L Glucose 137 H 141 H Calcium 7.6 L 8.0 L - Imaging Chest Xray: image reviewed Consult Discharge Plan - Plan Referrals: NONE,PCP [Primary Care Provider] -
[2018-10-06] MEDS: FentaNYL (PF) 2,500 MCG in EMPTY BAG 1 EACH IVC SCH (02:15)
[2018-10-06] MEDS: Levalbuterol Neb 1.25 MG/3 ML IH SCH ×4 (03:42→21:57)
[2018-10-06 04:01] LABS: Hematocrit 25.2 % (35.3-44.9); Hemoglobin 7.6 g/dL (11.5-15.4); Mean Corpuscular HGB Conc 30.2 g/dL (31.6-35.5); Mean Corpuscular Hemoglobin 30.9 pg (28.0-33.3); Mean Corpuscular Volume 102.4 fL (83.0-100.0); Mean Platelet Volume 9.7 fL (9.4-12.4); Platelet Count 281 K/mcL (140-400); Red Blood Count 2.46 M/mcL (3.82-4.97); Red Cell Distribution Width 16.6 % (11.5-14.5)
[2018-10-06] MEDS: Artificial Tears SOLN 15 ML BOTTLE BOTH EYES SCH ×5 (04:12→20:10)
[2018-10-06 04:21] LABS: BUN/Creatinine Ratio 36 (6-26); Blood Urea Nitrogen 18 mg/dL (8-23); Carbon Dioxide 25 mEq/L (23-29); Chloride 110 mEq/L (98-107); Glucose 126 mg/dL (70-105); Osmolality,Calculated 291 (280-300); Potassium 4.3 mEq/L (3.5-5.1); Sodium 139 mEq/L (136-145); eGFR For Non-African Americans > 60 (> 60)
[2018-10-06 04:24] LABS: Eosinophils # 0.3 K/mcL (0.0-0.6); Lymphocytes # 0.6 K/mcL (0.6-4.6); Monocytes # 0.6 K/mcL (0.0-1.3); Neutrophils # 13.7 K/mcL (1.6-8.9); Platelet Estimate Normal (Normal)
[2018-10-06] MEDS: *HR* Heparin 5,000 UNIT/ML VIAL SQ SCH ×2 (05:14→18:17)
[2018-10-06] MEDS: Insulin LISPRO 300 UNITS/3 ML VIAL SQ SCH ×3 (05:15→18:21)
[2018-10-06 05:18] LABS: ABG Base Excess 0 mEq/L (-2 to 3); ABG HCO3 26 mEq/L (21-27); ABG Oxygen Saturation 96 % (95-98); ABG PCO2 45 mmHg (35-45); ABG PH 7.37 pH Units (7.32-7.45); ABG PO2 83 mmHg (85-104); ABG TCO2 27 mEq/L (20-26); Blood Gas Modality PRVC; Blood Gas PEEP 5 cm H2O; Blood Gas Respiration Rate 10; Blood Gas VT 420 cc
[2018-10-06] MEDS: Dexmedetomidine HCl 400 MCG/100 ML MLS IVC SCH ×3 (06:07→22:37)
--- NOTE | 2018-10-06 06:21 | Pulmonology Progress Note ---
<Jim Bauer S - Last Filed: 10/06/18 10:34> Date of Encounter: 10/06/18 Time of Encounter: 07:55 Assessment and Plan (1) COPD (chronic obstructive pulmonary disease) Current Visit: Yes Status: Chronic Pt who came to ER found to be increasingly hypoxic and was intubated in the ER after failing BiPAP - was recently admitted for MRSA pneumonia and is presumed to have unresolved MRSA peumonia - she returned to [place] for increasing SOB and was transferred to [facility] for further workup CXR post intubation showed bilateral pneumothoraces, pneumomediastinum and right mainstem intubation Currently meets 2/ SIRS criteria for WBC 15.2, RR 23 - source of infxn likely from g(+) cocci in sputum ABG this morning showed pH 7.37, pCO2 45, pO2 91, HCO3 27 - pt failed CPAP trial again CXR on 09/28 showed no pneumothorax on the left, and a right 7mm apical pneumothorax CXR 09/30 Right apical pneumothorax has redeveloped. Otherwise stable chest. CXR 10/01 Interval reinflation of the right lung status post new chest tube insertion. CXR 10/03 Multifocal airspace opacities with no significant interval change. CXR 10/05 showed no significant change CXR 10/06 stable lines/tubes/support devices, no pneumothorax Plan: - cardiothoracic surgery consulted, appreciate recommendations; all chest tubes out 10/06/18 - continue vancomycin day 9 (total of 10-14 days) - zosyn, azithromycin discontinued 10/01 (after 4 days total) - d/c hydrocortisone; start solu-medrol 40mg daily, plan to taper over 3-4 days - continue propofol, fentanyl and precedex for sedation and pain control - levophed for hypotension - palliative care consulted, pt will likely need a trach and PEG tube for prolonged intubation, family wishes to do aggressive management pt remains a full code at this time family meeting for saturday10/07/18 - plan for diuresis of pt to see if this improved CPAP trials, lasix drip started Qualifiers: Qualified Code(s): J44.9 - Chronic obstructive pulmonary disease, unspecified (2) Pneumothorax Current Visit: Yes Status: Acute See plan as above. Qualifiers: Pneumothorax type: unspecified pneumothorax Qualified Code(s): J93.9 - Pneu mothorax, unspecified (3) Essential hypertension Current Visit: No Status: Chronic Chronic, currently on levophed for hypotension 2/2 sepsis (4) DVT prophylaxis Current Visit: Yes Status: Acute sq heparin (5) Elevated troponin I level Current Visit: Yes Status: Acute Troponin trended up from 0.04 --> 0.11 ---> 0.14 EKG showed sinus rhythm with no acute ischemia noted Likely demand ischemia from COPD exacerbation. ECHO 09/28/18 showed LVEF 60-65%, TR, mild LV diastolic dysfxn (6) Acute and chronic respiratory failure Current Visit: Yes Status: Acute See plan as above for pneumonia. Qualifiers: Respiratory failure complication: hypoxia Qualified Code(s): J96.21 - Acute and chronic respiratory failure with hypoxia (7) Anxiety Current Visit: Yes Status: Acute on Buspar, zoloft (8) BASSEM (acute kidney injury) Current Visit: Yes Status: Resolved Resolved. Admission creatinine 1.46, improved to 1.27 ---> 1.10 --> 0.85 --> 0.54 -->0.5 Plan: - avoid nephrotoxins - I&O's - continue to monitor renal fxn (9) Pneumonia Current Visit: Yes Status: Acute See plan as above for COPD exacerbation. Qualifiers: Pneumonia type: due to unspecified organism Laterality: unspecified laterality Lung location: unspecified part of lung Qualified Code(s): J18.9 - Pneumonia, unspecified organism (10) Sepsis Current Visit: Yes Status: Acute Currently meets SIRS criteria for 2/4, WBC count elevated at 15.2 and RR 23 Qualifiers: Sepsis type: sepsis due to unspecified organism Qualified Code(s): A41.9 - Sepsis, unspecified organism (11) Tachycardia Current Visit: Yes Status: Acute Pt becomes extremely tacycardic during CPAP trials. Will add on lopressor q6hr. She does take home metoprolol succinate 100mg. (12) Anemia Current Visit: Yes Status: Acute Hemoglobin 7.6 - pt does have anemia of chronic disease - has received 1u pRBC since admission on 10/02 for hemoglobin <7 Plan: - continue to monitor H&H - transfuse if hgb<7 Qualifiers: Anemia type: unspecified type Qualified Code(s): D64.9 - Anemia, unspecified Subjective Principal diagnosis: Pneumonia, pneumothorax bilateral Interval history: Pt is seen at bedside. She remains intubated and on sedation. She failed CPAP trial again today. She does appear comfortable. Objective PUL Vital signs: Last Vital Signs Temp 98.2 F 10/06/18 04:06 Pulse 82 10/06/18 06:00 Resp 15 10/06/18 06:00 BP 121/62 10/06/18 06:00 Pulse Ox 98 10/06/18 06:00 General appearance: asleep ENT: oropharynx dry Auscultation: bilateral: rhonchi, other (no sq edema palpated) Cardiovascular: regular rate and rhythm Gastrointestinal: soft, non-tender, non-distended Integumentary: normal Extremities: edema Musculoskeletal: no deformities unable to assess due to mental status other (unable to assess due to mental status) Ventilator Settings Ventilator Settings: Ventilator Settings, Last 8 Hours Ventilator Tidal Volume 420 Setting Ventilator Tidal Volume 420 Setting Ventilator Tidal Volume 420 Setting Ventilator Tidal Volume 420 Setting Ventilator Tidal Volume 420 Setting Ventilator Tidal Volume 420 Setting Ventilator Tidal Volume 420 Setting Ventilator Tidal Volume 420 Setting Ventilator Tidal Volume 420 Setting Ventilator Tidal Volume 420 Setting Ventilator Tidal Volume 420 Setting Ventilator Tidal Volume 420 Setting Ventilator Respiratory Rate 10 Setting Ventilator Respiratory Rate 10 Setting Ventilator Respiratory Rate 10 Setting Ventilator Respiratory Rate 10 Setting Ventilator Respiratory Rate 10 Setting Ventilator Respiratory Rate 10 Setting Ventilator Respiratory Rate 10 Setting Ventilator Respiratory Rate 10 Setting Ventilator Respiratory Rate 10 Setting Ventilator Respiratory Rate 10 Setting Ventilator Respiratory Rate 10 Setting Ventilator Respiratory Rate 10 Setting Actual Respiratory Rate 15 Actual Respiratory Rate 14 Actual Respiratory Rate 18 Actual Respiratory Rate 14 Actual Respiratory Rate 18 Actual Respiratory Rate 14 Actual Respiratory Rate 15 Actual Respiratory Rate 15 Actual Respiratory Rate 17 Actual Respiratory Rate 15 Actual Respiratory Rate 12 Positive End Expiratory 5 Pressure Positive End Expiratory 5 Pressure Positive End Expiratory 5 Pressure Positive End Expiratory 5 Pressure Positive End Expiratory 5 Pressure Positive End Expiratory 5 Pressure Positive End Expiratory 5 Pressure Positive End Expiratory 5 Pressure Positive End Expiratory 5 Pressure Positive End Expiratory 5 Pressure Positive End Expiratory 5 Pressure Positive End Expiratory 5 Pressure Peak Inspiratory Airway 37 Pressure Peak Inspiratory Airway 21 Pressure Peak Inspiratory Airway 13 Pressure Peak Inspiratory Airway 21 Pressure Peak Inspiratory Airway 13 Pressure Peak Inspiratory Airway 16 Pressure Peak Inspiratory Airway 12 Pressure Peak Inspiratory Airway 12 Pressure Peak Inspiratory Airway 5.6 Pressure Peak Inspiratory Airway 14 Pressure Peak Inspiratory Airway 18 Pressure Results - Laboratory Findings CBC and BMP: 10/06/18 09:35 10/06/18 09:35 ABG ABG pH 7.37 pH Units (7.32-7.45) 10/06/18 05:15 ABG pCO2 45 mmHg (35-45) 10/06/18 05:15 ABG pO2 83 mmHg (85-104) L 10/06/18 05:15 ABG O2 Saturation 96 % (95-98) 10/06/18 05:15 Abnormal lab findings: Abnormal lab results WBC 15.2 K/mcL (4.3-11.1) H 10/06/18 03:50 RBC 2.46 M/mcL (3.82-4.97) L 10/06/18 03:50 Hgb 7.6 g/dL (11.5-15.4) L 10/06/18 03:50 Hct 25.2 % (35.3-44.9) L 10/06/18 03:50 MCV 102.4 fL (83.0-100.0) H 10/06/18 03:50 MCHC 30.2 g/dL (31.6-35.5) L 10/06/18 03:50 RDW 16.6 % (11.5-14.5) H 10/06/18 03:50 Metamyelocytes % 2.0 % (0) H 10/05/18 04:00 Myelocytes % 2.0 % (0) H 10/05/18 04:00 Neutrophils # 13.7 K/mcL (1.6-8.9) H 10/06/18 03:50 Nucleated RBCs/100 WBC 0.1 /100 WBC (0) H 10/03/18 04:15 Large Platelets Present (Not Present) A 09/30/18 03:41 ABG pO2 83 mmHg (85-104) L 10/06/18 05:15 ABG Total CO2 27 mEq/L (20-26) H 10/06/18 05:15 Chloride 110 mEq/L (98-107) H 10/06/18 03:50 Creatinine 0.50 mg/dL (0.60-1.20) L 10/06/18 03:50 BUN/Creatinine Ratio 36 (6-26) H 10/06/18 03:50 Glucose 126 mg/dL (70-105) H 10/06/18 03:50 POC Glucose 108 mg/dL (70-99) H 10/05/18 23:29 Calcium 8.0 mg/dL (8.6-10.3) L 10/06/18 03:50 Venous Ioniz Calcium 1.10 mmol/L (1.15-1.35) L 10/02/18 15:15 Total Bilirubin 0.2 mg/dL (0.3-1.0) L 10/03/18 04:15 AST 8 Units/L (13-39) L 10/03/18 04:15 Troponin I 0.14 ng/mL (< 0.04) H* 09/28/18 19:37 B-Natriuretic Peptide 518 pg/mL (Less than 100) H 09/28/18 04:00 Serum Total Protein 5.4 g/dL (6.4-8.9) L 10/03/18 04:15 Albumin 2.2 g/dL (3.5-5.7) L 10/04/18 Unknown Albumin/Globulin Ratio 0.7 (1.1-2.2) L 10/03/18 04:15 TSH 5.713 mcIU/mL (0.340-5.600) H 09/28/18 04:00 Free T3 2.26 pg/mL (2.50-3.90) L 09/28/18 10:50 Nasal Screen MRSA (PCR) Positive (Negative) A 09/28/18 08:00 Vancomycin Trough 15 mcg/mL (5-10) H 10/04/18 Unknown - Clinical Findings Intake & Output: Intake & Output 10/05/18 10/05/18 10/06/18 15:59 23:59 07:59 Intake Total 394 / 394 967 / 967 400 / 400 Output Total 375 / 375 100 / 100 75 / 75 Balance 867 / 867 325 / 325 Weight 62.9 kg Consult Discharge Plan - Plan Referrals: NONE,PCP [Primary Care Provider] - <Shayy Duong - Last Filed: 10/06/18 14:09> Date of Encounter: 10/06/18 Objective PUL Vital signs: Last Vital Signs Temp 99.1 F 10/06/18 08:21 Pulse 133 10/06/18 09:00 Resp 20 10/06/18 09:00 BP 119/61 10/06/18 09:00 Pulse Ox 98 10/06/18 09:00 Ventilator Settings Ventilator Settings: Ventilator Settings, Last 8 Hours Ventilator Tidal Volume 450 Setting Ventilator Tidal Volume 420 Setting Ventilator Tidal Volume 420 Setting Ventilator Tidal Volume 420 Setting Ventilator Tidal Volume 420 Setting Ventilator Tidal Volume 420 Setting Ventilator Tidal Volume 420 Setting Ventilator Tidal Volume 420 Setting Ventilator Tidal Volume 420 Setting Ventilator Tidal Volume 420 Setting Ventilator Respiratory Rate 10 Setting Ventilator Respiratory Rate 10 Setting Ventilator Respiratory Rate 10 Setting Ventilator Respiratory Rate 10 Setting Ventilator Respiratory Rate 10 Setting Ventilator Respiratory Rate 10 Setting Ventilator Respiratory Rate 10 Setting Ventilator Respiratory Rate 10 Setting Ventilator Respiratory Rate 10 Setting Ventilator Respiratory Rate 10 Setting Actual Respiratory Rate 20 Actual Respiratory Rate 18 Actual Respiratory Rate 23 Actual Respiratory Rate 30 Actual Respiratory Rate 15 Actual Respiratory Rate 14 Actual Respiratory Rate 18 Actual Respiratory Rate 14 Actual Respiratory Rate 18 Positive End Expiratory 5 Pressure Positive End Expiratory 5 Pressure Positive End Expiratory 5 Pressure Positive End Expiratory 5 Pressure Positive End Expiratory 5 Pressure Positive End Expiratory 5 Pressure Positive End Expiratory 5 Pressure Positive End Expiratory 5 Pressure Positive End Expiratory 5 Pressure Positive End Expiratory 5 Pressure Peak Inspiratory Airway 24 Pressure Peak Inspiratory Airway 24 Pressure Peak Inspiratory Airway 12 Pressure Peak Inspiratory Airway 17 Pressure Peak Inspiratory Airway 37 Pressure Peak Inspiratory Airway 21 Pressure Peak Inspiratory Airway 13 Pressure Peak Inspiratory Airway 21 Pressure Peak Inspiratory Airway 13 Pressure Results - Laboratory Findings CBC and BMP: 10/06/18 09:35 10/06/18 09:35 ABG ABG pH 7.37 pH Units (7.32-7.45) 10/06/18 05:15 ABG pCO2 45 mmHg (35-45) 10/06/18 05:15 ABG pO2 83 mmHg (85-104) L 10/06/18 05:15 ABG O2 Saturation 96 % (95-98) 10/06/18 05:15 Abnormal lab findings: Abnormal lab results WBC 15.2 K/mcL (4.3-11.1) H 10/06/18 03:50 RBC 2.46 M/mcL (3.82-4.97) L 10/06/18 03:50 Hgb 7.6 g/dL (11.5-15.4) L 10/06/18 03:50 Hct 25.2 % (35.3-44.9) L 10/06/18 03:50 MCV 102.4 fL (83.0-100.0) H 10/06/18 03:50 MCHC 30.2 g/dL (31.6-35.5) L 10/06/18 03:50 RDW 16.6 % (11.5-14.5) H 10/06/18 03:50 Metamyelocytes % 2.0 % (0) H 10/05/18 04:00 Myelocytes % 2.0 % (0) H 10/05/18 04:00 Neutrophils # 13.7 K/mcL (1.6-8.9) H 10/06/18 03:50 Nucleated RBCs/100 WBC 0.1 /100 WBC (0) H 10/03/18 04:15 Large Platelets Present (Not Present) A 09/30/18 03:41 ABG pO2 83 mmHg (85-104) L 10/06/18 05:15 ABG Total CO2 27 mEq/L (20-26) H 10/06/18 05:15 Chloride 110 mEq/L (98-107) H 10/06/18 03:50 Creatinine 0.50 mg/dL (0.60-1.20) L 10/06/18 03:50 BUN/Creatinine Ratio 36 (6-26) H 10/06/18 03:50 Glucose 126 mg/dL (70-105) H 10/06/18 03:50 POC Glucose 108 mg/dL (70-99) H 10/05/18 23:29 Calcium 8.0 mg/dL (8.6-10.3) L 10/06/18 03:50 Venous Ioniz Calcium 1.10 mmol/L (1.15-1.35) L 10/02/18 15:15 Total Bilirubin 0.2 mg/dL (0.3-1.0) L 10/03/18 04:15 AST 8 Units/L (13-39) L 10/03/18 04:15 Troponin I 0.14 ng/mL (< 0.04) H* 09/28/18 19:37 B-Natriuretic Peptide 518 pg/mL (Less than 100) H 09/28/18 04:00 Serum Total Protein 5.4 g/dL (6.4-8.9) L 10/03/18 04:15 Albumin 2.2 g/dL (3.5-5.7) L 10/04/18 Unknown Albumin/Globulin Ratio 0.7 (1.1-2.2) L 10/03/18 04:15 TSH 5.713 mcIU/mL (0.340-5.600) H 09/28/18 04:00 Free T3 2.26 pg/mL (2.50-3.90) L 09/28/18 10:50 Nasal Screen MRSA (PCR) Positive (Negative) A 09/28/18 08:00 Vancomycin Trough 15 mcg/mL (5-10) H 10/04/18 Unknown - Clinical Findings Intake & Output: Intake & Output 10/05/18 10/06/18 10/06/18 23:59 07:59 15:59 Intake Total 967 / 967 654 / 654 75 / 75 Output Total 100 / 100 75 / 75 700 / 700 Balance 867 / 867 579 / 579 -625 / -625 Weight 62.9 kg - Attending Attestation I examined this patient and my medical decision-making was reviewed with the Resident Physician. I agree with the documented findings, disposition and treatment plan as described except to the extent set forth below. Patient seen and examined. Labs, radiology, chart personally reviewed. Agree with resident's history and physical, assessment, plan with following comments: FITTER/WELDER: Patient does not follows commands, patient heavily sedated on the vent synchrony and every time attempt to do sedation vacation she becomes very tachycardic and she does not tolerate it. Unfortunately this is keep happening to her and sedation is working only when it is on and it is challenging to do a spontaneous breathing trial. Pulmonary: chest tube was removed. Changed vent setting because of the PEEPi and with changing vent setting there was immediate response and improvement in the intrinsic PEEP. Patient most likely will need tracheostomy, however before that I will try to diuresis patient as much as possible especially since her last chest tube was removed today and hoping she will tolerate his breathing trial and will avoid tracheostomy. Cardiovascular: Patient is not on pressors and resume her B-renée GI: Nutrition per dietary and GI prophylaxis per routine. Patient may need PEG tube if she ends up with tracheostomy. Heme: DVT prophylaxis per routine ID: Continue antibiotics and plan to de-escalation Renal; urine out put and renal funtion reviewed Endorcine: blood glucose is monitored. Tapered steroid Lines: all lines checked and no evidence of infections Skin: skin care to prevent pressure ulcers per nursing routine care Overall patient has poor prognosis and palliative care is still following. I spent 35 min of Critical Care time with this patient. It involved decision making of high complexity to assess, manipulate, and support vital organ system failure and/or to prevent further life threatening deterioration of the patient's condition. The time involved in the performance of separately repor table procedures was not counted toward critical care time.
[2018-10-06] MEDS ORDERED: Furosemide 20 MG/2 ML VIAL IVP ONE ×2 (06:22→06:24)
[2018-10-06] MEDS: Norepinephrine 4 MG in D5% in Water 250 ML IVC SCH (06:29)
[2018-10-06] MEDS: Chlorhexidine Rinse 15 ML MOUTHWASH MM SCH ×2 (07:46→20:11)
[2018-10-06] MEDS: Docusate Oral Soln 100 MG/10 ML UDC PO SCH ×2 (07:46→20:11)
[2018-10-06] MEDS: Hydrocortisone Sodium Succ 100 MG/2 ML VIAL IVP SCH (07:46)
[2018-10-06] MEDS: Pantoprazole 40 MG VIAL IVP SCH (07:46)
[2018-10-06] MEDS: Nystatin Cream 15 GM TUBE TP SCH ×3 (07:47→20:12)
--- NOTE | 2018-10-06 08:20 | Cardiothoracic Progress Note ---
Date of Encounter: 10/06/18 Time of Encounter: 08:18 - Assessment and plan (1) Barotrauma mechanism Current Visit: Yes Status: Acute The assessment and plan as outlined above was discussed with the patient and/or family members who expressed understanding and agreement. All questions were answered. rounded with nurse. removed the left chest tube. follow up chest xray at noon. (2) Pneumothorax Current Visit: Yes Status: Acute The assessment and plan as outlined above was discussed with the patient and/or family members who expressed understanding and agreement. All questions were answered. chest tubes placed by my poartner removed. continue my chest tube from yesterdays insertion to suction. Qualifiers: Pneumothorax type: unspecified pneumothorax Qualified Code(s): J93.9 - Pneumothorax, unspecified - Subjective Interval history: none Vital Signs, Last 4 Hours Pulse Resp BP Pulse Ox 10/06/18 07:30 23 182/107 96 10/06/18 06:00 82 15 121/62 98 10/06/18 05:00 88 14 89/48 98 Clinical Data, last 8 Hours Output, Chest Tube Drainage 0 Amount [Left Lateral Chest] Weight 10/04/18 10/05/18 10/06/18 23:59 23:59 23:59 Weight 61.7 kg 62.9 kg - Physical Examination General: Conversant, No Apparent Distress HEENT: Atraumatic, Normocephaly Cardiac: Reg Rate and Rhythm, Normal S1 and S2 Incision: No signs of infection, Dry/intact dressing Chest tubes: Minimal drainage Lungs: Other (rhonchi) - Labs 10/06/18 03:50 10/06/18 03:50 Lab Results, Last 24 hours 10/06/18 10/06/18 03:50 03:50 WBC 15.2 H Hgb 7.6 L Hct 25.2 L Plt Count 281 Sodium 139 Potassium 4.3 Chloride 110 H Carbon Dioxide 25 BUN 18 Creatinine 0.50 L Glucose 126 H Calcium 8.0 L - Imaging Chest Xray: image reviewed Consult Discharge Plan - Plan Referrals: NONE,PCP [Primary Care Provider] -
[2018-10-06] MEDS ORDERED: Potassium Chloride 40 MEQ/200 ML BAG IVPB PRN (08:49)
[2018-10-06] MEDS: Furosemide 240 MG in D5% in Water 96 ML IVC SCH (08:55)
[2018-10-06 09:53] LABS: Hematocrit 28.2 % (35.3-44.9); Hemoglobin 8.8 g/dL (11.5-15.4); Lymphocytes # 0.5 K/mcL (0.6-4.6); Mean Corpuscular HGB Conc 31.2 g/dL (31.6-35.5); Mean Corpuscular Hemoglobin 31.3 pg (28.0-33.3); Mean Corpuscular Volume 100.4 fL (83.0-100.0); Mean Platelet Volume 10.3 fL (9.4-12.4); Platelet Count 347 K/mcL (140-400); Red Blood Count 2.81 M/mcL (3.82-4.97); Red Cell Distribution Width 16.3 % (11.5-14.5)
[2018-10-06 10:12] LABS: BUN/Creatinine Ratio 30 (6-26); Blood Urea Nitrogen 18 mg/dL (8-23); Calcium 8.4 mg/dL (8.6-10.3); Carbon Dioxide 24 mEq/L (23-29); Chloride 106 mEq/L (98-107); Glucose 149 mg/dL (70-105); Osmolality,Calculated 291 (280-300); Potassium 4.1 mEq/L (3.5-5.1); Sodium 138 mEq/L (136-145); eGFR For Non-African Americans > 60 (> 60)
[2018-10-06 10:47] LABS: Monocytes # 0.9 K/mcL (0.0-1.3); Neutrophils # 21.4 K/mcL (1.6-8.9); Platelet Estimate Normal (Normal)
[2018-10-06] MEDS: *HR* Metoprolol 5 MG/5 ML VIAL IVP SCH ×2 (11:33→17:42)
[2018-10-07] MEDS: Insulin LISPRO 300 UNITS/3 ML VIAL SQ SCH ×5 (00:37→23:20)
[2018-10-07] MEDS: Artificial Tears SOLN 15 ML BOTTLE BOTH EYES SCH ×7 (00:37→23:20)
[2018-10-07] MEDS: *HR* Metoprolol 5 MG/5 ML VIAL IVP SCH ×5 (01:27→23:20)
[2018-10-07] MEDS: Levalbuterol Neb 1.25 MG/3 ML IH SCH ×4 (03:07→21:23)
[2018-10-07 04:13] LABS: Basophils % 0.3 %; Eosinophils # 0.3 K/mcL (0.0-0.6); Eosinophils % 1.9 %; Hematocrit 23.4 % (35.3-44.9); Hemoglobin 7.3 g/dL (11.5-15.4); Immature Granulocytes % 5.9 % (0-4); Lymphocytes # 0.7 K/mcL (0.6-4.6); Lymphocytes % 4.6 %; Mean Corpuscular HGB Conc 31.2 g/dL (31.6-35.5); Mean Corpuscular Hemoglobin 30.7 pg (28.0-33.3); Mean Corpuscular Volume 98.3 fL (83.0-100.0); Mean Platelet Volume 9.9 fL (9.4-12.4); Monocytes # 1.1 K/mcL (0.0-1.3); Monocytes % 7.2 %; Neutrophils # 11.8 K/mcL (1.6-8.9); Platelet Count 310 K/mcL (140-400); Red Blood Count 2.38 M/mcL (3.82-4.97); Segmented Neutrophils % 80.1 %
[2018-10-07 04:28] LABS: Magnesium 1.6 mg/dL (1.6-2.6); Phosphorous 4.4 mg/dL (2.7-4.5)
[2018-10-07 04:30] LABS: VBG Ionized Calcium 1.07 mmol/L (1.15-1.35)
[2018-10-07 04:38] LABS: Platelet Estimate Normal (Normal)
[2018-10-07] MEDS: Furosemide 240 MG in D5% in Water 96 ML IVC SCH (04:57)
[2018-10-07] MEDS ORDERED: Potassium Chloride Elixir 20 MEQ/15 ML UDC GTUBE ONE (04:59)
[2018-10-07 05:00] LABS: BUN/Creatinine Ratio 32 (6-26); Blood Urea Nitrogen 24 mg/dL (8-23); Calcium 7.9 mg/dL (8.6-10.3); Carbon Dioxide 28 mEq/L (23-29); Chloride 103 mEq/L (98-107); Glucose 126 mg/dL (70-105); Osmolality,Calculated 294 (280-300); Potassium 2.9 mEq/L (3.5-5.1); Sodium 139 mEq/L (136-145); eGFR For Non-African Americans > 60 (> 60)
[2018-10-07] MEDS: Potassium Chloride 40 MEQ/200 ML BAG IVPB PRN ×2 (05:15→11:52)
[2018-10-07] MEDS: FentaNYL (PF) 2,500 MCG in EMPTY BAG 1 EACH IVC SCH (05:20)
[2018-10-07 05:28] LABS: ABG Base Excess 8 mEq/L (-2 to 3); ABG HCO3 32 mEq/L (21-27); ABG Oxygen Saturation 98 % (95-98); ABG PCO2 42 mmHg (35-45); ABG PH 7.49 pH Units (7.32-7.45); ABG PO2 95 mmHg (85-104); ABG TCO2 33 mEq/L (20-26); Blood Gas Modality ASSIST CONTROL; Blood Gas Respiration Rate 10; Blood Gas VT 450 cc
[2018-10-07] MEDS: *HR* Heparin 5,000 UNIT/ML VIAL SQ SCH ×2 (06:21→17:27)
[2018-10-07] MEDS: Dexmedetomidine HCl 400 MCG/100 ML MLS IVC SCH ×3 (06:21→22:24)
--- NOTE | 2018-10-07 06:40 | Pulmonology Progress Note ---
<Jim Bauer S - Last Filed: 10/07/18 10:25> Date of Encounter: 10/07/18 Time of Encounter: 07:38 Assessment and Plan (1) COPD (chronic obstructive pulmonary disease) Current Visit: Yes Status: Chronic Pt who came to ER found to be increasingly hypoxic and was intubated in the ER after failing BiPAP - was recently admitted for MRSA pneumonia and is presumed to have unresolved MRSA peumonia - she returned to [place] for increasing SOB and was transferred to [facility] for further workup CXR post intubation showed bilateral pneumothoraces, pneumomediastinum and right mainstem intubation CXR 10/06 stable lines/tubes/support devices, no pneumothorax; pneumothoraces have since resolved Currently meets 2/4 SIRS criteria for WBC 14.7, RR 22, HR 98 - source of infxn likely from g(+) cocci in sputum ABG this morning showed pH 7.49, pCO2 42, pO2 95, HCO3 32 Plan: - cardiothoracic surgery consulted, appreciate recommendations; all chest tubes out 10/06/18 - continue vancomycin day 10 (total of 10-14 days) - zosyn, azithromycin discontinued 10/01 (after 4 days total) - solumedrol 40mg IVP today, 20 x 3 days starting tomorrow, 10 x 2 days - precedex for agitation - levophed as needed to keep MAP>65, currently turned off - lasix drip held due to metabolic alkalosis and hypokalemia, 300 IVP of acetazolamide once to help alkalinize urine Patient successfully extubated on 10/07/18. Let son know phone #[phone], he will be in around 1pm. (2) Pneumothorax Current Visit: Yes Status: Acute See plan as above. (3) Essential hypertension Current Visit: No Status: Chronic Chronic, currently on levophed for hypotension 2/2 sepsis (4) DVT prophylaxis Current Visit: Yes Status: Acute sq heparin (5) Elevated troponin I level Current Visit: Yes Status: Acute Troponin trended up from 0.04 --> 0.11 ---> 0.14 EKG showed sinus rhythm with no acute ischemia noted Likely demand ischemia from COPD exacerbation. ECHO 09/28/18 showed LVEF 60-65%, TR, mild LV diastolic dysfxn (6) Acute and chronic respiratory failure Current Visit: Yes Status: Acute See plan as above for pneumonia. (7) Anxiety Current Visit: Yes Status: Acute on Buspar, zoloft (8) BASSEM (acute kidney injury) Current Visit: Yes Status: Resolved Resolved. Admission creatinine 1.46, improved to 1.27 ---> 1.10 --> 0.85 --> 0.54 -->0.5 Plan: - avoid nephrotoxins - I&O's - continue to monitor renal fxn (9) Pneumonia Current Visit: Yes Status: Acute See plan as above for COPD exacerbation. (10) Sepsis Current Visit: Yes Status: Acute Met sepsis criteria on admission for wbc count and HR Currently meets SIRS criteria for 3/4, WBC count, RR and HR (11) Tachycardia Current Visit: Yes Status: Acute Pt becomes extremely tacycardic during CPAP trials. Will add on lopressor q6hr. She does take home metoprolol succinate 100mg. (12) Anemia Current Visit: Yes Status: Acute Hemoglobin 7.3 this morning - pt does have anemia of chronic disease - has received 1u pRBC since admission on 10/02 for hemoglobin <7 Plan: - continue to monitor H&H - transfuse if hgb<7 (13) Hypokalemia Current Visit: Yes Status: Acute Potassium 2.9 this morning. Replaced per electrolyte protocol. Holding lasix. Subjective Principal diagnosis: Pneumonia, pneumothorax bilateral Interval history: Pt is seen at bedside. She remains intubated and on sedation. Currently undergoing CPAP trial. No acute overnight events. Update: pt was successfully extubated this morning after 2 hrs CPAP trial. Objective PUL Vital signs: Last Vital Signs Temp 99.4 F 10/07/18 04:07 Pulse 95 10/07/18 06:00 Resp 17 10/07/18 06:00 BP 112/60 10/07/18 06:00 Pulse Ox 100 10/07/18 06:00 General appearance: no acute distress, asleep ENT: oropharynx dry Auscultation: bilateral: diminished breath sounds Cardiovascular: other (tacycardia) Gastrointestinal: soft, non-tender, non-distended Integumentary: normal Extremities: edema unable to assess due to mental status other (unable to assess due to mental status) Ventilator Settings Ventilator Settings: Ventilator Settings, Last 8 Hours Ventilator Tidal Volume 450 Setting Ventilator Tidal Volume 450 Setting Ventilator Tidal Volume 450 Setting Ventilator Tidal Volume 450 Setting Ventilator Tidal Volume 450 Setting Ventilator Tidal Volume 450 Setting Ventilator Tidal Volume 450 Setting Ventilator Tidal Volume 450 Setting Ventilator Tidal Volume 450 Setting Ventilator Tidal Volume 450 Setting Ventilator Tidal Volume 450 Setting Ventilator Tidal Volume 450 Setting Ventilator Tidal Volume 450 Setting Ventilator Respiratory Rate 10 Setting Ventilator Respiratory Rate 10 Setting Ventilator Respiratory Rate 10 Setting Ventilator Respiratory Rate 10 Setting Ventilator Respiratory Rate 10 Setting Ventilator Respiratory Rate 10 Setting Ventilator Respiratory Rate 10 Setting Ventilator Respiratory Rate 10 Setting Ventilator Respiratory Rate 10 Setting Ventilator Respiratory Rate 10 Setting Ventilator Respiratory Rate 10 Setting Ventilator Respiratory Rate 10 Setting Ventilator Respiratory Rate 10 Setting Actual Respiratory Rate 17 Actual Respiratory Rate 15 Actual Respiratory Rate 16 Actual Respiratory Rate 15 Actual Respiratory Rate 14 Actual Respiratory Rate 13 Actual Respiratory Rate 14 Actual Respiratory Rate 16 Actual Respiratory Rate 19 Actual Respiratory Rate 17 Actual Respiratory Rate 20 Actual Respiratory Rate 13 Positive End Expiratory 5 Pressure Positive End Expiratory 5 Pressure Positive End Expiratory 5 Pressure Positive End Expiratory 5 Pressure Positive End Expiratory 5 Pressure Positive End Expiratory 5 Pressure Positive End Expiratory 5 Pressure Positive End Expiratory 5 Pressure Positive End Expiratory 5 Pressure Positive End Expiratory 5 Pressure Positive End Expiratory 5 Pressure Positive End Expiratory 5 Pressure Positive End Expiratory 5 Pressure Peak Inspiratory Airway 27 Pressure Peak Inspiratory Airway 30 Pressure Peak Inspiratory Airway 27 Pressure Peak Inspiratory Airway 34 Pressure Peak Inspiratory Airway 32 Pressure Peak Inspiratory Airway 39 Pressure Peak Inspiratory Airway 31 Pressure Peak Inspiratory Airway 31 Pressure Peak Inspiratory Airway 36 Pressure Peak Inspiratory Airway 34 Pressure Peak Inspiratory Airway 32 Pressure Peak Inspiratory Airway 34 Pressure Results - Laboratory Findings CBC and BMP: 10/07/18 03:56 10/07/18 09:10 ABG ABG pH 7.49 pH Units (7.32-7.45) H 10/07/18 05:24 ABG pCO2 42 mmHg (35-45) 10/07/18 05:24 ABG pO2 95 mmHg (85-104) 10/07/18 05:24 ABG O2 Saturation 98 % (95-98) 10/07/18 05:24 Abnormal lab findings: Abnormal lab results WBC 14.7 K/mcL (4.3-11.1) H 10/07/18 03:56 RBC 2.38 M/mcL (3.82-4.97) L 10/07/18 03:56 Hgb 7.3 g/dL (11.5-15.4) L D 10/07/18 03:56 Hct 23.4 % (35.3-44.9) L 10/07/18 03:56 MCHC 31.2 g/dL (31.6-35.5) L 10/07/18 03:56 RDW 16.0 % (11.5-14.5) H 10/07/18 03:56 Immature Gran % 5.9 % (0-4) H 10/07/18 03:56 Band Neutrophils % 8.0 % (0-4) H 10/06/18 09:35 Metamyelocytes % 2.0 % (0) H 10/05/18 04:00 Myelocytes % 2.0 % (0) H 10/05/18 04:00 Neutrophils # 11.8 K/mcL (1.6-8.9) H 10/07/18 03:56 Nucleated RBCs/100 WBC 0.1 /100 WBC (0) H 10/03/18 04:15 Large Platelets Present (Not Present) A 09/30/18 03:41 ABG pH 7.49 pH Units (7.32-7.45) H 10/07/18 05:24 ABG HCO3 32 mEq/L (21-27) H 10/07/18 05:24 ABG Total CO2 33 mEq/L (20-26) H 10/07/18 05:24 ABG Base Excess 8 mEq/L (-2 to 3) H 10/07/18 05:24 Potassium 2.9 mEq/L (3.5-5.1) L D 10/07/18 03:56 BUN 24 mg/dL (8-23) H 10/07/18 03:56 BUN/Creatinine Ratio 32 (6-26) H 10/07/18 03:56 Glucose 126 mg/dL (70-105) H 10/07/18 03:56 POC Glucose 147 mg/dL (70-99) H 10/06/18 23:43 Calcium 7.9 mg/dL (8.6-10.3) L 10/07/18 03:56 Venous Ioniz Calcium 1.07 mmol/L (1.15-1.35) L 10/07/18 04:23 Total Bilirubin 0.2 mg/dL (0.3-1.0) L 10/03/18 04:15 AST 8 Units/L (13-39) L 10/03/18 04:15 Troponin I 0.14 ng/mL (< 0.04) H* 09/28/18 19:37 B-Natriuretic Peptide 518 pg/mL (Less than 100) H 09/28/18 04:00 Serum Total Protein 5.4 g/dL (6.4-8.9) L 10/03/18 04:15 Albumin 2.2 g/dL (3.5-5.7) L 10/04/18 Unknown Albumin/Globulin Ratio 0.7 (1.1-2.2) L 10/03/18 04:15 TSH 5.713 mcIU/mL (0.340-5.600) H 09/28/18 04:00 Free T3 2.26 pg/mL (2.50-3.90) L 09/28/18 10:50 Nasal Screen MRSA (PCR) Positive (Negative) A 09/28/18 08:00 Vancomycin Trough 15 mcg/mL (5-10) H 10/04/18 Unknown - Clinical Findings Intake & Output: Intake & Output 10/06/18 10/06/18 10/07/18 15:59 23:59 07:59 Intake Total 525 / 525 1100 / 1100 448 / 448 Output Total 3225 / 3225 920 / 920 450 / 450 Balance -2700 / -2700 180 / 180 -2 / -2 Weight 61.4 kg Consult Discharge Plan - Plan Referrals: NONE,PCP [Primary Care Provider] - <Shayy Duong - Last Filed: 10/07/18 16:51> Date of Encounter: 10/07/18 Objective PUL Vital signs: Last Vital Signs Temp 98.5 F 10/07/18 16:27 Pulse 108 10/07/18 15:00 Resp 18 10/07/18 16:08 BP 139/77 10/07/18 15:00 Pulse Ox 97 10/07/18 16:08 Ventilator Settings Ventilator Settings: Ventilator Settings, Last 8 Hours Ventilator Tidal Volume 450 Setting Ventilator Respiratory Rate 10 Setting Actual Respiratory Rate 21 Positive End Expiratory 5 Pressure Results - Laboratory Findings CBC and BMP: 10/07/18 15:40 10/07/18 15:40 ABG ABG pH 7.49 pH Units (7.32-7.45) H 10/07/18 05:24 ABG pCO2 42 mmHg (35-45) 10/07/18 05:24 ABG pO2 95 mmHg (85-104) 10/07/18 05:24 ABG O2 Saturation 98 % (95-98) 10/07/18 05:24 Abnormal lab findings: Abnormal lab results WBC 14.7 K/mcL (4.3-11.1) H 10/07/18 03:56 RBC 2.38 M/mcL (3.82-4.97) L 10/07/18 03:56 Hgb 8.5 g/dL (11.5-15.4) L 10/07/18 15:40 Hct 27.3 % (35.3-44.9) L 10/07/18 15:40 MCHC 31.2 g/dL (31.6-35.5) L 10/07/18 03:56 RDW 16.0 % (11.5-14.5) H 10/07/18 03:56 Immature Gran % 5.9 % (0-4) H 10/07/18 03:56 Band Neutrophils % 8.0 % (0-4) H 10/06/18 09:35 Metamyelocytes % 2.0 % (0) H 10/05/18 04:00 Myelocytes % 2.0 % (0) H 10/05/18 04:00 Neutrophils # 11.8 K/mcL (1.6-8.9) H 10/07/18 03:56 Nucleated RBCs/100 WBC 0.1 /100 WBC (0) H 10/03/18 04:15 Large Platelets Present (Not Present) A 09/30/18 03:41 ABG pH 7.49 pH Units (7.32-7.45) H 10/07/18 05:24 ABG HCO3 32 mEq/L (21-27) H 10/07/18 05:24 ABG Total CO2 33 mEq/L (20-26) H 10/07/18 05:24 ABG Base Excess 8 mEq/L (-2 to 3) H 10/07/18 05:24 Carbon Dioxide 30 mEq/L (23-29) H 10/07/18 09:10 BUN 24 mg/dL (8-23) H 10/07/18 09:10 BUN/Creatinine Ratio 32 (6-26) H 10/07/18 09:10 POC Glucose 147 mg/dL (70-99) H 10/06/18 23:43 Venous Ioniz Calcium 1.07 mmol/L (1.15-1.35) L 10/07/18 04:23 Total Bilirubin 0.2 mg/dL (0.3-1.0) L 10/03/18 04:15 AST 8 Units/L (13-39) L 10/03/18 04:15 Troponin I 0.14 ng/mL (< 0.04) H* 09/28/18 19:37 B-Natriuretic Peptide 518 pg/mL (Less than 100) H 09/28/18 04:00 Serum Total Protein 5.4 g/dL (6.4-8.9) L 10/03/18 04:15 Albumin 2.2 g/dL (3.5-5.7) L 10/04/18 Unknown Albumin/Globulin Ratio 0.7 (1.1-2.2) L 10/03/18 04:15 TSH 5.713 mcIU/mL (0.340-5.600) H 09/28/18 04:00 Free T3 2.26 pg/mL (2.50-3.90) L 09/28/18 10:50 Nasal Screen MRSA (PCR) Positive (Negative) A 09/28/18 08:00 Vancomycin Trough 15 mcg/mL (5-10) H 10/04/18 Unknown - Clinical Findings Intake & Output: Intake & Output 10/07/18 10/07/18 10/07/18 07:59 15:59 23:59 Intake Total 1057.9 / 1057.9 441 / 441 Output Total 450 / 450 2300 / 2300 700 / 700 Balance 607.9 / 607.9 -1859 / -1859 -700 / -700 Weight 61.4 kg - Attending Attestation I examined this patient and my medical decision-making was reviewed with the Resident Physician. I agree with the documented findings, disposition and treatment plan as described except to the extent set forth below. Patient seen and examined. Labs, radiology, chart personally reviewed. Agree with resident's history and physical, assessment, plan with following comments: SOAP GRINDER: Patient follows commands, Pulmonary: Acceptable oxygenation and ventilation and she was successfully extubated, however she still at risk for reintubation and for that reason I have discussed with the sister at the bedside who stated she will talk to the son since his power of finance attorney regarding her condition deteriorate whether to keep her comfortable for reintubation and trach and PEG. Cardiovascular: stable GI: Nutrition per dietary and GI prophylaxis per routine Heme: DVT prophylaxis per routine ID: Continue antibiotics and plan to de-escalation Renal; urine out put and renal funtion reviewed Endorcine: blood glucose is monitored Lines: all lines checked and no evidence of infections Skin: skin care to prevent pressure ulcers per nursing routine care
[2018-10-07] MEDS ORDERED: *HR* Succinylcholine 200 MG/10 ML VIAL IVP ONE (07:37)
[2018-10-07] MEDS ORDERED: *HR* Etomidate 20 MG/10 ML AMPUL IVP ONE (07:37)
[2018-10-07] MEDS ORDERED: MethylPREDNISolone 40 MG/ML VIAL IVP ONE (07:44)
[2018-10-07] MEDS: Chlorhexidine Rinse 15 ML MOUTHWASH MM SCH ×2 (07:51→20:46)
[2018-10-07] MEDS: Docusate Oral Soln 100 MG/10 ML UDC PO SCH ×2 (07:51→20:25)
[2018-10-07] MEDS: Pantoprazole 40 MG VIAL IVP SCH (07:52)
[2018-10-07] MEDS: Nystatin Cream 15 GM TUBE TP SCH ×3 (07:52→20:47)
[2018-10-07] MEDS ORDERED: MethylPREDNISolone 40 MG/ML VIAL IVP SCH (09:00)
--- NOTE | 2018-10-07 09:11 | Cardiothoracic Progress Note ---
Date of Encounter: 10/07/18 Time of Encounter: 09:10 - Assessment and plan (1) Barotrauma mechanism Current Visit: Yes Status: Acute The assessment and plan as outlined above was discussed with the patient and/or family members who expressed understanding and agreement. All questions were answered. stable 24 hours after chest tube removal, will sign off.. (2) Pneumothorax Current Visit: Yes Status: Acute The assessment and plan as outlined above was discussed with the patient and/or family members who expressed understanding and agreement. All questions were answered. chest tubes placed by my poartner removed. continue my chest tube from yesterdays insertion to suction. Qualifiers: Pneumothorax type: unspecified pneumothorax Qualified Code(s): J93.9 - Pneumothorax, unspecified - Subjective Interval history: none Vital Signs, Last 4 Hours Pulse Resp BP Pulse Ox 10/07/18 08:18 98 22 137/79 98 10/07/18 08:00 102 22 137/79 100 10/07/18 07:09 23 98 10/07/18 07:00 95 22 128/75 99 10/07/18 06:57 19 121/62 99 10/07/18 06:00 95 17 112/60 100 10/07/18 05:14 15 99/53 99 Weight 10/05/18 10/06/18 10/07/18 23:59 23:59 23:59 Weight 62.9 kg 61.4 kg - Physical Examination General: Other (sedation decreased and patient following all commands ) HEENT: Atraumatic, Normocephaly Cardiac: Reg Rate and Rhythm, Normal S1 and S2 Lungs: Decreased breath sounds Neuro: Alert and responsive, Cranial nerves intact, Motor nerves intact - Labs 10/07/18 03:56 10/07/18 03:56 Lab Results, Last 24 hours 10/06/18 10/06/18 10/07/18 09:35 09:35 03:56 WBC 22.8 H 14.7 H Hgb 8.8 L 7.3 L D Hct 28.2 L 23.4 L Plt Count 347 310 Sodium 138 Potassium 4.1 Chloride 106 Carbon Dioxide 24 BUN 18 Creatinine 0.61 Glucose 149 H Calcium 8.4 L Magnesium 10/07/18 10/07/18 03:56 03:56 WBC Hgb Hct Plt Count Sodium 139 Potassium 2.9 L D Chloride 103 Carbon Dioxide 28 BUN 24 H Creatinine 0.74 Glucose 126 H Calcium 7.9 L Magnesium 1.6 Consult Discharge Plan - Plan Referrals: NONE,PCP [Primary Care Provider] -
[2018-10-07 09:49] LABS: BUN/Creatinine Ratio 32 (6-26); Blood Urea Nitrogen 24 mg/dL (8-23); Calcium 8.6 mg/dL (8.6-10.3); Carbon Dioxide 30 mEq/L (23-29); Chloride 102 mEq/L (98-107); Glucose 82 mg/dL (70-105); Osmolality,Calculated 291 (280-300); Potassium 3.4 mEq/L (3.5-5.1); Sodium 139 mEq/L (136-145); eGFR For Non-African Americans > 60 (> 60)
[2018-10-07] MEDS ORDERED: *HR* LORazepam 2 MG/ML VIAL ONE ×2 (10:10→18:48)
--- NOTE | 2018-10-07 10:23 | Palliative Progress Note ---
Date of Encounter: 10/07/18 Time of Encounter: 09:30 - Assessment and plan (1) Goals of care, counseling/discussion Current Visit: Yes Status: Acute Assessment and plan: No family present at bedside. Patient's son was to come in later for discussion for PEG/Trach. Patient has been extubated, tolerating hesitantly at this time. Patient lung sounds are poor. Patient alert and able to answer questions. Patient unsure if she would want "breathing tube" again, but is ok with CPR. Patient to remain FULL CODE at this time. Will continue to work with patient/family regarding goals of care. Unsure if patient is able to understand gravity of decisions at this time. Will continue to follow. Re-evaluated patient. Patient tolerating nasal cannula oxygenation. Patient still struggles with some anxiety, but tolerating with Ativan. Family informed primary nurse will re-intubate if needed. Son and Sister present on arrival. Palliative care will follow from a distance at this time. (2) Respiratory failure Current Visit: Yes Status: Acute Assessment and plan: Patient has been extubated. Patient's oxygen saturation 93% during assessment. Qualifiers: Chronicity: acute on chronic Respiratory failure complication: hypoxia and hypercapnia Qualified Code(s): J96.21 - Acute and chronic respiratory failure with hypoxia; J96.22 - Acute and chronic respiratory failure with hypercapnia (3) COPD (chronic obstructive pulmonary disease) Current Visit: Yes Status: Chronic Qualifiers: Qualified Code(s): J44.9 - Chronic obstructive pulmonary disease, unspecified (4) Pneumothorax Current Visit: Yes Status: Acute Assessment and plan: All chest tubes have been removed. Qualifiers: Pneumothorax type: unspecified pneumothorax Qualified Code(s): J93.9 - Pneumothorax, unspecified (5) Anxiety Current Visit: Yes Status: Acute Assessment and plan: Patient's home meds have been resumed, as well as Seroquel and Precedex. Patient reports some continued anxiety. Continue Precedex drip for anxiety control. (6) Generalized pain Current Visit: Yes Status: Acute Assessment and plan: Denies pain during assessment. - Time Spent With Patient Total time spent is greater than 50% in coordination of care (as documented) at patient's floor/unit and/or counseling patient: - Subjective Interval history: Patient lying in bed, awake, alert, and oriented upon arrival for assessment. Patient had recently been extubated s/p CPAP trial times 2 hours, tolerating well. Patient denies pain, nausea, vomiting, and dyspnea. Patient reports some anxiety, related to recent extubation, precedex infusing. Patient normotensive without pressor support. All chest tubes were removed yesterday. No family present at bedside, notified by ICU resident of extubation. - Constitutional Vitals: Abnormal lab results WBC 14.7 K/mcL (4.3-11.1) H 10/07/18 03:56 RBC 2.38 M/mcL (3.82-4.97) L 10/07/18 03:56 Hgb 7.3 g/dL (11.5-15.4) L D 10/07/18 03:56 Hct 23.4 % (35.3-44.9) L 10/07/18 03:56 MCHC 31.2 g/dL (31.6-35.5) L 10/07/18 03:56 RDW 16.0 % (11.5-14.5) H 10/07/18 03:56 Immature Gran % 5.9 % (0-4) H 10/07/18 03:56 Band Neutrophils % 8.0 % (0-4) H 10/06/18 09:35 Metamyelocytes % 2.0 % (0) H 10/05/18 04:00 Myelocytes % 2.0 % (0) H 10/05/18 04:00 Neutrophils # 11.8 K/mcL (1.6-8.9) H 10/07/18 03:56 Nucleated RBCs/100 WBC 0.1 /100 WBC (0) H 10/03/18 04:15 Large Platelets Present (Not Present) A 09/30/18 03:41 ABG pH 7.49 pH Units (7.32-7.45) H 10/07/18 05:24 ABG HCO3 32 mEq/L (21-27) H 10/07/18 05:24 ABG Total CO2 33 mEq/L (20-26) H 10/07/18 05:24 ABG Base Excess 8 mEq/L (-2 to 3) H 10/07/18 05:24 Potassium 3.4 mEq/L (3.5-5.1) L 10/07/18 09:10 Carbon Dioxide 30 mEq/L (23-29) H 10/07/18 09:10 BUN 24 mg/dL (8-23) H 10/07/18 09:10 BUN/Creatinine Ratio 32 (6-26) H 10/07/18 09:10 POC Glucose 147 mg/dL (70-99) H 10/06/18 23:43 Venous Ioniz Calcium 1.07 mmol/L (1.15-1.35) L 10/07/18 04:23 Total Bilirubin 0.2 mg/dL (0.3-1.0) L 10/03/18 04:15 AST 8 Units/L (13-39) L 10/03/18 04:15 Troponin I 0.14 ng/mL (< 0.04) H* 09/28/18 19:37 B-Natriuretic Peptide 518 pg/mL (Less than 100) H 09/28/18 04:00 Serum Total Protein 5.4 g/dL (6.4-8.9) L 10/03/18 04:15 Albumin 2.2 g/dL (3.5-5.7) L 10/04/18 Unknown Albumin/Globulin Ratio 0.7 (1.1-2.2) L 10/03/18 04:15 TSH 5.713 mcIU/mL (0.340-5.600) H 09/28/18 04:00 Free T3 2.26 pg/mL (2.50-3.90) L 09/28/18 10:50 Nasal Screen MRSA (PCR) Positive (Negative) A 09/28/18 08:00 Vancomycin Trough 15 mcg/mL (5-10) H 10/04/18 Unknown General appearance: Present: cooperative, disheveled, no acute distress, thin - Head Head exam: Present: atraumatic, normal inspection - Eye Eye exam: Present: EOMI, normal appearance, PERRL, conjuntiva pink. Absent: periorbital swelling, periorbital tenderness Pupils: Present: normal accommodation, PERRL - ENT ENT exam: Present: mucous membranes dry, normal external ear exam - Neck Neck exam: Present: full ROM, normal inspection - Respiratory Respiratory exam: Present: accessory muscle use, rhonchi, wheezes, tachypnea. Absent: CTAB, rales - Cardiovascular Cardiovascular exam: Present: +S1, +S2, tachycardia - GI/Abdominal GI/Abdominal exam: Present: normal bowel sounds, soft. Absent: tenderness - Rectal Rectal exam: Present: deferred - Extremities Exam Extremities exam: Present: normal inspection. Absent: pedal edema - Back Exam Back exam: Present: normal inspection - Neurological Exam Neurological exam: Present: alert, oriented X3, strengths equal and symetr throughout. Absent: altered - Psychiatric Psychiatric exam: Present: anxious - Skin Skin exam: Present: dry, intact. Absent: normal color Palliative Quality Palliative Quality: Screen for Code Status: Yes, Screen for Goals of Care: Yes, Screen for Pain: Yes, If Pain Regimen Started, Initiate Bowel Regimen: NA, Screen for Nausea/Vomitting: Yes Code Status: 09/28/18 19:56 CODE [Resuscitation Status: Active] [RES] Routine Comment: Resuscitation Status: Full Code - Labs CBC & Chem 7: 10/07/18 03:56 10/07/18 09:10 Labs: Laboratory Results - last 24 hr 10/06/18 10/06/18 10/06/18 09:35 11:23 18:20 WBC RBC Hgb Hct MCV MCH MCHC RDW Plt Count MPV Immature Gran % Seg Neutrophils % 86.0 Band Neutrophils % 8.0 H Lymphocytes % 2.0 Monocytes % 4.0 Eosinophils % Basophils % Neutrophils # 21.4 H Lymphocytes # 0.5 L Monocytes # 0.9 Eosinophils # Basophils # Platelet Estimate Normal Sample Site ABG pH ABG pCO2 ABG pO2 ABG HCO3 ABG Total CO2 ABG O2 Saturation ABG Base Excess Robert Test Respiration Rate O2 Delivery Device Blood Gas Modality Inspired O2 Tidal Volume Sodium Potassium Chloride Carbon Dioxide BUN Creatinine Est GFR ( Amer) Est GFR (Non-Af Amer) BUN/Creatinine Ratio Glucose POC Glucose 167 H 144 H Calculated Osmolality Calcium Venous Ioniz Calcium Phosphorus Magnesium 10/06/18 10/07/18 10/07/18 23:43 03:56 03:56 WBC 14.7 H RBC 2.38 L Hgb 7.3 L D Hct 23.4 L MCV 98.3 MCH 30.7 MCHC 31.2 L RDW 16.0 H Plt Count 310 MPV 9.9 Immature Gran % 5.9 H Seg Neutrophils % 80.1 Band Neutrophils % Lymphocytes % 4.6 Monocytes % 7.2 Eosinophils % 1.9 Basophils % 0.3 Neutrophils # 11.8 H Lymphocytes # 0.7 Monocytes # 1.1 Eosinophils # 0.3 Basophils # 0.0 Platelet Estimate Normal Sample Site ABG pH ABG pCO2 ABG pO2 ABG HCO3 ABG Total CO2 ABG O2 Saturation ABG Base Excess Robert Test Respiration Rate O2 Delivery Device Blood Gas Modality Inspired O2 Tidal Volume Sodium 139 Potassium 2.9 L D Chloride 103 Carbon Dioxide 28 BUN 24 H Creatinine 0.74 Est GFR ( Amer) > 60 Est GFR (Non-Af Amer) > 60 BUN/Creatinine Ratio 32 H Glucose 126 H POC Glucose 147 H Calculated Osmolality 294 Calcium 7.9 L Venous Ioniz Calcium Phosphorus Magnesium 10/07/18 10/07/18 10/07/18 03:56 04:23 05:24 WBC RBC Hgb Hct MCV MCH MCHC RDW Plt Count MPV Immature Gran % Seg Neutrophils % Band Neutrophils % Lymphocytes % Monocytes % Eosinophils % Basophils % Neutrophils # Lymphocytes # Monocytes # Eosinophils # Basophils # Platelet Estimate Sample Site R Radial ABG pH 7.49 H ABG pCO2 42 ABG pO2 95 ABG HCO3 32 H ABG Total CO2 33 H ABG O2 Saturation 98 ABG Base Excess 8 H Robert Test N/A Respiration Rate 10 O2 Delivery Device Adult Vent Blood Gas Modality ASSIST CONTROL Inspired O2 40.0 Tidal Volume 450 Sodium Potassium Chloride Carbon Dioxide BUN Creatinine Est GFR ( Amer) Est GFR (Non-Af Amer) BUN/Creatinine Ratio Glucose POC Glucose Calculated Osmolality Calcium Venous Ioniz Calcium 1.07 L Phosphorus 4.4 Magnesium 1.6 10/07/18 09:10 WBC RBC Hgb Hct MCV MCH MCHC RDW Plt Count MPV Immature Gran % Seg Neutrophils % Band Neutrophils % Lymphocytes % Monocytes % Eosinophils % Basophils % Neutrophils # Lymphocytes # Monocytes # Eosinophils # Basophils # Platelet Estimate Sample Site ABG pH ABG pCO2 ABG pO2 ABG HCO3 ABG Total CO2 ABG O2 Saturation ABG Base Excess Robert Test Respiration Rate O2 Delivery Device Blood Gas Modality Inspired O2 Tidal Volume Sodium 139 Potassium 3.4 L Chloride 102 Carbon Dioxide 30 H BUN 24 H Creatinine 0.74 Est GFR ( Amer) > 60 Est GFR (Non-Af Amer) > 60 BUN/Creatinine Ratio 32 H Glucose 82 POC Glucose Calculated Osmolality 291 Calcium 8.6 Venous Ioniz Calcium Phosphorus Magnesium - Impressions Impressions Chest X-Ray 10/06/18 12:00 IMPRESSION: Increased lung markings bilaterally, may be related to pulmonary edema versus pneumonia. Low lung volumes. Prominent right hilar structures, may be related to atelectasis, mild pulmonary hypertension or hilar lymphadenopathy. No definite pneumothorax D/ / Agus García MD / Agus García MD Interpreting Provider: Agus García MD - ABG Interpretation ABG results: ABG ABG pH 7.49 pH Units (7.32-7.45) H 10/07/18 05:24 ABG pCO2 42 mmHg (35-45) 10/07/18 05:24 ABG pO2 95 mmHg (85-104) 10/07/18 05:24 ABG O2 Saturation 98 % (95-98) 10/07/18 05:24 Palliative Scale - Palliative Performance Scale How ambulatory is this patient?: Totally bed bound What is patient's level of activity and evidence of disease?: Unable to do any activity, Extensive disease How much self-care assistance does patient require?: Total care How much oral intake does the patient have?: Mouth care only What is this patient's level of consciousness?: Drowsy or coma with or without confusion Palliative Performance Score: 10 % Consult Discharge Plan - Plan Referrals: NONE,PCP [Primary Care Provider] -
[2018-10-07] MEDS ORDERED: *HR* LORazepam 2 MG/ML VIAL IVP ONE ×2 (10:41→18:56)
[2018-10-07 16:06] LABS: Hematocrit 27.3 % (35.3-44.9); Hemoglobin 8.5 g/dL (11.5-15.4)
[2018-10-07 16:20] LABS: Magnesium 2.1 mg/dL (1.6-2.6); Potassium 4.3 mEq/L (3.5-5.1)
[2018-10-08] MEDS ORDERED: D5% in Water 250 ML ONE (02:03)
[2018-10-08] MEDS ORDERED: *HR* Norepinephrine 4 MG/4 ML VIAL IVC ONE (02:03)
[2018-10-08] MEDS ORDERED: 0.9 % Sodium Chloride 1,000 ML ONE (02:06)
--- NOTE | 2018-10-08 02:13 | Event Note ---
Date of Encounter: 10/08/18 Time of Encounter: 02:00 Patient unresponsive per nursing staff. I evaluated patient and she did not respond to sternal rub. Patient was on minimal Precedex. This was stopped. Patient not have any response afterwards. Her last discussion with the palliative care and their note, patient did not know if she wanted to be reintubated or not. Conversation was had with son to explain the need for intubation. There was a plan to possibly place a tracheostomy on patient in the near future if she did not improve significantly. Patient intubated without any complications. Procedures - Intubation sedative: Etomidate Mg Given: 20 paralytic: Succinylcholine Mg Given: 60 Laryngoscope: Anthony Assist Device Used: other (c-mac bronchoscope) ET Tube Size: 7.5 ET Tube Uncuffed: No Tube Secured Depth (cm): 20 Tube Secured Location: lips Tube Placement Confirmation: visualized tube passing through cords, equal breath sounds bilaterally, no breath sounds over epigastrium, confirmation by capnometry Patient Tolerated Procedure: well, no complications Intubation Complications: none
[2018-10-08] MEDS: FentaNYL (PF) 2,500 MCG in EMPTY BAG 1 EACH IVC SCH ×2 (02:22→11:50)
[2018-10-08] MEDS ORDERED: Norepinephrine 4 MG in D5% in Water 250 ML IVC SCH (02:30)
[2018-10-08 03:35] LABS: ABG Base Excess -2 mEq/L (-2 to 3); ABG HCO3 20 mEq/L (21-27); ABG Oxygen Saturation 100 % (95-98); ABG PCO2 24 mmHg (35-45); ABG PH 7.53 pH Units (7.32-7.45); ABG PO2 181 mmHg (85-104); ABG TCO2 21 mEq/L (20-26); Blood Gas Modality ASSIST CONTROL; Blood Gas PEEP 5 cm H2O; Blood Gas Respiration Rate 10; Blood Gas VT 450 cc
[2018-10-08] MEDS: Artificial Tears SOLN 15 ML BOTTLE BOTH EYES SCH ×3 (04:10→12:06)
--- NOTE | 2018-10-08 04:11 | Procedure Note ---
Date of procedure: 10/08/18 Pre-op diagnosis: hypotension Post-op diagnosis: same Procedure: The left radial artery was identified via ultrasound, and then cannulized. Bright red pulsatile blood was seen to return. Using a modified seldinger technique, a guidwire was passed through the needle. The catheter was place over the guidewire, and the needle and the guidewire were removed and once again bright red pulsatile blood was seen to return. The artline setup was attached and good waveforms were seen on the monitor. The catheter was then sutured in place using 2-0 nylon suture. Pt tolerated the procedure well. Anesthesia: IV sedation Surgeon: Monika Leal Was there an marketing support assistant present: Yes Heel Seat Trimmer: Haider Johnson Estimated blood loss (cc): 5 Specimen: none Condition: critical Disposition: ICU
[2018-10-08] MEDS: Levalbuterol Neb 1.25 MG/3 ML IH SCH ×4 (04:18→22:56)
[2018-10-08 05:01] LABS: VBG Ionized Calcium 1.11 mmol/L (1.15-1.35)
[2018-10-08 05:02] LABS: Basophils # 0.1 K/mcL (0.0-0.2); Basophils % 0.5 %; Eosinophils # 0.2 K/mcL (0.0-0.6); Eosinophils % 0.7 %; Immature Granulocytes % 3.7 % (0-4); Lymphocytes # 0.8 K/mcL (0.6-4.6); Lymphocytes % 3.4 %; Mean Corpuscular HGB Conc 30.8 g/dL (31.6-35.5); Mean Corpuscular Hemoglobin 30.5 pg (28.0-33.3); Mean Corpuscular Volume 99.2 fL (83.0-100.0); Mean Platelet Volume 10.1 fL (9.4-12.4); Monocytes # 1.7 K/mcL (0.0-1.3); Monocytes % 7.5 %; Neutrophils # 19.5 K/mcL (1.6-8.9); Platelet Count 465 K/mcL (140-400); Red Blood Count 2.62 M/mcL (3.82-4.97); Red Cell Distribution Width 16.1 % (11.5-14.5); Segmented Neutrophils % 84.2 %
[2018-10-08 05:17] LABS: BUN/Creatinine Ratio 39 (6-26); Blood Urea Nitrogen 30 mg/dL (8-23); Calcium 8.6 mg/dL (8.6-10.3); Carbon Dioxide 24 mEq/L (23-29); Chloride 102 mEq/L (98-107); Glucose 113 mg/dL (70-105); Magnesium 2.2 mg/dL (1.6-2.6); Osmolality,Calculated 295 (280-300); Phosphorous 4.6 mg/dL (2.7-4.5); Potassium 3.9 mEq/L (3.5-5.1); Sodium 139 mEq/L (136-145); eGFR For Non-African Americans > 60 (> 60)
[2018-10-08] MEDS: Insulin LISPRO 300 UNITS/3 ML VIAL SQ SCH ×2 (05:32→16:56)
[2018-10-08] MEDS: *HR* Metoprolol 5 MG/5 ML VIAL IVP SCH (05:43)
[2018-10-08] MEDS: *HR* Heparin 5,000 UNIT/ML VIAL SQ SCH (05:43)
[2018-10-08] MEDS: Dexmedetomidine HCl 400 MCG/100 ML MLS IVC SCH ×2 (05:51→15:36)
--- NOTE | 2018-10-08 07:10 | Pulmonology Progress Note ---
<Jim Bauer S - Last Filed: 10/08/18 10:43> Date of Encounter: 10/08/18 Time of Encounter: 08:34 Assessment and Plan (1) COPD (chronic obstructive pulmonary disease) Current Visit: Yes Status: Chronic Pt who came to ER found to be increasingly hypoxic and was intubated in the ER after failing BiPAP - was recently admitted for MRSA pneumonia and is presumed to have unresolved MRSA peumonia - she returned to [place] for increasing SOB and was transferred to [facility] for further workup CXR post intubation showed bilateral pneumothoraces, pneumomediastinum and right mainstem intubation CXR 10/06 stable lines/tubes/support devices, no pneumothorax; pneumothoraces have since resolved Currently meets 2/4 SIRS criteria for WBC 23.1, RR 110 - source of infxn likely from g(+) cocci in sputum ABG this morning showed pH 7.53, pCO2 24, pO2 181, HCO3 20 Plan: - cardiothoracic surgery consulted, appreciate recommendations; all chest tubes out 10/06/18 - continue vancomycin day 11 (total of 10-14 days) - zosyn, azithromycin discontinued 10/01 (after 4 days total) - solumedrol 40mg IVP today, 20 x 3 days starting tomorrow, 10 x 2 days - precedex for agitation, fentnyl for pain - levophed as needed to keep MAP>65 - acetazolamine IVP today Patient re-intubated overnight due to unresponsiveness. Let son know phone #[phone]. Will plan for trach and PEG this week. Qualifiers: Qualified Code(s): J44.9 - Chronic obstructive pulmonary disease, unspecified (2) Pneumothorax Current Visit: Yes Status: Resolved See plan as above. Resolved. Qualifiers: Pneumothorax type: unspecified pneumothorax Qualified Code(s): J93.9 - Pneumothorax, unspecified (3) Essential hypertension Current Visit: No Status: Chronic Chronic, currently on levophed for hypotension 2/2 sepsis (4) DVT prophylaxis Current Visit: Yes Status: Acute sq heparin (5) Elevated troponin I level Current Visit: Yes Status: Acute Troponin trended up from 0.04 --> 0.11 ---> 0.14 EKG showed sinus rhythm with no acute ischemia noted Likely demand ischemia from COPD exacerbation. ECHO 09/28/18 showed LVEF 60-65%, TR, mild LV diastolic dysfxn (6) Acute and chronic respiratory failure Current Visit: Yes Status: Acute See plan as above for pneumonia. Qualifiers: Respiratory failure complication: hypoxia Qualified Code(s): J96.21 - Acute and chronic respiratory failure with hypoxia (7) Anxiety Current Visit: Yes Status: Acute on Buspar, zoloft (8) BASSEM (acute kidney injury) Current Visit: Yes Status: Resolved Resolved. Admission creatinine 1.46, improved to 1.27 ---> 1.10 --> 0.85 --> 0.54 -->0.5 Plan: - avoid nephrotoxins - I&O's - continue to monitor renal fxn (9) Pneumonia Current Visit: Yes Status: Acute See plan as above for COPD exacerbation. Qualifiers: Pneumonia type: due to unspecified organism Laterality: unspecified laterality Lung location: unspecified part of lung Qualified Code(s): J18.9 - Pneumonia, unspecified organism (10) Sepsis Current Visit: Yes Status: Acute Met sepsis criteria on admission for wbc count and HR Currently meets SIRS criteria for /, WBC count, HR Qualifiers: Sepsis type: sepsis due to unspecified organism Qualified Code(s): A41.9 - Sepsis, unspecified organism (11) Tachycardia Current Visit: Yes Status: Acute lopressor q6hr, hold if SBP<90. She does take home metoprolol succinate 100mg. (12) Anemia Current Visit: Yes Status: Acute Hemoglobin 8 this morning - pt does have anemia of chronic disease - has received 1u pRBC since admission on 10/02 for hemoglobin <7 Plan: - continue to monitor H&H - transfuse if hgb<7 Qualifiers: Anemia type: unspecified type Qualified Code(s): D64.9 - Anemia, unspecified (13) Hypokalemia Current Visit: Yes Status: Acute Potassium 3.9 this morning. On electrolyte protocol. Subjective Principal diagnosis: Pneumonia, pneumothorax bilateral Interval history: Pt is seen at bedside. She was re-intubated overnight due to unresponsiveness. She is asleep during evaluation at bedside. Notified son of re-intubation and the need for trach and PEG. Objective PUL Vital signs: Last Vital Signs Temp 98.3 F 10/08/18 02:00 Pulse 84 10/08/18 06:00 Resp 10 10/08/18 06:00 BP 103/51 10/08/18 06:00 Pulse Ox 97 10/08/18 06:00 General appearance: asleep Eyes: nonicteric ENT: oropharynx dry Auscultation: bilateral: diminished breath sounds, other (prolonged expiratory phase, no wheeze/rhonchi/rales appreciated) Cardiovascular: regular rate and rhythm Gastrointestinal: soft, non-tender, non-distended Integumentary: normal Extremities: no edema unable to assess due to mental status other (unable to assess due to intubation) Ventilator Settings Ventilator Settings: Ventilator Settings, Last 8 Hours Ventilator Tidal Volume 450 Setting Ventilator Tidal Volume 450 Setting Ventilator Tidal Volume 450 Setting Ventilator Tidal Volume 450 Setting Ventilator Tidal Volume 450 Setting Ventilator Tidal Volume 450 Setting Ventilator Respiratory Rate 10 Setting Ventilator Respiratory Rate 10 Setting Ventilator Respiratory Rate 10 Setting Ventilator Respiratory Rate 10 Setting Ventilator Respiratory Rate 10 Setting Ventilator Respiratory Rate 10 Setting Actual Respiratory Rate 10 Actual Respiratory Rate 15 Actual Respiratory Rate 15 Actual Respiratory Rate 12 Actual Respiratory Rate 20 Positive End Expiratory 5 Pressure Positive End Expiratory 5 Pressure Positive End Expiratory 5 Pressure Positive End Expiratory 5 Pressure Positive End Expiratory 5 Pressure Positive End Expiratory 5 Pressure Peak Inspiratory Airway 35 Pressure Peak Inspiratory Airway 38 Pressure Peak Inspiratory Airway 38 Pressure Peak Inspiratory Airway 34 Pressure Peak Inspiratory Airway 34 Pressure Results - Laboratory Findings CBC and BMP: 10/08/18 04:30 10/08/18 04:30 ABG ABG pH 7.53 pH Units (7.32-7.45) H 10/08/18 03:32 ABG pCO2 24 mmHg (35-45) L 10/08/18 03:32 ABG pO2 181 mmHg (85-104) H 10/08/18 03:32 ABG O2 Saturation 100 % (95-98) H 10/08/18 03:32 Abnormal lab findings: Abnormal lab results WBC 23.1 K/mcL (4.3-11.1) H D 10/08/18 04:30 RBC 2.62 M/mcL (3.82-4.97) L 10/08/18 04:30 Hgb 8.0 g/dL (11.5-15.4) L 10/08/18 04:30 Hct 26.0 % (35.3-44.9) L 10/08/18 04:30 MCHC 30.8 g/dL (31.6-35.5) L 10/08/18 04:30 RDW 16.1 % (11.5-14.5) H 10/08/18 04:30 Plt Count 465 K/mcL (140-400) H 10/08/18 04:30 Band Neutrophils % 8.0 % (0-4) H 10/06/18 09:35 Metamyelocytes % 2.0 % (0) H 10/05/18 04:00 Myelocytes % 2.0 % (0) H 10/05/18 04:00 Neutrophils # 19.5 K/mcL (1.6-8.9) H 10/08/18 04:30 Monocytes # 1.7 K/mcL (0.0-1.3) H 10/08/18 04:30 Nucleated RBCs/100 WBC 0.1 /100 WBC (0) H 10/03/18 04:15 Large Platelets Present (Not Present) A 09/30/18 03:41 ABG pH 7.53 pH Units (7.32-7.45) H 10/08/18 03:32 ABG pCO2 24 mmHg (35-45) L 10/08/18 03:32 ABG pO2 181 mmHg (85-104) H 10/08/18 03:32 ABG HCO3 20 mEq/L (21-27) L 10/08/18 03:32 ABG O2 Saturation 100 % (95-98) H 10/08/18 03:32 BUN 30 mg/dL (8-23) H 10/08/18 04:30 BUN/Creatinine Ratio 39 (6-26) H 10/08/18 04:30 Glucose 113 mg/dL (70-105) H 10/08/18 04:30 Venous Ioniz Calcium 1.11 mmol/L (1.15-1.35) L 10/08/18 04:57 Phosphorus 4.6 mg/dL (2.7-4.5) H 10/08/18 04:30 Total Bilirubin 0.2 mg/dL (0.3-1.0) L 10/03/18 04:15 AST 8 Units/L (13-39) L 10/03/18 04:15 Troponin I 0.14 ng/mL (< 0.04) H* 09/28/18 19:37 B-Natriuretic Peptide 518 pg/mL (Less than 100) H 09/28/18 04:00 Serum Total Protein 5.4 g/dL (6.4-8.9) L 10/03/18 04:15 Albumin 2.2 g/dL (3.5-5.7) L 10/04/18 Unknown Albumin/Globulin Ratio 0.7 (1.1-2.2) L 10/03/18 04:15 TSH 5.713 mcIU/mL (0.340-5.600) H 09/28/18 04:00 Free T3 2.26 pg/mL (2.50-3.90) L 09/28/18 10:50 Nasal Screen MRSA (PCR) Positive (Negative) A 09/28/18 08:00 Vancomycin Trough 19 mcg/mL (5-10) H 10/08/18 04:30 - Clinical Findings Intake & Output: Intake & Output 10/07/18 10/07/18 10/08/18 15:59 23:59 07:59 Intake Total 441 / 441 100 / 100 100 / 100 Output Total 2300 / 2300 1050 / 1050 100 / 100 Balance -1859 / -1859 -950 / -950 0 / 0 Weight 57.9 kg Consult Discharge Plan - Plan Referrals: NONE,PCP [Primary Care Provider] - <Shayy Duong - Last Filed: 10/08/18 15:36> Date of Encounter: 10/08/18 Objective PUL Vital signs: Last Vital Signs Temp 98.2 F 10/08/18 07:30 Pulse 78 10/08/18 09:00 Resp 19 10/08/18 09:00 BP 89/43 10/08/18 09:00 Pulse Ox 99 10/08/18 09:00 Ventilator Settings Ventilator Settings: Ventilator Settings, Last 8 Hours Ventilator Tidal Volume 450 Setting Ventilator Tidal Volume 450 Setting Ventilator Tidal Volume 450 Setting Ventilator Tidal Volume 450 Setting Ventilator Tidal Volume 450 Setting Ventilator Tidal Volume 450 Setting Ventilator Tidal Volume 450 Setting Ventilator Tidal Volume 450 Setting Ventilator Tidal Volume 450 Setting Ventilator Tidal Volume 450 Setting Ventilator Tidal Volume 450 Setting Ventilator Respiratory Rate 10 Setting Ventilator Respiratory Rate 10 Setting Ventilator Respiratory Rate 10 Setting Ventilator Respiratory Rate 10 Setting Ventilator Respiratory Rate 10 Setting Ventilator Respiratory Rate 10 Setting Ventilator Respiratory Rate 10 Setting Ventilator Respiratory Rate 10 Setting Ventilator Respiratory Rate 10 Setting Ventilator Respiratory Rate 10 Setting Ventilator Respiratory Rate 10 Setting Actual Respiratory Rate 17 Actual Respiratory Rate 22 Actual Respiratory Rate 12 Actual Respiratory Rate 18 Actual Respiratory Rate 11 Actual Respiratory Rate 10 Actual Respiratory Rate 15 Actual Respiratory Rate 16 Actual Respiratory Rate 15 Actual Respiratory Rate 12 Positive End Expiratory 5 Pressure Positive End Expiratory 5 Pressure Positive End Expiratory 5 Pressure Positive End Expiratory 5 Pressure Positive End Expiratory 5 Pressure Positive End Expiratory 5 Pressure Positive End Expiratory 5 Pressure Positive End Expiratory 5 Pressure Positive End Expiratory 5 Pressure Positive End Expiratory 5 Pressure Positive End Expiratory 5 Pressure Peak Inspiratory Airway 33 Pressure Peak Inspiratory Airway 35 Pressure Peak Inspiratory Airway 37 Pressure Peak Inspiratory Airway 36 Pressure Peak Inspiratory Airway 36 Pressure Peak Inspiratory Airway 35 Pressure Peak Inspiratory Airway 38 Pressure Peak Inspiratory Airway 36 Pressure Peak Inspiratory Airway 38 Pressure Peak Inspiratory Airway 34 Pressure Results - Laboratory Findings CBC and BMP: 10/08/18 04:30 10/08/18 04:30 ABG ABG pH 7.53 pH Units (7.32-7.45) H 10/08/18 03:32 ABG pCO2 24 mmHg (35-45) L 10/08/18 03:32 ABG pO2 181 mmHg (85-104) H 10/08/18 03:32 ABG O2 Saturation 100 % (95-98) H 10/08/18 03:32 Abnormal lab findings: Abnormal lab results WBC 23.1 K/mcL (4.3-11.1) H D 10/08/18 04:30 RBC 2.62 M/mcL (3.82-4.97) L 10/08/18 04:30 Hgb 8.0 g/dL (11.5-15.4) L 10/08/18 04:30 Hct 26.0 % (35.3-44.9) L 10/08/18 04:30 MCHC 30.8 g/dL (31.6-35.5) L 10/08/18 04:30 RDW 16.1 % (11.5-14.5) H 10/08/18 04:30 Plt Count 465 K/mcL (140-400) H 10/08/18 04:30 Band Neutrophils % 8.0 % (0-4) H 10/06/18 09:35 Metamyelocytes % 2.0 % (0) H 10/05/18 04:00 Myelocytes % 2.0 % (0) H 10/05/18 04:00 Neutrophils # 19.5 K/mcL (1.6-8.9) H 10/08/18 04:30 Monocytes # 1.7 K/mcL (0.0-1.3) H 10/08/18 04:30 Nucleated RBCs/100 WBC 0.1 /100 WBC (0) H 10/03/18 04:15 Large Platelets Present (Not Present) A 09/30/18 03:41 ABG pH 7.53 pH Units (7.32-7.45) H 10/08/18 03:32 ABG pCO2 24 mmHg (35-45) L 10/08/18 03:32 ABG pO2 181 mmHg (85-104) H 10/08/18 03:32 ABG HCO3 20 mEq/L (21-27) L 10/08/18 03:32 ABG O2 Saturation 100 % (95-98) H 10/08/18 03:32 BUN 30 mg/dL (8-23) H 10/08/18 04:30 BUN/Creatinine Ratio 39 (6-26) H 10/08/18 04:30 Glucose 113 mg/dL (70-105) H 10/08/18 04:30 Venous Ioniz Calcium 1.11 mmol/L (1.15-1.35) L 10/08/18 04:57 Phosphorus 4.6 mg/dL (2.7-4.5) H 10/08/18 04:30 Total Bilirubin 0.2 mg/dL (0.3-1.0) L 10/03/18 04:15 AST 8 Units/L (13-39) L 10/03/18 04:15 Troponin I 0.14 ng/mL (< 0.04) H* 09/28/18 19:37 B-Natriuretic Peptide 518 pg/mL (Less than 100) H 09/28/18 04:00 Serum Total Protein 5.4 g/dL (6.4-8.9) L 10/03/18 04:15 Albumin 2.2 g/dL (3.5-5.7) L 10/04/18 Unknown Albumin/Globulin Ratio 0.7 (1.1-2.2) L 10/03/18 04:15 TSH 5.713 mcIU/mL (0.340-5.600) H 09/28/18 04:00 Free T3 2.26 pg/mL (2.50-3.90) L 09/28/18 10:50 Nasal Screen MRSA (PCR) Positive (Negative) A 09/28/18 08:00 Vancomycin Trough 19 mcg/mL (5-10) H 10/08/18 04:30 - Clinical Findings Intake & Output: Intake & Output 10/07/18 10/08/18 10/08/18 23:59 07:59 15:59 Intake Total 100 / 100 100 / 100 Output Total 1050 / 1050 150 / 150 Balance -950 / -950 -50 / -50 Weight 57.9 kg - Attending Attestation I examined this patient and my medical decision-making was reviewed with the Resident Physician. I agree with the documented findings, disposition and treatment plan as described except to the extent set forth below. Patient seen and examined. Labs, radiology, chart personally reviewed. Agree with resident's history and physical, assessment, plan with following comments: FIRST ASSISTANT MANAGER: Patient doesn't follows commands, Pulmonary: Acceptable oxygenation and ventilation. Changed vent setting and at this time patient unfortunately failed her tenuous breathing trial in the past as well as extubation and prognosis extremely poor and will need trach and PEG. However before that due to poor prognosis during the multidisciplinary around we will agreed to have one more discussion with the family especially son regarding this plan which may not be out of the best interest of patient and subsequently family meeting was done and CODE STATUS was changed appropriately and my mind to comfort care. Cardiovascular: Blood pressure Fluctuating and sometimes she will need chemotherapy effect which I suspect related to underlying Lung disease. GI: Nutrition per dietary and GI prophylaxis per routine Heme: DVT prophylaxis per routine ID: Continue antibiotics and plan to de-escalation Renal; urine out put and renal funtion reviewed Endorcine: blood glucose is monitored Lines: all lines checked and no evidence of infections Skin: skin care to prevent pressure ulcers per nursing routine care I spent 35 min of Critical Care time with this patient. It involved decision making of high complexity to assess, manipulate, and support vital organ system failure and/or to prevent further life threatening deterioration of the patient's condition. The time involved in the performance of separately reportable procedures was not counted toward critical care time.
[2018-10-08] MEDS: Chlorhexidine Rinse 15 ML MOUTHWASH MM SCH (08:47)
[2018-10-08] MEDS: Pantoprazole 40 MG VIAL IVP SCH (08:47)
[2018-10-08] MEDS: Nystatin Cream 15 GM TUBE TP SCH ×2 (08:48→21:58)
[2018-10-08] MEDS ORDERED: MethylPREDNISolone 40 MG/ML VIAL IVP SCH (09:00)
[2018-10-08] MEDS ORDERED: Aminoglycoside Consult 1 EACH MC ONE (11:48)
[2018-10-08] MEDS ORDERED: *HR* Metoprolol 5 MG/5 ML VIAL IVP SCH (12:00)
[2018-10-08 12:01] LABS: ABG Base Excess -1 mEq/L (-2 to 3); ABG HCO3 24 mEq/L (21-27); ABG Oxygen Saturation 96 % (95-98); ABG PCO2 42 mmHg (35-45); ABG PH 7.37 pH Units (7.32-7.45); ABG PO2 84 mmHg (85-104); ABG TCO2 25 mEq/L (20-26); Blood Gas Modality VC; Blood Gas PEEP 5 cm H2O; Blood Gas Respiration Rate 10; Blood Gas VT 400 cc
[2018-10-08] MEDS ORDERED: *HR* LORazepam 2 MG/ML VIAL IVP PRN (12:45)
[2018-10-08] MEDS ORDERED: *HR* Morphine 2 MG/ML SYRINGE IVP PRN (12:47)
[2018-10-08] MEDS ORDERED: 0.9 % Sodium Chloride 500 ML ONE (14:21)
--- NOTE | 2018-10-08 16:11 | Palliative Progress Note ---
Date of Encounter: 10/08/18 Time of Encounter: 12:50 - Assessment and plan (1) Dyspnea Current Visit: Yes Status: Acute Assessment and plan: Compassionate extubation with family ready. Will provide oxygen per nasal cannula, and add low dose IV Morphine as needed for air hunger. MOnitor and titrate as needed. Qualifiers: Dyspnea type: acute respiratory distress Qualified Code(s): R06.03 - Acute respiratory distress (2) Generalized pain Current Visit: Yes Status: Acute Assessment and plan: Continue Fentanyl drip for pain (3) Anxiety Current Visit: Yes Status: Acute Assessment and plan: Propofol will be discontinued prior to extubation, will continue precedex for now, and begin Lorazepam PRN. When ready to transfer out of ICU, will D/C precedex and maintain Lorazepam. Titrate as needed for comfort. (4) Goals of care, counseling/discussion Current Visit: Yes Status: Acute Assessment and plan: Patient son Dominick (POA) arrived to hospital, at this time, patient was awake and agitated, but able to communicate some with him. He stated that he asked his mother if she wanted to have tracheostomy, and he stated that she shook her head "no". Patient's sister, Valeri is alternate POA, did also arrive at hospital. Supervisor [employer] Santhosh Salazar and I met with them. Dominick was very emotional, but stated that he really felt pt was trying to express to him she did not want trach, and knowing what this would do to her quality of life, he does not think that she would want this either. Sister Valeri agrees that she would not want to have life prolonging measures, if it were likely she would have to reside in facility. Emotional support given. Code status transitioned to DNRCC and patient will be compassionately extubated when other family members arrive. We did discuss hospice briefly, however, will reevaluate patient tomorrow after she is extubated and if she is stable. Dominick did take care of his father with hospice at home a few years back, but he only survived a few days. Palliative will f/u tomorrow. (5) Respiratory failure Current Visit: Yes Status: Acute Qualifiers: Chronicity: acute on chronic Respiratory failure complication: hypoxia and hypercapnia Qualified Code(s): J96.21 - Acute and chronic respiratory failure with hypoxia; J96.22 - Acute and chronic respiratory failure with hypercapnia (6) COPD (chronic obstructive pulmonary disease) Current Visit: Yes Status: Chronic Qualifiers: Qualified Code(s): J44.9 - Chronic obstructive pulmonary disease, unspecified (7) MRSA pneumonia Current Visit: No Status: Resolved Qualifiers: Laterality: bilateral Lung location: unspecified part of lung Qualified Code(s): J15.212 - Pneumonia due to Methicillin resistant Staphylococcus aureus (8) Pneumothorax Current Visit: Yes Status: Resolved Qualifiers: Pneumothorax type: unspecified pneumothorax Qualified Code(s): J93.9 - Pneumothorax, unspecified - Time Spent With Patient Total time spent is greater than 50% in coordination of care (as documented) at patient's floor/unit and/or counseling patient: - Subjective Interval history: Overnight event reviewed, patient with unresponsiveness and had to be reintubated during the night. Family was called and notified. Has required Levophed today for hypotension. Very anxious and agitated when sedation lowered. Increasing leukocytosis to 23.1, hgb 8.0. - Constitutional Vitals: Abnormal lab results WBC 23.1 K/mcL (4.3-11.1) H D 10/08/18 04:30 RBC 2.62 M/mcL (3.82-4.97) L 10/08/18 04:30 Hgb 8.0 g/dL (11.5-15.4) L 10/08/18 04:30 Hct 26.0 % (35.3-44.9) L 10/08/18 04:30 MCHC 30.8 g/dL (31.6-35.5) L 10/08/18 04:30 RDW 16.1 % (11.5-14.5) H 10/08/18 04:30 Plt Count 465 K/mcL (140-400) H 10/08/18 04:30 Band Neutrophils % 8.0 % (0-4) H 10/06/18 09:35 Metamyelocytes % 2.0 % (0) H 10/05/18 04:00 Myelocytes % 2.0 % (0) H 10/05/18 04:00 Neutrophils # 19.5 K/mcL (1.6-8.9) H 10/08/18 04:30 Monocytes # 1.7 K/mcL (0.0-1.3) H 10/08/18 04:30 Nucleated RBCs/100 WBC 0.1 /100 WBC (0) H 10/03/18 04:15 Large Platelets Present (Not Present) A 09/30/18 03:41 ABG pO2 84 mmHg (85-104) L 10/08/18 11:57 BUN 30 mg/dL (8-23) H 10/08/18 04:30 BUN/Creatinine Ratio 39 (6-26) H 10/08/18 04:30 Glucose 113 mg/dL (70-105) H 10/08/18 04:30 Venous Ioniz Calcium 1.11 mmol/L (1.15-1.35) L 10/08/18 04:57 Phosphorus 4.6 mg/dL (2.7-4.5) H 10/08/18 04:30 Total Bilirubin 0.2 mg/dL (0.3-1.0) L 10/03/18 04:15 AST 8 Units/L (13-39) L 10/03/18 04:15 Troponin I 0.14 ng/mL (< 0.04) H* 09/28/18 19:37 B-Natriuretic Peptide 518 pg/mL (Less than 100) H 09/28/18 04:00 Serum Total Protein 5.4 g/dL (6.4-8.9) L 10/03/18 04:15 Albumin 2.2 g/dL (3.5-5.7) L 10/04/18 Unknown Albumin/Globulin Ratio 0.7 (1.1-2.2) L 10/03/18 04:15 TSH 5.713 mcIU/mL (0.340-5.600) H 09/28/18 04:00 Free T3 2.26 pg/mL (2.50-3.90) L 09/28/18 10:50 Nasal Screen MRSA (PCR) Positive (Negative) A 09/28/18 08:00 Vancomycin Trough 19 mcg/mL (5-10) H 10/08/18 04:30 General appearance: Present: mild distress - Respiratory Respiratory exam: Present: decreased breath sounds, wheezes - Cardiovascular Cardiovascular exam: Present: +S1, +S2 - GI/Abdominal GI/Abdominal exam: Present: normal bowel sounds, soft - Extremities Exam Extremities exam: Present: normal capillary refill Additional comments: Upper extremities edematous and very cool to touch. Bilateral lower extremities cool to touch. - Neurological Exam Additional comments: Sedated on vent - Skin Skin exam: Present: dry, pallor Palliative Quality Palliative Quality: Screen for Code Status: Yes, Screen for Goals of Care: Yes, Screen for Pain: Yes, If Pain Regimen Started, Initiate Bowel Regimen: NA, Scr een for Nausea/Vomitting: Yes Code Status: 09/28/18 19:56 CODE [Resuscitation Status: Active] [RES] Routine Comment: Resuscitation Status: Full Code 10/08/18 12:37 DNR [Resuscitation Status: Active] [RES] Routine Comment: Resuscitation Status: DNR-Comfort Care - Labs CBC & Chem 7: 10/08/18 04:30 10/08/18 04:30 Labs: Laboratory Results - last 24 hr 10/07/18 10/07/18 10/07/18 06:32 11:46 15:40 WBC RBC Hgb Hct MCV MCH MCHC RDW Plt Count MPV Immature Gran % Seg Neutrophils % Lymphocytes % Monocytes % Eosinophils % Basophils % Neutrophils # Lymphocytes # Monocytes # Eosinophils # Basophils # Sample Site ABG pH ABG pCO2 ABG pO2 ABG HCO3 ABG Total CO2 ABG O2 Saturation ABG Base Excess Robert Test Respiration Rate O2 Delivery Device Blood Gas Modality Inspired O2 Tidal Volume PEEP Sodium Potassium 4.3 D Chloride Carbon Dioxide BUN Creatinine Est GFR ( Amer) Est GFR (Non-Af Amer) BUN/Creatinine Ratio Glucose POC Glucose 142 H 123 H Calculated Osmolality Calcium Venous Ioniz Calcium Phosphorus Magnesium 2.1 Vancomycin Trough 10/07/18 10/07/18 10/08/18 17:29 23:19 03:32 WBC RBC Hgb Hct MCV MCH MCHC RDW Plt Count MPV Immature Gran % Seg Neutrophils % Lymphocytes % Monocytes % Eosinophils % Basophils % Neutrophils # Lymphocytes # Monocytes # Eosinophils # Basophils # Sample Site L Radial ABG pH 7.53 H ABG pCO2 24 L ABG pO2 181 H ABG HCO3 20 L ABG Total CO2 21 ABG O2 Saturation 100 H ABG Base Excess -2 Robert Test Positive Respiration Rate 10 O2 Delivery Device Adult Vent Blood Gas Modality ASSIST CONTROL Inspired O2 40.0 Tidal Volume 450 PEEP 5 Sodium Potassium Chloride Carbon Dioxide BUN Creatinine Est GFR ( Amer) Est GFR (Non-Af Amer) BUN/Creatinine Ratio Glucose POC Glucose 92 90 Calculated Osmolality Calcium Venous Ioniz Calcium Phosphorus Magnesium Vancomycin Trough 10/08/18 10/08/18 10/08/18 04:30 04:30 04:30 WBC 23.1 H D RBC 2.62 L Hgb 8.0 L Hct 26.0 L MCV 99.2 MCH 30.5 MCHC 30.8 L RDW 16.1 H Plt Count 465 H MPV 10.1 Immature Gran % 3.7 Seg Neutrophils % 84.2 Lymphocytes % 3.4 Monocytes % 7.5 Eosinophils % 0.7 Basophils % 0.5 Neutrophils # 19.5 H Lymphocytes # 0.8 Monocytes # 1.7 H Eosinophils # 0.2 Basophils # 0.1 Sample Site ABG pH ABG pCO2 ABG pO2 ABG HCO3 ABG Total CO2 ABG O2 Saturation ABG Base Excess Robert Test Respiration Rate O2 Delivery Device Blood Gas Modality Inspired O2 Tidal Volume PEEP Sodium 139 Potassium 3.9 Chloride 102 Carbon Dioxide 24 BUN 30 H Creatinine 0.77 Est GFR ( Amer) > 60 Est GFR (Non-Af Amer) > 60 BUN/Creatinine Ratio 39 H Glucose 113 H POC Glucose Calculated Osmolality 295 Calcium 8.6 Venous Ioniz Calcium Phosphorus Magnesium Vancomycin Trough 19 H 10/08/18 10/08/18 10/08/18 04:30 04:57 11:57 WBC RBC Hgb Hct MCV MCH MCHC RDW Plt Count MPV Immature Gran % Seg Neutrophils % Lymphocytes % Monocytes % Eosinophils % Basophils % Neutrophils # Lymphocytes # Monocytes # Eosinophils # Basophils # Sample Site Art Line ABG pH 7.37 ABG pCO2 42 ABG pO2 84 L ABG HCO3 24 ABG Total CO2 25 ABG O2 Saturation 96 ABG Base Excess -1 Robert Test N/A Respiration Rate 10 O2 Delivery Device Adult Vent Blood Gas Modality VC Inspired O2 40.0 Tidal Volume 400 PEEP 5 Sodium Potassium Chloride Carbon Dioxide BUN Creatinine Est GFR ( Amer) Est GFR (Non-Af Amer) BUN/Creatinine Ratio Glucose POC Glucose Calculated Osmolality Calcium Venous Ioniz Calcium 1.11 L Phosphorus 4.6 H Magnesium 2.2 Vancomycin Trough - Impressions Impressions Chest X-Ray 10/08/18 01:53 IMPRESSION: Appropriate endotracheal tube positioning. Esophagogastric tube coils over the lower mediastinum, possibly in a hiatal hernia or esophagus. Consider repositioning/advancing. Small bilateral effusions with heterogeneous opacities bilaterally, some of which represent atelectasis whereas other areas are more patchy and nodular in appearance. D/ / Nick Sánchez / Nick Sánchez Interpreting Provider: Nick Sánchez - ABG Interpretation ABG results: ABG ABG pH 7.37 pH Units (7.32-7.45) 10/08/18 11:57 ABG pCO2 42 mmHg (35-45) 10/08/18 11:57 ABG pO2 84 mmHg (85-104) L 10/08/18 11:57 ABG O2 Saturation 96 % (95-98) 10/08/18 11:57 Palliative Scale - Palliative Performance Scale How ambulatory is this patient?: Totally bed bound What is patient's level of activity and evidence of disease?: Unable to do any activity, Extensive disease How much self-care assistance does patient require?: Total care How much oral intake does the patient have?: Mouth care only What is this patient's level of consciousness?: Drowsy or coma with or without confusion Palliative Performance Score: 10 % Consult Discharge Plan - Plan Referrals: NONE,PCP [Primary Care Provider] -
[2018-10-08] MEDS ORDERED: Atropine 1% Opth Drops 100 DROP/5 ML BOTTLE SL PRN ×2 (16:23→16:38)
[2018-10-08] MEDS ORDERED: Artificial Tears SOLN 15 ML BOTTLE BOTH EYES PRN (16:38)
[2018-10-08] MEDS ORDERED: FentaNYL (PF) 2,500 MCG in EMPTY BAG 1 EACH IVC SCH (16:38)
[2018-10-08] MEDS ORDERED: FentaNYL (PF) 1,000 MCG in 0.9 % Sodium Chloride 80 ML IVC SCH (17:00)
[2018-10-09] MEDS: Docusate Oral Soln 100 MG/10 ML UDC PO SCH (01:53)
[2018-10-09] MEDS: Artificial Tears SOLN 15 ML BOTTLE BOTH EYES SCH (01:54)
[2018-10-09] MEDS: Nystatin Cream 15 GM TUBE TP SCH ×2 (01:54→08:15)
[2018-10-09] MEDS: *HR* LORazepam 2 MG/ML VIAL IVP PRN ×2 (02:46→08:25)
[2018-10-09] MEDS: *HR* Morphine 2 MG/ML SYRINGE IVP PRN ×2 (03:06→10:20)
[2018-10-09] MEDS: Levalbuterol Neb 1.25 MG/3 ML IH SCH ×2 (04:16→11:16)
[2018-10-09 07:00] VITALS: BP 132/70
[2018-10-09] MEDS ORDERED: *HR* Metoprolol 5 MG/5 ML VIAL IVP ONE (07:18)
[2018-10-09] MEDS ORDERED: MethylPREDNISolone 40 MG/ML VIAL IVP SCH (09:00)
[2018-10-09] MEDS ORDERED: Scopolamine Patch 1.5 MG PATCH.TD72 TD ONE (10:24)
--- NOTE | 2018-10-09 10:28 | Palliative Progress Note ---
Date of Encounter: 10/09/18 Time of Encounter: 10:25 - Assessment and plan (1) Dyspnea Current Visit: Yes Status: Acute Assessment and plan: Continue supportive oxygen, nebulizers, and IV Morphine - she has only had x1 last 24 hours, but tachypneic now and primary nurse getting ready to administer dose. Qualifiers: Dyspnea type: acute respiratory distress Qualified Code(s): R06.03 - Acute respiratory distress (2) Generalized pain Current Visit: Yes Status: Acute Assessment and plan: Fentanyl drip was increased to 50mcg last pm. Denies pain at present. (3) Anxiety Current Visit: Yes Status: Acute Assessment and plan: Continue Lorazepam PRN. Utilized x2 last 24 hours. (4) Goals of care, counseling/discussion Current Visit: Yes Status: Acute Assessment and plan: Spoke with Dominick, pt son, and Valeri, pt sister. She is in respiratory distress this am. Dominick was hopeful that since patient survived the night she was going to get better. Discussed that she is in resp distress with high respiratory and heart rate with accessory muscle use, and she will not be able to sustain this for a long period of time. Discussed using the medication to assist with her work of breathing and controlling her symptoms. Dominick agreed and acknowledged understanding. Discussed that she would be appropriate for inpatient hospice transition for symptom management. Dominick agrees. Referral called to [facility]. Dr. Rdz present for conversation and aware. She will be discharged and readmitted as [facility] hospice. (5) Respiratory failure Current Visit: Yes Status: Acute Qualifiers: Chronicity: acute on chronic Respiratory failure complication: hypoxia and hypercapnia Qualified Code(s): J96.21 - Acute and chronic respiratory failure with hypoxia; J96.22 - Acute and chronic respiratory failure with hypercapnia (6) COPD (chronic obstructive pulmonary disease) Current Visit: Yes Status: Chronic Qualifiers: Qualified Code(s): J44.9 - Chronic obstructive pulmonary disease, unspecified (7) MRSA pneumonia Current Visit: No Status: Resolved Qualifiers: Laterality: bilateral Lung location: unspecified part of lung Qualified Code(s): J15.212 - Pneumonia due to Methicillin resistant Staphylococcus aureus (8) Pneumothorax Current Visit: Yes Status: Resolved Qualifiers: Pneumothorax type: unspecified pneumothorax Qualified Code(s): J93.9 - Pneumothorax, unspecified - Time Spent With Patient Total time spent is greater than 50% in coordination of care (as documented) at patient's floor/unit and/or counseling patient: - Subjective Interval history: Patient alert this am, sister and son at bedside. She appears anxious, trying to speak but not understandable. RR 40's and accessory muscle use noted. Dr. Rdz - hospitalist in as well. - Constitutional Vitals: Abnormal lab results WBC 23.1 K/mcL (4.3-11.1) H D 10/08/18 04:30 RBC 2.62 M/mcL (3.82-4.97) L 10/08/18 04:30 Hgb 8.0 g/dL (11.5-15.4) L 10/08/18 04:30 Hct 26.0 % (35.3-44.9) L 10/08/18 04:30 MCHC 30.8 g/dL (31.6-35.5) L 10/08/18 04:30 RDW 16.1 % (11.5-14.5) H 10/08/18 04:30 Plt Count 465 K/mcL (140-400) H 10/08/18 04:30 Band Neutrophils % 8.0 % (0-4) H 10/06/18 09:35 Metamyelocytes % 2.0 % (0) H 10/05/18 04:00 Myelocytes % 2.0 % (0) H 10/05/18 04:00 Neutrophils # 19.5 K/mcL (1.6-8.9) H 10/08/18 04:30 Monocytes # 1.7 K/mcL (0.0-1.3) H 10/08/18 04:30 Nucleated RBCs/100 WBC 0.1 /100 WBC (0) H 10/03/18 04:15 Large Platelets Present (Not Present) A 09/30/18 03:41 ABG pO2 84 mmHg (85-104) L 10/08/18 11:57 BUN 30 mg/dL (8-23) H 10/08/18 04:30 BUN/Creatinine Ratio 39 (6-26) H 10/08/18 04:30 Glucose 113 mg/dL (70-105) H 10/08/18 04:30 Venous Ioniz Calcium 1.11 mmol/L (1.15-1.35) L 10/08/18 04:57 Phosphorus 4.6 mg/dL (2.7-4.5) H 10/08/18 04:30 Total Bilirubin 0.2 mg/dL (0.3-1.0) L 10/03/18 04:15 AST 8 Units/L (13-39) L 10/03/18 04:15 Troponin I 0.14 ng/mL (< 0.04) H* 09/28/18 19:37 B-Natriuretic Peptide 518 pg/mL (Less than 100) H 09/28/18 04:00 Serum Total Protein 5.4 g/dL (6.4-8.9) L 10/03/18 04:15 Albumin 2.2 g/dL (3.5-5.7) L 10/04/18 Unknown Albumin/Globulin Ratio 0.7 (1.1-2.2) L 10/03/18 04:15 TSH 5.713 mcIU/mL (0.340-5.600) H 09/28/18 04:00 Free T3 2.26 pg/mL (2.50-3.90) L 09/28/18 10:50 Nasal Screen MRSA (PCR) Positive (Negative) A 09/28/18 08:00 Vancomycin Trough 19 mcg/mL (5-10) H 10/08/18 04:30 General appearance: Present: severe distress - Respiratory Additional comments: Rhonchi noted throughout all lung blackburn. Upper airway congestion noted. P atient with weak cough. - Cardiovascular Cardiovascular exam: Present: irregular rhythm, tachycardia - GI/Abdominal GI/Abdominal exam: Present: normal bowel sounds, soft - Additional comments: Gatica with clear yellow urine - Extremities Exam Extremities exam: Present: normal capillary refill, normal inspection - Neurological Exam Neurological exam: Present: alert Additional comments: Awake, in respiratory distress, unable to follow commands at this time. - Skin Skin exam: Present: dry, pallor, warm Palliative Quality Palliative Quality: Screen for Code Status: Yes, Screen for Goals of Care: Yes, Screen for Pain: Yes, If Pain Regimen Started, Initiate Bowel Regimen: NA, Screen for Nausea/Vomitting: Yes Code Status: 09/28/18 19:56 CODE [Resuscitation Status: Active] [RES] Routine Comment: Resuscitation Status: Full Code 10/08/18 12:37 DNR [Resuscitation Status: Active] [RES] Routine Comment: Resuscitation Status: DNR-Comfort Care - Labs CBC & Chem 7: 10/08/18 04:30 10/08/18 04:30 Labs: Laboratory Results - last 24 hr 10/08/18 10/08/18 11:57 12:33 Sample Site Art Line ABG pH 7.37 ABG pCO2 42 ABG pO2 84 L ABG HCO3 24 ABG Total CO2 25 ABG O2 Saturation 96 ABG Base Excess -1 Robert Test N/A Respiration Rate 10 O2 Delivery Device Adult Vent Blood Gas Modality VC Inspired O2 40.0 Tidal Volume 400 PEEP 5 POC Glucose 93 - ABG Interpretation ABG results: ABG ABG pH 7.37 pH Units (7.32-7.45) 10/08/18 11:57 ABG pCO2 42 mmHg (35-45) 10/08/18 11:57 ABG pO2 84 mmHg (85-104) L 10/08/18 11:57 ABG O2 Saturation 96 % (95-98) 10/08/18 11:57 Palliative Scale - Palliative Performance Scale How ambulatory is this patient?: Totally bed bound What is patient's level of activity and evidence of disease?: Unable to do any activity, Extensive disease How much self-care assistance does patient require?: Total care How much oral intake does the patient have?: Mouth care only What is this patient's level of consciousness?: Drowsy or coma with or without c onfusion Palliative Performance Score: 10 % Consult Discharge Plan - Plan Referrals: NONE,PCP [Primary Care Provider] -
--- NOTE | 2018-10-09 10:57 | Discharge Summary ---
- NOTES TO OUTPATIENT PROVIDER Notes to Outpatient Provider: Patient discharged to inpatient hospice. Date of Encounter: 10/09/18 Time of Encounter: 10:55 - Discharge Diagnosis (1) BASSEM (acute kidney injury) Priority: Primary Status: Acute (2) Acute and chronic respiratory failure Priority: Primary Status: Acute Qualifiers: Respiratory failure complication: hypoxia Qualified Code(s): J96.21 - Acute and chronic respiratory failure with hypoxia (3) Anemia Priority: Secondary Status: Acute Qualifiers: Anemia type: unspecified type Qualified Code(s): D64.9 - Anemia, unspecified (4) Barotrauma mechanism Priority: Primary Status: Acute Qualifiers: Qualified Code(s): T70.29XD - Other effects of high altitude, subsequent encounter (5) COPD exacerbation Priority: Secondary Status: Acute (6) DVT prophylaxis Priority: Secondary Status: Acute (7) Elevated troponin I level Priority: Secondary Status: Acute (8) Hyperkalemia Priority: Secondary Status: Acute (9) Sepsis Priority: Secondary Status: Acute Qualifiers: Sepsis type: sepsis due to unspecified organism Qualified Code(s): A41.9 - Sepsis, unspecified organism (10) MRSA pneumonia Priority: Primary Status: Resolved Qualifiers: Laterality: bilateral Lung location: unspecified part of lung Qualified Code(s): J15.212 - Pneumonia due to Methicillin resistant Staphylococcus aureus (11) Pneumothorax Priority: Primary Status: Resolved Qualifiers: Pneumothorax type: unspecified pneumothorax Qualified Code(s): J93.9 - Pneumothorax, unspecified Hospital course: Ms. Alegria is a 78 year old female past history of COPD, hypertension, GERD who was admitted to the ER intubated due to hypoxia and failing BiPAP therapy. She was started on vancomycin and Zosyn and azithromycin and on mechanical ventilation. She was also found to have pneumothorax on the right and left and had chest tube placed before she came in to the hospital. She was started on steroids for COPD exacerbation. Cardiothoracic surgery was also consulted. Left acute was exchange due to air leak. Patient was found to have sepsis and was started on pressors to right IJ. Patient's sputum was found to have gram- positive cocci which later found to be MRSA. Patient was also found to have adrenal failure was started on hydrocortisone for support. Chest tube was managed with CT surgery. Patient was found to have elevated troponin secondary to demand ischemia. All chest tubes were removed by 10/06/18. Patient's pressors were gradually tapered off. Patient successfully extubated on 10/07/18. Palliative care consult was obtained to discuss goals of care are given likely need of PEG/trach. Patient was kept full code, but family was not sure. 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 After discussion with family patient was terminally extubated as per discussion with palliative care and patient was made comfort care subsequently. Patient was transferred to the floor. Patient continued to deteriorate while on the floor continued to be tachypneic/tachycardic. After discussion with family decided to make patient a hospice patient was subsequently discharged to inpatient hospice. Discharge discussed with: patient, family, nurse, senior energy consultant - Time Spent with Patient Total time spent providing and/or coordinating discharge services: Time spent: Greater than 30 minutes (40) - Discharge Medications Prescriptions: Discontinued Sucralfate [Carafate] 1 gm PO BID #30 tablet Pantoprazole Sodium 40 mg PO BID #1 tablet. Lactose-Reduced Food [Ensure Liquid] 120 ml PO DAILY Ascorbic Acid [Vitamin C] 500 mg PO BID Albuterol Neb [Proventil Neb] 2.5 mg IH [id number] PRN PRN Reason: COPD Metoprolol Succinate 100 mg PO DAILY Cevimeline HCl [Evoxac] 30 mg PO TID Calcium Carbonate/Vitamin D3 [Calcium 600-Vit D3 800 Tablet] 1 tab PO BID Losartan [Cozaar] 50 mg PO DAILY TraMADol [Ultram] 100 mg PO Q6HR PRN PRN Reason: Pain Iron Ps Complex/B12/Folic Acid [Iferex 150 Forte Capsule] 1 each PO BID amLODIPine [Norvasc] 10 mg PO DAILY Buspirone HCl [Buspar] 7.5 mg PO BID Ipratropium/Albuterol Neb [Duoneb] 3 ml IH [id number] inhsol Docusate [Colace] 100 mg PO BID capsule Sertraline [Zoloft] 50 mg PO DAILY tablet Polyethylene Glycol 3350 [MiraLAX] 17 gm PO DAILY powd.pack Cholecalciferol (D-3) [Vitamin D] 1,000 unit PO DAILY tablet No Action Sertraline [Zoloft] 50 mg PO DAILY Polyethylene Glycol 3350 [MiraLAX] 17 gm PO DAILY Cholecalciferol (D-3) [Vitamin D] 1,000 unit PO DAILY Ipratropium/Albuterol Neb [Duoneb] 3 ml IH Q6HR Docusate [Colace] 100 mg PO BID Buspirone HCl [Buspar] 7.5 mg PO BID amLODIPine [Norvasc] 10 mg PO DAILY Tramadol HCl [Ultram] 100 mg PO QID PRN PRN Reason: Pain Losartan [Cozaar] 50 mg PO DAILY Iron Ps Complex/B12/Folic Acid [Iferex 150 Forte Capsule] 1 each PO BID Calcium Carbonate/Vitamin D3 [Calcium 500 + Vit D Caplet] 1 each PO BID Cevimeline HCl [Evoxac] 30 mg PO TID Metoprolol Succinate [Toprol Xl] 100 mg PO DAILY Albuterol Neb [AccuNeb] 1.25 mg IH Q6H PRN PRN Reason: Shortness Of Breath/Wheezing Pantoprazole Sodium 40 mg PO BID Ascorbic Acid [C-500] 500 mg PO BID Sucralfate [Carafate] 1 gm PO 0730,1630 Home Medications: Albuterol Neb [AccuNeb] 1.25 mg IH Q6H PRN 10/09/18 [History] Ascorbic Acid [C-500] 500 mg PO BID 10/09/18 [History] Buspirone HCl [Buspar] 7.5 mg PO BID 10/09/18 [History] Calcium Carbonate/Vitamin D3 [Calcium 500 + Vit D Caplet] 1 each PO BID 10/09/18 [History] Cevimeline HCl [Evoxac] 30 mg PO TID 10/09/18 [History] Cholecalciferol (D-3) [Vitamin D] 1,000 unit PO DAILY 10/09/18 [History] Docusate [Colace] 100 mg PO BID 10/09/18 [History] Ipratropium/Albuterol Neb [Duoneb] 3 ml IH Q6HR 10/09/18 [History] Iron Ps Complex/B12/Folic Acid [Iferex 150 Forte Capsule] 1 each PO BID 10/09/18 [History] Losartan [Cozaar] 50 mg PO DAILY 10/09/18 [History] Metoprolol Succinate [Toprol Xl] 100 mg PO DAILY 10/09/18 [History] Pantoprazole Sodium 40 mg PO BID 10/09/18 [History] Polyethylene Glycol 3350 [MiraLAX] 17 gm PO DAILY 10/09/18 [History] Sertraline [Zoloft] 50 mg PO DAILY 10/09/18 [History] Sucralfate [Carafate] 1 gm PO 0730,1630 10/09/18 [History] Tramadol HCl [Ultram] 100 mg PO QID PRN 10/09/18 [History] amLODIPine [Norvasc] 10 mg PO DAILY 10/09/18 [History] Allergies/Adverse Reactions: Allergy/AdvReac Type Severity Reaction Status Date / Time ciprofloxacin [From Cipro] Allergy Hallucinati Verified 08/30/18 13:13 ng Date of admission: 09/28/18 03:45 Primary care physician: PCP NONE Consults: 09/28/18 07:22 Consult to Pulmonology [CONS] Routine Consulting Provider: [facility] [place] Reason for Consult: critical care management and vent Time Notified: 07:23 Call Completed: Yes 10/02/18 10:31 Consult to Palliative Care [CONS] Routine Comment: Consulting Provider: Palliative Care Kass[facility] Reason for Consult: Goals of Care - Hx of emphysema, Chronic Lung Disease on Ventilator Call Completed: Yes Discharging clinician: Maru Rdz - Constitutional Vitals: Temp Pulse Resp BP Pulse Ox 97.9 F 123 42 132/70 96 10/09/18 06:52 10/09/18 09:31 10/09/18 06:52 10/09/18 06:52 10/09/18 06:52 Exam: General: In respiratory distress. Respiratory exam: b/l rhochi and crackles. Using accessory muscle Cardiovascular exam: tachycardic, +S1, +S2. no murmur, gallop, rubs. GI/Abdominal exam: Non-tender, Non-distended, normal bowel sounds, soft, no peritoneal signs. Extremities exam:1+ pedal edema, Neurological exam: CN II-XII intact, awake and alert. not able to commands. Skin exam: pale - Patient Status Disposition: Hospice - Medical Facility Condition: Critical - Discharge Instructions Follow Up With: NONE,PCP [Primary Care Provider] -
--- NOTE | 2018-10-09 16:31 | Physician Discharge Referral ---
ExtendedCare Referral Info Transfer To: [facility] - Diagnosis (1) BASSEM (acute kidney injury) Status: Acute (2) Acute and chronic respiratory failure Status: Acute (3) Anemia Status: Acute (4) Barotrauma mechanism Status: Acute (5) COPD exacerbation Status: Acute (6) DVT prophylaxis Status: Acute (7) Elevated troponin I level Status: Acute (8) Hyperkalemia Status: Acute (9) Sepsis Status: Acute (10) MRSA pneumonia Status: Resolved (11) Pneumothorax Status: Resolved - Transfer Medications Home Medications: Albuterol Neb [AccuNeb] 1.25 mg IH Q6H PRN 10/09/18 [History] Ascorbic Acid [C-500] 500 mg PO BID 10/09/18 [History] Buspirone HCl [Buspar] 7.5 mg PO BID 10/09/18 [History] Calcium Carbonate/Vitamin D3 [Calcium 500 + Vit D Caplet] 1 each PO BID 10/09/18 [History] Cevimeline HCl [Evoxac] 30 mg PO TID 10/09/18 [History] Cholecalciferol (D-3) [Vitamin D] 1,000 unit PO DAILY 10/09/18 [History] Docusate [Colace] 100 mg PO BID 10/09/18 [History] Ipratropium/Albuterol Neb [Duoneb] 3 ml IH Q6HR 10/09/18 [History] Iron Ps Complex/B12/Folic Acid [Iferex 150 Forte Capsule] 1 each PO BID 10/09/18 [History] Losartan [Cozaar] 50 mg PO DAILY 10/09/18 [History] Metoprolol Succinate [Toprol Xl] 100 mg PO DAILY 10/09/18 [History] Pantoprazole Sodium 40 mg PO BID 10/09/18 [History] Polyethylene Glycol 3350 [MiraLAX] 17 gm PO DAILY 10/09/18 [History] Sertraline [Zoloft] 50 mg PO DAILY 10/09/18 [History] Sucralfate [Carafate] 1 gm PO 0730,1630 10/09/18 [History] Tramadol HCl [Ultram] 100 mg PO QID PRN 10/09/18 [History] amLODIPine [Norvasc] 10 mg PO DAILY 10/09/18 [History] Allergies/Adverse Reactions: Allergy/AdvReac Type Severity Reaction Status Date / Time ciprofloxacin [From Cipro] Allergy Hallucinati Verified 08/30/18 13:13 ng - Respiratory Orders Smoking Cessation: Smoking cessation has been advised. For more information, call the [place] Tobacco Quit Line at 9-830-RBJYNOW. CERTIFICATION: I certify that the transfer of the above named patient to an Extended Care Facility is necessary for the continuing treatment of the diagnosis listed. The above information is true and accurate reflection of patient's current condition. Confidential - Redisclosure prohibited without a patient's written consent.
[2018-10-11] MEDS ORDERED: MethylPREDNISolone 40 MG/ML VIAL IVP SCH ×2 (09:00)
== END 2018-10-09 11:49 | disposition hospice, inpatient (51) | DRG 870 ==
LOC: ICNU 03:45 → 2ANU 10-08 18:07
PROVIDERS: ADMIT Pediatrics; ATTEND Pediatrics